=== PATIENT | female | born 1950 | race Caucasian/White ===

== ENCOUNTER 2018-12-11 10:40 | Inpatient (IN) | payer MEDICARE, OTHER ==
[~2018-12-11] VITALS: Ht 160 cm; Wt 59.1 kg
[~2018-12-11 10:40] MED LIST: ADVAIR 250-501 EACH INH; CEFTIN500 MG PO; LISINOPRIL PO; NORCO 7.5-3251 EACH PO; PREDNISONE10 MG PO; SOMA350 MG PO; SPIRIVA18 MCG INH; VENTOLIN HFA18 GM; ZIAC 5-6.25 MG1 EACH PO; ZIAC PO
[2018-12-11] MEDS ORDERED: SODIUM CHLORIDE 0.9% 1000ML 1,000 ML IV STA (10:44)
--- OUTSIDE RECORDS SUMMARY | 2018-12-11 10:45 | XMS REPORT ---
Author [facility] Address Unknown Phone Unavailable Care Team Providers Care [place] Supervisor Name Role Phone Unavailable Unavailable Payers Payer Name Policy Type Policy Number Effective Date Expiration Date Problems This patient has no known problems. Allergies, Adverse Reactions, Alerts Allergy Name Allergy Type Status Severity Reaction(s) Onset Date Inactive Date Treating Clinician Comments guaifenesin DA Active U 2018-11-09 00:00:00 morphine DA Active MO 2018-11-09 00:00:00 meperidine DA Active MO 2018-11-09 00:00:00 moxifloxacin DA Active [place] 2018-11-09 00:00:00 guaifenesin DA Active U 2017-02-12 00:00:00 morphine DA Active MO 2017-02-12 00:00:00 meperidine DA Active MO 2017-02-12 00:00:00 moxifloxacin DA Active [place] 2017-02-12 00:00:00 Medications This patient has no known medications. Results Test Description Test Time Test Comments Text Results Atomic Results Result Comments LORAZEPAM 2018-11-26 10:13:00 LORAZEPAM (test code=MICHA) < 10.0 ng/mL 50.0-240.0 This test was developed and its performance characteristicsdetermined by [employer]. It has not been cleared or approvedby the Food and Drug Administration.Performed At: [facility] [address] [id number] [facility] Ph:[phone] - MRI ABDOMEN W/O [id number] 09:32:00 FAX: Hermann Nieto [phone] [facility]: B St: ADM FAX: Enrique Haddad MD [phone] Name: KATINA CRUZ [facility] : 1950 Age/S: 68/F [address] [facility] Unit #: [id number] Loc: [address] [address] Phys: Hermann Payne MD Acct: [id number] Dis Date: Status: ADM IN PHONE #: [phone] Exam Date: 11/23/2018920 FAX #: [phone] Reason: r/o CBD stone EXAMS: CPT CODE: [id number] MRI ABDOMEN W/O CONT 97988 TECHNIQUE: - MRI ABDOMEN W/O CONT . TAM RISON: CT abdomen and pelvis 02/25/2017 HISTORY: 68 years Fem yovana r/o CBD stone Liver: Fatty brett er. Intrahepatic Biliary Ducts: Intrahepatic bile ducts vi sualized without irregularity, dilatation or other abnormalities. Common Bile Duct (CBD): No dilatation, stenosis, cut off, or filling defects in CBD. No extrinsic compression. Gallbladder: The gallbladder is likely surgically absent. Pancreas and Pancreatic Duct: The pancreas is unremarkable without eviden ce of pancreatic mass or pancreatic edema. Normal in course and caliber wi thout dilatation, irregularity, or filling defects. Other St ructures: Screening images through upper abdomen demonstrate no signific ant abnormalities. Marrow signal is age appropriate. Lumbar spine f usion with artifact. IMPRESSION: Likely cholecys tectomy. The common bile duct is normal. PAGE 1 Signed Report (CONTINUED) FAX: Hermann Mercado [phone] [facility]: B St: ADM FAX: Enrique Haddad MD [phone] Name: KATINA CRUZ [facility] : 1950 Age/S: 68/F [address] [facility] Unit #: [id number] Loc: [facility] [place] [address] Phys: Hermann Payne MD A cct: [id number] Dis Date: Status: ADM IN PHONE #: [phone] Exam Date: 11/23/2018920 FAX #: [phone] Reason: r/o CBD stone EXAMS: CPT CODE: [id number] MRI ABDOMEN W/O CONT 60033 < Continued> at 0932 Reported and signed by: Jay Doshi M.D. CC: Hermann Payne MD; Enrique Hawk Technologist: MICHAEL ANNART - MRI Trnscrd Date/Time/By: 11/23/2018 (0959) : By: Rashi Childs Print D/T: S: 11/23/2018 (0967) PAGE 2 Signed Report HEPATIC FUNCTION [id number] 06:10:00* Test Item Value Reference Range Comments TOTAL PROTEIN (test code=PROT) 6.9 gram/dL 6.4-8.2 ALBUMIN (test code=ALB) 3.1 g/dL 3.4-5.0 GLOBULIN (test code=GLOB) 3.8 gram/dL 2.7-4.2 ALBUMIN/GLOBULIN RATIO (test code=A/G) 0.8 0.75-1.50 BILIRUBIN TOTAL (test code=BILT) 0.50 mg/dL 0.0-1.0 BILIRUBIN DIRECT (test code=BILD) < 0.05 mg/dL 0.0-0.20 SGOT/AST (test code=AST) 20 IUnit/L 15-37 SGPT/ALT (test code=ALT) 19 IUnit/L 12-78 ALKALINE PHOSPHATASE TOTAL (test code=ALKP) 163 IUnit/L 45-117 Note change in reference range due to change in reagent. COMPREHENSIVE METABOLIC [id number] 08:33:00* Test Item Value Reference Range Comments SODIUM (test code=NA) 131 mmol/L 136-145 POTASSIUM (test code=K) 3.6 mmol/L 3.5-5.1 CHLORIDE (test code=CL) 96.0 mmol/L 98-107 CARBON DIOXIDE (test code=CO2) 22.0 mmol/L 21-32 ANION GAP (test code=GAP) 16.6 10-20 GLUCOSE (test code=GLU) 88 mg/dL 74-106 BLOOD UREA NITROGEN (test code=BUN) 6 mg/dL 7-18 GLOMERULAR FILTRATION RATE (test code=GFR) > 60 mL/min >=60 Estimated GFR by using Modified MDRD formula.Chronic kidney disease is defined as either kidney damageor GFR <60 mL/min/1.73 m2 for >3 months. CREATININE (test code=CREAT) 0.40 mg/dL 0.55-1.02 Note change in reference range due to change in reagent. BUN/CREATININE RATIO (test code=BUN/CREA) 15.0 10-20 TOTAL PROTEIN (test code=PROT) 6.8 gram/dL 6.4-8.2 ALBUMIN (test code=ALB) 3.3 g/dL 3.4-5.0 GLOBULIN (test code=GLOB) 3.5 gram/dL 2.7-4.2 ALBUMIN/GLOBULIN RATIO (test code=A/G) 0.9 0.75-1.50 CALCIUM (test code=CA) 9.6 mg/dL 8.5-10.1 BILIRUBIN TOTAL (test code=BILT) 0.50 mg/dL 0.0-1.0 SGOT/AST (test code=AST) 18 IUnit/L 15-37 SGPT/ALT (test code=ALT) 19 IUnit/L 12-78 ALKALINE PHOSPHATASE TOTAL (test code=ALKP) 141 IUnit/L 45-117 Note change in reference range due to change in reagent. CBC W/AUTO [id number] 08:07:00* Test Item Value Reference Range Comments WHITE BLOOD CELL (test code=WBC) 8.6 K/mm3 4.5-12.5 RED BLOOD CELL (test code=RBC) 4.59 mill/mm3 3.7-5.2 HEMOGLOBIN (test code=HGB) 13.7 gram/dL 11.5-15.5 HEMATOCRIT (test code=HCT) 41.2 % 36.0-46.0 MEAN CELL VOLUME (test code=MCV) 89.8 fL 80-98 MEAN CELL HGB (test code=MCH) 29.8 picogram 27.0-33.0 MEAN CELL HGB CONCETRATION (test code=MCHC) 33.3 gram/dL 33.0-36.0 RED CELL DISTRIBUTION WIDTH (test code=RDW) 12.6 % 11.6-16.2 RED CELL DISTRIBUTION WIDTH SD (test code=RDW-SD) 41.4 fL 37.0-51.0 PLATELET COUNT (test code=PLT) 286 K/mm3 150-450 MEAN PLATELET VOLUME (test code=MPV) 9.5 fL 6.7-11.0 NEUTROPHIL % (test code=NT%) 71.3 % 39.0-69.0 IMMATURE GRANULOCYTE % (test code=IG%) 0.9 % 0.0-5.0 LYMPHOCYTE % (test code=LY%) 14.0 % 25.0-55.0 MONOCYTE % (test code=MO%) 11.4 % 0.0-10.0 EOSINOPHIL % (test code=EO%) 1.9 % 0.0-5.0 BASOPHIL % (test code=BA%) 0.5 % 0.0-1.0 NUCLEATED RBC % (test code=NRBC%) 0.0 % 0-0 NEUTROPHIL # (test code=NT#) 6.14 K/mm3 1.8-7.7 IMMATURE GRANULOCYTE # (test code=IG#) 0.08 x10 3/uL 0-0.03 LYMPHOCYTE # (test code=LY#) 1.20 K/mm3 1.0-5.0 MONOCYTE # (test code=MO#) 0.98 K/mm3 0-0.8 EOSINOPHIL # (test code=EO#) 0.16 K/mm3 0.0-0.5 BASOPHIL # (test code=BA#) 0.04 K/mm3 0.0-0.2 NUCLEATED RBC # (test code=NRBC#) 0.00 K/mm3 0.0-0.1 MANUAL DIFF REQUIRED (test code=MDIFF) NO BASIC METABOLIC [id number] 07:21:00* Test Item Value Reference Range Comments SODIUM (test code=NA) 138 mmol/L 136-145 POTASSIUM (test code=K) 3.0 mmol/L 3.5-5.1 CHLORIDE (test code=CL) mmol/L 98-107 CARBON DIOXIDE (test code=CO2) mmol/L 21-32 ANION GAP (test code=GAP) 10-20 GLUCOSE (test code=GLU) mg/dL 74-106 BLOOD UREA NITROGEN (test code=BUN) mg/dL 7-18 GLOMERULAR FILTRATION RATE (test code=GFR) mL/min >=60 CREATININE (test code=CREAT) mg/dL 0.55-1.02 BUN/CREATININE RATIO (test code=BUN/CREA) 10-20 CALCIUM (test code=CA) mg/dL 8.5-10.1 BASIC METABOLIC [id number] 07:21:00* Test Item Value Reference Range Comments SODIUM (test code=NA) 138 mmol/L 136-145 POTASSIUM (test code=K) 3.0 mmol/L 3.5-5.1 CHLORIDE (test code=CL) 96.0 mmol/L 98-107 CARBON DIOXIDE (test code=CO2) 26.0 mmol/L 21-32 ANION GAP (test code=GAP) 19.0 10-20 GLUCOSE (test code=GLU) 91 mg/dL 74-106 BLOOD UREA NITROGEN (test code=BUN) 6 mg/dL 7-18 GLOMERULAR FILTRATION RATE (test code=GFR) > 60 mL/min >=60 Estimated GFR by using Modified MDRD formula.Chronic kidney disease is defined as either kidney damageor GFR <60 mL/min/1.73 m2 for >3 months. CREATININE (test code=CREAT) 0.40 mg/dL 0.55-1.02 Note change in reference range due to change in reagent. BUN/CREATININE RATIO (test code=BUN/CREA) 15.0 10-20 CALCIUM (test code=CA) 9.3 mg/dL 8.5-10.1 CBC W/AUTO [id number] 06:57:00* Test Item Value Reference Range Comments WHITE BLOOD CELL (test code=WBC) 8.4 K/mm3 4.5-12.5 RED BLOOD CELL (test code=RBC) 4.10 mill/mm3 3.7-5.2 HEMOGLOBIN (test code=HGB) 12.4 gram/dL 11.5-15.5 HEMATOCRIT (test code=HCT) 36.2 % 36.0-46.0 MEAN CELL VOLUME (test code=MCV) 88.3 fL 80-98 MEAN CELL HGB (test code=MCH) 30.2 picogram 27.0-33.0 MEAN CELL HGB CONCETRATION (test code=MCHC) 34.3 gram/dL 33.0-36.0 RED CELL DISTRIBUTION WIDTH (test code=RDW) 12.5 % 11.6-16.2 RED CELL DISTRIBUTION WIDTH SD (test code=RDW-SD) 40.3 fL 37.0-51.0 PLATELET COUNT (test code=PLT) 237 K/mm3 150-450 MEAN PLATELET VOLUME (test code=MPV) 9.7 fL 6.7-11.0 NEUTROPHIL % (test code=NT%) 71.4 % 39.0-69.0 IMMATURE GRANULOCYTE % (test code=IG%) 0.7 % 0.0-5.0 LYMPHOCYTE % (test code=LY%) 10.5 % 25.0-55.0 MONOCYTE % (test code=MO%) 14.6 % 0.0-10.0 EOSINOPHIL % (test code=EO%) 2.3 % 0.0-5.0 BASOPHIL % (test code=BA%) 0.5 % 0.0-1.0 NUCLEATED RBC % (test code=NRBC%) 0.0 % 0-0 NEUTROPHIL # (test code=NT#) 6.01 K/mm3 1.8-7.7 IMMATURE GRANULOCYTE # (test code=IG#) 0.06 x10 3/uL 0-0.03 LYMPHOCYTE # (test code=LY#) 0.88 K/mm3 1.0-5.0 MONOCYTE # (test code=MO#) 1.23 K/mm3 0-0.8 EOSINOPHIL # (test code=EO#) 0.19 K/mm3 0.0-0.5 BASOPHIL # (test code=BA#) 0.04 K/mm3 0.0-0.2 NUCLEATED RBC # (test code=NRBC#) 0.00 K/mm3 0.0-0.1 MANUAL DIFF REQUIRED (test code=MDIFF) NO GASTRIC,[id number] 15:37:00 RUN DATE: 11/19/18 [facility] - Lab PAGE 1 RUN TIME: 1537 Specimen Inqui ry RUN USER: INTERFACE PATIENT: KATINA CRUZ ACCT #: [id number] [facility] U #: [id number] AGE/SX: 68/F ROOM: [facility] RE11/10/18OLE DR: Enrique Hawk MD : 48 BED: A DIS: STATUS: ADM IN TLOC: SPEC #: [id number] RECD: 11/17/18 STATUS: SOUT REQ #: [id number] MANPREET: 11/17/[address] [facility] [address]: Enrique Hawk ENTERED: 11/17/18 SP TYPE: GASTRIC BX OTHR DR: Hermann Davison i, MD ORDERED: GROSS COPIES TO: Hermann Payne MD [address], [address] [place] [id number] Enrique Hawk MD [address] [facility] [address] [place] [address] PROCEDURES: GROSS (11/03 12/22-1237) TISSUES: 1. ANTRUM - BX 2. ESOPHAGUS, NOS - BX CLINICAL HISTORY COLLECTION DATE: 11/17/2018 ABDOMINAL PAIN; NAUSEA; VOMITING POST-OP DIAGNOSIS: REFLUX; GASTRITIS; HIATAL HERNIA FINAL DIAGNOSIS Gastric antrum, biopsy: ACUTE GASTRITIS WITH REACTIVE/REGENE RATIVE EPITHELIAL CHANGE NEGATIVE FOR INTESTINAL METAPLASIA NEGAT VIOLETA FOR HELICOBACTER ORGANISMS NEGATIVE FOR MALIGNANCY Esophagus, b iopsy: SQUAMOUS MUCOSA WITH MILD ELONGATION OF SQUAMOUS PAPILLAE, BASAL C ELL HYPERPLASIA AND FEW INTRAEPITHELIAL LYMPHOCYTES NO INCREASED NUMBER OF INTRAEPITHELIAL EOSINOPHILS MINUTE AREA OF GASTRIC-TYPE GLANDU LAR MUCOSA WITH MODERATE CHRONIC INFLAMMATION AND FOCAL ACUTE INFLAMMAT ION NO GOBLET CELL METAPLASIA PRESENT NEGATIVE FOR HIGH GRADE DYSP LASIA AND MALIGNANCY REFLUX ESOPHAGITIS CONTINUED ON NEXT PAGE RUN DATE: 11/19/18 [facility] PAGE 2 RUN TIME: 1537 Specimen Inquiry RUN USER: INTERFACE SPEC #: [id number] PATIENT: CHRISTIANA CRUZH DIXIE #[id number] (Continued)--------- --- FINAL DIAGNOSIS (Continued) GRAHAM/vikas D 2)15226, 41720 MACROSCOPIC The first specimen is received in formal in, labeled with the patient's name, identified as "antrum biopsy", and consis ts of two biopsy fragments measuring 0.2 and 0.3 cm, submitted as (1). An H E and giemsa stain will be prepared. The second specimen is received in for dean, labeled with the patient's name, identified as "esophagus biopsy", and consists of two white biopsy fragments measuring 0.3 cm each, submitted as (2) . GROSS PERFORMED AT [facility] [address] [place] [address] [phone] MICROSCOPIC All of the stains, including any controls performed, stain appropriately. MICROSCOPIC PERFORMED AT [facility] [address] [place] [address] [phone] PERFORMING SITE Diagnosis performed at: [facility], [address] [address] Signed SIGNATURE ON FILE Davis Flaherty MD 11/19/18 1537 END OF REPORT BASIC METABOLIC PANEL 2018-11-18 07:59:00* Test Item Value Reference Range Comments SODIUM (test code=NA) 130 mmol/L 136-145 POTASSIUM (test code=K) 3.4 mmol/L 3.5-5.1 CHLORIDE (test code=CL) 96.0 mmol/L 98-107 CARBON DIOXIDE (test code=CO2) 26.0 mmol/L 21-32 ANION GAP (test code=GAP) 10-20 GLUCOSE (test code=GLU) 93 mg/dL 74-106 BLOOD UREA NITROGEN (test code=BUN) 10 mg/dL 7-18 GLOMERULAR FILTRATION RATE (test code=GFR) > 60 mL/min >=60 Estimated GFR by using Modified MDRD formula.Chronic kidney disease is defined as either kidney damageor GFR <60 mL/min/1.73 m2 for >3 months. CREATININE (test code=CREAT) 0.50 mg/dL 0.55-1.02 Note change in reference range due to change in reagent. BUN/CREATININE RATIO (test code=BUN/CREA) 20.0 10-20 CALCIUM (test code=CA) 9.4 mg/dL 8.5-10.1 BASIC METABOLIC [id number] 07:59:00* Test Item Value Reference Range Comments SODIUM (test code=NA) 130 mmol/L 136-145 POTASSIUM (test code=K) 3.4 mmol/L 3.5-5.1 CHLORIDE (test code=CL) 96.0 mmol/L 98-107 CARBON DIOXIDE (test code=CO2) 26.0 mmol/L 21-32 Previously reported result: 26.0 mmol/LEdited by: [email or web address] on 11/18/18:0759 ANION GAP (test code=GAP) 11.4 10-20 GLUCOSE (test code=GLU) 93 mg/dL 74-106 BLOOD UREA NITROGEN (test code=BUN) 10 mg/dL 7-18 GLOMERULAR FILTRATION RATE (test code=GFR) > 60 mL/min >=60 Estimated GFR by using Modified MDRD formula.Chronic kidney disease is defined as either kidney damageor GFR <60 mL/min/1.73 m2 for >3 months. CREATININE (test code=CREAT) 0.50 mg/dL 0.55-1.02 Note change in reference range due to change in reagent. BUN/CREATININE RATIO (test code=BUN/CREA) 20.0 10-20 CALCIUM (test code=CA) 9.4 mg/dL 8.5-10.1 BASIC METABOLIC [id number] 07:58:00* Test Item Value Reference Range Comments SODIUM (test code=NA) 130 mmol/L 136-145 POTASSIUM (test code=K) 3.4 mmol/L 3.5-5.1 CHLORIDE (test code=CL) 96.0 mmol/L 98-107 CARBON DIOXIDE (test code=CO2) mmol/L 21-32 ANION GAP (test code=GAP) 10-20 GLUCOSE (test code=GLU) mg/dL 74-106 BLOOD UREA NITROGEN (test code=BUN) mg/dL 7-18 GLOMERULAR FILTRATION RATE (test code=GFR) mL/min >=60 CREATININE (test code=CREAT) mg/dL 0.55-1.02 BUN/CREATININE RATIO (test code=BUN/CREA) 10-20 CALCIUM (test code=CA) mg/dL 8.5-10.1 CBC W/AUTO [id number] 07:46:00* Test Item Value Reference Range Comments WHITE BLOOD CELL (test code=WBC) 9.4 K/mm3 4.5-12.5 RED BLOOD CELL (test code=RBC) 3.96 mill/mm3 3.7-5.2 HEMOGLOBIN (test code=HGB) 11.6 gram/dL 11.5-15.5 HEMATOCRIT (test code=HCT) 34.6 % 36.0-46.0 MEAN CELL VOLUME (test code=MCV) 87.4 fL 80-98 MEAN CELL HGB (test code=MCH) 29.3 picogram 27.0-33.0 MEAN CELL HGB CONCETRATION (test code=MCHC) 33.5 gram/dL 33.0-36.0 RED CELL DISTRIBUTION WIDTH (test code=RDW) 12.4 % 11.6-16.2 RED CELL DISTRIBUTION WIDTH SD (test code=RDW-SD) 39.3 fL 37.0-51.0 PLATELET COUNT (test code=PLT) 218 K/mm3 150-450 RESULT VERIFIED BY REPEAT ANALYSIS MEAN PLATELET VOLUME (test code=MPV) 9.3 fL 6.7-11.0 NEUTROPHIL % (test code=NT%) 75.9 % 39.0-69.0 IMMATURE GRANULOCYTE % (test code=IG%) 1.0 % 0.0-5.0 LYMPHOCYTE % (test code=LY%) 11.2 % 25.0-55.0 MONOCYTE % (test code=MO%) 9.6 % 0.0-10.0 EOSINOPHIL % (test code=EO%) 1.8 % 0.0-5.0 BASOPHIL % (test code=BA%) 0.5 % 0.0-1.0 NUCLEATED RBC % (test code=NRBC%) 0.0 % 0-0 NEUTROPHIL # (test code=NT#) 7.11 K/mm3 1.8-7.7 IMMATURE GRANULOCYTE # (test code=IG#) 0.09 x10 3/uL 0-0.03 LYMPHOCYTE # (test code=LY#) 1.05 K/mm3 1.0-5.0 MONOCYTE # (test code=MO#) 0.90 K/mm3 0-0.8 EOSINOPHIL # (test code=EO#) 0.17 K/mm3 0.0-0.5 BASOPHIL # (test code=BA#) 0.05 K/mm3 0.0-0.2 NUCLEATED RBC # (test code=NRBC#) 0.00 K/mm3 0.0-0.1 MANUAL DIFF REQUIRED (test code=MDIFF) NO COMPREHENSIVE METABOLIC [id number] 14:23:00* Test Item Value Reference Range Comments SODIUM (test code=NA) 128 mmol/L 136-145 POTASSIUM (test code=K) 4.0 mmol/L 3.5-5.1 CHLORIDE (test code=CL) 94.0 mmol/L 98-107 CARBON DIOXIDE (test code=CO2) 24.0 mmol/L 21-32 ANION GAP (test code=GAP) 14.0 10-20 GLUCOSE (test code=GLU) 87 mg/dL 74-106 BLOOD UREA NITROGEN (test code=BUN) 15 mg/dL 7-18 GLOMERULAR FILTRATION RATE (test code=GFR) > 60 mL/min >=60 Estimated GFR by using Modified MDRD formula.Chronic kidney disease is defined as either kidney damageor GFR <60 mL/min/1.73 m2 for >3 months. CREATININE (test code=CREAT) 0.60 mg/dL 0.55-1.02 Note change in reference range due to change in reagent. BUN/CREATININE RATIO (test code=BUN/CREA) 25.0 10-20 TOTAL PROTEIN (test code=PROT) 6.5 gram/dL 6.4-8.2 ALBUMIN (test code=ALB) 3.0 g/dL 3.4-5.0 GLOBULIN (test code=GLOB) 3.5 gram/dL 2.7-4.2 ALBUMIN/GLOBULIN RATIO (test code=A/G) 0.9 0.75-1.50 CALCIUM (test code=CA) 9.6 mg/dL 8.5-10.1 BILIRUBIN TOTAL (test code=BILT) 0.50 mg/dL 0.0-1.0 SGOT/AST (test code=AST) 17 IUnit/L 15-37 SGPT/ALT (test code=ALT) 21 IUnit/L 12-78 ALKALINE PHOSPHATASE TOTAL (test code=ALKP) 146 IUnit/L 45-117 Note change in reference range due to change in reagent. COMPREHENSIVE METABOLIC [id number] 14:07:00* Test Item Value Reference Range Comments SODIUM (test code=NA) 128 mmol/L 136-145 POTASSIUM (test code=K) 4.0 mmol/L 3.5-5.1 CHLORIDE (test code=CL) 94.0 mmol/L 98-107 CARBON DIOXIDE (test code=CO2) mmol/L 21-32 ANION GAP (test code=GAP) 10-20 GLUCOSE (test code=GLU) mg/dL 74-106 BLOOD UREA NITROGEN (test code=BUN) mg/dL 7-18 GLOMERULAR FILTRATION RATE (test code=GFR) mL/min >=60 CREATININE (test code=CREAT) mg/dL 0.55-1.02 BUN/CREATININE RATIO (test code=BUN/CREA) 10-20 TOTAL PROTEIN (test code=PROT) gram/dL 6.4-8.2 ALBUMIN (test code=ALB) g/dL 3.4-5.0 GLOBULIN (test code=GLOB) gram/dL 2.7-4.2 ALBUMIN/GLOBULIN RATIO (test code=A/G) 0.75-1.50 CALCIUM (test code=CA) mg/dL 8.5-10.1 BILIRUBIN TOTAL (test code=BILT) mg/dL 0.0-1.0 SGOT/AST (test code=AST) IUnit/L 15-37 SGPT/ALT (test code=ALT) IUnit/L 12-78 ALKALINE PHOSPHATASE TOTAL (test code=ALKP) IUnit/L 45-117 CBC W/O [id number] 13:57:00* Test Item Value Reference Range Comments WHITE BLOOD CELL (test code=WBC) 10.5 K/mm3 4.5-12.5 RED BLOOD CELL (test code=RBC) 4.27 mill/mm3 3.7-5.2 HEMOGLOBIN (test code=HGB) 12.9 gram/dL 11.5-15.5 HEMATOCRIT (test code=HCT) 37.8 % 36.0-46.0 MEAN CELL VOLUME (test code=MCV) 88.5 fL 80-98 MEAN CELL HGB (test code=MCH) 30.2 picogram 27.0-33.0 MEAN CELL HGB CONCETRATION (test code=MCHC) 34.1 gram/dL 33.0-36.0 RED CELL DISTRIBUTION WIDTH (test code=RDW) 12.4 % 11.6-16.2 PLATELET COUNT (test code=PLT) 271 K/mm3 150-450 MEAN PLATELET VOLUME (test code=MPV) 9.4 fL 6.7-11.0 CBC W/O [id number] 13:52:00* Test Item Value Reference Range Comments WHITE BLOOD CELL (test code=WBC) K/mm3 4.5-12.5 RED BLOOD CELL (test code=RBC) mill/mm3 3.7-5.2 HEMOGLOBIN (test code=HGB) 12.9 gram/dL 11.5-15.5 HEMATOCRIT (test code=HCT) 37.8 % 36.0-46.0 MEAN CELL VOLUME (test code=MCV) fL 80-98 MEAN CELL HGB (test code=MCH) picogram 27.0-33.0 MEAN CELL HGB CONCETRATION (test code=MCHC) gram/dL 33.0-36.0 RED CELL DISTRIBUTION WIDTH (test code=RDW) % 11.6-16.2 PLATELET COUNT (test code=PLT) K/mm3 150-450 MEAN PLATELET VOLUME (test code=MPV) fL 6.7-11.0 - CT HEAD/BRAIN W/O [id number] 13:31:00 Name: KATINA CRUZ [facility] : 1950 Age/S: 68 / F Rajesh Banks Unit #: [id number] Loc: [place] [address] Phys: Enrique Hawk MD Acct: [id number] Dis Date: Status: ADM IN PHONE #: [phone] Exam Date: 11/17/2018 1303 FAX #: [phone] Reason: CONFUSION EXAMS: CPT CODE: [id number] CT HEAD/BRAIN W/O CONT 00413 TECHNIQUE: - CT HEAD/BRAIN W/O CONT . This exam was performed using one or more of the following dose reduction techniques: Automated exposure control, adjustment of the mA and/ or kV according to patient size or use of iterative reconstruction technique. COMPARISON: CT brain 11/09/2018 HISTORY: 68 years Female CONFUSION FINDINGS: Supra tentorial compartment and Posterior fossa: No hemorrhage. No intra-axial mass. No midline shift. Volume loss and small vessel white matter ischemic changes. Extra-axial structures: No hematoma, fluid collection, or mass. Ventricles and Basal Cisterns: No hydrocephalus. Basal cisterns are normal. Visualized Orbits: No abnormalities. Visualized Osseous structu res: Within normal limits. Visualized paranasal Sinuses: Within no rmal limits. Other: None. IMPRESSION: N o hemorrhage. Volume loss and small vessel white matter ischemic changes . at 1331 Reported and signed by: Jay Doshi M.D. PAGE 1 Signed Report (CONTINUED) Name: KATINA CRUZ [facility] : 1950 Age/S: 68 / F [address] Unit #: [id number] Loc: [place] [address] Phys: Enrique Hawk MD Acct: [id number] Dis Date: Status: ADM IN PHONE #: [phone] Exam Date: 11/17/2018 1307 FAX #: [phone] Reason: CONFUSION EXAMS: CPT CODE: [id number] CT HEAD/BRAIN W/O CONT 29873 <Continued> CC: Enrique Hawk Technologist:Seth Madison RT(R),(MR),(CT); CTDI: DLP: Trnscb Date/Time: 11/17/2018 (5954) [email or web address] Orig Print D/T: S: 11/17/2018 (4374) PAGE 2 Signed Report BASIC METABOLIC [id number] 07:36:00* Test Item Value Reference Range Comments SODIUM (test code=NA) 129 mmol/L 136-145 POTASSIUM (test code=K) 3.6 mmol/L 3.5-5.1 CHLORIDE (test code=CL) 93.0 mmol/L 98-107 CARBON DIOXIDE (test code=CO2) 26.0 mmol/L 21-32 ANION GAP (test code=GAP) 13.6 10-20 GLUCOSE (test code=GLU) 91 mg/dL 74-106 BLOOD UREA NITROGEN (test code=BUN) 17 mg/dL 7-18 GLOMERULAR FILTRATION RATE (test code=GFR) > 60 mL/min >=60 Estimated GFR by using Modified MDRD formula.Chronic kidney disease is defined as either kidney damageor GFR <60 mL/min/1.73 m2 for >3 months. CREATININE (test code=CREAT) 0.70 mg/dL 0.55-1.02 Note change in reference range due to change in reagent. BUN/CREATININE RATIO (test code=BUN/CREA) 24.3 10-20 CALCIUM (test code=CA) 9.6 mg/dL 8.5-10.1 BASIC METABOLIC [id number] 07:31:00* Test Item Value Reference Range Comments SODIUM (test code=NA) 129 mmol/L 136-145 POTASSIUM (test code=K) 3.6 mmol/L 3.5-5.1 CHLORIDE (test code=CL) 93.0 mmol/L 98-107 CARBON DIOXIDE (test code=CO2) mmol/L 21-32 ANION GAP (test code=GAP) 10-20 GLUCOSE (test code=GLU) mg/dL 74-106 BLOOD UREA NITROGEN (test code=BUN) mg/dL 7-18 GLOMERULAR FILTRATION RATE (test code=GFR) mL/min >=60 CREATININE (test code=CREAT) mg/dL 0.55-1.02 BUN/CREATININE RATIO (test code=BUN/CREA) 10-20 CALCIUM (test code=CA) mg/dL 8.5-10.1 CBC W/AUTO [id number] 07:22:00* Test Item Value Reference Range Comments WHITE BLOOD CELL (test code=WBC) 11.9 K/mm3 4.5-12.5 RED BLOOD CELL (test code=RBC) 4.56 mill/mm3 3.7-5.2 HEMOGLOBIN (test code=HGB) 13.7 gram/dL 11.5-15.5 HEMATOCRIT (test code=HCT) 41.0 % 36.0-46.0 MEAN CELL VOLUME (test code=MCV) 89.9 fL 80-98 MEAN CELL HGB (test code=MCH) 30.0 picogram 27.0-33.0 MEAN CELL HGB CONCETRATION (test code=MCHC) 33.4 gram/dL 33.0-36.0 RED CELL DISTRIBUTION WIDTH (test code=RDW) 12.3 % 11.6-16.2 RED CELL DISTRIBUTION WIDTH SD (test code=RDW-SD) 40.5 fL 37.0-51.0 PLATELET COUNT (test code=PLT) 289 K/mm3 150-450 MEAN PLATELET VOLUME (test code=MPV) 9.6 fL 6.7-11.0 NEUTROPHIL % (test code=NT%) 76.9 % 39.0-69.0 IMMATURE GRANULOCYTE % (test code=IG%) 1.2 % 0.0-5.0 LYMPHOCYTE % (test code=LY%) 10.2 % 25.0-55.0 MONOCYTE % (test code=MO%) 9.6 % 0.0-10.0 EOSINOPHIL % (test code=EO%) 1.6 % 0.0-5.0 BASOPHIL % (test code=BA%) 0.5 % 0.0-1.0 NUCLEATED RBC % (test code=NRBC%) 0.0 % 0-0 NEUTROPHIL # (test code=NT#) 9.17 K/mm3 1.8-7.7 IMMATURE GRANULOCYTE # (test code=IG#) 0.14 x10 3/uL 0-0.03 LYMPHOCYTE # (test code=LY#) 1.21 K/mm3 1.0-5.0 MONOCYTE # (test code=MO#) 1.14 K/mm3 0-0.8 EOSINOPHIL # (test code=EO#) 0.19 K/mm3 0.0-0.5 BASOPHIL # (test code=BA#) 0.06 K/mm3 0.0-0.2 NUCLEATED RBC # (test code=NRBC#) 0.00 K/mm3 0.0-0.1 MANUAL DIFF REQUIRED (test code=MDIFF) NO CBC W/AUTO [id number] 07:11:00* Test Item Value Reference Range Comments WHITE BLOOD CELL (test code=WBC) K/mm3 4.5-12.5 RED BLOOD CELL (test code=RBC) mill/mm3 3.7-5.2 HEMOGLOBIN (test code=HGB) 13.7 gram/dL 11.5-15.5 HEMATOCRIT (test code=HCT) 41.0 % 36.0-46.0 MEAN CELL VOLUME (test code=MCV) fL 80-98 MEAN CELL HGB (test code=MCH) picogram 27.0-33.0 MEAN CELL HGB CONCETRATION (test code=MCHC) gram/dL 33.0-36.0 RED CELL DISTRIBUTION WIDTH (test code=RDW) % 11.6-16.2 RED CELL DISTRIBUTION WIDTH SD (test code=RDW-SD) fL 37.0-51.0 PLATELET COUNT (test code=PLT) K/mm3 150-450 MEAN PLATELET VOLUME (test code=MPV) fL 6.7-11.0 NEUTROPHIL % (test code=NT%) % 39.0-69.0 IMMATURE GRANULOCYTE % (test code=IG%) % 0.0-5.0 LYMPHOCYTE % (test code=LY%) % 25.0-55.0 MONOCYTE % (test code=MO%) % 0.0-10.0 EOSINOPHIL % (test code=EO%) % 0.0-5.0 BASOPHIL % (test code=BA%) % 0.0-1.0 NEUTROPHIL # (test code=NT#) K/mm3 1.8-7.7 LYMPHOCYTE # (test code=LY#) K/mm3 1.0-5.0 MONOCYTE # (test code=MO#) K/mm3 0-0.8 EOSINOPHIL # (test code=EO#) K/mm3 0.0-0.5 BASOPHIL # (test code=BA#) K/mm3 0.0-0.2 BASIC METABOLIC [id number] 05:02:00* Test Item Value Reference Range Comments SODIUM (test code=NA) 129 mmol/L 136-145 POTASSIUM (test code=K) 4.0 mmol/L 3.5-5.1 CHLORIDE (test code=CL) 95.0 mmol/L 98-107 CARBON DIOXIDE (test code=CO2) 24.0 mmol/L 21-32 ANION GAP (test code=GAP) 14.0 10-20 GLUCOSE (test code=GLU) 97 mg/dL 74-106 BLOOD UREA NITROGEN (test code=BUN) 10 mg/dL 7-18 GLOMERULAR FILTRATION RATE (test code=GFR) > 60 mL/min >=60 Estimated GFR by using Modified MDRD formula.Chronic kidney disease is defined as either kidney damageor GFR <60 mL/min/1.73 m2 for >3 months. CREATININE (test code=CREAT) 0.50 mg/dL 0.55-1.02 Note change in reference range due to change in reagent. BUN/CREATININE RATIO (test code=BUN/CREA) 20.0 10-20 CALCIUM (test code=CA) 9.3 mg/dL 8.5-10.1 BASIC METABOLIC [id number] 04:54:00* Test Item Value Reference Range Comments SODIUM (test code=NA) 129 mmol/L 136-145 POTASSIUM (test code=K) 4.0 mmol/L 3.5-5.1 CHLORIDE (test code=CL) 95.0 mmol/L 98-107 CARBON DIOXIDE (test code=CO2) mmol/L 21-32 ANION GAP (test code=GAP) 10-20 GLUCOSE (test code=GLU) mg/dL 74-106 BLOOD UREA NITROGEN (test code=BUN) mg/dL 7-18 GLOMERULAR FILTRATION RATE (test code=GFR) mL/min >=60 CREATININE (test code=CREAT) mg/dL 0.55-1.02 BUN/CREATININE RATIO (test code=BUN/CREA) 10-20 CALCIUM (test code=CA) mg/dL 8.5-10.1 BONE,[id number] 17:06:00 RUN DATE: 11/15/18 [facility] PAGE 1 RUN TIME: 1706 Specimen Inqui ry RUN USER: INTERFACE PATIENT: KATINA CRUZ ACCT #: [id number] LOC: [employer] U #: [id number] AGE/SX: 68/F ROOM: [facility] RE11/10/18REG DR: Enrique Hawk MD : 46 BED: A DIS: STATUS: ADM IN TLOC: SPEC #: [id number] RECD: 11/12/18 STATUS: VALENTÍN HAWKINS #: [id number] MANPREET: 11/12/18- SUBM DR: Kennedy Reina MD ENTERED: 11/12/18 SP TYPE: BX BONE HARMEET DR: ORDERED: GROSS PROCEDURES: GROSS (11/15/18142) TISSUES: THORACIC VERTEBRA, NOS - T8 BX 3 SLIDES CLINICAL HISTORY CO LLECTION DATE: 11/12/18 COMPRESSION FRACTURE FINAL DIAGNOSIS T8 bone biopsy and touch preps: BONE AND BONE MARROW NEGATIVE FOR MAL IGNANCY DMW/vikas D 84296, 74036, 03048 MACROS COPIC The specimen is received in formalin, labeled with the patient's name, and identified as "T8 bx". Three touch prep slides are also received for proce ssing and evaluation. It consists of a small core biopsy of red gritty tissue compatible with bone measuring 0.5 cm in length with diameter of 0.1 cm. T he tissue is submitted for light decalcification and follow up histologic eval uation. GROSS PERFORMED AT [facility] [address] [place] [address] [phone] (U) CONTINUED ON NEXT PAGE ------- -----RUN DATE: 11/15/18 [facility] PAGE 2 RUN TIME: 1706 Specimen Inquiry RUN USER: INTERFACE SPEC #: [id number] PATIENT: KATINA CRUZ #[id number] (Continued) MICROSCOPIC All of the stains, including any controls performed, stain appropriately. [place] CROSCOPIC PERFORMED AT [facility] [address] [place] [address] [phone])[phone] PERFORMING SI TE Diagnosis performed at: [facility] [address] [facility], [place] [address] Signed SIGNATURE ON FILE Emely Estrada MD 11/15/18 1706 END OF REPORT - CT T-SPINE W/O CONTRAST 2018-11-15 16:48:00 Name: KATINA CRUZ [facility] : 1950 Age/S: 68 / F Rajesh De Guzman [facility] Unit #: [id number] Loc: [place] [address] Phys: Kennedy Reina MD Acct: [id number] Dis Date: Status: ADM IN PHONE #: [phone] Exam Date: 11/15/2018 9153 FAX #: [phone] Reason: Back pain; CPFx's T7 and 8; st.p. vertebroplast EXAMS: CPT CODE: [id number] CT T-SPINE W/O CONTRAST 79158 COMPARISON: MRI of thoracic spine 11/10/2018 TECHNIQUE: CT thoracic spine sagittal axial coronal images. This exam was performed using one or more of the following dose reduction techniques: Automated exposure control, adjustment of the mA and/ or kV according to patient size or use of iterative reconstruction technique. FINDINGS: Bones: Marrow signal is age appropriate. Prior kyphoplasty T7/T8. Compression fractures at these levels. These postsurgical changes are new since the previous MRI 11/10/2018. There is no significant change in the degree of compression at these levels since the previous MRI. No significant retropulsion is seen at this level.. No suspicious focal lesion. Alignment: No subluxation. Soft tissues: No significant abnormalities. Perivertebral soft tissues and paraspinous soft tissues are normal. Intervertebral discs: Mild spondylosis multiple levels of the thoracic spine. Other: Emphysema. Apical scarring. IMPRESSION: Mild spondylosis multiple levels. Prior kyphoplasty T7/T8. Compression fractures at these levels. These postsurgical changes are new since the previous MRI 11/10/2018. There is no significant change in the degree of compression at these levels since the previous MRI. No significant retropulsion is seen at this level. at 1874 Reported and signed by: Jay Doshi M.D. PAGE 1 Signed Report (CONTINUED) Name: KATINA CRUZ [facility] : 1950 Age/S: 68 / F [address] [facility] Unit #: [id number] Loc: [place] [address] Phys: Kennedy Reina MD Acct: [id number] Dis Date: Status: ADM IN PHONE #: [phone] Exam Date: 11/15/2018 1508 FAX #: [phone] Reason: Back pain; CPFx's T7 and 8; st.p. vertebroplast EXAMS: CPT CODE: [id number] CT T-SPINE W/O CONTRAST 33856 < Continued> CC: Enrique Hawk Technologist:Philly Kimball RT(R),CT; CTDI: DLP: Trnscb Date/Time: 11/15/2018 (2618) tSHAY Orig Print D/T: S: 11/15/2018 (0113) PAGE 2 Signed Report [id number] 12:30:00* Test Item Value Reference Range Comments GLUBETTY (test code=GLUBED) 98 mg/dL 74-106 Performed by certified gleason operator at [facility] - [place] EA ADD CER/[id number] 08:10:00 Name: KATINA CRUZ [facility] : 1950 Age/S: 68 / F [address] Unit #: [id number] Loc: [place] [address] Phys: Kennedy Reina MD Acct: [id number] Dis Date: Status: ADM IN PHONE #: [phone] Exam Date: 11/12/2018 1443 FAX #: [phone] Reason: EXAMS: CPT CODE: [id number] [place] EA ADD CER/LUMB 41145 Fluoro Time: DAP (Gy m2): Air Kerma (mGy): EXAM: 2 level thoracic vertebroplasty; INFORMATION: Significant thoracic back pain after fall; subacute compression fractures of T7 and T8, demonstrated by MRI; TECHNIQUE AND FINDINGS: Benefits and risks of procedure including risks of hemorrhage, infection and cement leakage with possible nerve injury, were explained to the patient and informed consent was obtained. The patient was placed prone on the procedure table and general anesthesia was initiated. Her thoracic back region was prepped and draped in the usual sterile fashion, applying all elements of maximal sterile barrier technique. Marcaine was administered at the skin and at the posterior aspect pedicles of T7 and 8 followed by insertion of trocar cannulas which were positioned in the midportion of the anterior third of the T7 and T8 vertebral bodies. Coaxial biopsy of T8 was performed Bone cement was then slowly injected and good cement distribution was observed at both levels. Cement leakage occurred into the T7/8 disc. This is of no clinical significance. No evidence of epidural cement leakage. Trocar cannulas were then removed. No apparent complications. IMPRESSION: 1. Technically successful percutaneous vertebroplasty for treatment of symptomatic compression fractures of T7 and T8. 2.. Coaxial biopsy of T8. Fluoroscopy Time: 624 sec CAK : 411.36 mGy DAP : 2901 mGy sq cm at 0810 Reported and signed by: Kennedy Reina M.D. CC: Enrique Hawk Technologist: Abraham Martini Trndeb Date/Time: 11/15/2018 (809) Karlee Orig Print D/T: S: 11/15/2018 (85) PAGE 1 Signed Report - VERTEBRO CERVICO-THORACIC 2018-11-15 08:10:00 Name: KATINA CRUZ [facility] : 1950 Age/S: 68 / F [address] [facility] Unit #: [id number] Loc: [place] [address] Phys: Kennedy Reina MD Acct: [id number] Dis Date: Status: ADM IN PHONE #: [phone] Exam Date: 11/12/2018 1445 FAX #: [phone] Reason: EXAMS: CPT CODE: [id number] [place]O CERVICO-THORACIC 47947 Fluoro Time: 624 DAP (Gy m2): 36444 Air Kerma (mGy): 411.3 EXAM: 2 level thoracic vertebroplasty; INFORMATION: Significant thoracic back pain after fall; subacute compression fractures of T7 and T8, demonstrated by MRI; TECHNIQUE AND FINDINGS: Benefits and risks of procedure including risks of hemorrhage, infection and cement leakage with possible nerve injury, were explained to the patient and informed consent was obtained. The patient was placed prone on the procedure table and general anesthesia was initiated. Her thoracic back region was prepped and draped in the usual sterile fashion, applying all elements of maximal sterile barrier technique. Marcaine was administered at the skin and at the posterior aspect pedicles of T7 and 8 followed by insertion of trocar cannulas which were positioned in the midportion of the anterior third of the T7 and T8 vertebral bodies. Coaxial biopsy of T8 was performed Bone cement was then slowly injected and good cement distribution was observed at both levels. Cement leakage occurred into the T7/8 disc. This is of no clinical significance. No evidence of epidural cement leakage. Trocar cannulas were then removed. No apparent complications. IMPRESSION: 1. Technically successful percutaneous vertebroplasty for treatment of symptomatic compression fractures of T7 and T8. 2.. Coaxial biopsy of T8. Fluoroscopy Time: 624 sec CAK : 411.36 mGy DAP : 2901 mGy sq cm at 0810 Reported and signed by: Kennedy Reina M.D. CC: Enrique Hwak Technologist: Abraham Martini Trnscb Date/Time: 11/15/2018 (809) Haylie.GRW Orig Print D/T: S: 11/15/2018 (1414) PAGE 1 Signed Report BASIC METABOLIC [id number] 06:37:00* Test Item Value Reference Range Comments SODIUM (test code=NA) 131 mmol/L 136-145 POTASSIUM (test code=K) 3.2 mmol/L 3.5-5.1 CHLORIDE (test code=CL) 96.0 mmol/L 98-107 CARBON DIOXIDE (test code=CO2) 25.0 mmol/L 21-32 ANION GAP (test code=GAP) 13.2 10-20 GLUCOSE (test code=GLU) 97 mg/dL 74-106 BLOOD UREA NITROGEN (test code=BUN) 7 mg/dL 7-18 GLOMERULAR FILTRATION RATE (test code=GFR) > 60 mL/min >=60 Estimated GFR by using Modified MDRD formula.Chronic kidney disease is defined as either kidney damageor GFR <60 mL/min/1.73 m2 for >3 months. CREATININE (test code=CREAT) 0.50 mg/dL 0.55-1.02 Note change in reference range due to change in reagent. BUN/CREATININE RATIO (test code=BUN/CREA) 14.0 10-20 CALCIUM (test code=CA) 9.4 mg/dL 8.5-10.1 BASIC METABOLIC [id number] 06:29:00* Test Item Value Reference Range Comments SODIUM (test code=NA) 131 mmol/L 136-145 POTASSIUM (test code=K) 3.2 mmol/L 3.5-5.1 CHLORIDE (test code=CL) 96.0 mmol/L 98-107 CARBON DIOXIDE (test code=CO2) mmol/L 21-32 ANION GAP (test code=GAP) 10-20 GLUCOSE (test code=GLU) mg/dL 74-106 BLOOD UREA NITROGEN (test code=BUN) mg/dL 7-18 GLOMERULAR FILTRATION RATE (test code=GFR) mL/min >=60 CREATININE (test code=CREAT) mg/dL 0.55-1.02 BUN/CREATININE RATIO (test code=BUN/CREA) 10-20 CALCIUM (test code=CA) mg/dL 8.5-10.1 BASIC METABOLIC [id number] 06:19:00* Test Item Value Reference Range Comments SODIUM (test code=NA) 133 mmol/L 136-145 POTASSIUM (test code=K) 2.9 mmol/L 3.5-5.1 Results called to [id number] by DANISH 11/14/18 0619Critical results verified and read back by Nurse? U CHLORIDE (test code=CL) 94.0 mmol/L 98-107 CARBON DIOXIDE (test code=CO2) 29.0 mmol/L 21-32 ANION GAP (test code=GAP) 12.9 10-20 GLUCOSE (test code=GLU) 104 mg/dL 74-106 BLOOD UREA NITROGEN (test code=BUN) 8 mg/dL 7-18 GLOMERULAR FILTRATION RATE (test code=GFR) > 60 mL/min >=60 Estimated GFR by using Modified MDRD formula.Chronic kidney disease is defined as either kidney damageor GFR <60 mL/min/1.73 m2 for >3 months. CREATININE (test code=CREAT) 0.60 mg/dL 0.55-1.02 Note change in reference range due to change in reagent. BUN/CREATININE RATIO (test code=BUN/CREA) 13.3 10-20 CALCIUM (test code=CA) 9.4 mg/dL 8.5-10.1 BASIC METABOLIC [id number] 06:04:00* Test Item Value Reference Range Comments SODIUM (test code=NA) mmol/L 136-145 POTASSIUM (test code=K) mmol/L 3.5-5.1 CHLORIDE (test code=CL) mmol/L 98-107 CARBON DIOXIDE (test code=CO2) 29.0 mmol/L 21-32 ANION GAP (test code=GAP) 10-20 GLUCOSE (test code=GLU) 104 mg/dL 74-106 BLOOD UREA NITROGEN (test code=BUN) 8 mg/dL 7-18 GLOMERULAR FILTRATION RATE (test code=GFR) > 60 mL/min >=60 Estimated GFR by using Modified MDRD formula.Chronic kidney disease is defined as either kidney damageor GFR <60 mL/min/1.73 m2 for >3 months. CREATININE (test code=CREAT) 0.60 mg/dL 0.55-1.02 Note change in reference range due to change in reagent. BUN/CREATININE RATIO (test code=BUN/CREA) 13.3 10-20 CALCIUM (test code=CA) mg/dL 8.5-10.1 BASIC METABOLIC [id number] 05:59:00* Test Item Value Reference Range Comments SODIUM (test code=NA) 133 mmol/L 136-145 POTASSIUM (test code=K) 3.4 mmol/L 3.5-5.1 CHLORIDE (test code=CL) 94.0 mmol/L 98-107 CARBON DIOXIDE (test code=CO2) 28.0 mmol/L 21-32 ANION GAP (test code=GAP) 14.4 10-20 GLUCOSE (test code=GLU) 116 mg/dL 74-106 BLOOD UREA NITROGEN (test code=BUN) 6 mg/dL 7-18 GLOMERULAR FILTRATION RATE (test code=GFR) > 60 mL/min >=60 Estimated GFR by using Modified MDRD formula.Chronic kidney disease is defined as either kidney damageor GFR <60 mL/min/1.73 m2 for >3 months. CREATININE (test code=CREAT) 0.50 mg/dL 0.55-1.02 Note change in reference range due to change in reagent. BUN/CREATININE RATIO (test code=BUN/CREA) 12.0 10-20 CALCIUM (test code=CA) 9.4 mg/dL 8.5-10.1 BASIC METABOLIC [id number] 05:48:00* Test Item Value Reference Range Comments SODIUM (test code=NA) 133 mmol/L 136-145 POTASSIUM (test code=K) 3.4 mmol/L 3.5-5.1 CHLORIDE (test code=CL) 94.0 mmol/L 98-107 CARBON DIOXIDE (test code=CO2) mmol/L 21-32 ANION GAP (test code=GAP) 10-20 GLUCOSE (test code=GLU) mg/dL 74-106 BLOOD UREA NITROGEN (test code=BUN) mg/dL 7-18 GLOMERULAR FILTRATION RATE (test code=GFR) mL/min >=60 CREATININE (test code=CREAT) mg/dL 0.55-1.02 BUN/CREATININE RATIO (test code=BUN/CREA) 10-20 CALCIUM (test code=CA) mg/dL 8.5-10.1 CBC W/AUTO [id number] 05:33:00* Test Item Value Reference Range Comments WHITE BLOOD CELL (test code=WBC) 7.2 K/mm3 4.5-12.5 RED BLOOD CELL (test code=RBC) 4.49 mill/mm3 3.7-5.2 HEMOGLOBIN (test code=HGB) 13.5 gram/dL 11.5-15.5 HEMATOCRIT (test code=HCT) 39.8 % 36.0-46.0 MEAN CELL VOLUME (test code=MCV) 88.6 fL 80-98 MEAN CELL HGB (test code=MCH) 30.1 picogram 27.0-33.0 MEAN CELL HGB CONCETRATION (test code=MCHC) 33.9 gram/dL 33.0-36.0 RED CELL DISTRIBUTION WIDTH (test code=RDW) 12.1 % 11.6-16.2 RED CELL DISTRIBUTION WIDTH SD (test code=RDW-SD) 39.6 fL 37.0-51.0 PLATELET COUNT (test code=PLT) 269 K/mm3 150-450 MEAN PLATELET VOLUME (test code=MPV) 9.2 fL 6.7-11.0 NEUTROPHIL % (test code=NT%) 83.4 % 39.0-69.0 IMMATURE GRANULOCYTE % (test code=IG%) 1.8 % 0.0-5.0 LYMPHOCYTE % (test code=LY%) 9.5 % 25.0-55.0 MONOCYTE % (test code=MO%) 5.2 % 0.0-10.0 EOSINOPHIL % (test code=EO%) 0.0 % 0.0-5.0 BASOPHIL % (test code=BA%) 0.1 % 0.0-1.0 NUCLEATED RBC % (test code=NRBC%) 0.0 % 0-0 NEUTROPHIL # (test code=NT#) 5.97 K/mm3 1.8-7.7 IMMATURE GRANULOCYTE # (test code=IG#) 0.13 x10 3/uL 0-0.03 LYMPHOCYTE # (test code=LY#) 0.68 K/mm3 1.0-5.0 MONOCYTE # (test code=MO#) 0.37 K/mm3 0-0.8 EOSINOPHIL # (test code=EO#) 0.00 K/mm3 0.0-0.5 BASOPHIL # (test code=BA#) 0.01 K/mm3 0.0-0.2 NUCLEATED RBC # (test code=NRBC#) 0.00 K/mm3 0.0-0.1 MANUAL DIFF REQUIRED (test code=MDIFF) NO BASIC METABOLIC [id number] 08:55:00* Test Item Value Reference Range Comments SODIUM (test code=NA) 135 mmol/L 136-145 POTASSIUM (test code=K) 3.3 mmol/L 3.5-5.1 CHLORIDE (test code=CL) 100.0 mmol/L 98-107 CARBON DIOXIDE (test code=CO2) 27.0 mmol/L 21-32 ANION GAP (test code=GAP) 11.3 10-20 GLUCOSE (test code=GLU) 104 mg/dL 74-106 BLOOD UREA NITROGEN (test code=BUN) 7 mg/dL 7-18 GLOMERULAR FILTRATION RATE (test code=GFR) > 60 mL/min >=60 Estimated GFR by using Modified MDRD formula.Chronic kidney disease is defined as either kidney damageor GFR <60 mL/min/1.73 m2 for >3 months. CREATININE (test code=CREAT) 0.40 mg/dL 0.55-1.02 Note change in reference range due to change in reagent. BUN/CREATININE RATIO (test code=BUN/CREA) 17.5 10-20 CALCIUM (test code=CA) 9.2 mg/dL 8.5-10.1 BASIC METABOLIC [id number] 08:51:00* Test Item Value Reference Range Comments SODIUM (test code=NA) 135 mmol/L 136-145 POTASSIUM (test code=K) 3.3 mmol/L 3.5-5.1 CHLORIDE (test code=CL) 100.0 mmol/L 98-107 CARBON DIOXIDE (test code=CO2) mmol/L 21-32 ANION GAP (test code=GAP) 10-20 GLUCOSE (test code=GLU) mg/dL 74-106 BLOOD UREA NITROGEN (test code=BUN) mg/dL 7-18 GLOMERULAR FILTRATION RATE (test code=GFR) mL/min >=60 CREATININE (test code=CREAT) mg/dL 0.55-1.02 BUN/CREATININE RATIO (test code=BUN/CREA) 10-20 CALCIUM (test code=CA) mg/dL 8.5-10.1 [id number] 19:07:00* Test Item Value Reference Range Comments POTASSIUM (test code=K) 2.9 mmol/L 3.5-5.1 Results called to [id number] by V.LAB. 11/11/18 1907Critical results verified and read back by Nurse? Y [id number] 11:46:00* Test Item Value Reference Range Comments POTASSIUM (test code=K) 2.9 mmol/L 3.5-5.1 Specimen 1+ Hemolysed.Some results MAY NOT be accurate due to hemolysis. Results called to [id number] by V.LAB.WJC 11/11/18 1138Critical results verified and read back by Nurse? Y SPECIMEN COMMENTS: REPEAT NEED STAT FOR [id number] 11:41:00* Test Item Value Reference Range Comments POTASSIUM (test code=K) 2.9 mmol/L 3.5-5.1 Specimen 1+ Hemolysed.Some results MAY NOT be accurate due to hemolysis. Results called to [id number] by V.LAB.W 11/11/18 1138Critical results verified and read back by Nurse? SPECIMEN COMMENTS: REPEAT NEED STAT FOR SURGERY- MRI T-SPINE W/O [id number] 09:15:00 FAX: Enrique Haddad MD [phone] [place]: St: [facility] FAX: Kain Padron DO Name: KATINA CRUZ [facility] : 1950 Age/S: 68/F [address] [facility] Unit #: [id number] Loc: [address] [place] [address] Phys: Kain Padron DO Acct: [id number] Dis Date: Status: ADM IN PHONE #: [phone] Exam Date: 11/10/2018 1100 FAX #: [phone] Reason: pain EXAMS: CPT CODE: [id number] MRI T-SPINE W/O CONT 33808 HISTORY: Back pain and hyponatremia. COMPARISON: None available. Note: Severely motion limited study and the axial images are nondiagnostic. Not all sequences available. MRI T-spine without contrast: Acute compression fracture deformities of T7 and T8 vertebral bodies with loss of height of 15-20 % with diffuse edema. Mild retropulsion. No gross cord compression, syrinx or myelomalacia is noted. Rest of the vertebral body heights are maintained. No significant prevertebral or paravertebral lesions visible. IMPRESSION: Extremely limited study due to severe motion and axial images are nondiagnostic. Acute compression fracture deform ities with diffuse edema of T7 and T8 vertebral bodies with loss of heig ht ranging between 15-20%. Mild retropulsion. at 0915 Repor yecenia and signed by: Merrick Gonzales M.D. CC: Enrique Hawk; Deborah Padron DO Technologist: Magen Davison(Andrew)(MR) Trnscrd Date/Time/By: 11/11/2018 (0915) : By: [email or web address] Orig Print D/T: S: 11/11/2018 (5980) PAGE 1 Signed Report BASIC METABOLIC PANEL 2018-11-11 08:37:00* Test Item Value Reference Range Comments SODIUM (test code=NA) 133 mmol/L 136-145 POTASSIUM (test code=K) 3.0 mmol/L 3.5-5.1 CHLORIDE (test code=CL) 97.0 mmol/L 98-107 CARBON DIOXIDE (test code=CO2) 27.0 mmol/L 21-32 ANION GAP (test code=GAP) 12.0 10-20 GLUCOSE (test code=GLU) 100 mg/dL 74-106 BLOOD UREA NITROGEN (test code=BUN) 15 mg/dL 7-18 GLOMERULAR FILTRATION RATE (test code=GFR) > 60 mL/min >=60 Estimated GFR by using Modified MDRD formula.Chronic kidney disease is defined as either kidney damageor GFR <60 mL/min/1.73 m2 for >3 months. CREATININE (test code=CREAT) 0.60 mg/dL 0.55-1.02 Note change in reference range due to change in reagent. BUN/CREATININE RATIO (test code=BUN/CREA) 25.0 10-20 CALCIUM (test code=CA) 9.7 mg/dL 8.5-10.1 PROTHROMBIN [id number] 08:02:00* Test Item Value Reference Range Comments PROTHROMBIN TIME PATIENT (test code=PTP) 12.6 seconds 9.0-14.0 INTERNATIONAL NORMAL RATIO (test code=INR) 1.1 0.8-1.2 The therapeutic range for oral anticoagulant therapy formost indications is an international normalized ratio (INR)of between 2.0 and 3.0. The recommended therapeutic INRrange for various clinical situations is listed below: Clinical Situation INR range Pulmonary e mbolism treatment (2.0-3.0)Venous thrombosis treatmentVenous thrombosis prophylaxis (high risk surgery)Prevention of systemic embolism from: Acute myocardial infarction Valvular heart disease Atrial fibrillation Mechanical prosthetic heart valves (2.5-3.5) IS PATIENT ON ANTICOAGULANTS? NCOMMENTS TO CARTON LINER: NEED FOR SURGERY COMMENTS TO CARTON LINER: NEED FOR SURGERY 11/11/18THROMBOPLASTIN TIME PARTIAL 2018-11-11 08:02:00* Test Item Value Reference Range Comments THROMBOPLASTIN TIME PARTIAL (test code=PTT) 26.6 seconds 25.0-36.5 IS PATIENT ON ANTICOAGULANTS? NCOMMENTS TO CARTON LINER: NEED FOR SURGERY COMMENTS TO CARTON LINER: NEED FOR SURGERY 11/11/18[facility] W/AUTO [id number] 07:48:00* Test Item Value Reference Range Comments WHITE BLOOD CELL (test code=WBC) 12.3 K/mm3 4.5-12.5 RED BLOOD CELL (test code=RBC) 4.18 mill/mm3 3.7-5.2 HEMOGLOBIN (test code=HGB) 12.8 gram/dL 11.5-15.5 RESULT VERIFIED BY REPEAT ANALYSIS HEMATOCRIT (test code=HCT) 37.1 % 36.0-46.0 MEAN CELL VOLUME (test code=MCV) 88.8 fL 80-98 MEAN CELL HGB (test code=MCH) 30.6 picogram 27.0-33.0 MEAN CELL HGB CONCETRATION (test code=MCHC) 34.5 gram/dL 33.0-36.0 RED CELL DISTRIBUTION WIDTH (test code=RDW) 12.6 % 11.6-16.2 RED CELL DISTRIBUTION WIDTH SD (test code=RDW-SD) 41.0 fL 37.0-51.0 PLATELET COUNT (test code=PLT) 225 K/mm3 150-450 MEAN PLATELET VOLUME (test code=MPV) 9.3 fL 6.7-11.0 NEUTROPHIL % (test code=NT%) 81.3 % 39.0-69.0 IMMATURE GRANULOCYTE % (test code=IG%) 1.0 % 0.0-5.0 LYMPHOCYTE % (test code=LY%) 6.0 % 25.0-55.0 MONOCYTE % (test code=MO%) 10.9 % 0.0-10.0 EOSINOPHIL % (test code=EO%) 0.4 % 0.0-5.0 BASOPHIL % (test code=BA%) 0.4 % 0.0-1.0 NUCLEATED RBC % (test code=NRBC%) 0.0 % 0-0 NEUTROPHIL # (test code=NT#) 9.98 K/mm3 1.8-7.7 IMMATURE GRANULOCYTE # (test code=IG#) 0.12 x10 3/uL 0-0.03 LYMPHOCYTE # (test code=LY#) 0.74 K/mm3 1.0-5.0 MONOCYTE # (test code=MO#) 1.34 K/mm3 0-0.8 EOSINOPHIL # (test code=EO#) 0.05 K/mm3 0.0-0.5 BASOPHIL # (test code=BA#) 0.05 K/mm3 0.0-0.2 NUCLEATED RBC # (test code=NRBC#) 0.00 K/mm3 0.0-0.1 MANUAL DIFF REQUIRED (test code=MDIFF) NO - XR CHEST 2 [id number] 05:43:00 FAX: Enrique Haddad MD [phone] [facility]: St: ADM Name: KATINA Kolb AM [facility] : [birth year] Age/S: 68/F [address] [facility] Unit #: [id number] Loc: V.[address] [place] [address] Phys: Enrique Hawk MD Acct: [id number] Dis Date: Status: ADM IN PHONE #: [phone] Exam Date: 11/11/2018 05 FAX #: [phone] Reason: DROOPING OF SATURATION AND BREATHING DIFFICULTY EXAMS: CPT CODE: [id number] XR CHEST 2 V 34610 EXAM: - XR CHEST 2 V HISTORY: Difficulty breathing. Oxygen desaturation. COMPARISON: Single frontal view November 09, 2018. FINDINGS: PA and la teral view of the chest is provided. Heart size and vascularity are within normal limits. Calcific plaques in aorta. The lungs are hyperinfla yecenia. There is no acute pulmonary infiltrate or consolidation. No p leural effusion or pneumothorax. Wedge-shaped deformity of two mid thoraci c vertebral bodies. Limited exam for detailed evaluation. IMPRESSION: Hyperinflated lungs possibly with COPD. No consoli dation or pleural effusion. Wedge-shaped deformity of mid thor acic vertebral bodies. Calcific plaques in aorta. If there is a clinical concern for thoracic aortic pathology or th oracic spine further evaluation is suggested. at 0543 Reported and signed by: Eros Ovalles MD CC: Enrique Hawk Technologist: Jennifer Buckley Trnscrd Date/Time/By: 11/11/2018 (0543) : By: [email or web address] Orig Print D/T: S: 11/11/2018 (0515) PAGE 1 Signed Report BASIC METABOLIC [id number] 16:09:00* Test Item Value Reference Range Comments SODIUM (test code=NA) 126 mmol/L 136-145 POTASSIUM (test code=K) 3.2 mmol/L 3.5-5.1 Results called to by V.LAB.SPR 11/09/18 1606Critical results verified and read back by Nurse? CHLORIDE (test code=CL) 90.0 mmol/L 98-107 CARBON DIOXIDE (test code=CO2) 19.0 mmol/L 21-32 ANION GAP (test code=GAP) 20.2 10-20 GLUCOSE (test code=GLU) 90 mg/dL 74-106 BLOOD UREA NITROGEN (test code=BUN) 16 mg/dL 7-18 GLOMERULAR FILTRATION RATE (test code=GFR) > 60 mL/min >=60 Estimated GFR by using Modified MDRD formula.Chronic kidney disease is defined as either kidney damageor GFR <60 mL/min/1.73 m2 for >3 months. CREATININE (test code=CREAT) 0.70 mg/dL 0.55-1.02 Note change in reference range due to change in reagent. BUN/CREATININE RATIO (test code=BUN/CREA) 22.9 10-20 CALCIUM (test code=CA) 10.1 mg/dL 8.5-10.1 HEPATIC FUNCTION [id number] 16:09:00* Test Item Value Reference Range Comments TOTAL PROTEIN (test code=PROT) 7.4 gram/dL 6.4-8.2 ALBUMIN (test code=ALB) 3.3 g/dL 3.4-5.0 GLOBULIN (test code=GLOB) 4.1 gram/dL 2.7-4.2 ALBUMIN/GLOBULIN RATIO (test code=A/G) 0.8 0.75-1.50 BILIRUBIN TOTAL (test code=BILT) 0.80 mg/dL 0.0-1.0 BILIRUBIN DIRECT (test code=BILD) 0.15 mg/dL 0.0-0.20 SGOT/AST (test code=AST) 23 IUnit/L 15-37 SGPT/ALT (test code=ALT) 24 IUnit/L 12-78 ALKALINE PHOSPHATASE TOTAL (test code=ALKP) 194 IUnit/L 45-117 Note change in reference range due to change in reagent. [id number] 16:09:00* Test Item Value Reference Range Comments TROPONIN-I (test code=TROPI) <0.015 ng/mL 0-0.045 URINALYSIS [id number] 16:05:00* Test Item Value Reference Range Comments UA COLOR (test code=COLU) YELLOW YELLOW UA APPEARANCE (test code=APPU) CLEAR CLEAR UA GLUCOSE DIPSTICK (test code=DGLUU) NEGATIVE mg/dL NEGATIVE UA BILIRUBIN DIPSTICK (test code=BILU) 0.5 (1+) mg/dL NEGATIVE UA KETONE DIPSTICK (test code=KETU) 10 (1+) mg/dL NEGATIVE UA SPECIFIC GRAVITY (test code=SGU) 1.027 1.001-1.035 UA BLOOD DIPSTICK (test code=MARK) Negative mg/dL NEGATIVE UA PH DIPSTICK (test code=JORDI) 6.0 5.0-8.0 UA PROTEIN DIPSTICK (test code=PROU) 50 (1+) mg/dL NEGATIVE UA UROBILINIOGEN DIPSTICK (test code=URO) 3.0 (1+) mg/dL NEGATIVE UA NITRITE DIPSTICK (test code=LLUVIA) NEGATIVE NEGATIVE UA LEUKOCYTE ESTERASE W REFLEX (test code=LEUUR) NEGATIVE Roopa/uL NEGATIVE UA WBC (test code=WBCU) 0-5 per HPF 0-5 UA RBC (test code=RBCU) 0-2 #/HPF 0-5 UA EPITHELIAL CELLS (test code=EPIU) FEW per HPF FEW UA BACTERIA (test code=BACU) MODERATE #/HPF NONE UA HYALINE CAST (test code=HYALU) 3-5 #/LPF 0-5 UA MUCUS (test code=MUCU) MANY #/LPF FEW Urine Source? Clean CatchURINALYSIS [id number] 16:03:00* Test Item Value Reference Range Comments UA COLOR (test code=COLU) YELLOW YELLOW UA APPEARANCE (test code=APPU) CLEAR CLEAR UA GLUCOSE DIPSTICK (test code=DGLUU) NEGATIVE mg/dL NEGATIVE UA BILIRUBIN DIPSTICK (test code=BILU) 0.5 (1+) mg/dL NEGATIVE UA KETONE DIPSTICK (test code=KETU) 10 (1+) mg/dL NEGATIVE UA SPECIFIC GRAVITY (test code=SGU) 1.027 1.001-1.035 UA BLOOD DIPSTICK (test code=MARK) Negative mg/dL NEGATIVE UA PH DIPSTICK (test code=JORDI) 6.0 5.0-8.0 UA PROTEIN DIPSTICK (test code=PROU) 50 (1+) mg/dL NEGATIVE UA UROBILINIOGEN DIPSTICK (test code=URO) 3.0 (1+) mg/dL NEGATIVE UA NITRITE DIPSTICK (test code=LLUVIA) NEGATIVE NEGATIVE UA LEUKOCYTE ESTERASE W REFLEX (test code=LEUUR) NEGATIVE Roopa/uL NEGATIVE UA WBC (test code=WBCU) per HPF 0-5 UA RBC (test code=RBCU) per HPF 0-5 UA EPITHELIAL CELLS (test code=EPIU) per HPF Few UA BACTERIA (test code=BACU) per HPF NONE Urine Source? Clean Catch- XR CHEST 1 [id number] 15:59:00 FAX: Kain Padron DO [place]: B St: REG Name: KATINA Kolb AM [facility] : [birth year] Age/S: 68/F [address] Unit #: [id number] Loc: [place] [address] Phys: Kain Padron DO Acct: [id number] Dis Date: Status: REG ER PHONE #: [phone] Exam Date: 11/09/2018 1552 FAX #: [phone] Reason: Altered Mental Status EXAMS: CPT CODE: [id number] XR CHEST 1 V 37152 REASON FOR EXAM: Altered M ental Status EXAM ORDER DATE: 11/09/2018 3:09 PM Order fanta Shah: Kain Padron DO PROCEDURE: - XR CHEST 1 V COMPARISON: FINDINGS: Portable AP frontal view of the chest ob tained at 3:50 PM shows clear lungs without evidence of consolidation. The re is no evidence of effusion. The heart size is within normal limits. Pulmonary vasculatures are unremarkable. IMPRESSION: Hyperin flated lungs at 1552 Reported and signed by: Wilberto Manrique M.D. CC: Kain Padron DO Technologist: Lauro Vaughn RT(R) Trnscrd Date/Time/By: 11/09/2018 (2607) : By: [email or web address] Orig Print D/T: S: 11/09/2018 (8793) PAGE 1 Signed Report CBC W/AUTO [id number] 15:49:00* Test Item Value Reference Range Comments WHITE BLOOD CELL (test code=WBC) K/mm3 4.5-12.5 RED BLOOD CELL (test code=RBC) mill/mm3 3.7-5.2 HEMOGLOBIN (test code=HGB) 15.0 gram/dL 11.5-15.5 HEMATOCRIT (test code=HCT) 43.0 % 36.0-46.0 MEAN CELL VOLUME (test code=MCV) fL 80-98 MEAN CELL HGB (test code=MCH) picogram 27.0-33.0 MEAN CELL HGB CONCETRATION (test code=MCHC) gram/dL 33.0-36.0 RED CELL DISTRIBUTION WIDTH (test code=RDW) % 11.6-16.2 RED CELL DISTRIBUTION WIDTH SD (test code=RDW-SD) fL 37.0-51.0 PLATELET COUNT (test code=PLT) K/mm3 150-450 MEAN PLATELET VOLUME (test code=MPV) fL 6.7-11.0 NEUTROPHIL % (test code=NT%) % 39.0-69.0 IMMATURE GRANULOCYTE % (test code=IG%) % 0.0-5.0 LYMPHOCYTE % (test code=LY%) % 25.0-55.0 MONOCYTE % (test code=MO%) % 0.0-10.0 EOSINOPHIL % (test code=EO%) % 0.0-5.0 BASOPHIL % (test code=BA%) % 0.0-1.0 NEUTROPHIL # (test code=NT#) K/mm3 1.8-7.7 LYMPHOCYTE # (test code=LY#) K/mm3 1.0-5.0 MONOCYTE # (test code=MO#) K/mm3 0-0.8 EOSINOPHIL # (test code=EO#) K/mm3 0.0-0.5 BASOPHIL # (test code=BA#) K/mm3 0.0-0.2 CBC W/AUTO [id number] 15:49:00* Test Item Value Reference Range Comments WHITE BLOOD CELL (test code=WBC) 14.6 K/mm3 4.5-12.5 RED BLOOD CELL (test code=RBC) 4.89 mill/mm3 3.7-5.2 HEMOGLOBIN (test code=HGB) 15.0 gram/dL 11.5-15.5 HEMATOCRIT (test code=HCT) 43.0 % 36.0-46.0 MEAN CELL VOLUME (test code=MCV) 87.9 fL 80-98 MEAN CELL HGB (test code=MCH) 30.7 picogram 27.0-33.0 MEAN CELL HGB CONCETRATION (test code=MCHC) 34.9 gram/dL 33.0-36.0 RED CELL DISTRIBUTION WIDTH (test code=RDW) 12.5 % 11.6-16.2 RED CELL DISTRIBUTION WIDTH SD (test code=RDW-SD) 39.9 fL 37.0-51.0 PLATELET COUNT (test code=PLT) 212 K/mm3 150-450 MEAN PLATELET VOLUME (test code=MPV) 9.4 fL 6.7-11.0 NEUTROPHIL % (test code=NT%) 86.4 % 39.0-69.0 IMMATURE GRANULOCYTE % (test code=IG%) 1.0 % 0.0-5.0 LYMPHOCYTE % (test code=LY%) 4.6 % 25.0-55.0 MONOCYTE % (test code=MO%) 7.4 % 0.0-10.0 EOSINOPHIL % (test code=EO%) 0.2 % 0.0-5.0 BASOPHIL % (test code=BA%) 0.4 % 0.0-1.0 NUCLEATED RBC % (test code=NRBC%) 0.0 % 0-0 NEUTROPHIL # (test code=NT#) 12.61 K/mm3 1.8-7.7 IMMATURE GRANULOCYTE # (test code=IG#) 0.14 x10 3/uL 0-0.03 LYMPHOCYTE # (test code=LY#) 0.67 K/mm3 1.0-5.0 MONOCYTE # (test code=MO#) 1.08 K/mm3 0-0.8 EOSINOPHIL # (test code=EO#) 0.03 K/mm3 0.0-0.5 BASOPHIL # (test code=BA#) 0.06 K/mm3 0.0-0.2 NUCLEATED RBC # (test code=NRBC#) 0.00 K/mm3 0.0-0.1 MANUAL DIFF REQUIRED (test code=MDIFF) NO - CT HEAD/BRAIN W/O [id number] 15:43:00 Name: KATINA CRUZ [facility] : 1950 Age/S: 68 / F [address] [facility] Unit #: [id number] Loc: [place] [address] Phys: Kain Padron DO Acct: [id number] Dis Date: Status: REG ER PHONE #: [phone] Exam Date: 11/09/2018 1539 FAX #: [phone] Reason: Altered Mental Status EXAMS: CPT CODE: [id number] CT HEAD/BRAIN W/O CONT [id number] REASON FOR EXAM: Altered Mental Status EXAM ORDER DATE: 11/09/2018 3:09 PM Ordering M.DJoseluis: Kain Padron DO PROCEDURE: - CT HEAD/BRAIN W/O CONT COMPARISON: FINDINGS: CT images of the brain were obtained without IV contrast. Dose modulation, iterative reconstruction, and/or weight based adjustment of the MA/KV was utilized to reduce the radiation dose to as low as reasonably achievable. The brain parenchyma is within normal limits. The aguilar-white matter delineation is unremarkable. The ventricles, cisterns, and sulci are unremarkable. There is no evidence of hemorrhage, mass, mass effect. There is no evidence of acute or old infarct. The calvarium is intact. IMPRESSION: Unremarkable brain. at 1543 Reported and signed by: Wilberto Manrique M.D. CC: Kain Padron DO Technologist:Philly Kimball RT(R),CT; CTDI: DLP: Trnscb Date/Time: 11/09/2018 (7147) EstefanyL Orig Print D/T: S: 11/09/2018 (9561) PAGE 1 Signed Report
[2018-12-11] MEDS ORDERED: ONDANSETRON HCL INJ 2MG/ML 2ML 2 MG/ML VIAL IV NR (11:00)
[2018-12-11 11:13] LABS: BASOPHILS # (AUTO) 0.1 (0.0-0.1); BASOPHILS % 0.3 % (0.0-1.0); HEMATOCRIT 43.5 % (34.2-44.1); HEMOGLOBIN 15.9 g/dL (12.0-16.0); LYMPHOCYTES # (AUTO) 0.8 (1.0-3.2); LYMPHOCYTES % 5.2 % (18.0-39.1); MEAN CORPUSCULAR HEMOGLOBIN 30.2 pg (28-32); MEAN CORPUSCULAR HGB CONC 36.6 g/dL (31-35); MEAN CORPUSCULAR VOLUME 82.5 fL (81-99); MONOCYTES % 6.5 % (4.4-11.3); NEUTROPHILS # (AUTO) 13.6 (2.1-6.9); NEUTROPHILS % 87.2 % (38.7-80.0); PLATELET COUNT 338 x10e3/uL (140-360); RED BLOOD COUNT 5.27 x10e6/uL (3.6-5.1); RED CELL DISTRIBUTION WIDTH 12.7 % (11.7-14.4)
--- NOTE | 2018-12-11 11:28 | Diagnostic Imaging Report ---
EXAMINATION: CHEST SINGLE (PORTABLE) INDICATION: ^ERMD ORDER ^[id number] ^1102 ^Y COMPARISON: None FINDINGS: AP view TUBES and LINES: None. LUNGS: Lungs are hyperinflated. Diffuse upper lobes and perihilar interstitial lung markings with emphysematous changes. No lobar consolidations. PLEURA: No pleural effusion or pneumothorax. HEART AND MEDIASTINUM: The cardiac silhouette is within normal limits. The pulmonary arteries appear mildly enlarged. BONES AND SOFT TISSUES: Remote posttraumatic deformity of the left lateral sixth rib. Soft tissues are unremarkable. UPPER ABDOMEN: No free air under the diaphragm. IMPRESSION: Bilateral emphysema with increased upper lobe predominant interstitial lung markings may reflect COPD exacerbation or superimposed atypical infection. Signed by: Dr. Farheen Urbano M.D. on 12/11/2018 11:25 AM
[2018-12-11 11:31] LABS: BILIRUBIN,URINE MODERATE (NEGATIVE); COLOR,URINE YELLOW (YELLOW); KETONES,URINE 1+ (NEGATIVE); LEUKOCYTE ESTERASE ,URINE NEGATIVE (NEGATIVE); NITRITE,URINE NEGATIVE (NEGATIVE); PROTEIN,URINE DIPSTICK 1+ (NEGATIVE); URINE UROBILINOGEN 0.2 mg/dL (0.2 - 1)
[2018-12-11 11:32] LABS: CLARITY,URINE HAZY (CLEAR)
[2018-12-11 11:34] LABS: INR 0.97; PROTHROMBIN TIME 13.4 seconds (11.9-14.5)
[2018-12-11 11:35] LABS: PARTIAL THROMBOPLASTIN TIME 24.9 seconds (23.8-35.5)
[2018-12-11 11:44] LABS: ALANINE AMINOTRANSFERASE 41 IU/L (0-55); ALBUMIN 3.5 g/dL (3.5-5.0); ALKALINE PHOSPHATASE 169 IU/L (40-150); BACTERIA,URINE FEW /HPF; BLOOD UREA NITROGEN 17 mg/dL (7-26); BUN/CREATININE RATIO 20 (6-25); CALCIUM 10.5 mg/dL (8.4-10.2); CARBON DIOXIDE 19 mmol/L (22-29); CHLORIDE 97 mmol/L (98-107); CREATINE KINASE 101 IU/L (29-168); CREATININE, SERUM 0.85 mg/dL (0.57-1.11); EPITHELIAL CELLS,URINE FEW /LPF; EST GLOMERULAR FILTRATION RATE > 60 ML/MIN (60-); GLUCOSE 120 mg/dL (74-118); RBC,URINE 0-5 /HPF (0-5); SODIUM 134 mmol/L (136-145); WBC,URINE (MAN) 0-5 /HPF (0-5)
[2018-12-11] MEDS ORDERED: PROMETHAZINE 12.5MG/ NACL 0.9% 12.5 MG/50 ML BAG IV ONE (11:45)
[2018-12-11] MEDS ORDERED: PROMETHAZINE 25MG/SOD CHL 0.9% 50 ML ONE (11:50)
[2018-12-11] MEDS ORDERED: SODIUM CHLORIDE 0.9% 1000ML 1,000 ML IV SCH (11:51)
[2018-12-11] MEDS ORDERED: ONDANSETRON HCL INJ 2MG/ML 2ML 2 MG/ML VIAL IV PRN (12:00)
--- OUTSIDE RECORDS SUMMARY | 2018-12-11 12:16 | XMS REPORT | Continuity of Care Document ---
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 Active Problem 11/09/2018 Silvestre Zaidi Age-related osteoporosis without current pathological fracture Active Problem 11/09/2018 Silvestre Zaidi Hoarseness Active Problem 11/09/2018 Silvestre Corteser Lumbago Active Problem 11/09/2018 Silvestre Corteser Cervicalgia Active Problem 11/09/2018 Silvestre Corteser Neck pain Active Problem 11/09/2018 Silvestre Corteser Primary osteoarthritis Active Problem 11/09/2018 Silvestre Corteser Vitamin D deficiency Active Problem 11/09/2018 Silvestre Corteser Midline low back pain with sciatica, sciatica laterality unspecified Active Problem 11/09/2018 Silvestre Corteser Fibromyalgia Active Problem 11/09/2018 Silvestre Corteser Drug-induced constipation Active Diagnosis 01/17/2017 Silvestre Corteser 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 05/18/2018 Silvestre Corteser nursing home prescription opiate use Active Diagnosis 10/06/2017 Silvestre Zaidi Rheumatoid arthritis Active Problem 09/08/2015 Silvestre Zaidi Polyarthritis, multiple sites Active Problem 09/08/2015 Silvestre Zaidi Osteoporosis, postmenopausal Active Problem 09/08/2015 Silvestre Corteser Fracture in accidental fall, cause unspecified Active Problem 04/19/2016 Silvestre Corteser Pain, neck Active Problem 09/08/2015 Silvestre Zaidi Cough Active Problem 09/08/2015 Silvestre Zaidi Pain, back Active Problem 09/08/2015 Silvestre Dejuan Pain in joint, lower leg Active Diagnosis 11/11/2014 Silvestre Zaidi Radiculopathy of cervical spine Active Diagnosis 02/19/2016 Silvestre Zaidi Cervical radiculopathy due to degenerative joint disease of spine Active Diagnosis 01/11/2016 Silvestre Zaidi Chronic prescription opiate use Active Diagnosis 07/17/2016 Silvestre Corteser Pain in left hip Active Diagnosis 05/22/2016 Silvestre Zaidi Pain in right hip Active Diagnosis 05/22/2016 Silvestre Zaidi Unspecified inflammatory spondylopathy, cervical region Active Problem 10/31/2016 Silvestre Dejuan Lumbar post-laminectomy syndrome Active Problem 10/31/2016 Silvestre Zaidi Medications Medication Details Route Status Patient Instructions Ordering Provider Order Date Source Carisoprodol 1 tablet as needed Orally Active 350 MG Orally TID [place] 11/08/2018 Silvestre Zaidi Vitamin D (Ergocalciferol) 1 capsule Orally Active 88859 UNIT Orally once a week [place] 09/23/2018 Silvestre Zaidi Hydroxychloroquine Sulfate 1 tablet with food or milk Orally Active 200 MG Orally twice a day [place] 09/23/2018 Silvestre Zaidi Reclast as directed Intravenous Active 5 MG/100ML Intravenous [place] 09/07/2018 Silvestre Zaidi Vitamin D (Ergocalciferol) 1 capsule Orally Active 68664 UNIT Orally once a week Zaidi 07/28/2018 Silvestre Zaidi Carisoprodol 1 tablet as needed Orally Active 350 MG Orally TID Zaidi 07/21/2018 Silvestre Zaidi Carisoprodol 1 tablet as needed Orally Active 350 MG Orally TID Zaidi 06/24/2018 Silvestre Zaidi Carisoprodol 1 tablet as needed Orally Active 350 MG Orally TID Zaidi 05/20/2018 Silvestre Zaidi Carisoprodol 1 tablet as needed Orally Active 350 MG Orally TID [place] 04/19/2018 Silvestre Zaidi Hydrocodone-Acetaminophen 2 tablets Orally Active 7.5-325 MG Orally TID [place] 03/17/2018 Silvestre Zaidi Carisoprodol 1 tablet as needed Orally Active 350 MG Orally TID [place] 03/10/2018 Silvestre Zaidi Simponi Aria 2 mg/kg at 146 lbs (132.4 mg) Intravenous Active 50 MG/4ML Intravenous q 8 weeks [place] 02/19/2018 Silvestre Zaidi Hydrocodone-Acetaminophen 2 tablets Orally Active 7.5-325 MG Orally TID [place] 02/04/2018 Silvestre Zaidi Prolia as directed Subcutaneous Active 60 MG/ML Subcutaneous once every 6 months Zaidi 01/05/2018 Silvestre Zaidi Carisoprodol 1 tablet as needed Orally Active 350 MG Orally Four times a day [place] 11/30/2017 Silvestre Zaidi Hydrocodone-Acetaminophen 2 tablets Orally Active 7.5-325 MG Orally TID Zaidi 10/01/2017 Silvestre Zaidi Hydrocodone-Acetaminophen 2 tablets Orally Active 7.5-325 MG Orally TID [place] 09/30/2017 Silvestreelissa Zaidi Carisoprodol 1 tablet as needed Orally Active 350 MG Orally Four times a day Zaidi 09/07/2017 Silvestre Zaidi Tizanidine HCl 1 tablet as needed Orally Active 4 MG Orally Three times a day Zaidi 09/07/2017 Silvestre Zaidi Imuran 1 tablet Orally Active 50 MG Orally once a day [place] 08/31/2017 Silvestre Zaidi Leflunomide 1 tablet Orally Active 10 MG Orally Once a day [place] 07/29/2017 Silvestre Zaidi Prolia as directed Subcutaneous Active 60 MG/ML Subcutaneous q 6 months [place] 07/01/2017 Silvestre Zaidi Carisoprodol 1 tablet as needed Orally Active 350 MG Orally Four times a day [place] 06/03/2017 Silvestre Zaidi Hydroxychloroquine Sulfate 1 tablet with food or milk Orally Active 200 Orally twice a day [place] 02/27/2017 Silvetsre Zaidi Hydrocodone-Acetaminophen 2 tablets Orally Active 7.5-325 MG Orally TID Zaidi 02/12/2017 Silvestre Zaidi Vitamin D (Ergocalciferol) 1 capsule Orally Active 99734 UNIT Orally once a week Zaidi 01/15/2017 Silvestre Zaidi Movantik 1 tablet in the morning Orally Active 25 MG Orally Once a day Zaidi 01/15/2017 Silvestre Zaidi Rasuvo as directed Subcutaneous Active 10 MG/0.2ML Subcutaneous once a week Zaidi 01/13/2017 Silvestre Zaidi Carisoprodol 1 tablet as needed Orally Active 350 MG Orally Four times a day [place] 11/11/2016 Silvestre Zaidi Hydrocodone-Acetaminophen 2 tablets Orally Active 7.5-325 MG Orally TID [place] 10/10/2016 Silvestre Zaidi Methotrexate 0.4 Subcutaneous Active 25mg/1mL Subcutaneous Once a week Zaidi 10/09/2016 Silvestre Zaidi Hydrocodone-Acetaminophen 2 tablets Orally Active 7.5-325 MG Orally TID [place] 09/12/2016 Silvestre Zaidi Rasuvo as directed Subcutaneous Active 10 MG/0.2ML Subcutaneous once a week [place] 09/10/2016 Silvestre Zaidi Folic Acid 1 tablet Orally Active 1 MG Orally Once a day [place] 09/10/2016 Silvestreelissa Zaidi Leflunomide 1 tablet Orally Active 20 MG Orally Once a day [place] 09/10/2016 Silvestre Zaidi Medrol Dose Esteban as directed Orally Active 4mg Orally once a day [place] 07/01/2016 Silvestre Zaidi Vitamin D (Ergocalciferol) 1 capsule Orally Active 72794 UNIT Orally Once a week Zaidi 05/23/2016 Silvestre Zaidi Hydrocodone-Acetaminophen 1 tablet as needed Orally Active 7.5- 325 MG Orally every 6 hrs [place] 04/17/2016 Silvestre Zaidi Carisoprodol 1 tablet as needed Orally Active 350 MG Orally Four times a day Zaidi 04/07/2016 Silvestre Zaidi Hydroxychloroquine Sulfate 1 tablet with food or milk Orally Active 200 Orally Twice a day Zaidi 03/13/2016 Silvestre Zaidi Carisoprodol 1 tablet as needed Orally Active 350 MG Orally Four times a day Zaidi 03/05/2016 Silvestre Zaidi [place] 1 to 2 tablet as needed Orally Active 10-325 MG Orally TID prn Zaidi 02/07/2016 Silvestre Zaidi Hydrocodone-Acetaminophen 1 tablet as needed Orally Active 10- 325 MG Orally every 6 hrs [facility] 12/14/2015 Silvestreelissa Zaidi Carisoprodol 1 tablet as needed Orally Active 350 MG Orally Four times a day [place] 11/09/2015 Silvestre Zaidi Drisdol 1 capsule Orally Active 47537 UNIT Orally q week Zaidi 11/05/2015 Silvestre Zaidi [place] 1 to 2 tablet as needed Orally Active 10-325 MG Orally TID prn [place] 11/01/2015 Silvestre Zaidi Leflunomide 1 tablet Orally Active 20 MG Orally Once a day [place] 07/04/2015 Silvestre Zaidi Tessalon Perles 1 capsule as needed Orally Active 100 MG Orally Three times a day Zaidi 01/26/2015 Silvestre Zaidi Plaquenil 1 tablet with food or milk Orally Active 200 MG Orally Twice a day [place] 08/22/2014 Silvestre Zaidi Bentyl 1 tablet Orally Active 20 MG Orally Four times a day as needed [place] Silvestre Zaidi Advair HFA 1 puffs Inhalation Active Inhalation Once a day [place] Silvestre Corteser Levothyroxine Sodium 1 tablet on an empty stomach in the morning Orally Active 137 MCG Orally Once a day [place] Silvestre Corteser Zantac 1 tablet Orally Active 150 MG Orally Once a day [place] Silvestre Corteser Prolia as directed Subcutaneous Active 60 MG/ML Subcutaneous once every 6 months [place] [facility] Sulfate TAKE 1 TABLET BY MOUTH TWICE DAILY WITH FOOD OR MILK NA Active 200 [place] Silvestre Zaidi ibuprofen 3 Tablet Oral Active 200 mg Oral As needed [place] Silvestre Zaidi Ziac 1 tablet Orally Active 5-6.25 MG Orally at bedtime [place] [facility] Amlodipine Besy-Benazepril HCl 1 capsule Orally Active Orally Once a day [place] Silvestre Corteser PredniSONE 1 tablet with food or milk Orally Active 5 Orally as needed [place] Silvestre Corteser Folic Acid 1 tablet Orally Active 1 MG Orally Once a day [place] Silvestre Zaidi Albuterol as needed Inhalation Active 90 mcg Inhalation Once a day [facility] Carisoprodol 1 tablet as needed Orally Active 350 MG Orally Four times a day [place] Silvestre Zaidi Vitamin D (Ergocalciferol) 1 capsule Orally Active 50387 UNIT Orally once a week [place] Silvestre Corteser Cymbalta 1 capsule Orally Active 60 MG Orally Once a day [place] Silvestre Zaidi Hydrocodone-Acetaminophen 2 tablets Orally Active 7.5-325 MG Orally TID [place] Silvestre Corteser Movantik 1 tablet in the morning Orally Active 25 MG Orally Once a day [place] Silvestre Zaidi Aspirin 1 tablet Orally Active 81 MG Orally Once a day [facility] Clopidogrel Bisulfate 1 tablet Orally Active 75 [facility] Methotrexate 0.4 Subcutaneous Active 25mg/1mL Subcutaneous Once a week [place] [facility] Carisop[facility]ol 1 tablet as needed Orally Active 350 MG Orally TID [facility] Clopidogrel Bisulfate 1 tablet Orally Active 75 MG [facility] Ziac 1 tablet Orally Active 5-6.25 MG Orally Once a day [place] [facility] Amlodipine Besy-Benazepril HCl as directed Orally Active 2.5- 10 MG Orally [place] [facility] Zantac 1 tablet Orally Active 150 MG Orally Once a day [facility] Hydrocodone-Acetaminophen 2 tablets Orally Active 7.5-325 MG Orally TID [place] Silvestre Zaidi Vitamin D (Ergocalciferol) 1 capsule Orally Active 72496 UNIT Orally once a week [place] Silvestre Zaidi Cymbalta 1 capsule Orally Active 60 MG Orally Once a day [place] Silvestre Zaidi Bentyl 1 tablet Orally Active 20 MG Orally Four times a day as needed [place] Silvestre Zaiid Prolia as directed Subcutaneous Active 60 MG/ML Subcutaneous [place] Silvestre Zaidi Advair HFA 1 puffs Inhalation Active Inhalation Once a day [place] [facility] Bevespi Aerosphere 2 puffs Inhalation Active 9-4.8 MCG/ACT Inhalation Twice a day [place] Silvestre Zaidi Levothyroxine Sodium 1 tablet on an empty stomach in the morning Orally Active 137 MCG Orally Once a day [place] Silvestre Zaidi Aspirin 1 tablet Orally Active 81 MG Orally Once a day [place] Silvestre Zaidi Bevespi Aerosphere 2 puffs Inhalation Active 9-4.8 MCG/ACT Inhalation Twice a day [place] Silvestre Zaidi Paulo-24 as directed Orally Active 200 MG Orally [place] Silvestre Zaidi ibuprofen 3 Tablet Oral Active 200 mg Oral As needed [place] Silvestre Zaidi Lisinopril 1 tablet Orally Active 40 MG Orally Once a day [place] Silvestre Zaidi Albuterol as needed Inhalation Active 90 mcg Inhalation Once a day [place] Silvestre Zaidi Spiriva HandiHaler 1 capsule Inhalation Active Inhalation Once a day [place] Silvestre Zaidi [place] 1 tablet as needed Orally Active 7.5-325 MG Orally every 6 hrs [place] Silvestre Zaidi Ergocalciferol 1 capsule Orally Active 36380 UNIT Orally Once a week [place] Silvestre Zaidi PredniSONE 1 tablet with food or milk Orally Active 5 MG Orally Once a day [place] Silvestre Zaidi Soma 1 tablet as needed Orally Active 350 MG Orally [place] Silvestre Zaidi Hydroxychloroquine Sulfate 2 tablet with food or milk Orally Active 200 MG Orally bid [place] Silvestre Zaidi Leflunomide 1 tablet Orally Active 10 MG Orally Once a day [place] Silvestre Zaidi Leflunomide 1 tablet Orally Active 20 MG Orally Once a day [place] Silvestre Zaidi Hyoscyamine as directed Orally Active 0.15 MG Orally [place] Silvestre Zaidi Hydrocodone-Acetaminophen 1 tablet as needed Orally Active 10- 325 MG Orally every 6 hrs [place] Silvestre Corteser Carisoprodol TAKE 1 TABLET BY MOUTH 4 TIMES A DAY NEEDED NA Active 350 MG [place] Silvestre Zaidi Lexapro 1 tablet Orally Active 5 MG Orally Once a day [place] Silvestre Corteser Ibuprofen 1 tablet with food or milk as needed Orally Active 200 MG Orally Three times a day [place] Silvestre Corteser Aspirin 1 tablet Orally Active 81 MG Orally Once a day [place] Silvestre Corteser Albuterol Sulfate 2 puffs as needed Inhalation Active 108 (90 Base) MCG/ACT Inhalation every 6 hrs [place] Silvestre Corteser Levothyroxine Sodium 1 tablet on an empty stomach in the morning Orally Active 137 MCG Orally Once a day [place] Silvestre Zaidi Cymbalta 1 capsule Orally Active 60 MG Orally Once a day [place] Silvestre Corteser Zantac 1 tablet at bedtime Orally Active 150 MG Orally Once a day [place] Silvestre Corteser Ergocalciferol 1 capsule Orally Active 76234 UNIT Orally Once a week [place] Silvestre Corteser Bentyl 1 tablet Orally Active 20 MG Orally Four times a day [place] Silvestre Corteser Simponi Aria 131.3mg IV Active 2mg/kg IV [place] Silvestre Zaidi Allergies, Adverse Reactions, Alerts Substance Category Reaction Severity Reaction type Status Date Reported Comments Source Morphine Sulfate Adverse Reaction Skin rash Adverse Reaction Active 09/07/2018 Silvestre eDjuan Demerol Adverse Reaction Skin rash and Itching Adverse Reaction Active 09/07/2018 Silvestre Zaidi Avelox Adverse Reaction Elbows- hands and mouth turned red Adverse Reaction Active 09/07/2018 Silvestre Zaidi MTX Adverse Reaction GI upset Adverse Reaction Active 09/07/2018 Silvestre Zaidi Neurontin Adverse Reaction drowsiness Adverse Reaction Active 09/07/2018 Silvestre Zaidi Sulfasalazine Adverse Reaction GI upset, fatigue Adverse Reaction Active 09/07/2018 Silvestre Zaidi Arava Adverse Reaction GI upset Adverse Reaction Active 09/07/2018 Silvestre Zaidi Immunizations Immunization Date Given Site Status Last Updated Comments Source Prolia 08/13/2016 completed Silvestre Zaidi Toradol 01/08/2016 completed Silvestre Zaidi Depomedrol 01/08/2016 completed Silvestre Zaidi Depomedrol 01/26/2015 completed Silvestre Zaidi Toradol 01/26/2015 completed Silvestre Zaidi Results Order Name Results Value Reference Range Date Interpretation Comments Source Vital Signs Vital Sign Value Date Comments Source Weight 140.2 09/07/2018 Silvestre Zaidi Height 62 09/07/2018 Silvestre Zaidi Temperature Oral (F) 97.0 F 09/07/2018 Silvestre Zaidi Heart Rate 74 09/07/2018 Silvestre Zaidi Diastolic (mm Hg) 64 09/07/2018 Silvestre Zaidi Systolic (mm Hg) 138 09/07/2018 Silvestre Zaidi Weight 141.8 08/02/2018 Silvestre Zaidi Height 62 08/02/2018 Silvestre Zaidi Temperature Oral (F) 97.7 F 08/02/2018 Silvestre Zaidi Heart Rate 84 08/02/2018 Silvestre Zaidi Diastolic (mm Hg) 70 08/02/2018 Silvestre Zaidi Systolic (mm Hg) 148 08/02/2018 Silvestre Zaidi Weight 143.7 07/05/2018 Silvestre Zaidi Height 62 07/05/2018 Silvestre Zaidi Temperature Oral (F) 97.0 F 07/05/2018 Silvestre Zaidi Heart Rate 76 07/05/2018 Silvestre Zaidi Diastolic (mm Hg) 62 07/05/2018 Silvestre Zaidi Systolic (mm Hg) 138 07/05/2018 Silvestre Zaidi Weight 146.6 05/17/2018 Silvestre Zaidi Height 62 05/17/2018 Silvestre Zaidi Temperature Oral (F) 97.5 F 05/17/2018 Silvestre Zaidi Heart Rate 54 05/17/2018 Silvestre Zaidi Diastolic (mm Hg) 77 05/17/2018 Silvestre Zaidi Systolic (mm Hg) 140 05/17/2018 Silvestre Zaidi Weight 144.3 04/15/2018 Silvestre Zaidi Height 62 04/15/2018 Silvestre Zaidi Temperature Oral (F) 98.1 F 04/15/2018 Silvestre Zaidi Heart Rate 70 04/15/2018 Silvestre Zaidi Diastolic (mm Hg) 70 04/15/2018 Silvestre Zaidi Systolic (mm Hg) 126 04/15/2018 Silvestre Zaidi Weight 142.8 03/17/2018 Silvestre Zaidi Height 62 03/17/2018 Silvestre Zaidi Temperature Oral (F) 98.3 F 03/17/2018 Silvestre Zaidi Heart Rate 68 03/17/2018 Silvestre Zaidi Diastolic (mm Hg) 66 03/17/2018 Silvestre Zaidi Systolic (mm Hg) 130 03/17/2018 Silvestre Zaidi Weight 146 02/03/2018 Silvestre Zaidi Height 62 02/03/2018 Silvestre Zaidi Temperature Oral (F) 97.3 F 02/03/2018 Silvestre Zaidi Heart Rate 84 02/03/2018 Silvestre Zaidi Diastolic (mm Hg) 68 02/03/2018 Silvestre Zaidi Systolic (mm Hg) 130 02/03/2018 Silvestre Zaidi Weight 146 01/05/2018 Silvestre Zaidi Height 62 01/05/2018 Silvestre Zaidi Temperature Oral (F) 97.0 F 01/05/2018 Silvestre Zaidi Heart Rate 76 01/05/2018 Silvestre Zaidi Diastolic (mm Hg) 68 01/05/2018 Silvestre Zaidi Systolic (mm Hg) 140 01/05/2018 Silvestre Zaidi Weight 144.4 12/03/2017 Silvestre Zaidi Height 63 12/03/2017 Silvestre Zaidi Temperature Oral (F) 97.2 F 12/03/2017 Silvestre Zaidi Heart Rate 76 12/03/2017 Silvestre Zaidi Diastolic (mm Hg) 64 12/03/2017 Silvestre Zaidi Systolic (mm Hg) 118 12/03/2017 Silvestre Zaidi Weight 137.2 10/01/2017 Silvestre Zaidi Height 63 10/01/2017 Silvestre Zaidi Temperature Oral (F) 97.3 F 10/01/2017 Silvestre Zaidi Heart Rate 70 10/01/2017 Silvestre Zaidi Diastolic (mm Hg) 70 10/01/2017 Silvestre Zaidi Systolic (mm Hg) 112 10/01/2017 Silvestre Zaidi Weight 134.3 08/31/2017 Silvestre Zaidi Height 63 08/31/2017 Silvestre Zaidi Temperature Oral (F) 98.6 F 08/31/2017 Silvestre Zaidi Heart Rate 72 08/31/2017 Silvestre Zaidi Diastolic (mm Hg) 64 08/31/2017 Silvestre Zaidi Systolic (mm Hg) 110 08/31/2017 Silvestre Zaidi Weight 138 07/29/2017 Silvestre Zaidi Height 63 07/29/2017 Silvestre Zaidi Temperature Oral (F) 97.4 F 07/29/2017 Silvestre Zaidi Heart Rate 80 07/29/2017 Silvestre Zaidi Diastolic (mm Hg) 78 07/29/2017 Silvestre Zaidi Systolic (mm Hg) 140 07/29/2017 Silvestre Zaidi Weight 139 06/03/2017 Silvestre Zaidi Height 63 06/03/2017 Silvestre Zaidi Temperature Oral (F) 98.0 F 06/03/2017 Silvestre Zaidi Heart Rate 78 06/03/2017 Silvestre Zaidi Diastolic (mm Hg) 66 06/03/2017 Silvestre Zaidi Systolic (mm Hg) 122 06/03/2017 Silvestre Zaidi Weight 137 05/05/2017 Silvestre Zaidi Height 62 05/05/2017 Silvestre Zaidi Temperature Oral (F) 98.5 F 05/05/2017 Silvestre Zaidi Heart Rate 80 05/05/2017 Silvestre Zaidi Diastolic (mm Hg) 60 05/05/2017 Silvestre Zaidi Systolic (mm Hg) 118 05/05/2017 Silvestre Zaidi Weight 139 04/02/2017 Silvestre Zaidi Height 63 04/02/2017 Silvestre Zaidi Temperature Oral (F) 97.7 F 04/02/2017 Silvestre Zaidi Heart Rate 80 04/02/2017 Silvestre Zaidi Diastolic (mm Hg) 70 04/02/2017 Silvestre Zaidi Systolic (mm Hg) 140 04/02/2017 Silvestre Zaidi Weight 134 02/19/2017 Silvestre Zaidi Height 62 02/19/2017 Silvestre Zaidi Temperature Oral (F) 97.2 F 02/19/2017 Silvestre Zaidi Heart Rate 86 02/19/2017 Silvestre Zaidi Diastolic (mm Hg) 76 02/19/2017 Silvestre Zaidi Systolic (mm Hg) 140 02/19/2017 Silvestre Zaidi Weight 140 01/13/2017 Silvestre Zaidi Height 62.2 01/13/2017 Silvestre Zaidi Temperature Oral (F) 98.7 F 01/13/2017 Silvestre Zaidi Heart Rate 80 01/13/2017 Silvestre Zaidi Diastolic (mm Hg) 60 01/13/2017 Silvestre Zaidi Systolic (mm Hg) 128 01/13/2017 Silvestre Zaidi Weight 134 11/24/2016 Silvestre Zaidi Height 63 11/24/2016 Silvestre Zaidi Temperature Oral (F) 98.2 F 11/24/2016 Silvestre Zaidi Heart Rate 76 11/24/2016 Silvestre Zaidi Diastolic (mm Hg) 78 11/24/2016 Silvestre Zaidi Systolic (mm Hg) 140 11/24/2016 Silvestre Zaidi Weight 128 10/09/2016 Silvestre Zaidi Height 63 10/09/2016 Silvestre Zaidi Temperature Oral (F) 98.2 F 10/09/2016 Silvestre Zaidi Heart Rate 76 10/09/2016 Silvestre Zaidi Diastolic (mm Hg) 60 10/09/2016 Silvestre Zaidi Systolic (mm Hg) 118 10/09/2016 Silvestre Zaidi Weight 123 09/10/2016 Silvestre Zaidi Height 63 09/10/2016 Silvestre Zaidi Temperature Oral (F) 97.1 F 09/10/2016 Silvestre Zaidi Heart Rate 70 09/10/2016 Silvestre Zaidi Diastolic (mm Hg) 64 09/10/2016 Silvestre Zaidi Systolic (mm Hg) 120 09/10/2016 Silvestre Zaidi Weight 125 08/13/2016 Silvestre Zaidi Height 62.5 08/13/2016 Silvestre Zaidi Temperature Oral (F) 98.9 F 08/13/2016 Silvestre Zaidi Heart Rate 72 08/13/2016 Silvestre Zaidi Diastolic (mm Hg) 62 08/13/2016 Silvestre Zaidi Systolic (mm Hg) 118 08/13/2016 Silvestre Zaidi Weight 124.2 07/15/2016 Silvestre Zaidi Height 62.5 07/15/2016 Silvestre Zaidi Temperature Oral (F) 97.5 F 07/15/2016 Silvestre Zaidi Heart Rate 72 07/15/2016 Silvestre Zaidi Diastolic (mm Hg) 60 07/15/2016 Silvestre Zaidi Systolic (mm Hg) 122 07/15/2016 Silvestre Zaidi Weight 110 05/07/2016 Silvestre Zaidi Height 63 05/07/2016 Silvestre Zaidi Temperature Oral (F) 97.2 F 05/07/2016 Silvestre Zaidi Heart Rate 78 05/07/2016 Silvestre Zaidi Diastolic (mm Hg) 60 05/07/2016 Silvestre Zaidi Systolic (mm Hg) 122 05/07/2016 Silvestre Zaidi Weight 99.3 03/18/2016 Silvestre Zaidi Height 62 03/18/2016 Silvestre Zaidi Temperature Oral (F) 97.8 F 03/18/2016 Silvestre Zaidi Heart Rate 80 03/18/2016 Silvestre Zaidi Diastolic (mm Hg) 72 03/18/2016 Silvestre Zaidi Systolic (mm Hg) 122 03/18/2016 Silvestre Zaidi Weight 100 02/08/2016 Silvestre Zaidi Height 63 02/08/2016 Silvestre Zaidi Temperature Oral (F) 98.3 F 02/08/2016 Silvestre Zaidi Heart Rate 82 02/08/2016 Silvestre Zaidi Diastolic (mm Hg) 68 02/08/2016 Silvestre Zaidi Systolic (mm Hg) 110 02/08/2016 Silvestre Zaidi Weight 103 01/08/2016 Silvestre Zaidi Height 63 01/08/2016 Silvestre Zaidi Temperature Oral (F) 97.7 F 01/08/2016 Silvestre Zaidi Heart Rate 88 01/08/2016 Silvestre Zaidi Diastolic (mm Hg) 60 01/08/2016 Silvestre Zaidi Systolic (mm Hg) 122 01/08/2016 Silvestre Zaidi Weight 103.4 11/14/2015 Silvestre Zaidi Height 62 11/14/2015 Silvestre Zaidi Temperature Oral (F) 98.7 F 11/14/2015 Silvestre Zaidi Heart Rate 72 11/14/2015 Silvestre Zaidi Diastolic (mm Hg) 60 11/14/2015 Silvestre Zaidi Systolic (mm Hg) 130 11/14/2015 Silvestre Zaidi Weight 106 10/09/2015 Silvestre Zaidi Height 63 10/09/2015 Silvestre Zaidi Temperature Oral (F) 97.2 F 10/09/2015 Silvestre Zaidi Heart Rate 76 10/09/2015 Silvestre Zaidi Diastolic (mm Hg) 70 10/09/2015 Silvestre Zaidi Systolic (mm Hg) 110 10/09/2015 Silvestre Zaidi Weight 112 09/10/2015 Silvestre Zaidi Height 63 09/10/2015 Silvestre Zaidi Temperature Oral (F) 97.0 F 09/10/2015 Silvestre Zaidi Heart Rate 79 09/10/2015 Silvestre Zaidi Diastolic (mm Hg) 70 09/10/2015 Silvestre Zaidi Systolic (mm Hg) 110 09/10/2015 Silvestre Zaidi Weight 117 01/26/2015 Silvestre Zaidi Height 62 01/26/2015 Silvestre Zaidi Temperature Oral (F) 97.9 F 01/26/2015 Silvestre Zaidi Heart Rate 76 01/26/2015 Silvestre Zaidi Diastolic (mm Hg) 70 01/26/2015 Silvestre Zaidi Systolic (mm Hg) 122 01/26/2015 Silvestre Zaidi Weight 120 11/06/2014 Silvestre Zaidi Height 62 11/06/2014 Silvestre Zaidi Temperature Oral (F) 97.5 F 11/06/2014 Silvestre Zaidi Heart Rate 92 11/06/2014 Silvestre Zaidi Diastolic (mm Hg) 62 11/06/2014 Silvestre Zaidi Systolic (mm Hg) 124 11/06/2014 Silvestre Zaidi Encounters Location Location Details Encounter Type Encounter Number Reason For Visit Attending Provider ADM Date DC Date Status Source Collin Zaidi MD 6 wk f/u [id number] 10/03/2014 10/03/2014 Silvestre Zaidi MD 6 wk f/u [id number] 10/03/2014 10/03/2014 Silvestre Zaidi MD 6 wk f/u [id number] 10/03/2014 10/03/2014 Silvestre Zaidi MD 6 wk f/u [id number] 10/03/2014 10/03/2014 Silvestre Zaidi MD 6 wk f/u [id number] 10/03/2014 10/03/2014 Silvestre Zaidi MD 6 wk f/u c078141o-1330-0v56-m921-00m36yr87522 10/03/2014 10/03/2014 Silvestre Zaidi MD 6 wk f/u 71a1u826-rc1o-8301-2046-y3lpsy697g77 10/03/2014 10/03/2014 Silvestre Zaidi MD 6 wk f/u t99ybm43-m9pc-0jv0-7845-yz0396l64707 10/03/2014 10/03/2014 Silvestre Zaidi MD 6 wk f/u 3395o5x4-4z77-73s7-1y69-v8u0a0c18b37 10/03/2014 10/03/2014 Silvestre Zaidi MD 6 wk f/u 0qa7r1ez-3006-28wv-ku4y-2b6321969sx0 10/03/2014 10/03/2014 Silvestre Zaidi MD 6 wk f/u 607934j8-3380-86pm-93bp-8673y52x5t50 10/03/2014 10/03/2014 Silvestre Zaidi MD 6 wk f/u 2p982nx5-5hi5-61n6-g89v-i218d2v663ej 10/03/2014 10/03/2014 Silvestre Zaidi MD 6 wk f/u mm63ehpj-r982-15z4-48v6-i9746a5m8x0d 10/03/2014 10/03/2014 Silvestre Zaidi MD 6 wk f/u 352se0fn-0087-0a74-s65n-68gtxj6z0205 10/03/2014 10/03/2014 Silvestre Zaidi MD 6 wk f/u 834l2t46-4f07-7342-4eor-4kf08kpt28h5 10/03/2014 10/03/2014 Silvestre Zaidi MD 6 wk f/u o49589g6-977d-74il-pntb-bnk22oe7jm2b 10/03/2014 10/03/2014 Silvestre Zaidi MD 6 wk f/u 74cwcw11-5o00-4zju-0527-64bxf9fcc721 10/03/2014 10/03/2014 Silvestre Zaidi MD 6 wk f/u iy3y680w-82o3-08pk-wjq3-4t04499263l4 10/03/2014 10/03/2014 Silvestre Zaidi MD 6 wk f/u 0q775n11-69nd-5b10-0979-4p0a094j74v5 10/03/2014 10/03/2014 Silvestre Zaidi MD 6 wk f/u 65a1oghs-trv7-17sh-m2rh-787876aoz8t4 10/03/2014 10/03/2014 Silvestre Zaidi MD 6 wk f/u 1l6m742k-0y4i-56gs-54sy-12k96s5nbh2j 10/03/2014 10/03/2014 Silvestre Zaidi MD 6 wk f/u pj122999-k814-3717-36h3-9my96s081za0 10/03/2014 10/03/2014 Silvestre Zaidi MD 6 wk f/u zzx0q4h4-07v0-44g6-ndq0-cy98bw720071 10/03/2014 10/03/2014 Silvestre Zaidi MD 6 wk f/u 1l350o56-5k82-2099-nqw6-1n5w8fw97155 10/03/2014 10/03/2014 Silvestre Zaidi MD 6 wk f/u 542gxx0t-f747-3z98-z90o-n97vm56tzdw0 10/03/2014 10/03/2014 Silvestre Zaidi MD 6 wk f/u 4939ykh9-1z3z-5141-t7u0-0eb9rh4555m7 10/03/2014 10/03/2014 Silvestre Zaidi MD 6 wk f/u 6078f534-641z-24td-rv17-ks0ob882j01b 10/03/2014 10/03/2014 Silvestre Zaidi MD 6 wk f/u 86uag8s8-i02d-5e54-g3d0-39uu21653r92 10/03/2014 10/03/2014 Silvestre Zaidi MD 6 wk f/u pvz7s4b7-5007-0f70-7103-aqr0xcgu59v5 10/03/2014 10/03/2014 Silvestre Zaidi MD 6 wk f/u ac87x65c-8tl7-0qfd-5s79-6yhc919x4x0j 10/03/2014 10/03/2014 Silvestre Zaidi MD 6 wk f/u vyv1u32a-l47h-977n-i799-83260au00lve 10/03/2014 10/03/2014 Silvestre Zaidi MD 6 wk f/u 5cn8308p-65o5-2754-2337-5567c0690085 10/03/2014 10/03/2014 Silvestre Zaidi MD 6 wk f/u 9f6nb7ux-7018-512m-8943-m6v723f51dl9 10/03/2014 10/03/2014 Silvestre Zaidi MD 6 wk f/u 0x31gj71-qm33-6h8w-tk1u-kg177od902e1 10/03/2014 10/03/2014 Silvestre Zaidi MD 6 wk f/u 377ywr96-cu4w-5437-w7fw-308673x0192d 10/03/2014 10/03/2014 Silvestre Zaidi MD 6 wk f/u 513kj2ur-i42o-4708-8940-fw7l44zr0d6y 10/03/2014 10/03/2014 Silvestre Zaidi MD MRI xq13a63g-xnj5-7617-t73q-8s5402h76pu7 11/03/2014 11/03/2014 Silvestre Zaidi MD MRI 3a25b398-tfn7-9610-499j-4t062e7lw5im 11/03/2014 11/03/2014 Silvestre Zaidi MD MRI 84vvyld8-077n-59b4-86z9-v9265c27a4pq 11/03/2014 11/03/2014 Silvestre Ziadi MD MRI s4cye22f-a089-3t7q-9a43-047b18f2e6ky 11/03/2014 11/03/2014 Silvestre Zaidi MD MRI j2ko489u-l585-4620-g391-18o771km50bp 11/03/2014 11/03/2014 Silvestre Zaidi MD MRI wiey1h0x-nfv8-6mix-8k32-3ajpr0d181u4 11/03/2014 11/03/2014 Silvestre Zaidi MD MRI w89d450a-75od-9016-p019-q40t54jod9n5 11/03/2014 11/03/2014 Silvsetre Zaidi MD MRI 8jh9z03o-dx1t-197q-nook-w4xq18787534 11/03/2014 11/03/2014 Silvestre Zaidi MD MRI 3i3hwnh1-i495-6p8z-y36l-1n0q0y3abv8q 11/03/2014 11/03/2014 Silvestre Zaidi MD MRI 93ts882l-l042-72o7-8817-59v0e5291488 11/03/2014 11/03/2014 Silvestre Zaidi MD MRI w581z62j-hcs8-1o75-s16z-5794ckz99zi0 11/03/2014 11/03/2014 Silvestre Zaidi MD MRI ot6833qf-t282-3h15-o074-r5484z282kz0 11/03/2014 11/03/2014 Silvestre Zaidi MD MRI 1f1r0745-07j8-4z2j-c338-4155018nz9lu 11/03/2014 11/03/2014 Silvestre Zaidi MD MRI ggg32f83-1pp4-7l8y-tf25-6mq5a47j200v 11/03/2014 11/03/2014 Silvestre Zaidi MD MRI 42i37x77-f60l-5etp-44wm-39r961288394 11/03/2014 11/03/2014 Silvestre Zaidi MD MRI 4102673x-b283-95a3-m61e-20187yj2393n 11/03/2014 11/03/2014 iSlvestre Zaidi MD MRI 9394302w-860z-2100-3gow-le97m6nh86n7 11/03/2014 11/03/2014 Silvestre Zaidi MD MRI 9i3220z3-2r6k-55x6-l4d4-g376ubsb74t5 11/03/2014 11/03/2014 Silvestre Zaidi MD MRI 2t91wr4x-908p-2204-854r-l1v72c105tba 11/03/2014 11/03/2014 Silvestre Zaidi MD MRI 68932g89-v8wc-248q-zwqz-s744j4s84o1x 11/03/2014 11/03/2014 Silvestre Zaidi MD MRI p62457j8-k1m6-3916-t448-7mz15l245916 11/03/2014 11/03/2014 Silvestre Zaidi MD DEXA 45ir5013-337x-1z5n-2250-d39272uz4d04 11/03/2014 11/03/2014 Silvestre Zaidi MD DEXA un9anxk2-78d1-66cc-6a8c-216269p47688 11/03/2014 11/03/2014 Silvestre Zaidi MD DEXA u0d6zb2s-ae09-7251-a235-tnk336e85236 11/03/2014 11/03/2014 Silvestre Zaidi MD DEXA m77ph809-89v5-7449-0787-iu011d4had05 11/03/2014 11/03/2014 Silvestre Zaidi MD DEXA 3k59s40z-3016-7465-d255-5644oi2r8274 11/03/2014 11/03/2014 Silvestre Zaidi MD DEXA qh93eh35-13x8-5yy6-vrix-b9eb9pvm9514 11/03/2014 11/03/2014 Silvestre Zaidi MD DEXA 3p658264-t4fu-7w51-b98v-d40c8xb3l494 11/03/2014 11/03/2014 Silvestre Zaidi MD DEXA 478782a4-k49a-0i52-2h40-0516728z8a11 11/03/2014 11/03/2014 Silvestre Zaidi MD DEXA 92036442-2441-01j8-3939-0u5s448569fo 11/03/2014 11/03/2014 Silvestre Zaidi MD DEXA 3iz2813c-h517-9a97-p02w-021b5v6y4008 11/03/2014 11/03/2014 Silvestre Zaidi MD DEXA z4w01083-c478-42kf-jfl7-0gbdlpg3i08c 11/03/2014 11/03/2014 Silvestre Zaidi MD DEXA o38tbte8-w44d-6757-629c-g776yb691t5j 11/03/2014 11/03/2014 Silvestre Zaidi MD DEXA 67k53kfg-0e40-3293-5h95-3mij3210x698 11/03/2014 11/03/2014 Silvestre Zaidi MD DEXA 8fyeu273-dk16-4287-3p96-33191b9b4uyv 11/03/2014 11/03/2014 Silvestre Zaidi MD DEXA y9ck157v-3s4f-4z6e-x166-603089f33508 11/03/2014 11/03/2014 Silvestre Zaidi MD DEXA pn8u5311-8pi6-0051-7k5s-1r6cp974r5nw 11/03/2014 11/03/2014 Silvestre Zaidi MD DEXA 22r097fe-3vq0-6k6t-0q63-7f1011cb8e17 11/03/2014 11/03/2014 Silvestre Zaidi MD DEXA 59p1y412-63y5-5759-x6t3-71p3707p31ru 11/03/2014 11/03/2014 Silvestre Zaidi MD DEXA 2fqx5q49-k182-0c1z-d5uy-34l51o81u423 11/03/2014 11/03/2014 Silvestre Zaidi MD DEXA 3b24a76w-68d7-80u2-26t3-8784081284e7 11/03/2014 11/03/2014 Silvestre Zaidi MD DEXA 8i736y8j-q8c3-3lfn-06v0-w88eu7l09uk5 11/03/2014 11/03/2014 Silvestre Zaidi MD MRI 6o875f6j-7u63-3li9-3a8u-55558021h8z4 11/03/2014 11/03/2014 Silvestre Zaidi MD MRI y724945p-5179-2784-1bf6-23xf19adj2ch 11/03/2014 11/03/2014 Silvestre Zaidi MD MRI 7366a58j-742i-3981-s040-e3qgg595a00b 11/03/2014 11/03/2014 Silvestre Zaidi MD MRI 56254265-1944-3208-71o6-8byqcez33v80 11/03/2014 11/03/2014 Silvestre Zaidi MD MRI x168g0e2-m736-19fe-h895-8m0ii526tt38 11/03/2014 11/03/2014 Silvestre Zaidi MD [facility] i24f1z70-sj61-6p27-8xqq-h0q8u871i257 11/03/2014 11/03/2014 Silvestre Zaidi MD [facility] o1q6sd0l-7wx9-9561-t800-4cd795d3878d 11/03/2014 11/03/2014 Silvestre Zaidi MD MRI 7y4740mw-ftxy-1l69-3678-93405yvw801t 11/03/2014 11/03/2014 Silvestre Zaidi MD [facility] 7715tdf2-0609-81e1-596y-685w303487q1 11/03/2014 11/03/2014 Silvestre Zaidi MD [facility] yix09y8p-9874-73g2-w089-h38m21h3635u 11/03/2014 11/03/2014 Silvestre Zaidi MD [facility] jqk77wy2-wqh3-534y-b49y-s4704rr089o7 11/03/2014 11/03/2014 Silvestre Zaidi MD [facility] fem74464-a2tp-581y-u4o6-88gbpv0a35s8 11/03/2014 11/03/2014 Silvestre Zaidi MD [facility] z4i77210-6u81-4x84-269d-099g0e9p3x18 11/03/2014 11/03/2014 Silvestre Zaidi MD MRI 9f3r15of-gl34-517h-1k24-kfjw8b07323j 11/03/2014 11/03/2014 Silvestre Zaidi MD MRI t064om79-17ux-4uj9-75n4-195061701256 11/03/2014 11/03/2014 [facility] xy258cnx-y09f-332n-p482-rhl5ke5ry928 11/03/2014 11/03/2014 Silvestre Zaidi MD DEXA n8j49451-i2wx-24x9-31q4-68c615pg1y9z 11/03/2014 11/03/2014 Silvestre Zaidi MD DEXA 4pk337z4-41y3-083e-zym9-0190194y49sf 11/03/2014 11/03/2014 Silvestre Zaidi MD DEXA 982t5i5i-3guk-933w-032m-8fvp91jlck77 11/03/2014 11/03/2014 Silvestre Zaidi MD DEXA -7fe9-5w45-a14c-m71n6756v5mg 11/03/2014 11/03/2014 Silvestre Zaidi MD DEXA 9669la78-1189-5265-46t1-8p1e5jx63p11 11/03/2014 11/03/2014 Silvestre Zaidi MD DEXA 67587684-4745-7030-3t62-y547u9f8f0m1 11/03/2014 11/03/2014 Silvestre Zaidi MD DEXA 34n5iw0b-7t45-9v01-j60h-649995t85412 11/03/2014 11/03/2014 Silvestre Zaidi MD DEXA 2b360774-99xe-8h04-cjoe-0aa04348o5z0 11/03/2014 11/03/2014 Silvestre Zaidi MD DEXA z7x555u8-4g2b-8550-m413-0qff36d2j25g 11/03/2014 11/03/2014 Silvestre Zaidi MD DEXA fi4uqi4r-3h11-16x5-8i54-56t674178f2u 11/03/2014 11/03/2014 Silvestre Zaidi MD DEXA e47681h2-127c-6142-3639-43xrwgkfa34b 11/03/2014 11/03/2014 Silvestre Zaidi MD DEXA 949k9q2j-0o1a-5u5c-g352-3e692g3902hr 11/03/2014 11/03/2014 Silvestre Zaidi MD DEXA 8830a1ov-2x9h-866j-z37g-uwaa1zy4q8a4 11/03/2014 11/03/2014 Silvestre Zaidi MD DEXA 77r8nr35-37rv-8x12-q60z-j43hg0g990q2 11/03/2014 11/03/2014 Silvestre Zaidi MD pain in knee 7172um4d-m8qx-8164-3767-644834k476i4 11/06/2014 11/06/2014 Silvestre Zaidi MD pain in knee a78b983v-z28q-125c-1pi7-520905085j7q 11/06/2014 11/06/2014 Silvestre Zaidi MD pain in knee 74s855go-zin8-9137-e0s0-63625264760f 11/06/2014 11/06/2014 Silvestre Zaidi MD pain in knee 13658v4x-1596-87ln-6x39-7r1m705kg3g2 11/06/2014 11/06/2014 Silvestre Zaidi MD pain in knee y7kyawrl-j1lb-0w17-9kh4-806e9j67z518 11/06/2014 11/06/2014 Silvestre Zaidi MD pain in knee o7x75179-p9s6-6408-3p94-57y59434548q 11/06/2014 11/06/2014 Silvestre Zaidi MD pain in knee p66x6z7d-4k19-972o-viyu-639c0r878r08 11/06/2014 11/06/2014 Silvestre Zaidi MD pain in knee j75k1z84-7odw-4drt-6n30-40lk2850ba5s 11/06/2014 11/06/2014 Silvestre Zaidi MD pain in knee o2j95l4a-p50f-45jv-2016-12cn6vh53a60 11/06/2014 11/06/2014 Silvestre Zaidi MD pain in knee z8011084-2308-0976-006v-50gam957o4u6 11/06/2014 11/06/2014 Silvestre Zaidi MD pain in knee yf0yx230-5v70-2x35-cu2k-8f8765j76173 11/06/2014 11/06/2014 Silvestre Zaidi MD pain in knee 3zn7288p-012k-5085-j4ey-2aj953g0947o 11/06/2014 11/06/2014 Silvestre Zaidi MD pain in knee 7o6b0x80-7ky7-3qiw-d659-f4vx77ez9809 11/06/2014 11/06/2014 Silvestre Zaidi MD pain in knee 19h578am-04v7-4oo9-f669-bk877t491t1a 11/06/2014 11/06/2014 Silvestre Zaidi MD pain in knee j415c6b8-p64i-3pa8-a093-4074658e24e9 11/06/2014 11/06/2014 Silvestre Zaidi MD pain in knee 1321647b-3j17-4n55-n768-01602548i6c9 11/06/2014 11/06/2014 Silvestre Zaidi MD pain in knee ov4qkxg0-5x3y-033j-vd23-j276i57t164h 11/06/2014 11/06/2014 Silvestre Zaidi MD pain in knee fr2323cl-3r15-5pv8-e0m3-704u809442fo 11/06/2014 11/06/2014 Silvestre Zaidi MD pain in knee 7909yo84-8s86-73t9-d770-30j1uys40425 11/06/2014 11/06/2014 Silvestre Zaidi MD pain in knee m40p341s-4x03-2b19-jik5-sb987j605uu1 11/06/2014 11/06/2014 Silvestre Zaidi MD pain in knee 627x0a83-6u9f-5126-251n-01124s0va2s3 11/06/2014 11/06/2014 Silvestre Zaidi MD pain in knee g1dp11al-r3e0-0r21-jw1w-6356sp3rn2fn 11/06/2014 11/06/2014 Silvestre Zaidi MD pain in knee 6069g802-5s40-9504-58k3-66158sg0e710 11/06/2014 11/06/2014 Silvestre Zaidi MD pain in knee 20ga1cra-q98n-554k-8518-n4s7r530f641 11/06/2014 11/06/2014 Silvestre Zaidi MD pain in knee 84f71e9d-7326-58m4-80t4-78p30z0p1915 11/06/2014 11/06/2014 Silvestre Zaidi MD pain in knee p5ilo7q6-30e3-576q-ggs8-kob2pu0tkj7q 11/06/2014 11/06/2014 Silvestre Zaidi MD pain in knee s607180a-w09g-3281-2d5w-2x080645x307 11/06/2014 11/06/2014 Silvestre Zaidi MD pain in knee b07bk9s1-5784-8i77-7463-66gkx308q3o4 11/06/2014 11/06/2014 Silvestre Zaidi MD pain in knee c12z22t7-vk4u-325u-3fjf-2ab0107q69p8 11/06/2014 11/06/2014 Silvestre Zaidi MD pain in knee ayq8r096-8155-6jph-u48x-57wcn3586p81 11/06/2014 11/06/2014 Silvestre Zaidi MD pain in knee 7s38mlnq-4kfj-00n5-o3v0-294g8i37dm69 11/06/2014 11/06/2014 Silvestre Zaidi MD pain in knee 8l123lg1-06e5-87l9-60cm-mcrx3564n52b 11/06/2014 11/06/2014 Silvestre Zaidi MD pain in knee ug4v9wt2-956o-245s-0z0s-041vz812033u 11/06/2014 11/06/2014 Silvestre Zaidi MD pain in knee 4069432f-a88b-09r5-481y-1y07993a282x 11/06/2014 11/06/2014 Silvestre Zaidi MD pain in knee s51p62bk-p41m-4456-n754-6qe83559clmv 11/06/2014 11/06/2014 Silvestre Zaidi MD pain in knee 96x39q83-6531-1d47-5761-r2q3m965276c 11/06/2014 11/06/2014 Silvestre Zaidi MD Appts 76oft2g7-x2d5-1180-27m6-io8b87f7wv76 11/09/2014 11/09/2014 Silvestre Zaidi MD Appts 48wch0kw-787s-7pd2-rl0y-78tgf6ha425m 11/09/2014 11/09/2014 Silvestre Ziadi MD Appts dg2q6cvl-yu92-730w-hrb7-x32k4262x73s 11/09/2014 11/09/2014 Silvestre Zaidi MD Appts z56djy58-b689-03ef-225s-46f6o7o8c662 11/09/2014 11/09/2014 Silvestre Zaidi MD Appts 4akvxwe5-4w06-0x0n-1y7u-94ww6r5e261k 11/09/2014 11/09/2014 Silvestre Zaidi MD Appts 749lioh0-4i71-57at-t645-936j0zfy56g5 11/09/2014 11/09/2014 Silvestre Zaidi MD Appts e2zs30i2-96t2-2219-sq62-4tw2jn02zi3w 11/09/2014 11/09/2014 Silvestre Zaidi MD Appts 576z95q7-7912-912q-4308-51p1147887m0 11/09/2014 11/09/2014 Silvestre Zaidi MD Appts h7t2bb56-x392-37kh-d271-36fq7xi643mg 11/09/2014 11/09/2014 Silvestre Zaidi MD Appts st9ow67p-1agu-62s2-79y1-70x208360488 11/09/2014 11/09/2014 Silvestre Zaidi MD Appts 93704h1k-94q2-5pin-x2b5-17f1275801km 11/09/2014 11/09/2014 Silvestre Zaidi MD Appts 29566715-75o7-1761-33w8-b12i3z18zmn8 11/09/2014 11/09/2014 Silvestre Zaidi MD Appts v5066899-7nbj-7t76-wu51-75bu4o8661rv 11/09/2014 11/09/2014 Silvestre Zaidi MD Appts d653t5m0-c07t-6q49-b91b-dg799260zx99 11/09/2014 11/09/2014 Silvestre Zaidi MD Appts 33831mdm-8b60-3a08-iz48-930u9979o721 11/09/2014 11/09/2014 Silvestre Zaidi MD Appts bd2n2ky7-93wq-9dqi-t430-r892898i4jkc 11/09/2014 11/09/2014 Silvestre Zaidi MD Appts 50w90f49-v0hn-5j5x-9257-5pv9w7345d5w 11/09/2014 11/09/2014 Silvestre Zaidi MD Appts 5654h887-pq5g-80am-dpw3-4832z686a51t 11/09/2014 11/09/2014 Silvestre Zaidi MD Appts h2j7n651-7803-61q1-7463-dn59719894u1 11/09/2014 11/09/2014 Silvestre Zaidi MD Appts 09w404v0-4pan-8956-w4l4-66e4phvliag2 11/09/2014 11/09/2014 Silvestre Zaidi MD Appts p87t3d8f-2049-8e73-a40t-6054k45ixq04 11/09/2014 11/09/2014 Silvestre Zaidi MD Appts 62q10175-272q-376t-675z-v8t63s542yhq 11/09/2014 11/09/2014 Silvestre Zaidi MD Appts 463x2pw9-3076-4436-739f-9d7czyi2n4i3 11/09/2014 11/09/2014 Silvestre Zaidi MD Appts 620nj020-5f91-4hx3-3z7c-3hhhfm32q58c 11/09/2014 11/09/2014 Silvestre Zaidi MD Appts go792381-06l9-8dx3-gl04-462h5f64941a 11/09/2014 11/09/2014 Silvestre Zaidi MD Appts 78bp4953-9844-38oj-h5u3-fb624qr04h18 11/09/2014 11/09/2014 Silvestre Zaidi MD Appts 43804w78-u20m-9i66-ahbk-a8zd1296o3m6 11/09/2014 11/09/2014 iSlvestre Zaidi MD Appts 26a0co24-93y8-4z9k-02f7-9n20xrf36991 11/09/2014 11/09/2014 Silvestre Zaidi MD Appts to4yh9c2-700d-3tb2-931x-040seh4q2mur 11/09/2014 11/09/2014 Silvestre Zaidi MD Appts xtp28e8s-vuq8-3m04-d4o1-2634s6xn6425 11/09/2014 11/09/2014 Silvestre Zaidi MD Appts 41s66441-54g4-12k2-0084-r3x24874u30o 11/09/2014 11/09/2014 Silvestre Zaidi MD Appts 38ce0lq0-e5nt-683g-3j78-ib61gq5u2480 11/09/2014 11/09/2014 Silvestre Zaidi MD Appts e9v591vy-vv34-2413-y678-0v7jmo93yn8b 11/09/2014 11/09/2014 Silvestre Zaidi MD Appts x6n1qmcw-n221-5zh7-cp4t-8l14ku71v577 11/09/2014 11/09/2014 Silvestre Zaidi MD Appts 4g0g3c08-0889-63fv-c942-75xa32a1g386 11/09/2014 11/09/2014 Silvestre Zaidi MD Appts 5j46n659-6u63-42oq-8a6p-shn8996sfrn4 11/09/2014 11/09/2014 Silvestre Zaidi MD Pain/Injection 994s3096-n75s-7476-133b-879v536rc26v 11/30/2014 11/30/2014 Silvestre Zaidi MD Pain/Injection e34q23f7-s6u9-2k4f-vleq-v306c5d05zq9 11/30/2014 11/30/2014 Silvestre Zaidi MD Pain/Injection wiie8n1g-3rv4-9v3m-7y27-dv8899q0w42z 11/30/2014 11/30/2014 Silvestre Zaidi MD Pain/Injection 62kcj8s4-3sa2-3154-k6w2-3z66saq95l57 11/30/2014 11/30/2014 Silvestre Zaidi MD Pain/Injection plyz6t7b-0371-5442-1hn9-152u9f5958qr 11/30/2014 11/30/2014 Silvestre Zaidi MD Pain/Injection 6p851m0w-t3ze-3m17-3098-hx642y56fpbv 11/30/2014 11/30/2014 Silvestre Zaidi MD Pain/Injection 8x34tjr0-rfg8-6l56-j520-88v3l7079ke4 11/30/2014 11/30/2014 Silvestre Zaidi MD Pain/Injection 25c2frl4-98j6-2421-c2c0-9g4z53f3hs7x 11/30/2014 11/30/2014 Silvestre Zaidi MD Pain/Injection n90gpy09-9481-8u45-9lfp-75t1b9uz7989 11/30/2014 11/30/2014 Silvestre Zaidi MD Pain/Injection 79yt4yy7-6657-297q-62l5-14c2567h0234 11/30/2014 11/30/2014 Silvestre Zaidi MD Pain/Injection l51c6176-3601-43as-508q-77524h8c65c6 11/30/2014 11/30/2014 Silvestre Zaidi MD Pain/Injection 432u5t6b-2289-8q9t-5g7e-2647v9z1gw69 11/30/2014 11/30/2014 Silvestre Zaidi MD Pain/Injection 774ryp0q-86d0-8k6u-a121-e0cj32rh5386 11/30/2014 11/30/2014 Silvestre Zaidi MD Pain/Injection 363sy07s-m415-0jf7-753q-ild6w5c455na 11/30/2014 11/30/2014 Silvestre Zaidi MD Pain/Injection nym651l9-8245-41ej-123q-491fl117ko09 11/30/2014 11/30/2014 Silvestre Zaidi MD Pain/Injection gdwg11m1-1c6s-3z42-29k5-6b47m405291q 11/30/2014 11/30/2014 Silvestre Zaidi MD Pain/Injection 24v92y5l-l671-1525-6569-17r59q0ek044 11/30/2014 11/30/2014 Silvestre Zaidi MD Pain/Injection 06069l14-95h5-45n2-188e-370elsdg9he8 11/30/2014 11/30/2014 Silvsetre Zaidi MD Pain/Injection 58z8ax5o-b481-8448-66z4-0784p93tyy6l 11/30/2014 11/30/2014 Silvestre Zaidi MD Pain/Injection q4x4a87z-b163-184m-8172-568850bkmsit 11/30/2014 11/30/2014 Silvestre Zaidi MD Pain/Injection 4oiz1432-aoa3-5696-x999-6y23f46gd78i 11/30/2014 11/30/2014 Silvestre Zaidi MD Pain/Injection 7tsm31sd-l974-5x5t-83n5-47m335y0819k 11/30/2014 11/30/2014 Silvestre Zaidi MD Pain/Injection a4858690-tf29-705k-xm4d-e457s2se1e98 11/30/2014 11/30/2014 Silvestre Zaidi MD Pain/Injection 25f6e777-n168-725t-86o1-b617897jsr48 11/30/2014 11/30/2014 Silvestre Zaidi MD Pain/Injection 3h7tpi48-o560-9qk9-034o-89s364hxpv9l 11/30/2014 11/30/2014 Silvestre Zaidi MD Pain/Injection ke20203x-71i2-0dy7-smc7-x0221288lrq9 11/30/2014 11/30/2014 Silvestre Zaidi MD Pain/Injection a2141lc3-ol04-52k2-l0e9-336lx8edu74t 11/30/2014 11/30/2014 Silvestre Zaidi MD Pain/Injection 2722061b-nl8f-388r-2038-393dsp3s4816 11/30/2014 11/30/2014 Silvestre Zaidi MD Pain/Injection icb30m27-y466-9957-00oh-3nf74f87t5l5 11/30/2014 11/30/2014 Silvestre Zaidi MD Pain/Injection 465u6169-p4m8-245m-mdj1-d03l7l62iil5 11/30/2014 11/30/2014 Silvestre Zaidi MD Pain/Injection o3w98hgk-o556-879a-n395-044291602gw6 11/30/2014 11/30/2014 Silvestre Zaidi MD Pain/Injection vc5xusl1-7815-4051-y931-11vc18do008i 11/30/2014 11/30/2014 Silvestre Zaidi MD Pain/Injection e8w941zh-4yuz-0g7b-tc63-r21m4pl901a1 11/30/2014 11/30/2014 Silvestre Zaidi MD Pain/Injection k1891546-yl5a-50kz-9lb4-z4c5p72eqp8z 11/30/2014 11/30/2014 Silvestre Zaidi MD Torodal Injection 74h72a3u-uj25-77o4-7b5k-8y688l138y9q 12/01/2014 12/01/2014 Silvestre Zaidi MD Torodal Injection e33ch496-7732-9c9n-sh57-1w14d0ii0931 12/01/2014 12/01/2014 Silvestre Zaidi MD Torodal Injection k66w9z2j-0h30-0ec3-2am0-90297nx01f7a 12/01/2014 12/01/2014 Silvestre Zaidi MD Torodal Injection 41y1t4h6-5nc4-0363-5701-z80803850530 12/01/2014 12/01/2014 Silvestre Zaidi MD Torodal Injection 19e6242q-cy41-46u9-2tof-1306px11b746 12/01/2014 12/01/2014 Silvestre Zaidi MD Torodal Injection 960p2t34-v36n-3h84-c3k8-v7235r43p107 12/01/2014 12/01/2014 Silvestre Zaidi MD Torodal Injection 60807u2y-94l2-7own-j6c4-2537t90aw4tp 12/01/2014 12/01/2014 Silvestre Zaidi MD Torodal Injection 025i697z-ubgv-8125-9oiy-62v9609q178h 12/01/2014 12/01/2014 Silvestre Zaidi MD Torodal Injection iu1b5y68-8u97-82hz-7dpw-xh62532w360l 12/01/2014 12/01/2014 Silvestre Zaidi MD Torodal Injection 7oci0ps2-g27e-3176-rxd0-3tw60uvd6475 12/01/2014 12/01/2014 Silvestre Zaidi MD Torodal Injection s6mz00g2-69pa-4rej-813g-6i0y3l6ho7y3 12/01/2014 12/01/2014 Silvestre Zaidi MD Torodal Injection 8ysf9861-508z-3r30-y36h-2206vxy37ffr 12/01/2014 12/01/2014 Silvestre Zaidi MD Torodal Injection 3j16wyg4-011x-9ho8-t4h5-j85ia36875ax 12/01/2014 12/01/2014 Silvestre Zaidi MD Torodal Injection 106821x7-b046-799x-15mq-586i6514np9f 12/01/2014 12/01/2014 Silvestre Zaidi MD Torodal Injection i15715jw-7126-1caq-dq7o-8m4004x88182 12/01/2014 12/01/2014 Silvestre Zaidi MD Torodal Injection ed93hiy4-211x-7awx-0463-6k60e754w1po 12/01/2014 12/01/2014 Silvestre Zaidi MD Torodal Injection 0u82dcj2-5qi3-5y8q-p3u5-n55t9tmnpn72 12/01/2014 12/01/2014 Silvestre Zaidi MD Torodal Injection 47ur78f4-2jx8-5e6d-ts49-e8cmkm12p103 12/01/2014 12/01/2014 Silvestre Zaidi MD Torodal Injection a2770199-249a-107y-cq85-b374v428qs07 12/01/2014 12/01/2014 Silvestre Zaidi MD Torodal Injection 71c76647-4997-5bl4-qxb1-7994x8956412 12/01/2014 12/01/2014 Silvestre Zaidi MD Torodal Injection 694753l8-ik2p-0n05-k969-91yt42dh6943 12/01/2014 12/01/2014 Silvestre Zaidi MD Torodal Injection 22b6vxx2-03t0-8812-1490-7k78y7z7sq9c 12/01/2014 12/01/2014 Silvestre Zaidi MD Torodal Injection g4zoq112-191f-9338-58r8-02p6du448ooq 12/01/2014 12/01/2014 Silvestre Zaidi MD Torodal Injection o6k6d003-6e19-2273-611t-11791dwh6wls 12/01/2014 12/01/2014 Silvestre Zaidi MD Torodal Injection 4e5wew27-e3p6-1lp2-58t8-z161i037rc01 12/01/2014 12/01/2014 Silvestre Zaidi MD Torodal Injection 708ugd31-ietw-5b63-242l-ly0d318k778e 12/01/2014 12/01/2014 Silvestre Zaidi MD Torodal Injection mq79j560-19w2-97vw-n6l6-d011h48v77c4 12/01/2014 12/01/2014 Silvestre Zaidi MD Torodal Injection 16sl70x5-905g-41x6-y86k-9yj546u86373 12/01/2014 12/01/2014 Silvestre Zaidi MD Torodal Injection 204y1j22-616v-68y9-k419-n79b8h8l3um2 12/01/2014 12/01/2014 Silvestre Zaidi MD Torodal Injection f86666c3-r098-82co-8k7e-aeft144xf07a 12/01/2014 12/01/2014 Silvestre Zaidi MD Torodal Injection gsio7506-z657-85h6-q4sv-207i6d1kwyo0 12/01/2014 12/01/2014 Silvestre Zaidi MD Torodal Injection u9k05799-31p2-5179-9l09-46m56yy0lz6v 12/01/2014 12/01/2014 Silvestre Zaidi MD Torodal Injection op64699v-d4k6-91xx-f93g-6p8vnl6u2547 12/01/2014 12/01/2014 Silvestre Zaidi MD Torodal Injection e3a7f76p-svh4-230z-ha82-fj9e7601153z 12/01/2014 12/01/2014 Silvestre Zaidi MD Unknown d2i4j892-r39g-04p7-2zva-f18ti73m835r 12/21/2014 12/21/2014 Silvestre Zaidi MD Unknown 0729jtn0-4v06-4410-476o-p04i279p6r7t 12/21/2014 12/21/2014 Silvestre Zaidi MD Unknown gr102vpc-gc88-6m3v-7w34-7jgy84y9c1g5 12/21/2014 12/21/2014 Silvestre Zaidi MD Unknown 41g125tz-jx8z-14nj-hj71-hmv563550r11 12/21/2014 12/21/2014 Silvestre Zaidi MD Unknown pu30u5dm-fof6-0sno-rm6k-0x33wlo53188 12/21/2014 12/21/2014 Silvestre Zaidi MD Unknown b3b1i6r6-0nk4-454s-5eq8-w23g238k9295 12/21/2014 12/21/2014 Silvestre Zaidi MD Unknown [id number]-114u-0zbx-t77j-1alr96x9192e 12/21/2014 12/21/2014 Silvestre Zaidi MD Unknown 666v5o1y-3376-31e1-j6gl-z33979a2h216 12/21/2014 12/21/2014 Silvestre Zaidi MD Unknown [id number]-e0h2-jws8334094p6 12/21/2014 12/21/2014 Silvestre Zaidi MD Unknown [id number]-32v4-410r-2465-uv4e69813q85 12/21/2014 12/21/2014 Silvestre Zaidi MD Unknown [id number]-b5h2-44td-1z70-e40629t8220a 12/21/2014 12/21/2014 Silvestre Zaidi MD Unknown [id number]-[id number]-wsgp-700q11yr8t25 12/21/2014 12/21/2014 Silvestre Zaidi MD Unknown 74fq26m0-90il-044e-2lru-ap307821c333 12/21/2014 12/21/2014 Silvestre Zaidi MD Unknown [id number]-u98x-4077g11a-9714-a773-04h61arj07n9 12/21/2014 12/21/2014 Silvestre Zaidi MD Unknown [id number]-2327-182i-aca6-6042o5kcu4b3 12/21/2014 12/21/2014 Silvestre Zaidi MD Unknown [id number]-d9ye-12pb-tg8c-f6eq10yzc242 12/21/2014 12/21/2014 Silvestre Zaidi MD Unknown [id number] 12/21/2014 12/21/2014 Silvestre Zaidi MD Unknown [id number]-91pd-6j65-i8j6-02aia185w4c8 12/21/2014 12/21/2014 Silvestre Zaidi MD Unknown [id number]-y6dy8dr10j61 12/21/2014 12/21/2014 Silvestre Zaidi MD Unknown [id number]-x572-79xd-sah8-33625901mn92 12/21/2014 12/21/2014 Silvestre Zaidi MD Unknown [id number] 12/21/2014 12/21/2014 Silvestre Zaidi MD Unknown [id number]-187y-05k0-r793-4b9151082p11 12/21/2014 12/21/2014 Silvestre Zaidi MD Unknown [id number]-o1091c0820v4 12/21/2014 12/21/2014 Silvestre Zaidi MD Unknown [id number]-n8ep-[id number] 12/21/2014 12/21/2014 Silvestre Zaidi MD Unknown [id number]-j45r3815r6tm 12/21/2014 12/21/2014 Silvestre Zaidi MD Unknown [id number]-[id number] 12/21/2014 12/21/2014 Silvestre Zaidi MD Unknown [id number]-[id number] 12/21/2014 12/21/2014 Silvestre Zaidi MD Unknown [id number] 12/21/2014 12/21/2014 Silvestre Zaidi MD Unknown 0727ak83-f3j0-3p39-828d-3a36m951rt5b 12/21/2014 12/21/2014 Silvestre Zaidi MD Unknown q083gn47-t15s-2165-t072-7k79dpjl27gw 12/21/2014 12/21/2014 Silvestre Zaidi MD Unknown [id number]-2k56-228b-82du-328k2523h7ls 12/21/2014 12/21/2014 Silvestre Zaidi MD Unknown [id number]-65b9-7f0i-uyk9-054o8h07n2s2 12/21/2014 12/21/2014 Silvestre Zaidi MD Unknown ie80byhv-9bgc-7k3l-3v4y-3p3f45np21l0 12/21/2014 12/21/2014 Silvestre Zaidi MD Unknown [id number]-0cbg6p7a56q5 12/21/2014 12/21/2014 Silvestre Zaidi MD flare 677128y5-3459-438t-t7f0-p022862ja0q5 12/27/2014 12/27/2014 Silvestre Zaidi MD flare 75g1h5z1-4275-0901-ph94-77i46gm75g56 12/27/2014 12/27/2014 Silvestre Zaidi MD flare b2gqy8m9-106z-09m7-554k-rm201622468x 12/27/2014 12/27/2014 Silvestre Zaidi MD flare q5225b73-pwk7-8e76-0gsl-y2321p2068by 12/27/2014 12/27/2014 Silvestre Zaidi MD flare zc6s061u-778u-2558-e931-4984n025y625 12/27/2014 12/27/2014 Silvestre Zaidi MD flare xi762725-k6s2-1657-g54s-7a9519y99sxv 12/27/2014 12/27/2014 Silvestre Zaidi MD flare 73091k5m-j30t-9754-141o-5k818556cl48 12/27/2014 12/27/2014 Silvestre Zaidi MD flare 0vvt3x31-yio7-7719-82e2-65021fi35u62 12/27/2014 12/27/2014 Silvestre Zaidi MD flare 9lm2b8qz-r2c6-3491-733f-41w8e0al1858 12/27/2014 12/27/2014 Silvestre Zaidi MD flare v3q876s6-js15-11cx-c170-880k0dvem3p0 12/27/2014 12/27/2014 Silvestre Zaidi MD flare 5jo0gq43-2264-98o2-rab4-9129766lb6qt 12/27/2014 12/27/2014 Silvestre Zaidi MD flare p060nl7d-9g66-276f-p585-8g68xt005ao7 12/27/2014 12/27/2014 Silvestre Zaidi MD flare w0wk6572-66ns-9302-4a55-o54900395x7q 12/27/2014 12/27/2014 Silvestre Zaidi MD flare r1dg0519-g804-96bo-591b-47c7jh6517se 12/27/2014 12/27/2014 Silvestre Zaidi MD flare h2r6339b-1986-2zl7-f2a2-p474q8w88ru0 12/27/2014 12/27/2014 Silvestre Zaidi MD flare 29px76c2-7993-408l-64a6-9ol7923jt3se 12/27/2014 12/27/2014 Silvestre Zaidi MD flare 11ew421c-4172-2434-la18-27rb825r0973 12/27/2014 12/27/2014 Silvestre Zaidi MD flare f64a3rhr-94ni-8vx2-7612-8f2va46v260q 12/27/2014 12/27/2014 Silvestre Zaidi MD flare 44q81q4o-3hfn-6m25-k8q1-45r5o82d1lbj 12/27/2014 12/27/2014 Silvestre Zaidi MD flare sg824p68-0zc8-786h-rn90-770t12p62702 12/27/2014 12/27/2014 Silvestre Zaidi MD flare 3094ebce-8543-3537-92ac-4043kr2ibbd4 12/27/2014 12/27/2014 Silvestre Zaidi MD flare 90o4b5g6-90l7-3i3d-ncq9-466692bq2622 12/27/2014 12/27/2014 Silvestre Zaidi MD flare 4lb845oy-554r-999r-m102-753t6z06sgv3 12/27/2014 12/27/2014 Silvestre Zaidi MD flare ssa67b90-7g6j-622i-u78r-7rjr044x8co4 12/27/2014 12/27/2014 Silvestre Zaidi MD flare 785x60vj-r3n7-5821-ver5-i2l4cg70764q 12/27/2014 12/27/2014 Silvestre Zaidi MD flare 5842a896-w411-58tu-h701-9d8j1y9evax1 12/27/2014 12/27/2014 Silvestre Zaidi MD flare a4u7149q-rc4k-7e6q-41un-997sjexgw667 12/27/2014 12/27/2014 Silvestre Zaidi MD flare 01q2w19e-74g3-3uew-n543-ge6l3q2u38k1 12/27/2014 12/27/2014 Silvestre Zaidi MD flare psfoua5x-43d2-1671-vyt7-18w53061y1e3 12/27/2014 12/27/2014 Silvestre Zaidi MD flare 0c6830j6-q207-37v7-3049-oyky2304o0ip 12/27/2014 12/27/2014 Silvestre Zaidi MD flare 0d8s74k1-ke80-14h3-leq2-35n014g732ff 12/27/2014 12/27/2014 Silvestre Zaidi MD flare 8l9l77e9-33n7-979h-x871-s0595d929tx8 12/27/2014 12/27/2014 Silvestre Zaidi MD flare 3zwj36v8-5u10-9248-wj01-5zm411578s53 12/27/2014 12/27/2014 Silvestre Zaidi MD flare pavy1z33-0g5g-6680-9xr9-oby9z89tu756 12/27/2014 12/27/2014 Silvestre Zaidi MD pain in knee 99821819-q88p-9199-p522-ciea6e14b98a 01/09/2015 01/09/2015 Silvestre Zaidi MD pain in knee x874p7t9-k2u8-97e7-i0o6-h453242e9318 01/09/2015 01/09/2015 Silvestre Zaidi MD pain in knee 6563h4le-1s42-1837-b8z3-l1ybb8117m4c 01/09/2015 01/09/2015 Silvestre Zaidi MD pain in knee 1u586f47-w43u-0c23-b10y-001i98js01zz 01/09/2015 01/09/2015 Silvestre Zaidi MD pain in knee 18l9q740-m48y-97u3-880j-nu711059080d 01/09/2015 01/09/2015 Silvestre Zaidi MD pain in knee o99398j5-k7mr-0909-g199-flwcf20213m7 01/09/2015 01/09/2015 Silvestre Zaidi MD pain in knee xe595sr6-a7v3-08q9-1762-9325288w3c16 01/09/2015 01/09/2015 Silvestre Zaidi MD pain in knee j6a726r4-7hm0-1750-p5nf-746h09gr5q7u 01/09/2015 01/09/2015 Silvestre Zaidi MD pain in knee 228f4wr1-405b-42kt-2k04-37yo829k53a3 01/09/2015 01/09/2015 Silvestre Zaidi MD pain in knee k23fruhu-4509-92k9-8t49-ib797h9f9219 01/09/2015 01/09/2015 Silvestre Zaidi MD pain in knee 88awc932-7p8l-4s95-0v5o-d218v9i6k40u 01/09/2015 01/09/2015 Silvestre Zaidi MD pain in knee 9u0azac8-7443-8079-pjop-o0kh85897a45 01/09/2015 01/09/2015 Silvestre Zaidi MD pain in knee 6k689474-2m57-7o62-6sn9-20ip21d13v2c 01/09/2015 01/09/2015 Silvestre Zaidi MD pain in knee g5891w8e-qd89-39c7-u402-9vy815up7vd4 01/09/2015 01/09/2015 Silvestre Zaidi MD pain in knee m072w18p-qk9s-9b1t-rh39-o810v637v849 01/09/2015 01/09/2015 Silvestre Zaidi MD pain in knee regfh584-3904-4c80-ux16-48g7853e172w 01/09/2015 01/09/2015 Silvestre Zaidi MD pain in knee 95gn9f46-28ru-84jv-m87r-01s70t8hg949 01/09/2015 01/09/2015 Silvestre Zaidi MD pain in knee 26191c54-m6xu-470f-d49k-r5z70757or04 01/09/2015 01/09/2015 Silvestre Zaidi MD pain in knee 38ta03k1-39eq-3d06-ut8o-84c4083v0381 01/09/2015 01/09/2015 Silvestre Zaidi MD pain in knee 511nf03p-j30b-4z09-25x2-3500352420i5 01/09/2015 01/09/2015 Silvestre Zaidi MD pain in knee 227g5048-695m-21dg-k812-uor6195p3572 01/09/2015 01/09/2015 Silvestre Zaidi MD pain in knee 88731r0a-s02k-0205-6279-98040jyw9f72 01/09/2015 01/09/2015 Silvestre Zaidi MD pain in knee 9853p121-6742-94b3-u385-i1shfb33i7lj 01/09/2015 01/09/2015 Silvestre Zaidi MD pain in knee 4hse4834-78rs-86e5-fj7u-n1jm518721y4 01/09/2015 01/09/2015 Silvestre Zaidi MD pain in knee 39n568ez-8685-1s32-d62t-1g4978h9013b 01/09/2015 01/09/2015 Silvestre Zaidi MD pain in knee 5439rhl7-zv29-4d63-61ar-570929r8q354 01/09/2015 01/09/2015 Silvestre Zaidi MD pain in knee 372f879q-z0o9-76xk-4ofh-6902ct1vt245 01/09/2015 01/09/2015 Silvestre Zaidi MD pain in knee f9374x83-fxl6-7yp6-q7y1-8w0nj76l2754 01/09/2015 01/09/2015 Silvestre Zaidi MD pain in knee 09y99q00-u21s-21md-pk7g-omhozx62c242 01/09/2015 01/09/2015 Silvestre Zaidi MD pain in knee 8816ou82-c348-3p53-85lz-20228195wx43 01/09/2015 01/09/2015 Silvestre Zaidi MD pain in knee 49533423-35xx-392k-90aw-444k38151201 01/09/2015 01/09/2015 Silvestre Zaidi MD pain in knee 63jf9747-35q4-4a92-4168-3786y27kzb1f 01/09/2015 01/09/2015 Silvestre Zaidi MD pain in knee 72468126-9cz5-851c-z58c-240t0vvm28k0 01/09/2015 01/09/2015 Silvestre Zaidi MD Unknown kyf828nq-8e1e-77u9-x04x-k79sqd25sm80 01/26/2015 01/26/2015 Silvestre Zaidi MD Unknown 88g4t128-h7f2-46t9-ogz0-11s30g3g0s55 01/26/2015 01/26/2015 Silvestre Zaidi MD Unknown 053tha24-3ya0-8qlk-qd94-oos8ru64r4s6 01/26/2015 01/26/2015 Silvestre Zaidi MD Unknown m5hkjr8y-3084-9837-q81k-0v70re58r93y 01/26/2015 01/26/2015 Silvestre Zaidi MD Unknown 3dt0663n-6b65-83zn-ko46-2e308aq91r51 01/26/2015 01/26/2015 Silvestre Zaidi MD Unknown n551o485-389h-71qy-6w6i-i7m80dm905xt 01/26/2015 01/26/2015 Silvestre Zaidi MD Unknown [id number]-88fo-88m5-204k-qs59698z6g75 01/26/2015 01/26/2015 Silvestre Zaidi MD Unknown [id number]-97dtc1y9t5v2 01/26/2015 01/26/2015 Silvestre Zaidi MD Unknown r3p26y1l-9ep1-229c-8d33-2q7c97d6i1c6 01/26/2015 01/26/2015 Silvestre Zaidi MD Unknown [id number]-o888-3may-m00o-703177t60tz3 01/26/2015 01/26/2015 Silvestre Zaidi MD Unknown [id number]-d740-8x416895t8p4 01/26/2015 01/26/2015 Silvestre Zaidi MD Unknown [id number] 01/26/2015 01/26/2015 Silvestre Zaidi MD Unknown ab3uxr87-59e5-79ao-p160-2694227x5g3m 01/26/2015 01/26/2015 Silvestre Zaidi MD Unknown [id number]-k38d-0775a60m-0936-162m-i89m751smv0z 01/26/2015 01/26/2015 Silvestre Zaidi MD Unknown 2d5111h4-7n53-8421-279j-109h5d0m42t1 01/26/2015 01/26/2015 Silvestre Zaidi MD Unknown [id number]-[id number]-h4e6-1322231u906x 01/26/2015 01/26/2015 Silvestre Zaidi MD Unknown [id number]-0115-7q5c-dn5e-02j4l1no72ws 01/26/2015 01/26/2015 Silvestre Zaidi MD Unknown [id number]-2001-83hg-v76l4g80542w 01/26/2015 01/26/2015 Silvestre Zaidi MD Unknown [id number]-025u-6gc9-i265b4j248m5 01/26/2015 01/26/2015 Silvestre Zaidi MD Unknown vn2419q5-n3e9-2616-821d-n08m683r103u 01/26/2015 01/26/2015 Silvestre Zaidi MD Unknown ks50dss0-9syv-290f-ji0m-s89035n07c1c 01/26/2015 01/26/2015 Silvestre Zaidi MD Unknown a03w5zl6-x3n7-660v-femv-1049o2592ex3 01/26/2015 01/26/2015 Silvestre Zaidi MD Unknown [id number]-f957-8614-7m0i-5605h03e0rb4 01/26/2015 01/26/2015 Silvestre Zaidi MD Unknown 991wjmi5-07uz-3841-oh16-156d04067j0n 01/26/2015 01/26/2015 Silvestre Zaidi MD Unknown o4cu2747-u580-3zr9-0l8b-h35s05q11g52 01/26/2015 01/26/2015 Silvestre Zaidi MD Unknown 5l5nc774-9my7-41n0-6640-729429t16q62 01/26/2015 01/26/2015 Silvestre Zaidi MD Unknown [id number]-mie0-215r-g9k6-97677588n180 01/26/2015 01/26/2015 Silvestre Zaidi MD Unknown [id number]-[id number] 01/26/2015 01/26/2015 Silvestre Zaidi MD Unknown [id number]-ea76-3u8o5046044r 01/26/2015 01/26/2015 Silvestre Zaidi MD Unknown [id number]-9l4h-1s98-3k851bu8955r 01/26/2015 01/26/2015 Silvestre Zaidi MD Unknown [id number]-g126-7m50-0h63-63sx11i4082f 01/26/2015 01/26/2015 Silvestre Zaidi MD Unknown [id number]-k736-52cx-7oo2-44n4v9ea8360 01/26/2015 01/26/2015 Silvestre Zaidi MD Unknown [id number]-r7f6-0s29-t223-o31qqn3waa86 01/26/2015 01/26/2015 Silvestre Zaidi MD Unknown 76k77i4r-3774-7eq0-l5c8-8pc83ac95gt8 01/26/2015 01/26/2015 Silvestre Zaidi MD DEXA 399w86i3-021x-860t-k5h0-jmfa07f852p2 02/06/2015 02/06/2015 Silvestre Zaidi MD DEXA 7289txz3-9o36-934m-8xr3-67u2tegr24b4 02/06/2015 02/06/2015 Silvestre Zaidi MD DEXA f73283z7-8699-3840-621s-79orkyr8oxnj 02/06/2015 02/06/2015 Silvestre Zaidi MD DEXA 47u42o83-58a0-5807-vg4z-4vy08zg24la7 02/06/2015 02/06/2015 Silvestre Zaidi MD DEXA 3948t230-s12v-492e-5599-sr6878l92584 02/06/2015 02/06/2015 Silvestre Zaidi MD DEXA 52592p85-c257-7954-lb4n-7927e8f5xpg4 02/06/2015 02/06/2015 Silvestre Zaidi MD DEXA 5306dt71-46hj-5w8k-97s7-53m9584u989g 02/06/2015 02/06/2015 Silvestre Zaidi MD DEXA 1sov883k-55sd-6555-281q-80w2l69o617a 02/06/2015 02/06/2015 Silvestre Zaidi MD DEXA y50hwlo1-9nhc-176g-u249-e5t4898vih41 02/06/2015 02/06/2015 Silvestre Zaidi MD DEXA c165111d-4b1x-2y70-n4d2-1067i3q92462 02/06/2015 02/06/2015 Silvestre Zaidi MD DEXA 11t5k37z-x304-1ib2-8z80-12049393645n 02/06/2015 02/06/2015 Silvestre Zaidi MD DEXA 3s67j8t4-7441-11x6-k0sd-1xt2h93eg529 02/06/2015 02/06/2015 Silvestre Zaidi MD DEXA gk478u52-0428-1bqp-nb9e-d17bx68bk49c 02/06/2015 02/06/2015 Silvestre Zaidi MD DEXA y8000oks-84j5-075f-f54e-k0s555l9cpgp 02/06/2015 02/06/2015 Silvestre Zaidi MD DEXA k5p2nyz1-46fa-15h2-n050-b81q5a9to4v7 02/06/2015 02/06/2015 Silvestre Zaidi MD DEXA iekq6571-z68w-1418-zf06-4k99ti205012 02/06/2015 02/06/2015 Silvestre Zaidi MD DEXA 53zl7h6r-8pi3-70ux-0162-72170f826744 02/06/2015 02/06/2015 Silvestre Zaidi MD DEXA n0d50r87-11a7-24s4-lw63-1f76bj65852e 02/06/2015 02/06/2015 Silvestre Zaidi MD DEXA d7o4986x-1614-3n37-2686-551f4497meat 02/06/2015 02/06/2015 Silvestre Zaidi MD DEXA cothq198-1645-29e2-b40z-spg1n803q07e 02/06/2015 02/06/2015 Silvestre Zaidi MD DEXA l2ko6l8u-4to8-8638-v5r4-1737c8h13tyl 02/06/2015 02/06/2015 Silvestre Zaidi MD DEXA 33509540-b1mu-7207-ey84-6336347j4kp5 02/06/2015 02/06/2015 Silvestre Zaidi MD DEXA 3n3755v7-3301-4371-h04v-92yj7t4m0152 02/06/2015 02/06/2015 Silvestre Zaidi MD DEXA 28to5434-5849-791x-x349-wchr7sfslvt2 02/06/2015 02/06/2015 Silvestre Zaidi MD DEXA d632s64l-w4l2-6307-m6do-6j8626749e67 02/06/2015 02/06/2015 Silvestre Zaidi MD DEXA n5r44pt0-0107-9393-0d5d-b2g6rs06vl39 02/06/2015 02/06/2015 Silvestre Zaidi MD DEXA 404773p1-690t-888o-3789-50pk37293ggg 02/06/2015 02/06/2015 Silvestre Zaidi MD DEXA 007x5358-6a63-3991-16l4-a01dtd8q7ue9 02/06/2015 02/06/2015 Silvestre Zaidi MD DEXA g2oz83vx-y5k6-1x32-98c2-152wsk069052 02/06/2015 02/06/2015 Silvestre Zaidi MD DEXA z42e20tl-1697-2w12-n71c-93j022h10856 02/06/2015 02/06/2015 Silvestre Zaidi MD DEXA 850714d2-0f7e-33i0-8ez5-5e07k3ba6629 02/06/2015 02/06/2015 Silvestre Zaidi MD DEXA f1102y48-558n-152n-gb0j-9900b77a7756 02/06/2015 02/06/2015 Silvestre Zaidi MD DEXA o4p7qc1v-08o8-0vmz-in30-z5f3uds4726z 02/06/2015 02/06/2015 Silvestre Zaidi MD DEXA s575nu7v-2mn8-1b3m-v059-0tkb7e90c5a1 02/06/2015 02/06/2015 Silvestre Zaidi MD Pain 3g0cryqg-2bku-9w27-tgke-5383arm701s5 02/06/2015 02/06/2015 Silvestre Zaidi MD [facility] 664is939-1579-515c-95d0-419517qs2o95 02/06/2015 02/06/2015 Silvestre Zaidi MD Pain 6pe3u37j-12pz-4832-724f-a4u820e08k97 02/06/2015 02/06/2015 Silvestre Zaidi MD Pain 71ka408k-7x78-2sf1-2888-fc3z9v33j628 02/06/2015 02/06/2015 Silvestre Zaidi MD Pain 108k27r1-32x3-73oy-s6rr-7wc9za340988 02/06/2015 02/06/2015 Silvestre Zaidi MD Pain dq9v884d-4nai-2724-pd32-7615bacl5h9i 02/06/2015 02/06/2015 Silvestre Zaidi MD Pain a99ih51w-a01d-1p32-z7m2-5m69gq106f48 02/06/2015 02/06/2015 Silvestre Zaidi MD Pain 1201291w-100z-22ia-1798-82u1i9n97a71 02/06/2015 02/06/2015 Silvestre Zaidi MD Pain a2x7z2n7-qq1l-47c4-gj82-67d276wd821y 02/06/2015 02/06/2015 Silvestre Zaidi MD Pain a1b73r74-oi58-7n39-5r1k-7e9ha2x271gb 02/06/2015 02/06/2015 Silvestre Zaidi MD Pain 2b753kfq-76o4-69z5-s632-68o1l470668z 02/06/2015 02/06/2015 Silvestre Zaidi MD Pain 82755o51-au67-1fey-51z3-8724or218140 02/06/2015 02/06/2015 Silvestre Zaidi MD Pain 61dli1zn-824k-21ud-2bgm-8yc06239n58z 02/06/2015 02/06/2015 Silvestre Zaidi MD Pain 4j300b07-9v55-1ze5-b34g-4c63zl4495dn 02/06/2015 02/06/2015 Silvestre Zaidi MD Pain 4l0q45n6-9411-7819-vcxd-9yz1no5w0887 02/06/2015 02/06/2015 Silvestre Zaidi MD Pain uga327ga-4im2-8572-n543-3xf62o068kbf 02/06/2015 02/06/2015 Silvestre Zaidi MD Pain vn8g9912-11d6-9y1z-n68r-41l6c6fv6v6d 02/06/2015 02/06/2015 Silvestre Zaidi MD Pain l590y658-3k6q-62q3-58im-i0y9855586i0 02/06/2015 02/06/2015 Silvestre Zaidi MD Pain 7n976v05-4677-9915-1w2u-u81gy20u8223 02/06/2015 02/06/2015 Silvestre Zaidi MD Pain m976ow4j-0u28-08s5-jrw3-s188k2780901 02/06/2015 02/06/2015 Silvestre Zaidi MD Pain 854c8892-890d-09m6-ynzi-632y73559q26 02/06/2015 02/06/2015 Silvestre Zaidi MD Pain 34b0g16a-5583-53e1-z62h-5c0z92w9478d 02/06/2015 02/06/2015 Silvestre Zaidi MD Pain 815970kp-a0in-347r-x8os-53075398163j 02/06/2015 02/06/2015 Silvestre Zaidi MD Pain 605i0677-9c72-0x9j-no02-95it256ku03q 02/06/2015 02/06/2015 Silvestre Zaidi MD Pain 05824u40-97o4-53m2-3598-009i5rrw1125 02/06/2015 02/06/2015 Silvestre Zaidi MD Pain 099f9yv0-z07p-6z5u-ay5q-fbu9qe0gs83j 02/06/2015 02/06/2015 Silvestre Zaidi MD Pain y357dl46-vq65-6ur5-h997-0w3z4u1vu68y 02/06/2015 02/06/2015 Silvestre Zaidi MD Pain 252681r2-29l3-32u1-787x-7oe6766l797s 02/06/2015 02/06/2015 Silvestre Zaidi MD Pain tw8ic50r-01i5-1768-1l1s-p09cb9i8145e 02/06/2015 02/06/2015 Silvestre Zaidi MD Pain 3771tgq9-520q-2j7h-69lq-3s8248c555ys 02/06/2015 02/06/2015 Silvestre Zaidi MD Pain bz6w0i58-8eec-879r-78id-103y1yltlw76 02/06/2015 02/06/2015 Silvestre Zaidi MD Pain 7510573j-tt2k-2t5y-653o-ek811080w09t 02/06/2015 02/06/2015 Silvestre Zaidi MD Pain 8vdu4319-q0v9-2s6v-fege-xf5562m2w58z 02/06/2015 02/06/2015 Silvestre Zaidi MD Pain t99x01f6-x56r-3514-b509-frs8242y4423 02/06/2015 02/06/2015 Silvestre Zaidi MD RX e6h18769-3993-6677-47t8-86y86q1b97b9 02/27/2015 02/27/2015 Silvestre Zaidi MD RX 9v07bx71-1ml4-1x8z-5151-387e048cm27t 02/27/2015 02/27/2015 Silvestre Zaidi MD RX 3426677r-2r96-1dd0-y7do-00z4ap4434l3 02/27/2015 02/27/2015 Silvestre Zaidi MD RX q6gi8u81-7871-9965-1q34-899bb88xy30m 02/27/2015 02/27/2015 Silvestre Zaidi MD RX 71f1n555-52kt-91mg-40e5-54458557p81u 02/27/2015 02/27/2015 Silvestre Zaidi MD RX c2286ie8-9708-9v20-j3s0-0w0x4q5sw838 02/27/2015 02/27/2015 Silvestre Zaidi MD RX c7v8s40s-06o9-8qqm-4900-84005g8z444h 02/27/2015 02/27/2015 Silvestre Zaidi MD RX 406qzb47-6276-6st2-r9eg-1772e61239b3 02/27/2015 02/27/2015 Silvestre Zaidi MD RX i5p798q4-c34l-2m17-v456-34klcg753js9 02/27/2015 02/27/2015 Silvestre Zaidi MD RX s3t3y6z2-60bg-154g-08e0-3i6hy1dy97t8 02/27/2015 02/27/2015 Silvestre Zaidi MD RX amfz5306-21t2-75oc-7372-k31ble8cam3e 02/27/2015 02/27/2015 Silvestre Zaidi MD RX 9833uy70-y171-6f14-009s-63wb8774ag0j 02/27/2015 02/27/2015 Silvestre Zaidi MD RX 68bv0m0e-251x-8h30-n4i7-q076puu48529 02/27/2015 02/27/2015 Silvestre Zaidi MD RX 4qf9j634-0310-4242-14dh-7031adn32eeh 02/27/2015 02/27/2015 Silvestre Zaidi MD RX y0q52186-b361-889e-310x-3em18c586596 02/27/2015 02/27/2015 Silvestre Zaidi MD RX [id number]-633d-07fs-y6j1vd687d58 02/27/2015 02/27/2015 Silvestre Zaidi MD RX [id number] 02/27/2015 02/27/2015 Silvestre Zaidi MD RX [id number]-[id number] 02/27/2015 02/27/2015 Silvestre Zaidi MD RX [id number]-31iojzb096c3 02/27/2015 02/27/2015 Silvestre Zaidi MD RX [id number]-vc02-mly95zli497m 02/27/2015 02/27/2015 Silvestre Zaidi MD RX [id number]-kz96-4ll77u1vj731 02/27/2015 02/27/2015 Silvestre Zaidi MD RX [id number] 02/27/2015 02/27/2015 Silvestre Zaidi MD RX [id number] 02/27/2015 02/27/2015 Silvestre Zaidi MD RX [id number]-g7o4lj9o0054 02/27/2015 02/27/2015 Silvestre Zaidi MD RX [id number]-[id number] 02/27/2015 02/27/2015 Silvestre Zaidi MD RX [id number] 02/27/2015 02/27/2015 Silvestre Zaidi MD RX [id number]-[id number] 02/27/2015 02/27/2015 Silvestre Zaidi MD RX [id number]-5o844s8in448 02/27/2015 02/27/2015 Silvestre Zaidi MD RX [id number]-rc081530hz0z 02/27/2015 02/27/2015 Silvestre Zaidi MD RX [id number] 02/27/2015 02/27/2015 Silvestre Zaidi MD RX 71rj92kt-9fv2-753z-j15c-n56878v449ts 02/27/2015 02/27/2015 Silvestre Zaidi MD RX [id number]-o882-3t830716d2n6 02/27/2015 02/27/2015 Silvestre Zaidi MD RX [id number]-77n74126nf7x 02/27/2015 02/27/2015 Silvestre Zaidi MD 6-8 WK F/U oreq1p32-400g-78l2-v3p3-84y62wg2ab77 03/23/2015 03/23/2015 Silvestre Zaidi MD 6-8 WK F/U [id number]-2502-[id number] 03/23/2015 03/23/2015 Silvestre Zaidi MD 6-8 WK F/U 00006076-4ih2-9n2t-4777-662x7vz3181p 03/23/2015 03/23/2015 Silvestre Zaidi MD 6-8 WK F/U 555b1275-2941-15fr-ch4k-826895r680vc 03/23/2015 03/23/2015 Silvestre Zaidi MD 6-8 WK F/U 6v995361-o202-4wz8-1353-15w49500329g 03/23/2015 03/23/2015 Silvestre Zaidi MD 6-8 WK F/U g02i5qex-rqhk-4v33-3211-c556977rd886 03/23/2015 03/23/2015 Silvestre Zaidi MD 6-8 WK F/U 87nx9q8l-1754-1556-n270-234210kz9k61 03/23/2015 03/23/2015 Silvestre Zaidi MD 6-8 WK F/U f298g0lx-5f1a-5763-g2t0-5995zo92yml2 03/23/2015 03/23/2015 Silvestre Zaidi MD 6-8 WK F/U 514753t4-454q-3dc2-o2z9-ve61kyy96a33 03/23/2015 03/23/2015 Silvestre Zaidi MD 6-8 WK F/U y4pxn273-y298-6cor-61ue-59w71172346d 03/23/2015 03/23/2015 Silvestre Zaidi MD 6-8 WK F/U 18cq54b6-5eo3-4990-14h9-ko6cukwdq6i7 03/23/2015 03/23/2015 Silvestre Zaidi MD 6-8 WK F/U rba9sveq-p072-027m-ux5u-42ynw858k6u0 03/23/2015 03/23/2015 Silvestre Zaidi MD 6-8 WK F/U 2y60v14a-2j77-988k-aphg-5ow73f011aqm 03/23/2015 03/23/2015 Silvestre Zaidi MD 6-8 WK F/U tj7ok6c0-8060-53j0-ey80-4s081c71725a 03/23/2015 03/23/2015 Silvestre Zaidi MD 6-8 WK F/U 460cfqf7-f05o-0939-246l-hk4k9la14w64 03/23/2015 03/23/2015 Silvestre Zaidi MD 6-8 WK F/U 04sehqz3-ulp9-4y5n-7i1o-953r2b6zvw10 03/23/2015 03/23/2015 Silvestre Zaidi MD 6-8 WK F/U 7a283l65-cryu-8372-6942-56du060in4m4 03/23/2015 03/23/2015 Silvestre Zaidi MD 6-8 WK F/U u9o7q25s-1889-1e3a-3t67-u450827617yl 03/23/2015 03/23/2015 Silvestre Zaidi MD 6-8 WK F/U 327167zv-04uv-009t-cwp9-5vej6fg91w69 03/23/2015 03/23/2015 Silvesrte Zaidi MD 6-8 WK F/U 2w27k498-cia3-38g8-b153-46y210l35617 03/23/2015 03/23/2015 Silvestre Zaidi MD 6-8 WK F/U c24nr481-4469-859d-7o65-l1j4s06e9z63 03/23/2015 03/23/2015 Silvestre Zaidi MD 6-8 WK F/U 69ys308e-1d3l-1fhf-42s1-8755713ey54t 03/23/2015 03/23/2015 Silvestre Zaidi MD 6-8 WK F/U y0a07368-gk5z-277a-o21u-04d4q383r175 03/23/2015 03/23/2015 Silvestre Zaidi MD 6-8 WK F/U 45y062hb-3136-678i-6952-39231029n481 03/23/2015 03/23/2015 Silvestre Zaidi MD 6-8 WK F/U 610w3i78-e04b-7081-7237-4bn8359y8c94 03/23/2015 03/23/2015 Silvestre Zaidi MD 6-8 WK F/U w8d6bk7v-0994-3566-lws1-4057kv903c0s 03/23/2015 03/23/2015 Silvestre Zaidi MD 6-8 WK F/U e72vkw76-d0t0-0423-742s-ejt4o19713c2 03/23/2015 03/23/2015 Silvestre Zaidi MD 6-8 WK F/U 7z32653k-k0ns-9i82-vkij-9453t019033f 03/23/2015 03/23/2015 Silvestre Zaidi MD 6-8 WK F/U 1t5d65y3-07t5-94k1-5343-44g29i088761 03/23/2015 03/23/2015 Silvestre Zaidi MD 6-8 WK F/U rpp7y1g2-1q12-14l5-k016-738191712821 03/23/2015 03/23/2015 Silvestre Zaidi MD 6-8 WK F/U 87n65870-mgs2-2z51-8ir2-4n2m82awo91w 03/23/2015 03/23/2015 Silvestre Zaidi MD 6-8 WK F/U t57n52b2-1s93-2073-fm0b-04qh76y01935 03/23/2015 03/23/2015 Silvestre Zaidi MD 6-8 WK F/U 21h185i3-slh5-58n6-74dx-9k08758p02wp 03/23/2015 03/23/2015 Silvestre Zaidi MD refill 17a2jgc4-07vm-70iu-n6f8-d30v89tf576q 04/19/2015 04/19/2015 Silvestre Zaidi MD refill 492wz35u-0l8a-3zlu-4og2-98a04w300r22 04/19/2015 04/19/2015 Silvestre Zaidi MD refill [id number]-7803-89il-mw5q1y4c8wk1 04/19/2015 04/19/2015 Silvestre Zaidi MD refill 65x5jf56-l529-5889-e09d-619yhq2v5430 04/19/2015 04/19/2015 Silvestre Zaidi MD refill [id number]-ou0b-04f1-34d4-684c0cq2m1zq 04/19/2015 04/19/2015 Silvestre Zaidi MD refill 0654esr9-5v80-9510-cjim-7u73ki263jyx 04/19/2015 04/19/2015 Silvestre Zaidi MD refill b06p543h-8h6q-01ot-v240-jm6jrz1n0957 04/19/2015 04/19/2015 Silvestre Zaidi MD refill c9229cx1-yq8r-5i25-p2ey-209f41gzi395 04/19/2015 04/19/2015 Silvestre Zaidi MD refill [id number]-74df-16oc-yq4k-347wrn4qvx92 04/19/2015 04/19/2015 Silvestre Zaidi MD refill [id number]-311n88e55u8k 04/19/2015 04/19/2015 Silvestre Zaidi MD refill f0382mjv-z9z2-6405-au1m-1nk0722g501k 04/19/2015 04/19/2015 Silvestre Zaidi MD refill 09cpj7e7-nss2-0y1d-w0w2-71m59wc2116h 04/19/2015 04/19/2015 Silvestre Zaidi MD refill 03d2r704-29nh-3537-2165-266304t7632d 04/19/2015 04/19/2015 Silvestre Zaidi MD refill 4gz09965-r101-229p-sx2v-2g2v17401865 04/19/2015 04/19/2015 Silvestre Zaidi MD refill gkk515eh-8753-9730-0b04-37fls80cb5bl 04/19/2015 04/19/2015 Silvestre Zaidi MD refill 7up75rt5-4809-7c74-346g-nb174u505d8c 04/19/2015 04/19/2015 Silvestre Zaidi MD refill o89342cq-l2an-8710-tv09-3x5w8u576mn8 04/19/2015 04/19/2015 Silvestre Zaidi MD refill [id number]-9585-67hw-40j3-df25dq9vn7h5 04/19/2015 04/19/2015 Silvestre Zaidi MD refill [id number]-1305-826h-db7v898l7495 04/19/2015 04/19/2015 Silvestre Zaidi MD refill [id number]-f30j-45857b3db313 04/19/2015 04/19/2015 Silvestre Zaidi MD refill [id number]-2172-ec1d-68r63r92m31h 04/19/2015 04/19/2015 Silvestre Zaidi MD refill [id number]-f508zo0a01t4 04/19/2015 04/19/2015 Silvestre Zaidi MD refill 33x8h67p-d46f-992i-1864-6v63sj3924hg 04/19/2015 04/19/2015 Silvestre Zaidi MD refill 9262po1l-yx7g-6122-p555-f26p05157bp5 04/19/2015 04/19/2015 Silvestre Zaidi MD refill lhk5wb1a-575s-4m3c-mp20-bc97025w8982 04/19/2015 04/19/2015 Silvestre Zaidi MD refill [id number]-92h7-l6t2-43o7s94lm426 04/19/2015 04/19/2015 Silvestre Zaidi MD refill 327m2j17-cz68-15j9-0042-i967834537m6 04/19/2015 04/19/2015 Silvestre Zaidi MD refill 0jj3p91m-0e05-7mwj-b3dc-93v6xb0a4007 04/19/2015 04/19/2015 Silvestre Zaidi MD refill 7631s3l5-5g86-86q1-iy21-ni0b4qu7d175 04/19/2015 04/19/2015 Silvestre Zaidi MD refill [id number]-6x6v841l4l17 04/19/2015 04/19/2015 Silvestre Zaidi MD refill a7bv470f-2xm0-6q8h-c7j3-u9xtug0zx1s6 04/19/2015 04/19/2015 Silvestre Zaidi MD refill [id number]-2982-63hdi4tjk74b 04/19/2015 04/19/2015 Silvestre Zaidi MD refill 15k81sbh-9l92-2q0b-4g25-9i2093f0863z 04/19/2015 04/19/2015 MD skip Greersalcarlie 297tcgt9-wg54-6b22-4q6k-nh36i0376wv9 04/26/2015 04/26/2015 MD anna marie Greer 15l44932-wg79-1bp3-6667-147qke696856 04/26/2015 04/26/2015 MD anna marie Greer 7863069a-wl65-5p45-v77j-766xq0b4sk92 04/26/2015 04/26/2015 MD anna marie Greer 663yt3p3-z033-7107-f33n-l00x83t9213f 04/26/2015 04/26/2015 MD skip Greersalcarlie 1ayc1tio-x780-20m1-0609-u9644h9x6p16 04/26/2015 04/26/2015 MD anna marie Greer [id number]-uny5-0x7d1z63a8e2 04/26/2015 04/26/2015 MD anna marie Greer 777393j9-e119-7p5e-w754-v3598x28u69d 04/26/2015 04/26/2015 MD anna marie Greer 7fghob21-6z2n-6ctx-u242-998564w5l855 04/26/2015 04/26/2015 MD anna marie Greer ms86dmcp-43hg-4603-d627-48099fh84nxq 04/26/2015 04/26/2015 MD anna marie Greer 195ri2z4-42y3-6123-sv9l-2ydl46695h17 04/26/2015 04/26/2015 MD anna marie Greer z35k0899-vzu7-5gqx-whg2-w69zq7284ok5 04/26/2015 04/26/2015 MD anna marie Greer 22eef8h3-ba25-7v81-ff67-v524cf316k3h 04/26/2015 04/26/2015 MD anna marie Greer 9w829k87-5g51-140g-f373-59rv7o671g32 04/26/2015 04/26/2015 MD anna marie Greer 06463z70-e526-9829-7633-cqpnpf8eszqh 04/26/2015 04/26/2015 MD anna marie Greer 67772325-6l93-7n49-z12l-499192785ag7 04/26/2015 04/26/2015 MD anna marie Greer a259hk00-e0r9-81m7-f822-381t6bo63thi 04/26/2015 04/26/2015 MD anna marie Greer 8joz98t0-46v8-1htw-5974-x0llcl0r068w 04/26/2015 04/26/2015 MD anna marie Greer 6979p3d5-3t80-553d-2656-2g3e22k76zwl 04/26/2015 04/26/2015 MD anna marie Greer 4f592806-2j1t-32t1-8b6x-56g592oqd847 04/26/2015 04/26/2015 MD anna marie Greer 93j0qd10-0w99-66my-1ohn-7372000v09fy 04/26/2015 04/26/2015 MD anna marie Greer 8u382304-3c86-6dk4-735p-d16u2723i952 04/26/2015 04/26/2015 MD anna marie Greer 0mz251z7-k12o-3tsn-xle4-dg11w007q94n 04/26/2015 04/26/2015 MD anna mraie Greer 6p871k89-6063-1866-c6x8-6g1n22rq9j1x 04/26/2015 04/26/2015 MD anna marie Greer m6bm1565-b69v-909x-v33s-l806il11a5g8 04/26/2015 04/26/2015 MD anna marie Greer 79iqs7k6-601w-6230-qni9-4xp2b4147108 04/26/2015 04/26/2015 MD anna marie Greer w345831g-0z9q-9eyq-c57j-6j554kk8p6b8 04/26/2015 04/26/2015 MD anna marie Greer 02t89eo4-9863-1kxm-e70j-nz7dmvo58en4 04/26/2015 04/26/2015 MD anna marie Greer 585a8474-20fl-7q82-l260-1663e65h594a 04/26/2015 04/26/2015 MD anna marie Greer 71get2m6-7v35-265b-b11z-m23r9y3v88jh 04/26/2015 04/26/2015 MD anna marie Greer n134q0u2-4ls3-15od-89n2-5a42b057jdh0 04/26/2015 04/26/2015 MD anna marie Greer 6vd38t8y-7p7i-47ti-92i7-79fgmie9buxx 04/26/2015 04/26/2015 MD anna marie Greer 340684p0-6k95-490f-m1h9-0ol234474syo 04/26/2015 04/26/2015 MD anna marie Greer 23877l56-44j8-5qm1-78o2-4e4928447rc3 04/26/2015 04/26/2015 Silvestre Zaidi MD Hydrocodone refill z62601gt-z959-073b-w0l8-s55n6i254975 05/14/2015 05/14/2015 Silvestre Zaidi MD Hydrocodone refill [id number]-rq8d-264c741e47av 05/14/2015 05/14/2015 Silvestre Zaidi MD Hydrocodone refill 4i3240i5-1029-5d50-3966-75f5m1v7e65j 05/14/2015 05/14/2015 Silvestre Zaidi MD Hydrocodone refill 9351k33n-80sy-48s4-98ow-23w493543fss 05/14/2015 05/14/2015 Silvestre Zaidi MD Hydrocodone refill i244as19-386d-0191-8r0o-5d04906x9953 05/14/2015 05/14/2015 Silvestre Zaidi MD Hydrocodone refill 805g8707-pr14-30bi-1t10-0elb77h69t7h 05/14/2015 05/14/2015 Silvestre Zaidi MD Hydrocodone refill 588u1m7v-owbl-825r-j61c-f5345tvm6f49 05/14/2015 05/14/2015 Silvestre Zaidi MD Hydrocodone refill [id number]-w2p2-2150wd017sj4 05/14/2015 05/14/2015 Silvestre Zaidi MD Hydrocodone refill 5gp68627-l6l5-79t2-fy60-e356xr82633q 05/14/2015 05/14/2015 Silvestre Zaidi MD Hydrocodone refill ui5o248s-387l-8a62-dc39-j6573nq83290 05/14/2015 05/14/2015 Silvestre Zaidi MD Hydrocodone refill rp3ns065-tpu8-8772-9y8z-9p63nc6118q1 05/14/2015 05/14/2015 Silvestre Zaidi MD Hydrocodone refill a256b30m-3811-60fs-56c5-zd3556b560h5 05/14/2015 05/14/2015 Silvestre Zaidi MD Hydrocodone refill 11fc854o-q612-5618-x2f0-105b4vh33j47 05/14/2015 05/14/2015 Silvestre Zaidi MD Hydrocodone refill [id number]-0l7v-2tn3pfu59qxl 05/14/2015 05/14/2015 Silvestre Zaidi MD Hydrocodone refill 0j30b84x-8zru-67ks-8534-6h7i92259417 05/14/2015 05/14/2015 Silvestre Zaidi MD Hydrocodone refill v5x95usx-49d7-17b4-09f7-0542t4j268t3 05/14/2015 05/14/2015 Silvestre Zaidi MD Hydrocodone refill 8gu901t2-7971-3699-355r-po5yq2j1665g 05/14/2015 05/14/2015 Silvestre Zaidi MD Hydrocodone refill x508i4u0-c1cp-6224-5674-610017s885k9 05/14/2015 05/14/2015 Silvestre Zaidi MD Hydrocodone refill 9q5030pv-o3h7-651b-sauq-nnv0107x4ao6 05/14/2015 05/14/2015 Silvestre Zaidi MD Hydrocodone refill 3o5hrx42-je03-03ez-3ins-77lr8n9s3v76 05/14/2015 05/14/2015 Silvestre Zaidi MD Hydrocodone refill 4j894xt5-nw16-124y-ue0t-2158101tzbn1 05/14/2015 05/14/2015 Silvestre Zaidi MD Hydrocodone refill 890b43a0-1n54-6804-di8j-02d92458y5x0 05/14/2015 05/14/2015 Silvestre Zaidi MD Hydrocodone refill [id number]-3430-b89u-35v42888x5xu 05/14/2015 05/14/2015 Silvestre Zaidi MD Hydrocodone refill bu09v1i9-x781-9163-g4k9-220w3l1tjt12 05/14/2015 05/14/2015 Silvestre Zaidi MD Hydrocodone refill 77f163u5-6n5n-7wmg-7lid-286hio9912k6 05/14/2015 05/14/2015 Silvestre Zaidi MD Hydrocodone refill 9585gya4-01m7-991w-pj13-96nl4h07yt71 05/14/2015 05/14/2015 Silvestre Zaidi MD Hydrocodone refill 9q9g2b30-hxry-385n-8v8x-14b0n23195xm 05/14/2015 05/14/2015 Silvestre Zaidi MD Hydrocodone refill [id number]-x1a4-09yt-7651-013xpgvr948q 05/14/2015 05/14/2015 Silvestre Zaidi MD Hydrocodone refill 19bq801q-ovs6-3678-f889-781n757453dd 05/14/2015 05/14/2015 Silvestre Zaidi MD Hydrocodone refill [id number]-4358-0569-135y86fho1lw 05/14/2015 05/14/2015 Silvestre Zaidi MD Hydrocodone refill 2704qys1-7413-1w0k-aw05-5v5931d1k4aa 05/14/2015 05/14/2015 Silvestre Zaidi MD Hydrocodone refill 6w09x75g-cix9-7833-j3a2-k16304283a84 05/14/2015 05/14/2015 Silvestre Zaidi MD Hydrocodone refill c4149xwq-u62y-6e99-2u8a-64243c67223i 05/14/2015 05/14/2015 Silvestre Zaidi MD Pain 4q2p709t-d67v-56s7-m40t-9klp7y8cq513 05/21/2015 05/21/2015 Silvestre Zaidi MD Pain v27098ku-zf5v-5814-v4n6-s7kth689u16l 05/21/2015 05/21/2015 Silvestre Zaidi MD Pain 0lfu566e-q4y7-8e89-22j4-x0s01tcd563q 05/21/2015 05/21/2015 Silvestre Zaidi MD Pain 8435z944-59u6-4220-rkr5-0z6z252rnq7d 05/21/2015 05/21/2015 Silvestre Zaidi MD Pain 96x1r667-72n9-339x-b394-f2f62o266l81 05/21/2015 05/21/2015 Silvestre Zaidi MD Pain 0f8bnx1z-wq47-7f14-a42f-7kg0362g714s 05/21/2015 05/21/2015 Silvestre Zaidi MD Pain 0009e912-t04i-1p85-aj5d-1d1j8w89mfk3 05/21/2015 05/21/2015 Silvestre Zaidi MD Pain 8056468p-z078-70n1-67b4-d4j6189xos7j 05/21/2015 05/21/2015 Silvestre Zaidi MD Pain 1y01f606-utv8-2127-g6ct-24r248o18187 05/21/2015 05/21/2015 Silvestre Zaidi MD Pain vm569sr5-981h-99fg-klov-1n7g2c2fcwx8 05/21/2015 05/21/2015 Silvestre Zaidi MD Pain 1fl542r3-q703-0979-g7p4-6cq62naf953w 05/21/2015 05/21/2015 Silvestre Zaidi MD Pain 09732u40-w153-4d08-3r26-15w4lc185458 05/21/2015 05/21/2015 Silvestre Zaidi MD Pain s20j38m2-2mw4-933u-3slt-0909da8760k3 05/21/2015 05/21/2015 Silvestre Zaidi MD Pain j478ye1u-9qk3-7c1d-o384-au0816r22528 05/21/2015 05/21/2015 Silvestre Zaidi MD Pain m6224ub5-a28y-04k2-079g-214i81z5x8se 05/21/2015 05/21/2015 Silvestre Zaidi MD Pain g4qofz34-os3a-8kr5-p510-8ewf9u5871g7 05/21/2015 05/21/2015 Silvestre Zaidi MD Pain 017om12q-3ha5-3zb7-90p5-5t58565xd565 05/21/2015 05/21/2015 Silvestre Zaidi MD Pain 01q4wb3c-909p-18xp-7419-2pphg0s53b40 05/21/2015 05/21/2015 Silvestre Zaidi MD Pain 1j8m440y-xl38-0axf-8x62-918rbs9z74uu 05/21/2015 05/21/2015 Silvestre Zaidi MD Pain 398v355d-754w-88n0-1506-217128b4s4m7 05/21/2015 05/21/2015 Silvestre Zaidi MD Pain 9n6b3224-8776-3j7q-hygo-5c8515hq82hn 05/21/2015 05/21/2015 Silvestre Zaidi MD Pain 3340g8mk-5837-8355-730f-d582jcjl71cs 05/21/2015 05/21/2015 Silvestre Zaidi MD Pain f01s22ek-g516-1pe9-t2ur-jn481862x3k3 05/21/2015 05/21/2015 Silvestre Zaidi MD Pain hx4r5koh-w851-4p84-m3m1-72786jvigx0j 05/21/2015 05/21/2015 Silvestre Zaidi MD Pain y49014gu-4562-8a7g-z9e5-8hhn72q1s56s 05/21/2015 05/21/2015 Silvestre Zaidi MD Pain 797q5607-d123-4076-266v-1221uc6h1u35 05/21/2015 05/21/2015 Silvestre Zaidi MD Pain tgm3748a-03vn-1827-p9p9-u43ju28790w1 05/21/2015 05/21/2015 Silvestre Zaidi MD Pain e9lmhck2-z1r5-7x4o-k412-s409384u0asc 05/21/2015 05/21/2015 Silvestre Zaidi MD Pain k2669c8f-6923-41fb-r0s0-ika5xwsi34k9 05/21/2015 05/21/2015 Silvestre Zaidi MD Pain 6s6696qa-3m10-0263-up3z-sghxf236w9fn 05/21/2015 05/21/2015 Silvestre Zaidi MD Pain i8vfw3u0-2400-66l5-2xb8-723g7y243z9u 05/21/2015 05/21/2015 Silvestre Zaidi MD Pain 70tx6764-83iz-2056-a17y-653tk1z6qv8g 05/21/2015 05/21/2015 Silvestre Zaidi MD Cough gcrq0za9-8x0f-28xp-x266-1109ln62ucka 06/22/2015 06/22/2015 Silvestre Zaidi MD Cough 25375ik4-j7i0-9jj9-a7w5-5r0n13102392 06/22/2015 06/22/2015 Silvestre Zaidi MD Cough 88005uqi-1127-1182-ds07-17934677990q 06/22/2015 06/22/2015 Silvestre Zaidi MD Cough 0q03jy8n-h0p1-8571-7x74-72182o22j9f6 06/22/2015 06/22/2015 Silvestre Zaidi MD Cough yko2r33r-e978-7pb0-14kh-7hu53l1z5tz4 06/22/2015 06/22/2015 Silvestre Zaidi MD Cough 48pru5l5-bt88-16y6-cq03-h046kz973w57 06/22/2015 06/22/2015 Silvestre Zaidi MD Cough b490i3y9-44d5-1f80-6517-107kak6ntq88 06/22/2015 06/22/2015 Silvestre Zaidi MD Cough k40x14q7-f80h-587l-6800-8602zl5494ip 06/22/2015 06/22/2015 Silvestre Zaidi MD Cough j5o8v47q-3xn9-8619-m36u-9ju469446t66 06/22/2015 06/22/2015 Silvestre Zaidi MD Cough 72hnd307-17lo-82n0-gez9-676uro60m976 06/22/2015 06/22/2015 Silvestre Zaidi MD Cough 03852n79-57i8-30su-oj24-985199cn65ix 06/22/2015 06/22/2015 Silvestre Zaidi MD Cough 3pssy31u-e85q-2cxr-b7m2-9i0i7v176539 06/22/2015 06/22/2015 Silvestre Zaidi MD Cough 145c73yo-20j8-9244-6g63-9lv6r22rn4ee 06/22/2015 06/22/2015 Silvestre Zaidi MD Cough 7w0839ff-i9f5-1td7-957o-5041616ix658 06/22/2015 06/22/2015 Silvestre Zaidi MD Cough 992ee2vf-1ok4-86xz-xml2-kyj536snv3k9 06/22/2015 06/22/2015 Silvestre Zaidi MD Cough uiu6f477-90id-557h-to46-s2i1mrug8zep 06/22/2015 06/22/2015 Silvestre Zaidi MD Cough n1iz2j90-bx09-3485-h664-9y55bcc34z6j 06/22/2015 06/22/2015 Silvestre Zaidi MD Cough 3x7zbp21-85f7-26ip-vmoe-69770w1j4t12 06/22/2015 06/22/2015 Silvestre Zaidi MD Cough 1r2c45i9-d527-0482-286s-r02u56e1hk61 06/22/2015 06/22/2015 Silvestre Zaidi MD Cough 73w952r9-8h8q-4rdp-78vr-380923286h1l 06/22/2015 06/22/2015 Silvestre Zaidi MD Cough wwf4y41u-trib-7234-n67h-8415y67v5721 06/22/2015 06/22/2015 Silvestre Zaidi MD Cough 25jwea41-8c4d-6q36-0159-6821h3w67326 06/22/2015 06/22/2015 Silvestre Zaidi MD Cough 0jek1325-56c5-4vpl-504e-434h9644mag1 06/22/2015 06/22/2015 Silvestre Zaidi MD Cough 31a4t3m8-bb5f-5696-dr48-r6p2o5epj3el 06/22/2015 06/22/2015 Silvestre Zaidi MD Cough 619w18l7-vdtp-259i-9931-341r41sz42n3 06/22/2015 06/22/2015 Silvestre Zaidi MD Cough w44gv3ip-8u18-5z5i-65r9-0m98541e738i 06/22/2015 06/22/2015 Silvestre Zaidi MD Cough j94nerkj-w0b9-52lg-3176-506sxfrao416 06/22/2015 06/22/2015 Silvestre Zaidi MD Cough fy86ta5p-02eh-4k13-cbkg-x54cw262cd35 06/22/2015 06/22/2015 Silvestre Zaidi MD Cough 5s3t4p7j-d0y3-30s2-b0cm-ed5cx6715v34 06/22/2015 06/22/2015 Silvestre Zaidi MD Cough 7lm689ix-4898-3146-94vh-8u7w99l642xd 06/22/2015 06/22/2015 Silvestre Zaidi MD Cough 735l043u-9b48-36o7-o873-62m972t3qh62 06/22/2015 06/22/2015 Silvestre Zaidi MD hair loss 51zy9865-i373-4581-q6jl-7p8u9oxc6y0h 07/04/2015 07/04/2015 Silvestre Zaidi MD hair loss mb2bt9l8-tg09-4a6g-0yl0-x2c32y0dms1m 07/04/2015 07/04/2015 Silvestre Zaidi MD hair loss 03177483-356j-04j9-v9c3-38u80038xu89 07/04/2015 07/04/2015 Silvestre Zaidi MD hair loss 85d508oi-7c78-080v-m633-dk79ozzxd175 07/04/2015 07/04/2015 Silvestre Zaidi MD hair loss 0202183x-g5sa-8d7m-3829-9696449kmp04 07/04/2015 07/04/2015 Silvestre Zaidi MD hair loss qa0ozdq8-205k-905y-77qe-3jiiv6rp5g2j 07/04/2015 07/04/2015 Silvestre Zaidi MD hair loss 02cx5het-oeup-9912-xk0a-6qok941420e1 07/04/2015 07/04/2015 Silvestre Zaidi MD hair loss 877w018c-1928-2vkq-x4t1-v0956x215u29 07/04/2015 07/04/2015 Silvestre Zaidi MD hair loss 78023n87-7oy7-3q3n-asr3-h0oh40j4370f 07/04/2015 07/04/2015 Silvestre Zaidi MD hair loss 3051379l-47e1-9ya7-oobj-68rf1p83z8r0 07/04/2015 07/04/2015 Silvestre Zaidi MD hair loss 3j96yq2g-x6u5-16mi-1b67-364666788k06 07/04/2015 07/04/2015 Silvestre Zaidi MD hair loss f4323687-0kd2-4490-p181-oir0j4u5319k 07/04/2015 07/04/2015 Silvestre Zaidi MD hair loss 408uhg8f-ux83-9938-aubv-w4sj8tlnxpv7 07/04/2015 07/04/2015 Silvestre Zaidi MD hair loss 16ej3908-5r95-3jyf-i1tq-8k76lkw9f7y8 07/04/2015 07/04/2015 Silvestre Zaidi MD hair loss dp7d0389-8007-027u-w332-22yq3019wbql 07/04/2015 07/04/2015 Silvestre Zaidi MD hair loss 9453zz1n-4t2g-00ib-15n1-0nxevu4fd23f 07/04/2015 07/04/2015 Silvestre Zaidi MD hair loss p39j4895-k17z-09ld-36l6-h585fad9n5yy 07/04/2015 07/04/2015 Silvestre Zaidi MD hair loss 139g0182-9052-867n-p5aq-90r867n9v685 07/04/2015 07/04/2015 Silvestre Zaidi MD hair loss v4028367-g5e1-9775-45q7-dc3452c1gk2r 07/04/2015 07/04/2015 Silvestre Zaidi MD hair loss 471z3h1n-2qb1-84r5-m970-0gvl84m33062 07/04/2015 07/04/2015 Silvestre Zaidi MD hair loss 48271v21-t1bt-3qc1-86wj-111085148959 07/04/2015 07/04/2015 Silvestre Zaidi MD hair loss 33i71170-9036-18op-z9z3-8415o2t02t9g 07/04/2015 07/04/2015 Silvestre Zaidi MD hair loss xfr26373-431d-6083-n072-t96w3f59z139 07/04/2015 07/04/2015 Silvestre Zaidi MD hair loss 9790680x-b5rk-6m96-365d-92yl7b817738 07/04/2015 07/04/2015 Silvestre Zaidi MD hair loss 73kyq550-750z-36p6-w5lr-g715gt78cvgf 07/04/2015 07/04/2015 Silvestre Zaidi MD hair loss 476embx8-9h12-12fb-2y08-39lm3g6w968n 07/04/2015 07/04/2015 Silvestre Zaidi MD hair loss 41q14x7b-2849-918g-w827-68nysxux7l72 07/04/2015 07/04/2015 Silvestre Zaidi MD hair loss w04zz8fb-e21y-95o7-l2bk-7x03m7wm88bn 07/04/2015 07/04/2015 Silvestre Zaidi MD hair loss 0809w031-15xg-102a-2180-45950a5ej5cp 07/04/2015 07/04/2015 Silvestre Zaidi MD hair loss 5w6n9671-82m0-0iz0-l1j9-579yb7609oe6 07/04/2015 07/04/2015 Silvestre Zaidi MD Unknown 11vk33f3-7071-2t2c-n60m-u44gbb5x5tq7 07/25/2015 07/25/2015 Silvestre Zaidi MD Unknown 5rk3j2vn-8hfa-06o5-15r9-81roelc7lo47 07/25/2015 07/25/2015 Silvestre Zaidi MD Unknown 2h6ekhq6-8675-940b-lmyd-00s6qee87y72 07/25/2015 07/25/2015 Silvestre Zaidi MD Unknown [id number] 07/25/2015 07/25/2015 Silvestre Zaidi MD Unknown [id number]-[id number] 07/25/2015 07/25/2015 Silvestre Zaidi MD Unknown [id number]-s89r-d94fa8dc15c8 07/25/2015 07/25/2015 Silvestre Zaidi MD Unknown 5n0m67u2-52vb-8433-611d-0l8415764o30 07/25/2015 07/25/2015 Silvestre Zaidi MD Unknown [id number]-yp5j-69y2-m2p5-4cb4471l8491 07/25/2015 07/25/2015 Silvestre Zaidi MD Unknown [id number]-va72-82g07x461695 07/25/2015 07/25/2015 Silvestre Zaidi MD Unknown [id number]-[id number]-[id number] 07/25/2015 07/25/2015 Silvestre Zaidi MD Unknown [id number] 07/25/2015 07/25/2015 Silvestre Zaidi MD Unknown [id number]-iu2w-44pf-[id number] 07/25/2015 07/25/2015 Silvestre Zaidi MD Unknown [id number] 07/25/2015 07/25/2015 Silvestre Zaidi MD Unknown [id number]-i2hz-3d79-fm89-x28xdkb4j474 07/25/2015 07/25/2015 Silvestre Zaidi MD Unknown [id number]-[id number]-o1135u56097k 07/25/2015 07/25/2015 Silvestre Zaidi MD Unknown [id number] 07/25/2015 07/25/2015 Silvestre Zaidi MD Unknown [id number]-ur83-c9773hm0xk2z 07/25/2015 07/25/2015 Silvestre Zaidi MD Unknown [id number]-3z5b-5zob-182n3355n78g 07/25/2015 07/25/2015 Silvestre Zaidi MD Unknown [id number]-u242y321sv82 07/25/2015 07/25/2015 Silvestre Zaidi MD Unknown [id number]-x7kq-14r5-p54k-zq0372f2eo9t 07/25/2015 07/25/2015 Silvestre Zaidi MD Unknown [id number]-2h1b-1bm9-2uhq-n89uv316i3t0 07/25/2015 07/25/2015 Silvestre Zaidi MD Unknown [id number] 07/25/2015 07/25/2015 Silvestre Zaidi MD Unknown [id number] 07/25/2015 07/25/2015 Silvestre Zaidi MD Unknown [id number]-o2wx-9d3w-m17p-v7802dzlap55 07/25/2015 07/25/2015 Silvestre Zaidi MD Unknown [id number]-7s5j-2p2848g66b6k 07/25/2015 07/25/2015 Silvestre Zaidi MD Unknown [id number] 07/25/2015 07/25/2015 Silvestre Zaidi MD Unknown [id number]-b5ok-fa67t26l389o 07/25/2015 07/25/2015 Silvestre Zaidi MD Unknown [id number] 07/25/2015 07/25/2015 Silvestre Zaidi MD Unknown [id number] 07/25/2015 07/25/2015 Silvestre Zaidi MD Message [id number] 07/30/2015 07/30/2015 Silvestre Zaidi MD Message [id number] 07/30/2015 07/30/2015 Silvestre Zaidi MD Message [id number] 07/30/2015 07/30/2015 Silvestre Zaidi MD Message [id number]-h3ld-7kl02rcbkc1f 07/30/2015 07/30/2015 Silvestre Zaidi MD Message [id number] 07/30/2015 07/30/2015 Silvestre Zaidi MD Message [id number] 07/30/2015 07/30/2015 Silvestre Zaidi MD Message [id number] 07/30/2015 07/30/2015 Silvestre Zaidi MD Message [id number] 07/30/2015 07/30/2015 Silvestre Zaidi MD Message [id number] 07/30/2015 07/30/2015 Silvestre Zaidi MD Message [id number] 07/30/2015 07/30/2015 Silvestre Zaidi MD Message [id number] 07/30/2015 07/30/2015 Silvestre Zaidi MD Message [id number] 07/30/2015 07/30/2015 Silvestre Zaidi MD Message [id number] 07/30/2015 07/30/2015 Silvestre Zaidi MD Message [id number] 07/30/2015 07/30/2015 Silvestre Zaidi MD Message [id number] 07/30/2015 07/30/2015 Silvestre Zaidi MD Message [id number] 07/30/2015 07/30/2015 Silvestre Zaidi MD Message [id number] 07/30/2015 07/30/2015 Silvestre Zaidi MD Message [id number] 07/30/2015 07/30/2015 Silvestre Zaidi MD Message [id number] 07/30/2015 07/30/2015 Silvestre Zaidi MD Message [id number] 07/30/2015 07/30/2015 Silvestre Zaidi MD Message [id number] 07/30/2015 07/30/2015 Silvestre Zaidi MD Message [id number] 07/30/2015 07/30/2015 Silvestre Zaidi MD Message [id number] 07/30/2015 07/30/2015 Silvestre Zaidi MD Message [id number] 07/30/2015 07/30/2015 Silvestre Zaidi MD Message [id number] 07/30/2015 07/30/2015 Silvestre Zaidi MD Message [id number] 07/30/2015 07/30/2015 Silvestre Zaidi MD Message [id number] 07/30/2015 07/30/2015 Silvestre Zaidi MD Message [id number] 07/30/2015 07/30/2015 Silvestre Zaidi MD Message [id number] 07/30/2015 07/30/2015 Silvestre Zaidi MD refill [id number]-0vsq-0m13-0w95-i196xvr3c5w0 09/07/2015 09/07/2015 Silvestre Zaidi MD refill [id number]-c491-9689g16bpe2x 09/07/2015 09/07/2015 Silvestre Zaidi MD refill [id number]-pz1v-wl6z8gu61209 09/07/2015 09/07/2015 Silvestre Zaidi MD refill [id number]-fm27-5pus-a45k-16qb6b1ow7b4 09/07/2015 09/07/2015 Silvestre Zaidi MD refill [id number]-gf2t53x90v42 09/07/2015 09/07/2015 Silvestre Zaidi MD refill [id number]-4999-69h2-1db84677pcds 09/07/2015 09/07/2015 Silvestre Zaidi MD refill n15tcq7h-1834-227d-3kd3-13i809yp031i 09/07/2015 09/07/2015 Silvestre Zaidi MD refill [id number]-ze1c-9620-61u6-3755582y382f 09/07/2015 09/07/2015 Silvestre Zaidi MD refill [id number]-s5c6-75me-w2tk-d0u35vi0vx21 09/07/2015 09/07/2015 Silvestre Zaidi MD refill 8mlhu628-8a6c-8jx5-ia38-xcolxnd6m79n 09/07/2015 09/07/2015 Silvestre Zaidi MD refill 246m2tl2-xu8g-73n1-31zb-4en0x03c32x2 09/07/2015 09/07/2015 Silvestre Zaidi MD refill [id number]-760y-9016-0814hh4v50ej 09/07/2015 09/07/2015 Silvestre Zaidi MD refill [id number]-c2et-[id number] 09/07/2015 09/07/2015 Silvestre Zaidi MD refill [id number]-w410-27r52os9ei45 09/07/2015 09/07/2015 Silvestre Zaidi MD refill [id number] 09/07/2015 09/07/2015 Silvestre Zaidi MD refill af74mk06-1629-76r6-g5z3-4162q8d1n700 09/07/2015 09/07/2015 Silvestre Zaidi MD refill 9x3n35l0-8q32-7pk0-76f4-x072tn575h41 09/07/2015 09/07/2015 Silvestre Zaidi MD refill 61x6w1a1-19g5-6zqe-64g7-336n45r7auc1 09/07/2015 09/07/2015 Silvestre Zaidi MD refill 04q948b7-8c24-6mr2-o968-492l696tc1jt 09/07/2015 09/07/2015 Silvestre Zaidi MD refill [id number]-3563-7228-k5mo-v58kah982o30 09/07/2015 09/07/2015 Silvestre Zaidi MD refill [id number]-827n-mg5q-362657d7m377 09/07/2015 09/07/2015 Silvestre Zaidi MD refill vrl0hma8-9z9z-2002-070q-lge5ucbg2o1o 09/07/2015 09/07/2015 Silvestre Zaidi MD refill 5ag44b49-5e3z-4bl8-w4c7-8g2130wg70iv 09/07/2015 09/07/2015 Silvestre Zaidi MD refill [id number]-m1l9-7257-q99j-jxj8v0w87nm5 09/07/2015 09/07/2015 Silvestre Zaidi MD refill [id number]-vz84-5984-f548-882034r80r39 09/07/2015 09/07/2015 Silvestre Zaidi MD refill [id number]-l743-h94ppw0zc1i6 09/07/2015 09/07/2015 Silvestre Zaidi MD refill 2r7s4t04-4s1q-8sk5-07a6-g43t016j992w 09/07/2015 09/07/2015 Silvestre Zaidi MD Refills 4e822dtk-26lu-9248-m8os-930sv16i7t9i 09/10/2015 09/10/2015 Silvestre Zaidi MD Refills 2sv8x1b6-dke0-154p-4356-061g8c155202 09/10/2015 09/10/2015 Silvestre Zaidi MD Refills 8zh31n17-t567-0bo8-7tzp-16a9s0n754o0 09/10/2015 09/10/2015 Silvestre Zaidi MD Refills ujrr4dfp-19r3-86w6-y7mm-o0l3o25t0603 09/10/2015 09/10/2015 Silvestre Zaidi MD Refills t128v6c2-j006-7tqo-5830-32tcvw60t036 09/10/2015 09/10/2015 Silvestre Zaidi MD Refills 11t0621c-h319-31y0-af95-g9v9792097rr 09/10/2015 09/10/2015 Silvestre Zaidi MD Refills e7ft980t-9862-2096-sud8-y2sd190qz082 09/10/2015 09/10/2015 Silvestre Zaidi MD Refills 69l0zx89-1h74-6195-13pf-2rio0g4685g0 09/10/2015 09/10/2015 Silvestre Zaidi MD Refills g3882h4h-x8nk-7qw7-xxn1-xe9o1806uss8 09/10/2015 09/10/2015 Silvestre Zaidi MD Refills 4daap77q-s9la-2iy2-75a1-8j58t6407880 09/10/2015 09/10/2015 Silvestre Zaidi MD Refills t1qtka4m-55v1-213q-f5qd-nl2di3166m07 09/10/2015 09/10/2015 Silvestre Zaidi MD Refills udng59dr-t136-6yi4-0iy8-14n7g5w1601n 09/10/2015 09/10/2015 Silvestre Zaidi MD Refills 99k73e53-6b98-9250-4q90-0702h8m97ze1 09/10/2015 09/10/2015 Silvestre Zaidi MD Refills ybc8d17r-l6e2-8rwm-32g7-f71107812u4y 09/10/2015 09/10/2015 Silvestre Zaidi MD Refills u76yrvf3-699p-1m2x-0z2h-581691v0lfu7 09/10/2015 09/10/2015 Silvestre Zaidi MD Refills 6qjpxn6x-6nt8-53us-e4a0-90553316qeie 09/10/2015 09/10/2015 Silvestre Zaidi MD Refills 992m815d-5a56-234j-1x62-v0if17r87088 09/10/2015 09/10/2015 Silvestre Zaidi MD Refills 3946h291-j2mn-957i-wump-i9980j8z3e55 09/10/2015 09/10/2015 Silvestre Zaidi MD Refills 3uht14o6-021k-6v47-6jz7-893z530zoawg 09/10/2015 09/10/2015 Silvestre Zaidi MD Refills 20r95p7x-75g8-7cn1-k3t7-89y0109i0woe 09/10/2015 09/10/2015 Silvestre Zaidi MD Refills 6d2026q1-154y-08l8-l423-c54gs324a0wa 09/10/2015 09/10/2015 Silvestre Zaidi MD Refills [id number]-0551-i13060hr4947 09/10/2015 09/10/2015 Silvestre Zaidi MD Refills 4y3q2125-y3h5-1b7j-o24e-4s8sd999y002 09/10/2015 09/10/2015 Silvestre Zaidi MD Refills [id number]-r83m-2e3f-68y0-82j67k80c86p 09/10/2015 09/10/2015 Silvestre Zaidi MD Follow up n2vf8wq0-t009-34rx-v3a2-1miv9389uq47 10/09/2015 10/09/2015 Silvestre Zaidi MD Follow up 25hh151j-75wj-4e22-z650-86cf393s912h 10/09/2015 10/09/2015 Silvestre Zaidi MD Follow up [id number]-60c9-803l-3ef1857kfh42 10/09/2015 10/09/2015 Silvestre Zaidi MD Follow up h86vs7x8-9380-7256-k133-md2s5lg3g6s9 10/09/2015 10/09/2015 Silvestre Zaidi MD Follow up 8747gw3k-992k-6fzv-ha3d-3s7y4g0i2u2m 10/09/2015 10/09/2015 Silvestre Zaidi MD Follow up sadks865-13y3-632y-d1st-3tq808r2617u 10/09/2015 10/09/2015 Silvestre Zaidi MD Follow up [id number]-[id number]-qwjocq1avz16 10/09/2015 10/09/2015 Silvestre Zaidi MD Follow up [id number]-8rtq-e160-7stv342i995n 10/09/2015 10/09/2015 Silvestre Zaidi MD Follow up 5s1005i0-2622-5106-i3u4-dgwf2277n6f0 10/09/2015 10/09/2015 Silvestre Zaidi MD Follow up [id number]-[id number] 10/09/2015 10/09/2015 Silvestre Zaidi MD Follow up [id number]-r8f62b5z227l 10/09/2015 10/09/2015 Silvestre Zaidi MD Follow up [id number]-08z62v17f837 10/09/2015 10/09/2015 Silvestre Zaidi MD Follow up [id number]-[id number] 10/09/2015 10/09/2015 Silvestre Zaidi MD Follow up [id number]-[id number]-w485-uz4m48qw8j09 10/09/2015 10/09/2015 Silvestre Zaidi MD Follow up [id number]-[id number] 10/09/2015 10/09/2015 Silvestre Zaidi MD Follow up k8efvy3p-[id number]-[id number] 10/09/2015 10/09/2015 Silvestre Zaidi MD Follow up 5wnzb85h-2t28-92w5-j33w-a2k71517493y 10/09/2015 10/09/2015 Silvestre Zaidi MD Follow up [id number]-1c26-d0725nb2m98k 10/09/2015 10/09/2015 Silvestre Zaidi MD Follow up [id number]-i4sr-525k-9ty7-w387r83a6hz9 10/09/2015 10/09/2015 Silvestre Zaidi MD Follow up [id number]-1yv6-2ro8-6796-j9w20x4p8xe6 10/09/2015 10/09/2015 Silvestre Zaidi MD Follow up [id number]-tfj1wuz20887 10/09/2015 10/09/2015 Silvestre Zaidi MD Follow up [id number] 10/09/2015 10/09/2015 Silvestre Zaidi MD Follow up g9t60s43-4k79-384k-ipyt-8kfo18pa8m23 10/09/2015 10/09/2015 Silvestre Zaidi MD Follow up 90y6fj8e-n29t-13u3-0kn3-fi1306956tko 10/09/2015 10/09/2015 Silvestre Zaidi MD Follow up [id number] 10/09/2015 10/09/2015 Silvestre Zaidi MD Records [id number]-y6s8-d756n84879g0 10/09/2015 10/09/2015 Silvestre Zaidi MD Records [id number]-80p9-d5ia-t49hyh0419d8 10/09/2015 10/09/2015 Silvestre Zaidi MD Records [id number] 10/09/2015 10/09/2015 Silvestre Zaidi MD Records [id number]-dc62-zlk0wi17105n 10/09/2015 10/09/2015 Silvestre Zaidi MD Records [id number]-11r3-0c87-b8i5xs161w3b 10/09/2015 10/09/2015 Silvestre Zaidi MD Records [id number]-[id number] 10/09/2015 10/09/2015 Silvestre Zaidi MD Records [id number]-u5gh-38112l6pt09b 10/09/2015 10/09/2015 Silvestre Zaidi MD Records [id number]-[id number] 10/09/2015 10/09/2015 Silvestre Zaidi MD Records [id number]-5gr39l955n2w 10/09/2015 10/09/2015 Silvestre Zaidi MD Records awvp1964-343u-34d2-l35b-rr249o0x4w1b 10/09/2015 10/09/2015 Silvestre Zaidi MD Records [id number] 10/09/2015 10/09/2015 Silvestre Zaidi MD Records [id number]-xc9e-9377de3zi6i9 10/09/2015 10/09/2015 Silvestre Zaidi MD Records [id number]-gv8f495u65v0 10/09/2015 10/09/2015 Silvestre Zaidi MD Records [id number]-024h-nk90-020pe182me0t 10/09/2015 10/09/2015 Silvestre Zaidi MD Records [id number]-14s9-4037-f741gc07a68n 10/09/2015 10/09/2015 Silvestre Zaidi MD Records [id number] 10/09/2015 10/09/2015 Silvestre Zaidi MD Records qdqmv4ww-7omu-9fc9-2xzl-8o56gvn6g614 10/09/2015 10/09/2015 Silvestre Zaidi MD Records [id number] 10/09/2015 10/09/2015 Silvestre Zaidi MD Records [id number]-5g0b-ix9ja42h1790 10/09/2015 10/09/2015 Silvestre Zaidi MD Records [id number]-[id number] 10/09/2015 10/09/2015 Silvestre Zaidi MD Records [id number]-mk17-l3l3bj4od8n5 10/09/2015 10/09/2015 Silvestre Zaidi MD Records it9t1jd6-cs84-1sa4-6r8n-soz3ph97c56g 10/09/2015 10/09/2015 Silvestre Zaidi MD Records [id number]-[id number]-u003-08hw867xax68 10/09/2015 10/09/2015 Silvestre Zaidi MD Records [id number] 10/09/2015 10/09/2015 Silvestre Zaidi MD Records [id number] 10/09/2015 10/09/2015 Silvestre Zaidi MD Records zvjctodt-2y8g-02741p2j-2186-xs37-11y7tt0w1x72 10/09/2015 10/09/2015 Silvestre Zaidi MD Vit d order [id number]-bgc1uj9o5n86 11/02/2015 11/02/2015 Silvestre Zaidi MD Vit d order [id number]-9xq6-829j-[id number] 11/02/2015 11/02/2015 Silvestre Zaidi MD Vit d order 400f9q1m-3773-884a-239l-9f8e962870e5 11/02/2015 11/02/2015 Silvestre Zaidi MD Vit d order 84t0171s-nm89-944o-7725-0fw7r91lb40a 11/02/2015 11/02/2015 Silvestre Zaidi MD Vit d order tiswp159-eqp4-7l40-6z14-34w970265qqu 11/02/2015 11/02/2015 Silvestre Zaidi MD Vit d order 896620y7-f396-1b80-18e5-759q1886jxuq 11/02/2015 11/02/2015 Silvestre Zaidi MD Vit d order 9c5u5g52-xr28-1265-wap6-9y40l1mvt5d8 11/02/2015 11/02/2015 Silvestre Zaidi MD Vit d order 96q2ap21-5y2r-3856-1db8-o8p1d6912d13 11/02/2015 11/02/2015 Silvestre Zaidi MD Vit d order 54l5836c-6ef4-4250-896c-240c0o9b5ezv 11/02/2015 11/02/2015 Silvestre Zaidi MD Vit d order [id number]-21f2-735l-278ikw6074o4 11/02/2015 11/02/2015 Silvestre Zaidi MD Vit d order qnjg1c0d-0813-5460-4b4t-303877k2380a 11/02/2015 11/02/2015 Silvestre Zaidi MD Vit d order m717f2t6-82bn-7w61-v6f0-jwsaml319481 11/02/2015 11/02/2015 Silvestre Zaidi MD Vit d order rkd032h6-8e3h-9b4t-7j5t-c19e958gg38q 11/02/2015 11/02/2015 Silvestre Zaidi MD Vit d order 63fb8526-iq3c-84q7-20d5-968trh43f5ba 11/02/2015 11/02/2015 Silvestre Zaidi MD Vit d order m8w559f8-53at-5b6v-9mkt-emt564mt14rd 11/02/2015 11/02/2015 Silvestre Zaidi MD Vit d order e26qp73s-j081-3ph1-4xj8-0p0k62q9v71c 11/02/2015 11/02/2015 Silvestre Zaidi MD Vit d order e5y9n951-w505-76u9-yjdx-kq97v1a15z85 11/02/2015 11/02/2015 Silvestre Zaidi MD Vit d order 32a2g455-18en-74tn-b119-994at8i9t1tz 11/02/2015 11/02/2015 Silvestre Zaidi MD Vit d order 84eiuh6i-4719-7724-vl6c-8i5f31n3r4a5 11/02/2015 11/02/2015 Silvestre Zaidi MD Vit d order avr84dd9-8z70-749x-rd71-hl514d51h2b5 11/02/2015 11/02/2015 Silvestre Zaidi MD Vit d order r471z5x5-9wsm-4z8l-s7a9-[id number] 11/02/2015 11/02/2015 Silvestre Zaidi MD Vit d order 8378wi63-0a53-8v7y-3we2-4l928a15nehy 11/02/2015 11/02/2015 Silvestre Zaidi MD Vit d order 296qaq72-5292-812t-76a3-04p252a9026n 11/02/2015 11/02/2015 Silvestre Zaidi MD Vitamin d refill 2k998r7u-558s-0d49-0y58-797y717z797d 11/05/2015 11/05/2015 Silvestre Zaidi MD Vitamin d refill e11b9t01-sr0w-644x-kdmd-5m20835fiu91 11/05/2015 11/05/2015 Silvestre Zaidi MD Vitamin d refill 89jp6aj6-xn98-91g5-5vr8-19o7c17l6568 11/05/2015 11/05/2015 Silvestre Zaidi MD Vitamin d refill 630sgd4q-d966-2l7w-5ny3-070o1hh95u33 11/05/2015 11/05/2015 Silvestre Zaidi MD Vitamin d refill 369255sa-5v42-67tv-pcnd-0e721fy14z99 11/05/2015 11/05/2015 Silvestre Zaidi MD Vitamin d refill plpi3232-567s-0p0u-5x45-fld318767492 11/05/2015 11/05/2015 Silvestre Zaidi MD Vitamin d refill d6s90mpy-97h6-8r6a-r233-lq9t06f7al24 11/05/2015 11/05/2015 Silvestre Zaidi MD Vitamin d refill 1400357p-mro7-54y6-y839-jzr2638nwqua 11/05/2015 11/05/2015 Silvestre Zaidi MD Vitamin d refill y7120y92-2z31-440z-73r6-1h2ojd7he33y 11/05/2015 11/05/2015 Silvestre Zaidi MD Vitamin d refill 369720u1-272p-13w0-i5y6-z2u66673u01t 11/05/2015 11/05/2015 Silvestre Zaidi MD Vitamin d refill 293873p2-a615-314c-3m04-1b1jp77g4200 11/05/2015 11/05/2015 Silvestre Zaidi MD Vitamin d refill dt40qv64-7072-22ma-is9r-e906vwajy7v2 11/05/2015 11/05/2015 Silvestre Zaidi MD Vitamin d refill 7a6885n1-jy7x-2ypm-9067-81i69yw59757 11/05/2015 11/05/2015 Silvestre Zaidi MD Vitamin d refill jywr16n8-2969-57f0-6guh-1isyyi2x7204 11/05/2015 11/05/2015 Silvestre Zaidi MD Vitamin d refill 0404au72-73w3-550d-9z38-85p7j8820v87 11/05/2015 11/05/2015 Silvestre Zaidi MD Vitamin d refill 56303g75-101c-232l-lbb4-8lck9mv5n5a3 11/05/2015 11/05/2015 Silvestre Zaidi MD Vitamin d refill 12354999-13bx-1y1m-j19w-98aph04040k4 11/05/2015 11/05/2015 Silvestre Zaidi MD Vitamin d refill 7j9ew653-3qg3-8z89-f19m-16973o219tn0 11/05/2015 11/05/2015 Silvestre Zaidi MD Vitamin d refill 040089c5-0995-6cv4-s341-84wd003gm893 11/05/2015 11/05/2015 Silvestre Zaidi MD Vitamin d refill cua12g41-zl61-8207-q5m3-jk560801139h 11/05/2015 11/05/2015 Silvestre Zaidi MD Vitamin d refill 7t799ym6-7695-183w-01h4-h0c0gpec120g 11/05/2015 11/05/2015 Silvestre Zaidi MD Vitamin d refill g403e487-p71z-87d0-t882-2ywm146etl83 11/05/2015 11/05/2015 Silvestre Zaidi MD refill req Carisoprodol n98vc55h-4p78-5tv6-ie09-8j5y17l7224q 11/06/2015 11/06/2015 Silvestre Zaidi MD refill req Carisoprodol uu2wa479-6305-1xbs-6314-gar76r931616 11/06/2015 11/06/2015 Silvestre Zaidi MD refill req Carisoprodol v520081s-702l-607x-93w9-6330p1a059ed 11/06/2015 11/06/2015 Silvestre Zaidi MD refill req Carisoprodol 8l4v8m23-w6rg-3rly-3db0-n42937z6j384 11/06/2015 11/06/2015 Silvestre Zaidi MD refill req Carisoprodol 6k5dfr55-wo62-7q95-pyug-jt5u0t19qbe6 11/06/2015 11/06/2015 Silvestre Zaidi MD refill req Carisoprodol q71utg80-9c46-30l8-k83y-8602q7qoo53v 11/06/2015 11/06/2015 Silvestre Zaidi MD refill req Carisoprodol d4ogb61g-4v08-0p80-kh45-144b1330324m 11/06/2015 11/06/2015 Silvestre Zaidi MD refill req Carisoprodol ks480m63-5554-26pn-kjb6-1z999664qu5t 11/06/2015 11/06/2015 Silvestre Zaidi MD refill req Carisoprodol 66417a1k-32h6-8mna-51ok-5x6444xe085p 11/06/2015 11/06/2015 Silvestre Zaidi MD refill req Carisoprodol 3648b2lk-424r-0m6n-3rr1-89228z5686q2 11/06/2015 11/06/2015 Silvestre Zaidi MD refill req Carisoprodol 93jh6q45-k515-983t-z26z-40v29311gdp1 11/06/2015 11/06/2015 Silvestre Zaidi MD refill req Carisoprodol 26df64uo-41u1-2m48-6k74-365078y6184u 11/06/2015 11/06/2015 Silvestre Zaidi MD refill req Carisoprodol 1625188k-ha8w-4cm4-9849-0t118k538054 11/06/2015 11/06/2015 Silvestre Zaidi MD refill req Carisoprodol 22b10r6b-24m3-74l8-99v7-031036376n98 11/06/2015 11/06/2015 Silvestre Zaidi MD refill req Carisoprodol 3325i5d7-2t79-4r90-24y7-n59o2p1ip5o5 11/06/2015 11/06/2015 Silvestre Zaidi MD refill req Carisoprodol [id number]-0v7n-0iw5-387s-gdp8h933d0d0 11/06/2015 11/06/2015 Silvestre Zaidi MD refill req Carisoprodol wly5g928-6m28-263p-owxy-2pk2emh11223 11/06/2015 11/06/2015 Silvestre Zaidi MD refill req Carisoprodol t06xkxx9-t6l7-7d69-21u0-d392k5a13366 11/06/2015 11/06/2015 Silvestre Zaidi MD refill req Carisoprodol sx75x81q-2121-6313-q69v-474oxl1f80j2 11/06/2015 11/06/2015 Silvestre Zaidi MD refill req Carisoprodol 70c14453-b022-7746-3686-76pitvo81y85 11/06/2015 11/06/2015 Silvestre Zaidi MD refill req Carisoprodol yt1o0a1q-v59m-3800-6vux-413n7z03m74w 11/06/2015 11/06/2015 Silvestre Zaidi MD Unknown 62c4c3el-i463-0q57-6t4v-15g9w6et0y95 11/09/2015 11/09/2015 Silvestre Zaidi MD Unknown [id number]396496 11/09/2015 11/09/2015 Silvestre Zaidi MD Unknown fyj0o4fq-f4w1-3081-e459-598zug289z90 11/09/2015 11/09/2015 Silvestre Zaidi MD Unknown pp5ko7s6-64r6-73rd-85gw-2q07kt880n06 11/09/2015 11/09/2015 Silvestre Zaidi MD Unknown bz8y6788-q83e-12m9-12s9-4uz4200b1ibg 11/09/2015 11/09/2015 Silvestre Zaidi MD Unknown [id number]-0c2i-3509-20zi-1883y3n00r47 11/09/2015 11/09/2015 Silvestre Zaidi MD Unknown b247u965-v72g-22z2-k40a-y907v1l1a902 11/09/2015 11/09/2015 Silvestre Zaidi MD Unknown fw3qw3uq-ci82-9c90-4969-93m7774561ue 11/09/2015 11/09/2015 Silvestre Zaidi MD Unknown [id number]-by51-5032-5r2v-42ilu248bqcd 11/09/2015 11/09/2015 Silvestre Zaidi MD Unknown [id number]-jm4a-0i51-ulg2-q3773v8bp9gt 11/09/2015 11/09/2015 Silvestre Zaidi MD Unknown 61f8p7i5-04a3-3k77-7pk9-ncwz6z44o69w 11/09/2015 11/09/2015 Silvestre Zaidi MD Unknown 7y7el251-3f7v-8795-f3t6-71fm7pij4rkg 11/09/2015 11/09/2015 Silvestre Zaidi MD Unknown 8ye94tfy-162i-36g5-of39-xi9q05a49w2n 11/09/2015 11/09/2015 Silvestre Zaidi MD Unknown nt083y04-2j2p-1l5p-4r1l-mok8277t8d67 11/09/2015 11/09/2015 Silvestre Zaidi MD Unknown 205h7u83-q5le-1yk8-022q-8ajz8030k871 11/09/2015 11/09/2015 Silvestre Zaidi MD Unknown k0vn72tm-2i9p-0k42-78r9-v4t7o913tt60 11/09/2015 11/09/2015 Silvestre Zaidi MD Unknown d59pok23-6omt-3m97-4697-j8267u3yhq3w 11/09/2015 11/09/2015 Silvestre Zaidi MD Unknown oqn78171-z04s-2699-6309-x744qns9gk56 11/09/2015 11/09/2015 Silvestre Zaidi MD Unknown 5cyj68af-6121-2pm1-5958-6694jl5o1785 11/09/2015 11/09/2015 Silvestre Zaidi MD Unknown 0w3c9a33-fc52-5aty-l341-ks2r655r0j70 11/09/2015 11/09/2015 Silvestre Zaidi MD [facility] [id number] 11/14/2015 11/14/2015 Silvestre Zaidi MD [facility] [id number]-29y5-hx6ld173xp9t 11/14/2015 11/14/2015 Silvestre Zaidi MD [facility] p4k795vw-l81u-86g5-7c7v-1584vj96527t 11/14/2015 11/14/2015 Silvestre Zaidi MD [facility] ygs456p6-3077-60e3-23j7-05cs19336pp9 11/14/2015 11/14/2015 Silvestre Zaidi MD [facility] 3ldq2188-4x6u-447x-88om-vt93k681glvz 11/14/2015 11/14/2015 Silvestre Zaidi MD [facility] 414n68i0-6086-9f20-4l00-gwl0hi5saf95 11/14/2015 11/14/2015 Silvestre Zaidi MD [facility] 997l4405-2010-631s-6640-13j2a5i43j47 11/14/2015 11/14/2015 Silvestre Zaidi MD [facility] 0i722g28-7103-2vlp-6k7u-8j0h1o0ciyl4 11/14/2015 11/14/2015 Silvestre Zaidi MD [facility] 9od02817-q798-75s6-1v6h-tfw7r750k89n 11/14/2015 11/14/2015 Silvestre Zaidi MD [facility] REILL [id number]-[id number]-ob36-i79fy56i36n1 11/14/2015 11/14/2015 Silvestre Zaidi MD [facility] 6o1h80n5-b1c4-3206-8039-2t1060hg297a 11/14/2015 11/14/2015 Silvestre Zaidi MD [facility] 2a504m33-w525-4660-k0k0-1952s3uk8b52 11/14/2015 11/14/2015 Silvestre Zaidi MD MED REILL [id number]-zy27-[id number] 11/14/2015 11/14/2015 Silvestre Zaidi MD MED REILL [id number] 11/14/2015 11/14/2015 Silvestre Zaidi MD MED REILL [id number] 11/14/2015 11/14/2015 Silvestre Zaidi MD MED REILL [id number] 11/14/2015 11/14/2015 Silvestre Zaidi MD MED REILL [id number] 11/14/2015 11/14/2015 Silvestre Zaidi MD MED REILL [id number] 11/14/2015 11/14/2015 Silvestre Zaidi MD MED REILL [id number] 11/14/2015 11/14/2015 Silvestre Zaidi MD Pain 904me4e6-1k4x-5c8w-2a93-0p42m4qeofk5 11/26/2015 11/26/2015 Silvestre Zaidi MD Pain 6u5b78r0-987p-1wa5-2l70-55320h4j927y 11/26/2015 11/26/2015 Silvestre Zaidi MD Pain dr3z6o6d-z5b6-496m-65au-668f7v00h0x9 11/26/2015 11/26/2015 Silvestre Zaidi MD Pain 92194jzg-z661-1t4a-rjn7-65551pj93c47 11/26/2015 11/26/2015 Silvestre Zaidi MD Pain g91z3v13-rc76-2519-5z3r-afvq3fv01727 11/26/2015 11/26/2015 Silvestre Zaidi MD Pain n2145309-0fw2-1va7-7997-8kw658mb87cp 11/26/2015 11/26/2015 Silvestre Zaidi MD Pain te0fp5a7-6gl7-473w-z4ii-08qv913r616t 11/26/2015 11/26/2015 Silvestre Zaidi MD Pain 65dz6l9o-36ci-5676-6683-8elee487o018 11/26/2015 11/26/2015 Silvestre Zaidi MD Pain 0t1l42nz-5r89-2a40-w34o-t1u5q540r775 11/26/2015 11/26/2015 Silvestre Zaidi MD Pain 2iw5b1k9-baix-5q0v-q156-73rtw721317a 11/26/2015 11/26/2015 Silvestre Zaidi MD Pain 24367255-621h-548m-83np-a55h3162vaot 11/26/2015 11/26/2015 Silvestre Zaidi MD Pain 91r7zd5p-12mf-01a7-l1fk-2ya93u5r7m63 11/26/2015 11/26/2015 Silvestre Zaidi MD Pain j982x49t-kl74-8691-u61h-4o6rrfu0s0t1 11/26/2015 11/26/2015 Silvestre Zaidi MD Pain el4n5a28-579w-23ut-ibo3-4l41qm26m355 11/26/2015 11/26/2015 Silvestre Zaidi MD Pain 0tlb316o-079p-5165-sv86-vy5sfs66v882 11/26/2015 11/26/2015 Silvestre Zaidi MD Pain a8497g5p-1gi9-4v6i-m120-5012l6h77ea1 11/26/2015 11/26/2015 Silvestre Zaidi MD Pain dfg0t136-h63o-16i0-0e0h-bjl9y083832p 11/26/2015 11/26/2015 Silvestre Zaidi MD Pain c0n67s5h-g16u-1s19-pz4u-3b39e48f9zry 11/26/2015 11/26/2015 Silvestre Zaidi MD Follow up 2v80q28c-t1sr-7094-w2cg-677p3t337m19 01/08/2016 01/08/2016 Silvestre Zaidi MD Follow up c6z18c71-u0zf-7s0t-06g6-fqc310k9kwl7 01/08/2016 01/08/2016 Silvestre Zaidi MD Follow up [id number]-thoo-10uy-d963-qu7250f7563a 01/08/2016 01/08/2016 Silvestre Zaidi MD Follow up [id number]-5bn0-q525-d68q5d4ty422 01/08/2016 01/08/2016 Silvestre Zaidi MD Follow up [id number]-g896-0i22wb2s7f18 01/08/2016 01/08/2016 Silvestre Zaidi MD Follow up [id number]-4218-91opa97f58ug 01/08/2016 01/08/2016 Silvestre Zaidi MD Follow up [id number]-4k95-ez9o3k923432 01/08/2016 01/08/2016 Silvestre Zaidi MD Follow up 23la3hib-t5hh-4si3-bqr7-0n50y58oj537 01/08/2016 01/08/2016 Silvestre Zaidi MD Follow up 55d60w9m-1v4o-076d-00eo-6ql585crrndz 01/08/2016 01/08/[address] [facility] c9h1sk67-1ygo-13hn-5231-y5lq31j81a81 01/08/2016 01/08/[address] [facility] 97w76100-q18e-46gg-97t4-550vlk90u2g2 01/08/2016 01/08/[address] [facility] 345x9844-5816-808m-4a39-4s80zz3d435h 01/08/2016 01/08/[address] [facility] 9qg4i029-qg21-5c2k-c2ak-650wa88v4844 01/08/2016 01/08/[address] [facility] 12289269-svd3-5ul2-7521-6a74zd08uk05 01/08/2016 01/08/[address] [facility] t7w3cg60-81zd-3r08-9617-h854m7q6uix0 01/08/2016 01/08/[address] [facility] 3i6z75w8-44mz-83o2-3bd9-reej035uqa78 01/08/2016 01/08/[address] [facility] 2169vo33-9sb1-9650-1709-b9896713z6v1 01/08/2016 01/08/2016 Silvestre Zaidi MD Follow up 287g0203-741p-2984-2w39-87c0813d06eg 01/08/2016 01/08/2016 Silvestre Zaidi MD Follow up g5b3673u-7u1n-9h27-0p41-09341j240hk9 01/08/2016 01/08/2016 Silvestre Zaidi MD Follow up [id number]645 01/08/2016 01/08/2016 Silvestre Zaidi MD Follow up [id number]-v54i-v0y6g4q4go41 01/08/2016 01/08/2016 Silvestre Zaidi MD Follow up [id number]-[id number] 01/08/2016 01/08/2016 Silvestre Zaidi MD Follow up 4u32mwsn-ome5-2wk3-0v29-71rwy7jjh53h 01/08/2016 01/08/2016 Silvestre Zaidi MD Follow up [id number] 01/08/2016 01/08/2016 Silvestre Zaidi MD Follow up [id number] 01/08/2016 01/08/[address] [facility] [id number] 01/08/2016 01/08/[address] of [facility] [id number] 01/08/2016 01/08/[address] of lungs [id number] 01/08/2016 01/08/[address] of lungs [id number] 01/08/2016 01/08/[address] of [facility] [id number] 01/08/2016 01/08/[address] of lungs [id number] 01/08/2016 01/08/[address] of lungs [id number] 01/08/2016 01/08/[address] of lungs [id number] 01/08/2016 01/08/2016 Silvestre Zaidi MD 1 mth follow up [id number] 02/08/2016 02/08/2016 Silvestre Zaidi MD 1 mth follow up [id number] 02/08/2016 02/08/2016 Silvestre Zaidi MD 1 mth follow up [id number] 02/08/2016 02/08/2016 Silvestre Zaidi MD 1 mth follow up [id number] 02/08/2016 02/08/2016 Silvestre Zaidi MD 1 mth follow up [id number] 02/08/2016 02/08/2016 Silvestre Zaidi MD Medical records [id number] 02/08/2016 02/08/2016 Silvestre Zaidi MD Medical records [id number] 02/08/2016 02/08/2016 Silvestre Zaidi MD Medical records [id number] 02/08/2016 02/08/2016 Silvestre Zaidi MD Medical records [id number] 02/08/2016 02/08/2016 Silvestre Zaidi MD Medical records [id number] 02/08/2016 02/08/2016 Silvestre Zaidi MD Medical records [id number] 02/08/2016 02/08/2016 Silvestre Zaidi MD Medical records [id number] 02/08/2016 02/08/2016 Silvestre Zaidi MD 1 mth follow up [id number] 02/08/2016 02/08/2016 Silvestre Zaidi MD 1 mth follow up [id number] 02/08/2016 02/08/2016 Silvestre Zaidi MD 1 mth follow up [id number] 02/08/2016 02/08/2016 Silvestre Zaidi MD 1 mth follow up [id number] 02/08/2016 02/08/2016 Silvestre Zaidi MD 1 mth follow up [id number] 02/08/2016 02/08/2016 Silvestre Zaidi MD 1 mth follow up [id number] 02/08/2016 02/08/2016 Silvestre Zaidi MD 1 mth follow up [id number] 02/08/2016 02/08/2016 Silvestre Zaidi MD 1 mth follow up [id number] 02/08/2016 02/08/2016 Silvestre Zaidi MD Medical records [id number] 02/08/2016 02/08/2016 Silvestre Zaidi MD Medical records [id number] 02/08/2016 02/08/2016 Silvestre Zaidi MD Medical records [id number] 02/08/2016 02/08/2016 Silvestre Zaidi MD Medical records [id number] 02/08/2016 02/08/2016 Silvestre Zaidi MD Medical records [id number] 02/08/2016 02/08/2016 Silvestre Zaidi MD Medical records [id number] 02/08/2016 02/08/2016 Silvestre Zaidi MD Medical records [id number] 02/08/2016 02/08/2016 Silvestre Zaidi MD Medical records [id number] 02/08/2016 02/08/2016 Silvestre Zaidi MD [facility] [id number] 02/17/2016 02/17/2016 Silvestre Zaidi MD MRI [id number] 02/17/2016 02/17/2016 Silvestre Zaidi MD MRI [id number] 02/17/2016 02/17/2016 Silvestre Zaidi MD MRI [id number] 02/17/2016 02/17/2016 Silvestre Zaidi MD MRI [id number] 02/17/2016 02/17/2016 Silvestre Zaidi MD MRI [id number] 02/17/2016 02/17/2016 Silvestre Zaidi MD MRI [id number] 02/17/2016 02/17/2016 Silvestre Zaidi MD MRI [id number] 02/17/2016 02/17/2016 Silvestre Zaidi MD MRI [id number] 02/17/2016 02/17/2016 Silvestre Zaidi MD MRI [id number] 02/17/2016 02/17/2016 Silvestre Zaidi MD MRI [id number] 02/17/2016 02/17/2016 Silvestre Zaidi MD MRI [id number] 02/17/2016 02/17/2016 Silvestre Zaidi MD [facility] [id number] 02/17/2016 02/17/2016 Silvestre Zaidi MD [facility] [id number] 02/17/2016 02/17/2016 Silvestre Zaidi MD ADDED TO SCHEDULE 03/18 [id number] 03/14/2016 03/14/2016 Silvestre Zaidi MD ADDED TO SCHEDULE 03/18 [id number] 03/14/2016 03/14/2016 Silvestre Zaidi MD ADDED TO SCHEDULE 03/18 [id number] 03/14/2016 03/14/2016 Silvestre Zaidi MD ADDED TO SCHEDULE 03/18 [id number] 03/14/2016 03/14/2016 Silvestre Zaidi MD ADDED TO SCHEDULE 03/18 [id number] 03/14/2016 03/14/2016 Silvestre Zaidi MD ADDED TO SCHEDULE 03/18 [id number] 03/14/2016 03/14/2016 Sivlestre Zaidi MD ADDED TO SCHEDULE 03/18 [id number] 03/14/2016 03/14/2016 Silvestre Zaidi MD ADDED TO SCHEDULE 03/18 [id number] 03/14/2016 03/14/2016 Silvestre Zaidi MD ADDED TO SCHEDULE 03/18 [id number] 03/14/2016 03/14/2016 Silvestre Zaidi MD ADDED TO SCHEDULE 03/18 [id number] 03/14/2016 03/14/2016 Silvestre Zaidi MD ADDED TO SCHEDULE 03/18 [id number] 03/14/2016 03/14/2016 Silvestre Zaidi MD ADDED TO SCHEDULE 03/18 [id number] 03/14/2016 03/14/2016 Silvestre Zaidi MD [facility] [id number] 03/18/2016 03/18/2016 Silvestre Zaidi MD [employer] [employer] [id number] 03/18/2016 03/18/2016 Silvestre Zaidi MD [employer] [facility] [id number] 03/18/2016 03/18/2016 Silvestre Zaidi MD [employer] [facility] [id number] 03/18/2016 03/18/2016 Silvestre Zaidi MD [employer] [facility] [id number] 03/18/2016 03/18/2016 Silvestre Zaidi MD [employer] [id number] 03/18/2016 03/18/2016 Silvestre Zaidi MD [facility] [id number] 03/18/2016 03/18/2016 Silvestre Zaidi MD [facility] [id number] 03/18/2016 03/18/2016 Silvestre Zaidi MD [facility] [employer] [id number] 03/18/2016 03/18/2016 Silvestre Zaidi MD [facility] [employer] [id number] 03/18/2016 03/18/2016 Silvestre Zaidi MD [facility] [employer] [id number] 03/18/2016 03/18/2016 Silvestre Zaidi MD Injection [id number] 04/17/2016 04/17/2016 Silvestre Zaidi MD Injection [id number] 04/17/2016 04/17/2016 Silvestre Zaidi MD Injection [id number] 04/17/2016 04/17/2016 Silvestre Zaidi MD Injection [id number] 04/17/2016 04/17/2016 Silvestre Zaidi MD Injection [id number] 04/17/2016 04/17/2016 Silvestre Zaidi MD Injection [id number] 04/17/2016 04/17/2016 Silvestre Zaidi MD Injection [id number] 04/17/2016 04/17/2016 Silvestre Zaidi MD Injection [id number] 04/17/2016 04/17/2016 Silvestre Zaidi MD Injection [id number] 04/17/2016 04/17/2016 Silvestre Zaidi MD Injection [id number] 04/17/2016 04/17/2016 Silvestre Zadii MD 4 w f/u [id number] 05/07/2016 05/07/2016 Silvestre Zaidi MD 4 w f/u [id number] 05/07/2016 05/07/2016 Silvestre Zaidi MD 4 w f/u [id number] 05/07/2016 05/07/2016 Silvestre Zaidi MD 4 w f/u [id number] 05/07/2016 05/07/2016 Silvestre Zaidi MD 4 w f/u [id number] 05/07/2016 05/07/2016 Silvestre Zaidi MD 4 w f/u [id number] 05/07/2016 05/07/2016 Silvestre Zaidi MD 4 w f/u [id number] 05/07/2016 05/07/2016 Silvestre Zaidi MD 4 w f/u [id number] 05/07/2016 05/07/2016 MD Lana Greer [id number] 05/07/2016 05/07/2016 MD Lana Greer [id number] 05/07/2016 05/07/2016 MD Lana Greer [id number] 05/07/2016 05/07/2016 MD Lana Greer [id number] 05/07/2016 05/07/2016 MD Lana Greer [id number] 05/07/2016 05/07/2016 MD Lana Greer [id number] 05/07/2016 05/07/2016 MD Lana Greer [id number] 05/07/2016 05/07/2016 MD Lana Greer [id number] 05/07/2016 05/07/2016 MD Lana Greer [id number] 05/07/2016 05/07/2016 Silvestre Zaidi MD Unknown [id number] 05/21/2016 05/21/2016 Silvestre Zaidi MD Unknown [id number] 05/21/2016 05/21/2016 Silvestre Zaidi MD Unknown [id number] 05/21/2016 05/21/2016 Silvestre Zaidi MD Unknown [id number] 05/21/2016 05/21/2016 Silvestre Zaidi MD Unknown [id number] 05/21/2016 05/21/2016 Silvestre Zaidi MD Unknown [id number] 05/21/2016 05/21/2016 Silvestre Zaidi MD Vitamin D [id number] 05/23/2016 05/23/2016 Silvestre Zaidi MD Vitamin D [id number] 05/23/2016 05/23/2016 Silvestre Zaidi MD Vitamin D [id number] 05/23/2016 05/23/2016 Silvestre Zaidi MD Vitamin D [id number] 05/23/2016 05/23/2016 Silvestre Zaidi MD Vitamin D [id number] 05/23/2016 05/23/2016 Silvestre Zaidi MD Vitamin D [id number] 05/23/2016 05/23/2016 Silvestre Zaidi MD Vitamin D [id number] 05/23/2016 05/23/2016 Silvestre Zaidi MD Prolia [id number] 06/09/2016 06/09/2016 Silvestre Zaidi MD Prolia [id number] 06/09/2016 06/09/2016 Silvestre Zaidi MD Prolia [id number] 06/09/2016 06/09/2016 Silvestre Zaidi MD Prolia [id number] 06/09/2016 06/09/2016 Silvestre Zaidi MD Prolia [id number] 06/09/2016 06/09/2016 Silvestre Zaidi MD Prolia [id number] 06/09/2016 06/09/2016 Silvestre Zaidi MD PT HAVING FLARE [id number] 07/01/2016 07/01/2016 Silvestre Zaidi MD PT HAVING FLARE [id number] 07/01/2016 07/01/2016 Silvestre Zaidi MD PT HAVING FLARE [id number] 07/01/2016 07/01/2016 Silvestre Zaidi MD PT HAVING FLARE [id number] 07/01/2016 07/01/2016 Silvestre Zaidi MD 4 w f/u [id number] 07/15/2016 07/15/2016 Silvestre Zaidi MD 4 w f/u [id number] 07/15/2016 07/15/2016 Silvestre Zaidi MD 4 w f/u [id number] 07/15/2016 07/15/2016 Silvestre Zaidi MD PROLIA [id number] 07/15/2016 07/15/2016 Silvestre Zaidi MD PROLIA [id number] 07/15/2016 07/15/2016 Silvestre Zaidi MD PROLIA [id number] 07/15/2016 07/15/2016 Silvestre Zaidi MD 4 w f/u [id number] 08/13/2016 08/13/2016 Silvestre Zaidi Procedures Procedure Code Date Perfomer Comments Source
--- OUTSIDE RECORDS SUMMARY | 2018-12-11 12:17 | XMS REPORT ---
Author Author Shanel Salgado [facility] eClinicalWorks Address Unknown Phone Unavailable Care Team Providers Care Head Packager Name Role Phone Shanel Salgado Unavailable Allergies, Adverse Reactions, Alerts Substance Reaction Event Type Morphine Sulfate Skin rash Drug Allergy Demerol Skin rash and Itching Drug Allergy Avelox Elbows- hands and mouth turned red Drug Allergy MTX GI upset Non Drug Allergy Neurontin drowsiness Non Drug Allergy Sulfasalazine GI upset, fatigue Non Drug Allergy Problems Problem Type Condition Code Onset Dates Condition Status Problem Low back pain M54.5 Active Problem 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 Active Problem Other custodial (current) drug therapy Z79.899 Active Problem Hoarseness R49.0 Active Problem Lumbago M54.5 Active Problem Cervicalgia M54.2 Active Problem Neck pain M54.2 Active Problem Primary osteoarthritis M19.91 Active Problem Vitamin D deficiency E55.9 Active Problem Midline low back pain with sciatica, sciatica laterality unspecified M54.40 Active Assessment Age-related osteoporosis without current pathological fracture M81.0 Active Assessment Primary osteoarthritis M19.91 Active Assessment Other custodial (current) drug therapy Z79.899 Active Assessment 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 Active Assessment Lumbago M54.5 Active Problem Age-related osteoporosis without current pathological fracture M81.0 Active Medications Medication Code System Code Instructions Start Date End Date Status Dosage PredniSONE [facility] 04104715631 5 Orally as needed Active 1 tablet with food or milk Prolia [facility] [address]-04 60 MG/ML Subcutaneous once every 6 months Active as directed Ziac [facility] [address]-82 5-6.25 MG Orally Once a day Active 1 tablet Rasuvo [facility] [address]-86 10 MG/0.2ML Subcutaneous once a week September 10, 2016 Active as directed Methotrexate ND 0 25mg/1mL Subcutaneous Once a week Active 0.4 Levothyroxine Sodium [facility] [address]-02 137 MCG Orally Once a day Active 1 tablet on an empty stomach in the morning Bentyl [facility] [address]-34 20 MG Orally Four times a day as needed Active 1 tablet Folic Acid [facility] [address]-46 1 MG Orally Once a day September 10, 2016 Active 1 tablet Cymbalta [facility] [address]-05 60 MG Orally Once a day Active 1 capsule Hydrocodone-Acetaminophen [facility] [address]-25 7.5-325 MG Orally TID Active 2 tablets Albuterol NDC 0 90 mcg Inhalation Once a day Active as needed Carisoprodol [facility] [address]-56 350 MG Orally Four times a day Active 1 tablet as needed Hydroxychloroquine Sulfate [facility] 67012703752 200 Active TAKE ONE TABLET BY MOUTH TWICE A DAY WITH FOOD OR MILK Zantac [facility] [address]-14 150 MG Orally Twice a day Active 1 tablet Advair HFA [facility] [address]-51 Inhalation Once a day Active 1 puffs Amlodipine Besy-Benazepril HCl [facility] [address]-29 Orally Once a day Active 1 capsule Vitamin D (Ergocalciferol) [facility] [address]-94 28212 UNIT Orally once a week Active 1 capsule ibuprofen NDC 0 200 mg Oral As needed Active 3 Tablet Vital Signs Date/Time: November 24, 2016 BMI 23.73 Index Weight 134 lbs Height 63 in Temperature 98.2 F Cardiac Monitoring Heart Rate 76 /min Blood Pressure Diastolic 78 mm Hg Blood Pressure Systolic 140 mm Hg Results No Known Results Summary Purpose eClinicalWorks Submission
--- OUTSIDE RECORDS SUMMARY | 2018-12-11 12:17 | XMS REPORT ---
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 Active Problem Primary osteoarthritis M19.91 Active Problem Low back pain M54.5 Active Problem Cervicalgia M54.2 Active Problem Hoarseness R49.0 Active Problem Fibromyalgia M79.7 Active Problem Vitamin D deficiency E55.9 Active Problem Midline low back pain with sciatica, sciatica laterality unspecified M54.40 Active Problem Lumbago M54.5 Active Problem Neck pain M54.2 Active Assessment 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 terminal block 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 Z79.899 Active Assessment 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 Active Assessment Fibromyalgia M79.7 Active Problem Age-related osteoporosis without current pathological fracture M81.0 Active Assessment Primary osteoarthritis M19.91 Active Problem Other alf (current) drug therapy Z79.899 Active Medications Medication Code System Code Instructions Start Date End Date Status Dosage Clopidogrel Bisulfate ND 87055703128 75 MG Orally Once a day Active 1 tablet Ziac ND 14067696203 5-6.25 MG Orally at bedtime Active 1 tablet Amlodipine Besy-Benazepril HCl ND 27010958916 Orally Once a day Active 1 capsule Zantac ND 08624086340 150 MG Orally Once a day Active 1 tablet Hydrocodone-Acetaminophen ND 02485288901 7.5-325 MG Orally TID Active 2 tablets Vitamin D (Ergocalciferol) ND 56354164192 89956 UNIT Orally once a week Active 1 capsule Cymbalta [facility] 16888688031 60 MG Orally Once a day Active 1 capsule Bentyl ND 12469551141 20 MG Orally Four times a day as needed Active 1 tablet Prolia [facility] 38944880128 60 MG/ML Subcutaneous once every 6 months Active as directed ibuprofen NDC 0 200 mg Oral As needed Active 3 Tablet Advair HFA ND 61328481483 Inhalation Once a day Active 1 puffs Hydroxychloroquine Sulfate [facility] 48561424787 200 BID Active 1 tablet Bevespi Aerosphere [facility] 46006678239 9-4.8 MCG/ACT Inhalation Twice a day Active 2 puffs PredniSONE ND 31660103639 5 Orally as needed Active 1 tablet with food or milk Carisoprodol [facility] 76436360141 350 MG Orally Four times a day Active 1 tablet as needed Levothyroxine Sodium ND 74337895287 137 MCG Orally Once a day Active 1 tablet on an empty stomach in the morning Aspirin [facility] 62584757540 81 MG Orally Once a day Active 1 tablet Albuterol NDC 0 90 mcg Inhalation Once a day Active as needed Vital Signs Date/Time: May 05, 2017 BMI 25.05 Index Weight 137 lbs Height 62 in Temperature 98.5 F Cardiac Monitoring Heart Rate 80 /min Blood Pressure Diastolic 60 mm Hg Blood Pressure Systolic 118 mm Hg Results No Known Results Summary Purpose eClinicalWorks Submission
--- OUTSIDE RECORDS SUMMARY | 2018-12-11 12:17 | XMS REPORT ---
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 Active Problem Age-related osteoporosis without current pathological fracture M81.0 Active Problem Low back pain M54.5 Active Problem Cervicalgia M54.2 Active Problem Hoarseness R49.0 Active Problem Fibromyalgia M79.7 Active Problem Midline low back pain with sciatica, sciatica laterality unspecified M54.40 Active Problem Neck pain M54.2 Active Problem Lumbago M54.5 Active Problem Vitamin D deficiency E55.9 Active Medications Medication Code System Code Instructions Start Date End Date Status Dosage Hydroxychloroquine Sulfate [facility] 11165507900 200 Orally twice a day Feb 27, 2017 Active 1 tablet with food or milk Results No Known Results Summary Purpose eClinicalWorks Submission
--- OUTSIDE RECORDS SUMMARY | 2018-12-11 12:17 | XMS REPORT ---
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
--- OUTSIDE RECORDS SUMMARY | 2018-12-11 12:17 | XMS REPORT ---
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.899 Active Assessment Drug-induced constipation K59.09 Active Problem Age-related osteoporosis without current pathological fracture M81.0 Active Problem Hoarseness R49.0 Active Problem Lumbago M54.5 Active Problem Cervicalgia M54.2 Active Problem Neck pain M54.2 Active Problem Primary osteoarthritis M19.91 Active Problem Vitamin D deficiency E55.9 Active Problem Midline low back pain with sciatica, sciatica laterality unspecified M54.40 Active Medications Medication Code System Code Instructions Start Date End Date Status Dosage Hydrocodone-Acetaminophen [facility] [address]-11 7.5-325 MG Orally TID Feb 12, 2017 Active 2 tablets Movantik [facility] [address]-30 25 MG Orally Once a day January 15, 2017 Active 1 tablet in the morning Zantac [facility] [address]-65 150 MG Orally Twice a day Active 1 tablet Cymbalta [facility] [address]-88 60 MG Orally Once a day Active 1 capsule Amlodipine Besy-Benazepril HCl [facility] [address]-17 Orally Once a day Active 1 capsule Hydroxychloroquine Sulfate [facility] 90968565818 200 Active TAKE ONE TABLET BY MOUTH TWICE A DAY WITH FOOD OR MILK Vitamin D (Ergocalciferol) [facility] [address]-80 07287 UNIT Orally once a week January 15, 2017 Jun 14, 2017 Active 1 capsule ibuprofen NDC 0 200 mg Oral As needed Active 3 Tablet Albuterol NDC 0 90 mcg Inhalation Once a day Active as needed Folic Acid [facility] [address]-74 1 MG Orally Once a day Active 1 tablet Advair HFA [facility] [address]-83 Inhalation Once a day Active 1 puffs Bentyl [facility] [address]-03 20 MG Orally Four times a day as needed Active 1 tablet Prolia [facility] [address]-13 60 MG/ML Subcutaneous once every 6 months Active as directed Ziac [facility] [address]-29 5-6.25 MG Orally Once a day Active 1 tablet PredniSONE [facility] 20938634583 5 Orally as needed Active 1 tablet with food or milk Carisoprodol [facility] [address]-72 350 MG Orally Four times a day Active 1 tablet as needed Vitamin D (Ergocalciferol) [facility] [address]-70 05128 UNIT Orally once a week Active 1 capsule Levothyroxine Sodium [facility] [address]-50 137 MCG Orally Once a day Active 1 tablet on an empty stomach in the morning Results No Known Results Summary Purpose eClinicalWorks Submission
--- OUTSIDE RECORDS SUMMARY | 2018-12-11 12:17 | XMS REPORT ---
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 Active Problem Primary osteoarthritis M19.91 Active Problem Low back pain M54.5 Active Problem Age-related osteoporosis without current pathological fracture M81.0 Active Problem Other intermediate school teacher (current) drug therapy Z79.899 Active Problem Cervicalgia M54.2 Active Problem Hoarseness R49.0 Active Problem Fibromyalgia M79.7 Active Problem Vitamin D deficiency E55.9 Active Problem Midline low back pain with sciatica, sciatica laterality unspecified M54.40 Active Problem Lumbago M54.5 Active Problem Neck pain M54.2 Active Medications No Known Medications Results No Known Results Summary Purpose eClinicalWorks Submission
--- OUTSIDE RECORDS SUMMARY | 2018-12-11 12:17 | XMS REPORT ---
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 Active Problem Cervicalgia M54.2 Active Problem Hoarseness R49.0 Active Problem Fibromyalgia M79.7 Active Problem Midline low back pain with sciatica, sciatica laterality unspecified M54.40 Active Problem Neck pain M54.2 Active Problem Lumbago M54.5 Active Problem Vitamin D deficiency E55.9 Active Assessment 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 [address]-04 33168 UNIT Orally once a week Active 1 capsule [address]antac [facility] [address]-72 150 MG Orally Once a day Active 1 tablet [address]niSONE [facility] 01405584620 5 Orally as needed Active 1 tablet with food or milk Aspirin [facility] [address]-95 81 MG Orally Once a day Active 1 tablet Cymbalta [facility] [address]-09 60 MG Orally Once a day Active 1 capsule Bentyl [facility] [address]-84 20 MG Orally Four times a day as needed Active 1 tablet Bevespi Aerosphere [facility] [address]-73 9-4.8 MCG/ACT Inhalation Twice a day Active 2 puffs Amlodipine Besy-Benazepril HCl [facility] [address]-31 Orally Once a day Active 1 capsule Hydrocodone-Acetaminophen [facility] [address]-70 7.5-325 MG Orally TID Active 2 tablets Clopidogrel Bisulfate [facility] [address]-17 75 MG Orally Once a day Active 1 tablet Movantik [facility] [address]-11 25 MG Orally Once a day Active 1 tablet in the morning Levothyroxine Sodium [facility] [address]-35 137 MCG Orally Once a day Active 1 tablet on an empty stomach in the morning Carisoprodol [facility] [address]-49 350 MG Orally Four times a day Active 1 tablet as needed Prolia [facility] [address]-09 60 MG/ML Subcutaneous once every 6 months Active as directed Ziac [facility] [address]-62 5-6.25 MG Orally at bedtime Active 1 tablet Hydroxychloroquine Sulfate [facility] 64959142893 200 Active TAKE ONE TABLET BY MOUTH TWICE A DAY WITH FOOD OR MILK ibuprofen NDC 0 200 mg Oral As needed Active 3 Tablet Albuterol NDC 0 90 mcg Inhalation Once a day Active as needed Advair HFA [facility] [address]-35 Inhalation Once a day Active 1 puffs Vital Signs Date/Time: Apr 02, 2017 BMI 24.62 Index Weight 139 lbs Height 63 in Temperature 97.7 F Cardiac Monitoring Heart Rate 80 /min Blood Pressure Diastolic 70 mm Hg Blood Pressure Systolic 140 mm Hg Results No Known Results Summary Purpose eClinicalWorks Submission
--- OUTSIDE RECORDS SUMMARY | 2018-12-11 12:17 | XMS REPORT ---
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
--- OUTSIDE RECORDS SUMMARY | 2018-12-11 12:17 | XMS REPORT ---
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
--- OUTSIDE RECORDS SUMMARY | 2018-12-11 12:17 | XMS REPORT ---
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 Z79.899 Active Problem Hoarseness R49.0 Active Assessment Lumbago M54.5 Active Problem Lumbago M54.5 Active Assessment Cervicalgia M54.2 Active Problem Cervicalgia M54.2 Active Problem Neck pain M54.2 Active Problem Primary osteoarthritis M19.91 Active Problem Vitamin D deficiency E55.9 Active Problem Midline low back pain with sciatica, sciatica laterality unspecified M54.40 Active Assessment Vitamin D deficiency E55.9 Active Assessment 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 treater helper (current) drug therapy Z79.899 Active Assessment Primary osteoarthritis M19.91 Active Assessment Midline low back pain with sciatica, sciatica laterality unspecified M54.40 Active Assessment Neck pain M54.2 Active Assessment 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 Active Assessment Hoarseness R49.0 Active Assessment Age-related osteoporosis without current pathological fracture M81.0 Active Assessment Low back pain M54.5 Active Problem Age-related osteoporosis without current pathological fracture M81.0 Active Medications Medication Code System Code Instructions Start Date End Date Status Dosage Hydrocodone-Acetaminophen [facility] [address]-93 7.5-325 MG Orally TID Feb 12, 2017 Active 2 tablets Advair HFA [facility] [address]-89 Inhalation Once a day Active 1 puffs Vitamin D (Ergocalciferol) [facility] [address]-53 87245 UNIT Orally once a week Active 1 capsule Zantac [facility] [address]-81 150 MG Orally Twice a day Active 1 tablet Carisoprodol [facility] [address]-96 350 MG Orally Four times a day Active 1 tablet as needed Folic Acid [facility] [address]-41 1 MG Orally Once a day Active 1 tablet Bentyl [facility] [address]-99 20 MG Orally Four times a day as needed Active 1 tablet Amlodipine Besy-Benazepril HCl [facility] [address]-65 Orally Once a day Active 1 capsule Albuterol ND 0 90 mcg Inhalation Once a day Active as needed ibuprofen NDC 0 200 mg Oral As needed Active 3 Tablet Levothyroxine Sodium [facility] [address]-46 137 MCG Orally Once a day Active 1 tablet on an empty stomach in the morning Ziac [facility] [address]-45 5-6.25 MG Orally Once a day Active 1 tablet Hydroxychloroquine Sulfate [facility] 72277577830 200 Active TAKE ONE TABLET BY MOUTH TWICE A DAY WITH FOOD OR MILK Prolia [facility] [address]-17 60 MG/ML Subcutaneous once every 6 months Active as directed Rasuvo [facility] [address]-34 10 MG/0.2ML Subcutaneous once a week January 13, 2017 Inactive as directed Cymbalta [facility] [address]-15 60 MG Orally Once a day Active 1 capsule PredniSONE [facility] 89618736733 5 Orally as needed Active 1 tablet with food or milk Vital Signs Date/Time: January 13, 2017 BMI 25.44 Index Weight 140 lbs Height 62.2 in Temperature 98.7 F Cardiac Monitoring Heart Rate 80 /min Blood Pressure Diastolic 60 mm Hg Blood Pressure Systolic 128 mm Hg Results No Known Results Summary Purpose eClinicalWorks Submission
--- OUTSIDE RECORDS SUMMARY | 2018-12-11 12:17 | XMS REPORT ---
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 Active Problem Primary osteoarthritis M19.91 Active Problem Low back pain M54.5 Active Problem Age-related osteoporosis without current pathological fracture M81.0 Active Problem Other buttermaker continuous churn (current) drug therapy Z79.899 Active Problem Cervicalgia M54.2 Active Problem Hoarseness R49.0 Active Problem Fibromyalgia M79.7 Active Problem Vitamin D deficiency E55.9 Active Problem Midline low back pain with sciatica, sciatica laterality unspecified M54.40 Active Problem Lumbago M54.5 Active Problem Neck pain M54.2 Active Medications No Known Medications Results No Known Results Summary Purpose eClinicalWorks Submission
--- OUTSIDE RECORDS SUMMARY | 2018-12-11 12:17 | XMS REPORT ---
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
--- OUTSIDE RECORDS SUMMARY | 2018-12-11 12:17 | XMS REPORT ---
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 Active Assessment Age-related osteoporosis without current pathological fracture M81.0 Active Problem Age-related osteoporosis without current pathological fracture M81.0 Active Assessment Fibromyalgia M79.7 Active Problem Low back pain M54.5 Active Medications Medication Code System Code Instructions Start Date End Date Status Dosage Albuterol NDC 0 90 mcg Inhalation Once a day Active as needed Prolia [facility] [address]-47 60 MG/ML Subcutaneous once every 6 months Active as directed Levothyroxine Sodium [facility] [address]-16 137 MCG Orally Once a day Active 1 tablet on an empty [place] [address]-36 Inhalation Once a day Active 1 puffs Bentyl [facility] [address]-28 20 MG Orally Four times a day as needed Active 1 tablet Hydrocodone-Acetaminophen [facility] [address]-55 7.5-325 MG Orally TID Active 2 tablets ibuprofen ND 0 200 mg Oral As needed Active 3 Tablet Movantik [facility] [address]-26 25 MG Orally Once a day Active 1 tablet in the morning Aspirin [facility] [address]-40 81 MG Orally Once a day Active 1 tablet Cymbalta [facility] [address]-30 60 MG Orally Once a day Active 1 capsule Ziac [facility] [address]-48 5-6.25 MG Orally at bedtime Active 1 tablet Carisoprodol [facility] [address]-44 350 MG Orally Four times a day Active 1 tablet as needed Vitamin D (Ergocalciferol) [facility] [address]-17 72799 UNIT Orally once a week Active 1 capsule Zantac [facility] [address]-52 150 MG Orally Once a day Active 1 tablet Clopidogrel Bisulfate [facility] [address]-27 75 MG Orally Once a day Active 1 tablet PredniSONE [facility] 33184937383 5 Orally as needed Active 1 tablet with food or milk Amlodipine Besy-Benazepril HCl [facility] [address]-41 Orally Once a day Active 1 capsule Hydroxychloroquine Sulfate [facility] 72049285805 200 Once a day Active 2 tablets Vital Signs Date/Time: Feb 19, 2017 BMI 24.51 Index Weight 134 lbs Height 62 in Temperature 97.2 F Cardiac Monitoring Heart Rate 86 /min Blood Pressure Diastolic 76 mm Hg Blood Pressure Systolic 140 mm Hg Results No Known Results Summary Purpose eClinicalWorks Submission
--- OUTSIDE RECORDS SUMMARY | 2018-12-11 12:17 | XMS REPORT ---
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 Active Problem Primary osteoarthritis M19.91 Active Problem Low back pain M54.5 Active Problem Age-related osteoporosis without current pathological fracture M81.0 Active Problem Other general operations manager (current) drug therapy Z79.899 Active Problem Cervicalgia M54.2 Active Problem Hoarseness R49.0 Active Problem Fibromyalgia M79.7 Active Problem Vitamin D deficiency E55.9 Active Problem Midline low back pain with sciatica, sciatica laterality unspecified M54.40 Active Problem Lumbago M54.5 Active Problem Neck pain M54.2 Active Medications No Known Medications Results No Known Results Summary Purpose eClinicalWorks Submission
--- OUTSIDE RECORDS SUMMARY | 2018-12-11 12:17 | XMS REPORT ---
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
--- OUTSIDE RECORDS SUMMARY | 2018-12-11 12:17 | XMS REPORT ---
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 Active Problem Other keno terminal operator (current) drug therapy Z79.899 Active Problem Age-related [...] Start Date End Date Status Dosage Hydrocodone-Acetaminophen [facility] [address]-44 7.5-325 MG Orally TID Feb 12, 2017 Active 2 tablets Bentyl [facility] [address]-34 20 MG Orally Four times a day as needed Active 1 tablet Advair HFA [facility] [address]-26 Inhalation Once a day Active 1 puffs Levothyroxine Sodium [facility] [address]-56 137 MCG Orally Once a day Active 1 tablet on an empty stomach in the morning Zantac [facility] [address]-70 150 MG Orally Twice a day Active 1 tablet Prolia [facility] [address]-96 60 MG/ML Subcutaneous once every 6 months Active as directed Hydroxychloroquine Sulfate [facility] 11187946197 200 Active TAKE ONE TABLET BY MOUTH TWICE A DAY WITH FOOD OR MILK ibuprofen NDC 0 200 mg Oral As needed Active 3 Tablet Ziac [facility] [address]-24 5-6.25 MG Orally Once a day Active 1 tablet Vitamin D (Ergocalciferol) [facility] [address]-56 12887 UNIT Orally once a week January 15, 2017 Jun 14, 2017 Active 1 capsule Amlodipine Besy-Benazepril HCl [facility] [address]-38 Orally Once a day Active 1 capsule PredniSONE [facility] 34782140724 5 Orally as needed Active 1 tablet with food or milk Folic Acid [facility] [address]-15 1 MG Orally Once a day Active 1 tablet Albuterol [facility] 0 90 mcg Inhalation Once a day Active as needed Carisoprodol [facility] [address]-00 350 MG Orally Four times a day Active 1 tablet as needed Vitamin D (Ergocalciferol) [facility] [address]-48 37426 UNIT Orally once a week Active 1 capsule Cymbalta [facility] [address]-46 60 MG Orally Once a day Active 1 capsule Results No Known Results Summary Purpose eClinicalWorks Submission
--- OUTSIDE RECORDS SUMMARY | 2018-12-11 12:18 | XMS REPORT ---
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 Active Assessment Primary osteoarthritis M19.91 Active Problem Age-related osteoporosis without current pathological fracture M81.0 Active Assessment custodial prescription opiate use Z79.891 Active Problem Other penitentiary (current) drug therapy Z79.899 Active Medications Medication Code System Code Instructions Start Date End Date Status Dosage Amlodipine Besy-Benazepril HCl ND 01120531556 Orally Once a day Active 1 capsule PredniSONE ND 52740805208 5 Orally as needed Active 1 tablet with food or milk Clopidogrel Bisulfate ND 01154199742 75 MG Orally Once a day Active 1 tablet Bevespi [employer] ND 07199790725 9-4.8 MCG/ACT Inhalation Twice a day Active 2 puffs Hydroxychloroquine Sulfate [facility] 52808899521 200 Active TAKE 1 TABLET BY MOUTH TWICE DAILY WITH FOOD OR MILK Aspirin [facility] 63713579788 81 MG Orally Once a day Active 1 tablet Albuterol NDC 0 90 mcg Inhalation Once a day Active as needed Levothyroxine Sodium ND 20710872500 137 MCG Orally Once a day Active 1 tablet on an empty stomach in the morning Cymbalta [facility] 98595205783 60 MG Orally Once a day Active 1 capsule Advair HFA ND 39345999394 Inhalation Once a day Active 1 puffs Vitamin D (Ergocalciferol) [facility] 11827154467 64879 UNIT Orally once a week Active 1 capsule Carisoprodol [facility] 61330669442 350 MG Orally Four times a day November 30, 2017 Active 1 tablet as needed Hydrocodone-Acetaminophen [facility] 80129205668 7.5-325 MG Orally TID October 01, 2017 Active 2 tablets Zantac [facility] 27543179713 150 MG Orally Once a day Active 1 tablet Ziac [facility] 88778235876 5-6.25 MG Orally at bedtime Active 1 tablet Bentyl [facility] 52940627880 20 MG Orally Four times a day as needed Active 1 tablet ibuprofen NDC 0 200 mg Oral As needed Active 3 Tablet Prolia [facility] 55028020877 60 MG/ML Subcutaneous q 6 months Jul 01, 2017 Active as directed Vital Signs Date/Time: October 01, 2017 BMI 24.30 Index Weight 137.2 lbs Height 63 in Temperature 97.3 F Cardiac Monitoring Heart Rate 70 /min Blood Pressure Diastolic 70 mm Hg Blood Pressure Systolic 112 mm Hg Results No Known Results Summary Purpose eClinicalWorks Submission
--- OUTSIDE RECORDS SUMMARY | 2018-12-11 12:18 | XMS REPORT ---
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 Active Problem Primary osteoarthritis M19.91 Active Problem Low back pain M54.5 Active Problem Age-related osteoporosis without current pathological fracture M81.0 Active Problem Other intermediate card tender (current) drug therapy Z79.899 Active Problem Cervicalgia M54.2 Active Problem Hoarseness R49.0 Active Problem Fibromyalgia M79.7 Active Problem Vitamin D deficiency E55.9 Active Problem Midline low back pain with sciatica, sciatica laterality unspecified M54.40 Active Problem Lumbago M54.5 Active Problem Neck pain M54.2 Active Medications No Known Medications Results No Known Results Summary Purpose eClinicalWorks Submission
--- OUTSIDE RECORDS SUMMARY | 2018-12-11 12:18 | XMS REPORT ---
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 Active Problem Primary osteoarthritis M19.91 Active Problem Low back pain M54.5 Active Problem Age-related osteoporosis without current pathological fracture M81.0 Active Problem 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 Z79.899 Active Problem Cervicalgia M54.2 Active Problem Hoarseness R49.0 Active Problem Fibromyalgia M79.7 Active Problem Vitamin D deficiency E55.9 Active Problem Midline low back pain with sciatica, sciatica laterality unspecified M54.40 Active Problem Lumbago M54.5 Active Problem Neck pain M54.2 Active Medications No Known Medications Results No Known Results Summary Purpose eClinicalWorks Submission
--- OUTSIDE RECORDS SUMMARY | 2018-12-11 12:18 | XMS REPORT ---
Author Author Collin Zaidi Organization eClinicalWorks Address Unknown Phone Unavailable Care Team Providers Care Surgical Coordinator Name Role Phone Collin Zaidi CP Unavailable [...] Active Problem Neck pain M54.2 Active Assessment [facility] (current) use of opiate analgesic Z79.891 Active Problem Age-related osteoporosis without current pathological fracture M81.0 Active Problem Other [facility] (current) drug therapy Z79.899 Active Medications Medication Code System Code Instructions Start Date End Date Status Dosage Carisoprodol [facility] 03132522619 350 MG Orally Four times a day Active 1 tablet as needed Results No Known Results Summary Purpose eClinicalWorks Submission
--- OUTSIDE RECORDS SUMMARY | 2018-12-11 12:18 | XMS REPORT ---
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 Active Problem Primary osteoarthritis M19.91 Active Problem Low back pain M54.5 Active Problem Age-related osteoporosis without current pathological fracture M81.0 Active Problem Other terminal carman (current) drug therapy Z79.899 Active Problem Cervicalgia M54.2 Active Problem Hoarseness R49.0 Active Problem Fibromyalgia M79.7 Active Problem Vitamin D deficiency E55.9 Active Problem Midline low back pain with sciatica, sciatica laterality unspecified M54.40 Active Problem Lumbago M54.5 Active Problem Neck pain M54.2 Active Medications No Known Medications Results No Known Results Summary Purpose eClinicalWorks Submission
--- OUTSIDE RECORDS SUMMARY | 2018-12-11 12:18 | XMS REPORT ---
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 Active Problem Primary osteoarthritis M19.91 Active Problem Low back pain M54.5 Active Problem Age-related osteoporosis without current pathological fracture M81.0 Active Problem Other email marketing intern (current) drug therapy Z79.899 Active Problem Cervicalgia M54.2 Active Problem Hoarseness R49.0 Active Problem Fibromyalgia M79.7 Active Problem Vitamin D deficiency E55.9 Active Problem Midline low back pain with sciatica, sciatica laterality unspecified M54.40 Active Problem Lumbago M54.5 Active Problem Neck pain M54.2 Active Medications No Known Medications Results No Known Results Summary Purpose eClinicalWorks Submission
--- OUTSIDE RECORDS SUMMARY | 2018-12-11 12:18 | XMS REPORT ---
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 Active Assessment Age-related osteoporosis without current pathological fracture M81.0 Active Problem Age-related osteoporosis without current pathological fracture M81.0 Active Assessment Other exterminator (current) drug therapy Z79.899 Active Problem Other custodial (current) drug therapy Z79.899 Active Medications Medication Code System Code Instructions Start Date End Date Status Dosage Prolia ND 89066748195 60 MG/ML Subcutaneous once every 6 months Active as directed ibuprofen NDC 0 200 mg Oral As needed Active 3 Tablet PredniSONE NDC 00083988843 5 Orally as needed Active 1 tablet with food or milk Zantac ND 37357914811 150 MG Orally Once a day Active 1 tablet Hydrocodone-Acetaminophen NDC 08286384637 7.5-325 MG Orally TID Active 2 tablets Vitamin D (Ergocalciferol) ND 84052589848 73739 UNIT Orally once a week Active 1 capsule Levothyroxine Sodium [facility] 54854479844 137 MCG Orally Once a day Active 1 tablet on an empty stomach in the morning Amlodipine Besy-Benazepril HCl [facility] 55047749354 Orally Once a day Active 1 capsule Advair HFA [facility] 55446103578 Inhalation Once a day Active 1 puffs Ziac [facility] 91732161476 5-6.25 MG Orally at bedtime Active 1 tablet Aspirin [facility] 87186543564 81 MG Orally Once a day Active 1 tablet Clopidogrel Bisulfate [facility] 77159659041 75 MG Orally Once a day Active 1 tablet Leflunomide [facility] 64087805393 10 MG Orally Once a day Jul 29, 2017 Active 1 tablet Paulo-24 [facility] 64449507494 200 MG Orally Active as directed Carisoprodol [facility] 75450473577 350 MG Orally Four times a day Active 1 tablet as needed Cymbalta [facility] 15427837221 60 MG Orally Once a day Active 1 capsule Hydroxychloroquine Sulfate [facility] 32821429144 200 BID Active 1 tablet Albuterol [facility] 0 90 mcg Inhalation Once a day Active as needed Bentyl [facility] 10814089715 20 MG Orally Four times a day as needed Active 1 tablet Vital Signs Date/Time: Jul 29, 2017 BMI 24.44 Index Weight 138 lbs Height 63 in Temperature 97.4 F Cardiac Monitoring Heart Rate 80 /min Blood Pressure Diastolic 78 mm Hg Blood Pressure Systolic 140 mm Hg Results No Known Results Summary Purpose eClinicalWorks Submission
--- OUTSIDE RECORDS SUMMARY | 2018-12-11 12:18 | XMS REPORT ---
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 Active Problem Primary osteoarthritis M19.91 Active Problem Low back pain M54.5 Active Problem Age-related osteoporosis without current pathological fracture M81.0 Active Problem Other terminal computer operator (current) drug therapy Z79.899 Active Problem Cervicalgia M54.2 Active Problem Hoarseness R49.0 Active Problem Fibromyalgia M79.7 Active Problem Vitamin D deficiency E55.9 Active Problem Midline low back pain with sciatica, sciatica laterality unspecified M54.40 Active Problem Lumbago M54.5 Active Problem Neck pain M54.2 Active Medications Medication Code System Code Instructions Start Date End Date Status Dosage Carisoprodol [facility] 67831707088 350 MG Orally TID November 08, 2018 Active 1 tablet as needed Results No Known Results Summary Purpose eClinicalWorks Submission
--- OUTSIDE RECORDS SUMMARY | 2018-12-11 12:18 | XMS REPORT ---
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 Active Problem Primary osteoarthritis M19.91 Active Problem Low back pain M54.5 Active Problem Age-related osteoporosis without current pathological fracture M81.0 Active Problem Other salvage determiner (current) drug therapy Z79.899 Active Problem Cervicalgia M54.2 Active Problem Hoarseness R49.0 Active Problem Fibromyalgia M79.7 Active Problem Vitamin D deficiency E55.9 Active Problem Midline low back pain with sciatica, sciatica laterality unspecified M54.40 Active Problem Lumbago M54.5 Active Problem Neck pain M54.2 Active Medications Medication Code System Code Instructions Start Date End Date Status Dosage Carisoprodol [facility] 41457045823 350 MG Orally Four times a day Jun 03, 2017 Active 1 tablet as needed Results No Known Results Summary Purpose eClinicalWorks Submission
--- OUTSIDE RECORDS SUMMARY | 2018-12-11 12:18 | XMS REPORT ---
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 Active Problem Primary osteoarthritis M19.91 Active Problem Low back pain M54.5 Active Problem Age-related osteoporosis without current pathological fracture M81.0 Active Problem Other environmental services supervisor (current) drug therapy Z79.899 Active Problem Cervicalgia M54.2 Active Problem Hoarseness R49.0 Active Problem Fibromyalgia M79.7 Active Problem Vitamin D deficiency E55.9 Active Problem Midline low back pain with sciatica, sciatica laterality unspecified M54.40 Active Problem Lumbago M54.5 Active Problem Neck pain M54.2 Active Medications No Known Medications Results No Known Results Summary Purpose eClinicalWorks Submission
--- OUTSIDE RECORDS SUMMARY | 2018-12-11 12:18 | XMS REPORT ---
Author Author Shanel Salgado [facility] eClinicalWorks Address Unknown Phone Unavailable Care Team Providers Care Leveling Machine Operator Name Role Phone Shanel Salgado Unavailable Allergies, Adverse Reactions, Alerts Substance Reaction Event Type Morphine Sulfate Skin rash Drug Allergy Demerol Skin rash and Itching Drug Allergy Avelox Elbows- hands and mouth turned red Drug Allergy MTX GI upset Non Drug Allergy Neurontin drowsiness Non Drug Allergy Sulfasalazine GI upset, fatigue Non Drug Allergy Arava GI upset Non Drug Allergy Problems Problem Type Condition [...] Active Problem Neck pain M54.2 Active Assessment Age-related osteoporosis without current pathological fracture M81.0 Active Assessment 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 Active Assessment Primary osteoarthritis M19.91 Active Problem Age-related osteoporosis without current pathological fracture M81.0 Active Assessment Other loan associate (current) drug therapy Z79.899 Active Problem Other loan associate (current) drug therapy Z79.899 Active Medications Medication Code System Code Instructions Start Date End Date Status Dosage Lexapro ND 01862943829 5 MG Orally Once a day Active 1 tablet Ibuprofen ND 78963594772 200 MG Orally Three times a day Active 1 tablet with food or milk as needed Amlodipine Besy-Benazepril HCl ND 53011825945 2.5-10 MG Orally Active as directed Simponi Aria ND 39939478254 50 MG/4ML Intravenous q 8 weeks Feb 19, 2018 Active 2 mg/kg at 146 lbs (132.4 mg) Aspirin [facility] 54079669776 81 MG Orally Once a day Active 1 tablet Carisoprodol [facility] 48129594429 350 MG Orally TID Apr 19, 2018 Active 1 tablet as needed Ziac [facility] 49425998419 5-6.25 MG Orally Once a day Active 1 tablet Albuterol Sulfate [facility] [address]-81 108 (90 Base) MCG/ACT Inhalation every 6 hrs Active 2 puffs as needed Hydrocodone-Acetaminophen [facility] 74523808178 7.5-325 MG Orally TID Active 2 tablets Carisoprodol [facility] 71977311199 350 MG Orally TID Active 1 tablet as needed Clopidogrel Bisulfate [facility] 13889858969 75 MG Orally Once a day Active 1 tablet Levothyroxine Sodium [facility] 66326761046 137 MCG Orally Once a day Active 1 tablet on an empty stomach in the morning Cymbalta [facility] 68466995984 60 MG Orally Once a day Active 1 capsule Hydroxychloroquine Sulfate [facility] 72955913367 200 Active TAKE 1 TABLET BY MOUTH TWICE DAILY WITH FOOD OR MILK Reclast [facility] 95298696606 5 MG/100ML Intravenous September 07, 2018 Active as directed Zantac [facility] 37153076288 150 MG Orally Once a day Active 1 tablet at bedtime Ergocalciferol [facility] 20592265548 99130 UNIT Orally Once a week Active 1 capsule Bentyl [facility] [address]-11 20 MG Orally Four times a day Active 1 tablet Prolia [facility] 32852122791 60 MG/ML Subcutaneous Inactive as directed Vital Signs Date/Time: September 07, 2018 BMI 25.64 Index Weight 140.2 lbs Height 62 in Temperature 97.0 F Cardiac Monitoring Heart Rate 74 /min Blood Pressure Diastolic 64 mm Hg Blood Pressure Systolic 138 mm Hg Results Name Result Date Reference Range Unit Abnormality Flag PROVIDED MEDICATIONS ----PROVIDED MEDICATIONS N/A 20180907 Amphetamines ANTIDEPRESSANTS 1099 SPECIMEN VALIDITY TESTING Barbiturates C-REACTIVE PROTEIN ----C-REACTIVE PROTEIN 1.3 20180907 <0.5 MG/DL H Illicits COMPREHENSIVE METABOLIC PANEL ----CALC A/G RATIO 1.7 20180907 1.0-2.6 RATIO ----CALC GLOBULIN 2.5 20180907 1.9-3.7 G/DL ----ALKALINE PHOSPHATASE 85 20180907 40-142 U/L ----BILIRUBIN, TOTAL 0.2 13420107 <=1.2 MG/DL ----CHLORIDE 90 20180907 95-107 MEQ/L L ----ALT 14 20180907 5-40 U/L ----POTASSIUM 3.5 20180907 3.5-5.4 MEQ/L ----AST 15 20180907 9-40 U/L ----SODIUM 131 84831291 133-146 MEQ/L L ----CALC BUN/CREAT 16 20180907 6-28 RATIO ---- eGFR NON- AMER. 91 05336664 >60 ML/MIN/1.73 ----CALCIUM 10.3 01770959 8.5-10.5 MG/DL ----CARBON DIOXIDE 27 20180907 19-31 MEQ/L ----ALBUMIN 4.3 12436777 3.5-5.2 G/DL ----PROTEIN, TOTAL 6.8 40435353 6.1-8.3 G/DL ----GLUCOSE 77 93380355 70-99 MG/DL ----BUN 10 83620642 8-23 MG/DL ----CREATININE 0.62 29499684 0.60-1.30 MG/DL ---- eGFR AMER. 106 93766707 >60 ML/MIN/1.73 Opiates/Opioids Benzodiazepines Skeletal Muscle Relaxants Sedatives CBC W/AUTO DIFF ----RDW 12.0 81744808 11.0-15.0 % ----MCHC 35.3 07769985 32.0-35.5 G/DL ----MCH 30.1 08236932 27.0-34.0 PG ----MCV 85.4 09564539 80.0-100.0 fL ----HEMATOCRIT 41.4 19261440 34.0-45.0 % ----HEMOGLOBIN 14.6 74623554 11.5-15.5 G/DL ----RBC 4.85 95819895 3.80-5.10 M/UL ----WBC 8.1 52826769 4.0-11.0 K/UL ----PLATELET COUNT 208 13535518 130-400 K/UL ----LYMPHOCYTES 17.8 20180907 19.0-48.0 % L ----MONOCYTES 12.3 20180907 4.0-13.0 % ----EOSINOPHILS 0.0 14607597 0.0-7.0 % ----BASOPHILS 0.4 20180907 0.0-2.0 % ----NEUTROPHILS 69.5 20180907 40.0-74.0 % SEDIMENTATION RATE ----SEDIMENTATION RATE 7 20180907 0-20 MM/HOUR Summary Purpose eClinicalWorks Submission
--- OUTSIDE RECORDS SUMMARY | 2018-12-11 12:18 | XMS REPORT ---
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 Active Problem Primary osteoarthritis M19.91 Active Problem Low back pain M54.5 Active Problem Age-related osteoporosis without current pathological fracture M81.0 Active Problem 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 renewal inspector (current) drug therapy Z79.899 Active Problem Cervicalgia M54.2 Active Problem Hoarseness R49.0 Active Problem Fibromyalgia M79.7 Active Problem Vitamin D deficiency E55.9 Active Problem Midline low back pain with sciatica, sciatica laterality unspecified M54.40 Active Problem Lumbago M54.5 Active Problem Neck pain M54.2 Active Medications No Known Medications Results No Known Results Summary Purpose eClinicalWorks Submission
--- OUTSIDE RECORDS SUMMARY | 2018-12-11 12:18 | XMS REPORT ---
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 Active Assessment Fibromyalgia M79.7 Active Problem Age-related osteoporosis without current pathological fracture M81.0 Active Assessment Primary osteoarthritis M19.91 Active Problem Other m[facility]p (current) drug therapy Z79.899 Active Medications Medication Code System Code Instructions Start Date End Date Status Dosage Amlodipine Besy-Benazepril HCl ND 64723994667 Orally Once a day Active 1 capsule PredniSONE ND 13132091778 5 Orally as needed Active 1 tablet with food or milk Bevespi Aerosphere ND 98826697661 9-4.8 MCG/ACT Inhalation Twice a day Active 2 puffs Zantac ND 78093071827 150 MG Orally Once a day Active 1 tablet Bentyl ND 10552721560 20 MG Orally Four times a day as needed Active 1 tablet Clopidogrel Bisulfate ND 88084902798 75 MG Orally Once a day Active 1 tablet ibuprofen NDC 0 200 mg Oral As needed Active 3 Tablet Aspirin ND 72072460099 81 MG Orally Once a day Active 1 tablet Hydroxychloroquine Sulfate [facility] 10471772238 200 BID Active 1 tablet Levothyroxine Sodium ND 89241457411 137 MCG Orally Once a day Active 1 tablet on an empty stomach in the morning Ziac [facility] 79948654013 5-6.25 MG Orally at bedtime Active 1 tablet Carisoprodol [facility] 26794166731 350 MG Orally Four times a day Active 1 tablet as needed Vitamin D (Ergocalciferol) [facility] 71651749315 18365 UNIT Orally once a week Active 1 capsule Cymbalta [facility] 52891312037 60 MG Orally Once a day Active 1 capsule Hydrocodone-Acetaminophen [facility] 42950257820 7.5-325 MG Orally TID Active 2 tablets Prolia [facility] 55317898943 60 MG/ML Subcutaneous once every 6 months Active as directed Albuterol NDC 0 90 mcg Inhalation Once a day Active as needed Advair HFA [facility] 06465766388 Inhalation Once a day Active 1 puffs Vital Signs Date/Time: Jun 03, 2017 BMI 24.62 Index Weight 139 lbs Height 63 in Temperature 98.0 F Cardiac Monitoring Heart Rate 78 /min Blood Pressure Diastolic 66 mm Hg Blood Pressure Systolic 122 mm Hg Results No Known Results Summary Purpose eClinicalWorks Submission
--- OUTSIDE RECORDS SUMMARY | 2018-12-11 12:18 | XMS REPORT ---
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 Active Problem Age-related osteoporosis without current pathological fracture M81.0 Active Problem Other prison (current) drug therapy Z79.899 Active Medications Medication Code System Code Instructions Start Date End Date Status Dosage Advair HFA ND 00947236777 Inhalation Once a day Active 1 puffs Zantac ND 34173365439 150 MG Orally Once a day Active 1 tablet Hydrocodone-Acetaminophen ND 09197041632 7.5-325 MG Orally TID September 30, 2017 Active 2 tablets Levothyroxine Sodium ND 81696207952 137 MCG Orally Once a day Active 1 tablet on an empty stomach in the morning Paulo-24 ND 02954861183 200 MG Orally Active as directed Albuterol NDC 0 90 mcg Inhalation Once a day Active as needed Hydroxychloroquine Sulfate NDC 52994338781 200 Active TAKE 1 TABLET BY MOUTH TWICE DAILY WITH FOOD OR MILK Carisoprodol [facility] 44818856262 350 MG Orally Four times a day Active 1 tablet as needed Ziac [facility] 20127089210 5-6.25 MG Orally at bedtime Active 1 tablet Vitamin D (Ergocalciferol) [facility] 38333294937 79449 UNIT Orally once a week Active 1 capsule PredniSONE [facility] 30861878640 5 Orally as needed Active 1 tablet with food or milk Imuran [facility] 16145221566 50 MG Orally once a day Aug 31, 2017 November 29, 2017 Active 1 tablet Aspirin [facility] 83644097167 81 MG Orally Once a day Active 1 tablet Prolia [facility] 01272340267 60 MG/ML Subcutaneous q 6 months Jul 01, 2017 Active as directed Bevespi Aerosphere [facility] 73585453535 9-4.8 MCG/ACT Inhalation Twice a day Active 2 puffs Amlodipine Besy-Benazepril HCl [facility] 37310724308 Orally Once a day Active 1 capsule ibuprofen NDC 0 200 mg Oral As needed Active 3 Tablet Cymbalta [facility] 25512804585 60 MG Orally Once a day Active 1 capsule Clopidogrel Bisulfate [facility] 68401758004 75 MG Orally Once a day Active 1 tablet Bentyl [facility] 96716964239 20 MG Orally Four times a day as needed Active 1 tablet Vital Signs Date/Time: Aug 31, 2017 BMI 23.79 Index Weight 134.3 lbs Height 63 in Temperature 98.6 F Cardiac Monitoring Heart Rate 72 /min Blood Pressure Diastolic 64 mm Hg Blood Pressure Systolic 110 mm Hg Results No Known Results Summary Purpose eClinicalWorks Submission
--- OUTSIDE RECORDS SUMMARY | 2018-12-11 12:18 | XMS REPORT ---
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
--- OUTSIDE RECORDS SUMMARY | 2018-12-11 12:18 | XMS REPORT ---
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
--- OUTSIDE RECORDS SUMMARY | 2018-12-11 12:18 | XMS REPORT ---
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 Active Problem Primary osteoarthritis M19.91 Active Problem Low back pain M54.5 Active Problem Age-related osteoporosis without current pathological fracture M81.0 Active Problem Other oysterman (current) drug therapy Z79.899 Active Problem Cervicalgia M54.2 Active Problem Hoarseness R49.0 Active Problem Fibromyalgia M79.7 Active Problem Vitamin D deficiency E55.9 Active Problem Midline low back pain with sciatica, sciatica laterality unspecified M54.40 Active Problem Lumbago M54.5 Active Problem Neck pain M54.2 Active Medications No Known Medications Results No Known Results Summary Purpose eClinicalWorks Submission
--- OUTSIDE RECORDS SUMMARY | 2018-12-11 12:18 | XMS REPORT ---
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 Active Problem Primary osteoarthritis M19.91 Active Problem Low back pain M54.5 Active Problem Age-related osteoporosis without current pathological fracture M81.0 Active Problem Other meterman (current) drug therapy Z79.899 Active Problem Cervicalgia M54.2 Active Problem Hoarseness R49.0 Active Problem Fibromyalgia M79.7 Active Problem Vitamin D deficiency E55.9 Active Problem Midline low back pain with sciatica, sciatica laterality unspecified M54.40 Active Problem Lumbago M54.5 Active Problem Neck pain M54.2 Active Medications Medication Code System Code Instructions Start Date End Date Status Dosage Carisoprodol [facility] 30928012657 350 MG Orally TID May 20, 2018 Active 1 tablet as needed Results No Known Results Summary Purpose eClinicalWorks Submission
--- OUTSIDE RECORDS SUMMARY | 2018-12-11 12:18 | XMS REPORT ---
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 Active Problem Primary osteoarthritis M19.91 Active Problem Low back pain M54.5 Active Problem Age-related osteoporosis without current pathological fracture M81.0 Active Problem Other buttermaker helper (current) drug therapy Z79.899 Active Problem Cervicalgia M54.2 Active Problem Hoarseness R49.0 Active Problem Fibromyalgia M79.7 Active Problem Vitamin D deficiency E55.9 Active Problem Midline low back pain with sciatica, sciatica laterality unspecified M54.40 Active Problem Lumbago M54.5 Active Problem Neck pain M54.2 Active Medications Medication Code System Code Instructions Start Date End Date Status Dosage Carisoprodol [facility] 93367016435 350 MG Orally Four times a day September 07, 2017 Inactive 1 tablet as needed Tizanidine HCl [facility] 14200438386 4 MG Orally Three times a day September 07, 2017 October 07, 2017 Active 1 tablet as needed Results No Known Results Summary Purpose eClinicalWorks Submission
--- OUTSIDE RECORDS SUMMARY | 2018-12-11 12:18 | XMS REPORT ---
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 Active Problem Primary osteoarthritis M19.91 Active Problem Low back pain M54.5 Active Problem Age-related osteoporosis without current pathological fracture M81.0 Active Problem Other publication specialist (current) drug therapy Z79.899 Active Problem Cervicalgia M54.2 Active Problem Hoarseness R49.0 Active Problem Fibromyalgia M79.7 Active Problem Vitamin D deficiency E55.9 Active Problem Midline low back pain with sciatica, sciatica laterality unspecified M54.40 Active Problem Lumbago M54.5 Active Problem Neck pain M54.2 Active Medications Medication Code System Code Instructions Start Date End Date Status Dosage Carisoprodol [facility] 85701218909 350 MG Orally TID Active 1 tablet as needed Results No Known Results Summary Purpose eClinicalWorks Submission
--- OUTSIDE RECORDS SUMMARY | 2018-12-11 12:18 | XMS REPORT ---
Author Author Collin Zaidi Organization eClinicalWorks Address Unknown Phone Unavailable Care Team Providers Care Gun Numberer Name Role Phone Collin Zaidi CP Unavailable [...] Start Date End Date Status Dosage Prolia [facility] 76262943031 60 MG/ML Subcutaneous q 6 months Jul 01, 2017 Active as directed Results No Known Results Summary Purpose eClinicalWorks Submission
--- OUTSIDE RECORDS SUMMARY | 2018-12-11 12:19 | XMS REPORT ---
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 Active Problem Primary osteoarthritis M19.91 Active Problem Low back pain M54.5 Active Problem Age-related osteoporosis without current pathological fracture M81.0 Active Problem Other dedicated intermodal truck driver (current) drug therapy Z79.899 Active Problem Cervicalgia M54.2 Active Problem Hoarseness R49.0 Active Problem Fibromyalgia M79.7 Active Problem Vitamin D deficiency E55.9 Active Problem Midline low back pain with sciatica, sciatica laterality unspecified M54.40 Active Problem Lumbago M54.5 Active Problem Neck pain M54.2 Active Medications No Known Medications Results No Known Results Summary Purpose eClinicalWorks Submission
--- OUTSIDE RECORDS SUMMARY | 2018-12-11 12:19 | XMS REPORT ---
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
--- OUTSIDE RECORDS SUMMARY | 2018-12-11 12:19 | XMS REPORT ---
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 Active Problem Primary osteoarthritis M19.91 Active Problem Low back pain M54.5 Active Problem Age-related osteoporosis without current pathological fracture M81.0 Active Problem 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 control service representative (current) drug therapy Z79.899 Active Problem Cervicalgia M54.2 Active Problem Hoarseness R49.0 Active Problem Fibromyalgia M79.7 Active Problem Vitamin D deficiency E55.9 Active Problem Midline low back pain with sciatica, sciatica laterality unspecified M54.40 Active Problem Lumbago M54.5 Active Problem Neck pain M54.2 Active Medications No Known Medications Results No Known Results Summary Purpose eClinicalWorks Submission
--- OUTSIDE RECORDS SUMMARY | 2018-12-11 12:19 | XMS REPORT ---
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 Active Problem Primary osteoarthritis M19.91 Active Problem Low back pain M54.5 Active Problem Age-related osteoporosis without current pathological fracture M81.0 Active Problem Other animal park code enforcement officer (current) drug therapy Z79.899 Active Problem Cervicalgia M54.2 Active Problem Hoarseness R49.0 Active Problem Fibromyalgia M79.7 Active Problem Vitamin D deficiency E55.9 Active Problem Midline low back pain with sciatica, sciatica laterality unspecified M54.40 Active Problem Lumbago M54.5 Active Problem Neck pain M54.2 Active Medications Medication Code System Code Instructions Start Date End Date Status Dosage Carisoprodol [facility] 74474083395 350 MG Orally Four times a day Mar 10, 2018 Active 1 tablet as needed Results No Known Results Summary Purpose eClinicalWorks Submission
--- OUTSIDE RECORDS SUMMARY | 2018-12-11 12:19 | XMS REPORT ---
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 Active Problem Primary osteoarthritis M19.91 Active Problem Low back pain M54.5 Active Problem Age-related osteoporosis without current pathological fracture M81.0 Active Problem Other gas dispatcher (current) drug therapy Z79.899 Active Problem Cervicalgia M54.2 Active Problem Hoarseness R49.0 Active Problem Fibromyalgia M79.7 Active Problem Vitamin D deficiency E55.9 Active Problem Midline low back pain with sciatica, sciatica laterality unspecified M54.40 Active Problem Lumbago M54.5 Active Problem Neck pain M54.2 Active Medications Medication Code System Code Instructions Start Date End Date Status Dosage Prolia [facility] 67503598546 60 MG/ML Subcutaneous once every 6 months January 05, 2018 Active as directed Results No Known Results Summary Purpose eClinicalWorks Submission
--- OUTSIDE RECORDS SUMMARY | 2018-12-11 12:19 | XMS REPORT ---
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
--- OUTSIDE RECORDS SUMMARY | 2018-12-11 12:19 | XMS REPORT ---
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
--- OUTSIDE RECORDS SUMMARY | 2018-12-11 12:19 | XMS REPORT ---
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
--- OUTSIDE RECORDS SUMMARY | 2018-12-11 12:19 | XMS REPORT ---
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 Active Assessment Other jail (current) drug therapy Z79.899 Active Problem Age-related osteoporosis without current pathological fracture M81.0 Active Assessment Primary osteoarthritis M19.91 Active Problem Other intermediate frame tender (current) drug therapy Z79.899 Active Medications Medication Code System Code Instructions Start Date End Date Status Dosage Advair HFA ND 61823770373 Inhalation Once a day Active 1 puffs Zantac ND 09483509771 150 MG Orally Once a day Active 1 tablet Albuterol ND 0 90 mcg Inhalation Once a day Active as needed Clopidogrel Bisulfate ND 05076001232 75 MG Orally Once a day Active 1 tablet Lexapro ND 69082179065 5 MG Orally Once a day Active 1 tablets Vitamin D (Ergocalciferol) NDC 19527945212 44004 UNIT Orally once a week Active 1 capsule Bentyl [facility] 04122048108 20 MG Orally Four times a day as needed Active 1 tablet ibuprofen NDC 0 200 mg Oral As needed Active 3 Tablet Levothyroxine Sodium ND 66439398262 137 MCG Orally Once a day Active 1 tablet on an empty stomach in the morning Aspirin ND 53806821777 81 MG Orally Once a day Active 1 tablet Hydrocodone-Acetaminophen [facility] 26169928454 7.5-325 MG Orally TID Feb 04, 2018 Active 2 tablets Carisoprodol [facility] 47463786411 350 MG Orally Four times a day Active 1 tablet as needed Hydroxychloroquine Sulfate [facility] 85573555978 200 MG Twice a day Active 1 Tablet Amlodipine Besy-Benazepril HCl ND 42197838070 Orally Once a day Active 1 capsule Ziac [facility] 80570949928 5-6.25 MG Orally at bedtime Active 1 tablet Prolia [facility] 02714768538 60 MG/ML Subcutaneous q 6 months Active as directed Simponi Aria NDC 0 2mg/kg IV Active 131.3mg Vital Signs Date/Time: January 05, 2018 BMI 26.70 Index Weight 146 lbs Height 62 in Temperature 97.0 F Cardiac Monitoring Heart Rate 76 /min Blood Pressure Diastolic 68 mm Hg Blood Pressure Systolic 140 mm Hg Results Name Result Date Reference Range Unit Abnormality Flag PAIN MGMT,TRICYCLIC ANTI DEPRESS,QN,W/medMATCH,U ----Amitriptyline NEGATIVE 19014646 <100 ng/mL ----medMATCH Amitriptyline CONSISTENT 20180105 ----Nortriptyline NEGATIVE 89049596 <100 ng/mL ----medMATCH Nortriptyline CONSISTENT 20180105 ----Prescribed Drug 1 [facility](TM) 20180105 ----Prescribed Drug 2 [place](TM) 20180105 PAIN MGMT, GABAPENTIN, QN,W/medMATCH,U ----medMATCH Gabapentin CONSISTENT 20180105 ----Prescribed Drug 1 [facility](TM) 20180105 ----Gabapentin NEGATIVE 58755585 <1000 ng/mL ----Prescribed Drug 2 [place](TM) 20180105 PAIN MGMT, FENTANYL, QN,W/medMATCH,U ----medMATCH Norfentanyl CONSISTENT 20180105 N ----Norfentanyl NEGATIVE 20224577 <0.5 ng/mL N ----Prescribed Drug 1 [facility](TM) 20180105 ----Prescribed Drug 2 [place](TM) 20180105 ----Fentanyl NEGATIVE 76242516 <0.5 ng/mL N ----medMATCH Fentanyl CONSISTENT 20180105 N PAIN MGMT, CARISOPRODOL METAB,QN,W/medMATCH,U ----medMATCH Meprobamate CONSISTENT 20180105 N ----Prescribed Drug 2 [place](TM) 20180105 ----Meprobamate >00136 36681309 <1000 ng/mL H ----Prescribed Drug 1 [facility](TM) 20180105 ZOLPIDEM, QUANTITATIVE, URINE ----ZOLPIDEM METABOLITE NEGATIVE 02333196 <5 ng/mL ----ZOLPIDEM NEGATIVE 76625672 <5 ng/mL PAIN MANAGEMENT PROFILE 1 W/CONF, W/DL, URINE ---- Norhydrocodone 6335 41736800 <50 ng/mL H ----medMATCH Morphine CONSISTENT 20180105 ----Oxycodone NEGATIVE 28903207 <100 ng/mL ----medMATCH Norhydrocodone CONSISTENT 20180105 ----Benzodiazepines NEGATIVE 85194638 <100 ng/mL ----medMATCH Benzodiazepines CONSISTENT 20180105 ----medMATCH Oxycodone CONSISTENT 20180105 ----Marijuana Metabolite NEGATIVE 30611252 <20 ng/mL ----Phencyclidine NEGATIVE 96183583 <25 ng/mL ----medMATCH Marijuana Metab CONSISTENT 20180105 ----medMATCH Phencyclidine CONSISTENT 20180105 ----Cocaine Metabolite NEGATIVE 58872493 <150 ng/mL ----Prescribed Drug 1 [facility](TM) 20180105 ----Prescribed Drug 2 [place](TM) 20180105 ----Creatinine 86.2 77405241 > or=20.0 mg/dL ----Barbiturates NEGATIVE 04480602 <300 ng/mL ----medMATCH Barbiturates CONSISTENT 20180105 ---- Codeine NEGATIVE 71485981 <50 ng/mL ----pH 6.94 93033660 4.5 - 9.0 ----Opiates POSITIVE 14828619 <100 ng/mL A ----Oxidant NEGATIVE 56241507 <200 mcg/mL ----medMATCH Methadone Metab CONSISTENT 20180105 ----Amphetamines NEGATIVE 19293181 <500 ng/mL ----Methadone Metabolite NEGATIVE 02117676 <100 ng/mL ----medMATCH Amphetamines CONSISTENT 20180105 ----medMATCH Cocaine Metab CONSISTENT 20180105 ----medMATCH Hydromorphone CONSISTENT 20180105 ---- Morphine NEGATIVE 67133868 <50 ng/mL ----medMATCH Hydrocodone CONSISTENT 20180105 ---- Hydromorphone 222 48129201 <50 ng/mL H ----medMATCH Codeine CONSISTENT 20180105 ---- Hydrocodone 3161 05987850 <50 ng/mL H PAIN MGMT, TRAMADOL, QN,W/medMATCH,U ----medMATCH Tramadol CONSISTENT 20180105 ----Tramadol NEGATIVE 47042577 <100 ng/mL ----medMATCH Desmethyltram CONSISTENT 20180105 ----Desmethyltramadol NEGATIVE 44279243 <100 ng/mL ----Prescribed Drug 2 [place](TM) 20180105 ----Prescribed Drug 1 [facility]() 20180105 PAIN MGMT, PREGABALIN, QN,W/medMATCH,U ----Pregabalin NEGATIVE 94107526 <1000 ng/mL ----Prescribed Drug 2 [place](TM) 20180105 ----medMATCH Pregabalin CONSISTENT 20180105 ----Prescribed Drug 1 [facility](TM) 20180105 Summary Purpose eClinicalWorks Submission
--- OUTSIDE RECORDS SUMMARY | 2018-12-11 12:19 | XMS REPORT ---
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
--- OUTSIDE RECORDS SUMMARY | 2018-12-11 12:19 | XMS REPORT ---
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 Active Assessment Primary osteoarthritis M19.91 Active Problem Age-related osteoporosis without current pathological fracture M81.0 Active Assessment pen[facility]entiary (current) use of opiate analgesic Z79.891 Active Problem Other nursing home (current) drug therapy Z79.899 Active Medications Medication Code System Code Instructions Start Date End Date Status Dosage Vitamin D (Ergocalciferol) [facility] 27051312874 01746 UNIT Orally once a week Active 1 capsule Advair HFA ND 30057566976 Inhalation Once a day Active 1 puffs Simponi Aria NDC 0 2mg/kg IV Active 131.3mg Hydrocodone-Acetaminophen ND 72578174073 7.5-325 MG Orally TID Active 2 tablets Bentyl [facility] 13167090311 20 MG Orally Four times a day as needed Active 1 tablet Zantac [facility] 13718300164 150 MG Orally Once a day Active 1 tablet Clopidogrel Bisulfate [facility] 28065917216 75 MG Orally Once a day Active 1 tablet Aspirin [facility] 95288280752 81 MG Orally Once a day Active 1 tablet ibuprofen NDC 0 200 mg Oral As needed Active 3 Tablet Albuterol ND 0 90 mcg Inhalation Once a day Active as needed Levothyroxine Sodium [facility] 54702966625 137 MCG Orally Once a day Active 1 tablet on an empty stomach in the morning Ziac [facility] 17566489232 5-6.25 MG Orally at bedtime Active 1 tablet Hydroxychloroquine Sulfate [facility] 02646426527 200 MG Twice a day Active 1 Tablet Amlodipine Besy-Benazepril HCl [facility] 52015816929 Orally Once a day Active 1 capsule Prolia [facility] 33128525259 60 MG/ML Subcutaneous q 6 months Active as directed Carisoprodol [facility] 94519474903 350 MG Orally Four times a day Active 1 tablet as needed Lexapro [facility] 80627979995 5 MG Orally Once a day Active 1 tablets Vital Signs Date/Time: Feb 03, 2018 BMI 26.70 Index Weight 146 lbs Height 62 in Temperature 97.3 F Cardiac Monitoring Heart Rate 84 /min Blood Pressure Diastolic 68 mm Hg Blood Pressure Systolic 130 mm Hg Results No Known Results Summary Purpose eClinicalWorks Submission
--- OUTSIDE RECORDS SUMMARY | 2018-12-11 12:19 | XMS REPORT ---
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 Active Problem Primary osteoarthritis M19.91 Active Problem Low back pain M54.5 Active Problem Age-related osteoporosis without current pathological fracture M81.0 Active Problem Other long line teamster (current) drug therapy Z79.899 Active Problem Cervicalgia M54.2 Active Problem Hoarseness R49.0 Active Problem Fibromyalgia M79.7 Active Problem Vitamin D deficiency E55.9 Active Problem Midline low back pain with sciatica, sciatica laterality unspecified M54.40 Active Problem Lumbago M54.5 Active Problem Neck pain M54.2 Active Medications Medication Code System Code Instructions Start Date End Date Status Dosage Simponi Aria NDC 0 2mg/kg IV Inactive 131.3mg Simponi Aria NDC 76830002225 50 MG/4ML Intravenous q 8 weeks Feb 19, 2018 Active 2 mg/kg at 146 lbs (132.4 mg) Results No Known Results Summary Purpose eClinicalWorks Submission
--- OUTSIDE RECORDS SUMMARY | 2018-12-11 12:19 | XMS REPORT ---
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 Active Problem Primary osteoarthritis M19.91 Active Problem Low back pain M54.5 Active Problem Age-related osteoporosis without current pathological fracture M81.0 Active Problem Other senior quality technician (current) drug therapy Z79.899 Active Problem Cervicalgia M54.2 Active Problem Hoarseness R49.0 Active Problem Fibromyalgia M79.7 Active Problem Vitamin D deficiency E55.9 Active Problem Midline low back pain with sciatica, sciatica laterality unspecified M54.40 Active Problem Lumbago M54.5 Active Problem Neck pain M54.2 Active Medications Medication Code System Code Instructions Start Date End Date Status Dosage Carisoprodol [facility] 75098441453 350 MG Orally TID Jul 21, 2018 Active 1 tablet as needed Results No Known Results Summary Purpose eClinicalWorks Submission
--- OUTSIDE RECORDS SUMMARY | 2018-12-11 12:19 | XMS REPORT ---
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 Active Problem Primary osteoarthritis M19.91 Active Problem Low back pain M54.5 Active Problem Age-related osteoporosis without current pathological fracture M81.0 Active Problem Other manager long term care (current) drug therapy Z79.899 Active Problem Cervicalgia M54.2 Active Problem Hoarseness R49.0 Active Problem Fibromyalgia M79.7 Active Problem Vitamin D deficiency E55.9 Active Problem Midline low back pain with sciatica, sciatica laterality unspecified M54.40 Active Problem Lumbago M54.5 Active Problem Neck pain M54.2 Active Medications No Known Medications Results No Known Results Summary Purpose eClinicalWorks Submission
--- OUTSIDE RECORDS SUMMARY | 2018-12-11 12:19 | XMS REPORT ---
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 Active Problem Primary osteoarthritis M19.91 Active Problem Low back pain M54.5 Active Problem Age-related osteoporosis without current pathological fracture M81.0 Active Problem Other chemical dependency nurse (current) drug therapy Z79.899 Active Problem Cervicalgia M54.2 Active Problem Hoarseness R49.0 Active Problem Fibromyalgia M79.7 Active Problem Vitamin D deficiency E55.9 Active Problem Midline low back pain with sciatica, sciatica laterality unspecified M54.40 Active Problem Lumbago M54.5 Active Problem Neck pain M54.2 Active Medications No Known Medications Results No Known Results Summary Purpose eClinicalWorks Submission
--- OUTSIDE RECORDS SUMMARY | 2018-12-11 12:19 | XMS REPORT ---
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
--- OUTSIDE RECORDS SUMMARY | 2018-12-11 12:19 | XMS REPORT ---
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 Active Assessment field marketing representative (current) use of opiate analgesic Z79.891 Active Problem Age-related osteoporosis without current pathological fracture M81.0 Active Assessment Primary osteoarthritis M19.91 Active Problem Other [facility] (current) drug therapy Z79.899 Active Medications Medication Code System Code Instructions Start Date End Date Status Dosage Hydrocodone-Acetaminophen [facility] 85185905970 7.5-325 MG Orally TID Mar 17, 2018 Active 2 tablets Vital Signs Date/Time: Mar 17, 2018 BMI 26.12 Index Weight 142.8 lbs Height 62 in Temperature 98.3 F Cardiac Monitoring Heart Rate 68 /min Blood Pressure Diastolic 66 mm Hg Blood Pressure Systolic 130 mm Hg Results No Known Results Summary Purpose eClinicalWorks Submission
--- OUTSIDE RECORDS SUMMARY | 2018-12-11 12:19 | XMS REPORT ---
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 Active Problem Primary osteoarthritis M19.91 Active Problem Low back pain M54.5 Active Problem Age-related osteoporosis without current pathological fracture M81.0 Active Problem Other adjunct faculty for medical terminology (current) drug therapy Z79.899 Active Problem Cervicalgia M54.2 Active Problem Hoarseness R49.0 Active Problem Fibromyalgia M79.7 Active Problem Vitamin D deficiency E55.9 Active Problem Midline low back pain with sciatica, sciatica laterality unspecified M54.40 Active Problem Lumbago M54.5 Active Problem Neck pain M54.2 Active Medications No Known Medications Results No Known Results Summary Purpose eClinicalWorks Submission
--- OUTSIDE RECORDS SUMMARY | 2018-12-11 12:19 | XMS REPORT ---
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 Active Problem Primary osteoarthritis M19.91 Active Problem Low back pain M54.5 Active Problem Age-related osteoporosis without current pathological fracture M81.0 Active Problem Other terminal make up operator (current) drug therapy Z79.899 Active Problem Cervicalgia M54.2 Active Problem Hoarseness R49.0 Active Problem Fibromyalgia M79.7 Active Problem Vitamin D deficiency E55.9 Active Problem Midline low back pain with sciatica, sciatica laterality unspecified M54.40 Active Problem Lumbago M54.5 Active Problem Neck pain M54.2 Active Medications Medication Code System Code Instructions Start Date End Date Status Dosage Carisoprodol [facility] 48561038795 350 MG Orally TID Jun 24, 2018 Active 1 tablet as needed Results No Known Results Summary Purpose eClinicalWorks Submission
--- OUTSIDE RECORDS SUMMARY | 2018-12-11 12:19 | XMS REPORT ---
Author Author Collin Zaidi Organization [employer] Address Unknown Phone Unavailable Care Team Providers Care Technical Sales Manager Name Role Phone Collin Zaidi CP [...]
--- OUTSIDE RECORDS SUMMARY | 2018-12-11 12:19 | XMS REPORT ---
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
--- OUTSIDE RECORDS SUMMARY | 2018-12-11 12:19 | XMS REPORT ---
Author Author Collin Zaidi Organization eClinicalWorks Address Unknown Phone Unavailable Care Team Providers Care Electrician Journeyman Wireman Name Role Phone Collin Zaidi CP Unavailable Allergies No Known Allergies Problems Problem Type Condition Code Onset Dates Condition Status Problem 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 Active Problem Primary osteoarthritis M19.91 Active Problem Low back pain M54.5 Active Problem Age-related osteoporosis without current pathological fracture M81.0 Active Problem Other equipment hire manager (current) drug therapy Z79.899 Active Problem Cervicalgia M54.2 Active Problem Hoarseness R49.0 Active Problem Fibromyalgia M79.7 Active Problem Vitamin D deficiency E55.9 Active Problem Midline low back pain with sciatica, sciatica laterality unspecified M54.40 Active Problem Lumbago M54.5 Active Problem Neck pain M54.2 Active Medications Medication Code System Code Instructions Start Date End Date Status Dosage Prolia [facility] 34627524152 60 MG/ML Subcutaneous q 6 months Active as directed Results No Known Results Summary Purpose eClinicalWorks Submission
--- OUTSIDE RECORDS SUMMARY | 2018-12-11 12:19 | XMS REPORT ---
Author Author Collin Zaidi Organization eClinicalWorks Address Unknown Phone Unavailable Care Team Providers Care Locksmith Helper Name Role Phone Collin Zaidi CP [...] End Date Status Dosage Vitamin D (Ergocalciferol) [facility] 82993623745 41561 UNIT Orally once a week Jul 28, 2018 Active 1 capsule Results No Known Results Summary Purpose eClinicalWorks Submission
--- OUTSIDE RECORDS SUMMARY | 2018-12-11 12:19 | XMS REPORT ---
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 Active Medications Medication Code System Code Instructions Start Date End Date Status Dosage Hydroxychloroquine Sulfate ND 60799708347 200 Active TAKE 1 TABLET BY MOUTH TWICE DAILY WITH FOOD OR MILK Amlodipine Besy-Benazepril HCl NDC 80636724247 Orally Once a day Active 1 capsule Vitamin D (Ergocalciferol) ND 78381115395 26720 UNIT Orally once a week Active 1 capsule Simponi Aria NDC 0 2mg/kg IV Active 131.3mg Prolia NDC 72516040803 60 MG/ML Subcutaneous q 6 months Jul 01, 2017 Active as directed Bentyl [facility] 64720984366 20 MG Orally Four times a day as needed Active 1 tablet Ziac [facility] 85710652537 5-6.25 MG Orally at bedtime Active 1 tablet Zantac ND 20887515591 150 MG Orally Once a day Active 1 tablet Levothyroxine Sodium [facility] 66665238743 137 MCG Orally Once a day Active 1 tablet on an empty stomach in the morning Clopidogrel Bisulfate [facility] 83325207864 75 MG Orally Once a day Active 1 tablet ibuprofen NDC 0 200 mg Oral As needed Active 3 Tablet Hydrocodone-Acetaminophen [facility] 19397070521 7.5-325 MG Orally TID October 01, 2017 Active 2 tablets Advair HFA [facility] 19691352420 Inhalation Once a day Active 1 puffs Carisoprodol [facility] 94745291458 350 MG Orally Four times a day Active 1 tablet as needed Albuterol ND 0 90 mcg Inhalation Once a day Active as needed Aspirin [facility] 45550655432 81 MG Orally Once a day Active 1 tablet Vital Signs Date/Time: December 03, 2017 BMI 25.58 Index Weight 144.4 lbs Height 63 in Temperature 97.2 F Cardiac Monitoring Heart Rate 76 /min Blood Pressure Diastolic 64 mm Hg Blood Pressure Systolic 118 mm Hg Results No Known Results Summary Purpose eClinicalWorks Submission
--- OUTSIDE RECORDS SUMMARY | 2018-12-11 12:20 | XMS REPORT ---
Author Author Collin Zaidi [employer] Address Unknown Phone Unavailable Care Team Providers Care Inspector Final Assembly Conveyor Line Name Role Phone Collin Zaidi CP Unavailable Encounters Encounter Location Date Appts Collin Zaidi MD November 09, 2014 pain in knee Collin Zaidi MD November 06, 2014 Torodal Injection Collin Zaidi MD December 01, 2014 Pain/Injection Collin Zaidi MD November 30, 2014 6 wk f/u Collin Zaidi MD October 03, 2014 MRI Collin Zaidi MD November 03, 2014 DEXA Collin Zaidi MD November 03, 2014 Unknown Collin Zaidi MD January 26, 2015 Unknown Collin Zaidi MD December 21, 2014 flare Collin Zaidi MD December 27, 2014 tessalon Collin Zaidi MD Apr 26, 2015 Hydrocodone refill Collin Zaidi MD May 14, 2015 6-8 WK F/U Collin Zaidi MD Mar 23, 2015 refill Collin Zaidi MD Apr 19, 2015 pain in knee Collin Zaidi MD January 09, 2015 RX Collin Zaidi MD Feb 27, 2015 DEXA Collin Zaidi MD Feb 06, 2015 Pain Collin Zaidi MD Feb 06, 2015 Pain Collin Zaidi MD May 21, 2015 Problems Problem Type Condition ICD-9 Code Onset Dates Condition Status Problem Fracture in accidental fall, cause unspecified E887 Active Problem Rheumatoid arthritis 714.0 Active Problem Polyarthritis, multiple sites 716.59 Active Problem 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 May 16, 2015 Tobacco Use: . Are you a:: current smoker , How often do you smoke cigarettes?: every day, How many cigarettes a day do you smoke?: 6-10 May 16, 2015 Marital Status: . May 16, 2015 Caffeine: yes. 1-5, cups/day May 16, 2015 Exercise: no. May 16, 2015 Alcohol: no. May 16, 2015 Occupation: . retired May 16, 2015 Summary Purpose eClinicalWorks Submission
--- OUTSIDE RECORDS SUMMARY | 2018-12-11 12:20 | XMS REPORT ---
Author Author Shanel Salgado [facility] eClinicalWorks Address Unknown Phone Unavailable Care Team Providers Care Radiator Mechanic Name Role Phone Shanel Salgado Unavailable Allergies, Adverse Reactions, Alerts Substance Reaction Event Type Morphine Sulfate Skin rash Drug Allergy Demerol Skin rash and Itching Drug Allergy Avelox Elbows- hands and mouth turned red Drug Allergy Sulfasalazine GI upset, fatigue Non Drug Allergy Arava headache, neck pain Non Drug Allergy Encounters Encounter Location Date Appts Collin Zaidi MD November 09, 2014 pain in knee Collin Zaidi MD November 06, 2014 6 wk f/u Collin Zaidi MD October 03, 2014 MRI Collin Zaidi MD November 03, 2014 DEXA Collin Zaidi MD November 03, 2014 Problems Problem Type Condition ICD-9 Code Onset Dates Condition Status Problem Rheumatoid arthritis 714.0 Active Problem Polyarthritis, multiple sites 716.59 Active Problem Osteoporosis, 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 Active Assessment Pain in joint, lower leg 719.46 Active Problem Fracture in accidental fall, cause unspecified E887 Active Assessment Rheumatoid arthritis 714.0 Active Medications Medication Code System Code Instructions Start Date End Date Status Dosage Advair [facility] [address]-43 Inhalation Once a day Active 2 puffs ibuprofen Unknown 0 200 mg Oral As needed Active 1 Tablet Ziac [facility] [address]-66 5-6.25 MG Orally Once a day Active 1 tablet Levothyroxine Sodium [facility] [address]-89 137 MCG Orally Once a day Active 1 tablet on an empty stomach in the morning Plaquenil [facility] [address]-22 200 MG Orally Twice a day Aug 22, 2014 November 20, 2014 Active 1 tablet with food or milk Zantac [facility] [address]-70 150 MG Orally Twice a day Active 1 tablet Prolia [facility] [address]-32 60 MG/ML Subcutaneous Q6 MONTHS Active Unknown Lisinopril [facility] [address]-57 40 MG Orally Once a day Active 1 tablet Albuterol Unknown 0 90 mcg Inhalation Once a day Active as needed Spiriva HandiHaler [facility] [address]-13 Inhalation Once a day Active 1 capsule [place] [facility] [address]-66 7.5-325 MG Orally every 6 hrs Active 1 tablet as needed Cymbalta [facility] [address]-16 30 MG Orally Once a day Active 1 capsule Ergocalciferol [facility] [address]-09 73071 UNIT Orally Once a week Active 1 capsule PredniSONE [facility] [address]-17 5 MG Orally Once a day Active 1 tablet with food or milk Soma [facility] [address]-43 350 MG Orally Active 1 tablet as needed Social History Social History Element Qualifiers Date Reported Diet: no. November 13, 2014 Tobacco Use: . Are you a:: current smoker , How often do you smoke cigarettes?: every day, How many cigarettes a day do you smoke?: 6-10 November 13, 2014 Marital Status: . November 13, 2014 Caffeine: yes. 1-5, cups/day November 13, 2014 Exercise: no. November 13, 2014 Alcohol: no. November 13, 2014 Occupation: . retired November 13, 2014 Vital Signs Date/Time: November 06, 2014 Weight 120 lbs Height 62 in Temperature 97.5 F Cardiac Monitoring Heart Rate 92 /min Blood Pressure Diastolic 62 mm Hg Blood Pressure Systolic 124 mm Hg Summary Purpose eClinicalWorks Submission
--- OUTSIDE RECORDS SUMMARY | 2018-12-11 12:20 | XMS REPORT ---
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
--- OUTSIDE RECORDS SUMMARY | 2018-12-11 12:20 | XMS REPORT ---
Author Author Collin Zaidi eClinicalWorks Address Unknown Phone Unavailable Care Team Providers Care Lamp Stack Developer Name Role Phone Collin Zaidi CP Unavailable [...] Unknown Collin Zaidi MD January 26, 2015 hair loss Collin Zaidi MD Jul 04, 2015 Cough Collin Zaidi MD Jun 22, 2015 Unknown Collin Zaidi MD December 21, 2014 flare Collin Zaidi MD December 27, 2014 tessalon Collin Zaidi MD Apr 26, 2015 Hydrocodone refill Collin Zaidi MD May 14, 2015 6-8 WK F/U Collin Zaidi MD Mar 23, 2015 refill Collin Zaidi MD Apr 19, 2015 Unknown Collin Zaidi MD Jul 25, 2015 pain in knee Collin Zaidi MD January 09, 2015 Message Collin Zaidi MD Jul 30, 2015 RX Collin Zaidi MD Feb 27, 2015 DEXA Collin Zaidi MD Feb 06, 2015 Pain Collin Zaidi MD Feb 06, 2015 Pain Collin Zaidi MD May 21, 2015 Problems Problem Type Condition ICD-9 Code Onset Dates Condition Status Problem Pain, neck 723.1 Active Problem Low back pain M54.5 Active Problem Pain, back 724.5 Active Problem Midline low back pain with sciatica, sciatica laterality unspecified M54.40 Active Problem Neck pain M54.2 Active Problem Vitamin D deficiency E55.9 Active Problem 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 Active Problem 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 Z79.899 Active Problem Primary osteoarthritis M19.91 Active Problem Lumbago M54.5 Active Problem Rheumatoid arthritis 714.0 Active Problem Osteoporosis, 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 Jul 17, 2015 Tobacco Use: . Are you a:: current smoker , How often do you smoke cigarettes?: every day, How many cigarettes a day do you smoke?: 6-10 Jul 17, 2015 Marital Status: . Jul 17, 2015 Caffeine: yes. 1-5, cups/day Jul 17, 2015 Exercise: no. Jul 17, 2015 Alcohol: no. Jul 17, 2015 Occupation: . retired Jul 17, 2015 Summary Purpose eClinicalWorks Submission
--- OUTSIDE RECORDS SUMMARY | 2018-12-11 12:20 | XMS REPORT ---
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 Jul 04, 2015 Tobacco Use: . Are you a:: current smoker , How often do you smoke cigarettes?: every day, How many cigarettes a day do you smoke?: 6-10 Jul 04, 2015 Marital Status: . Jul 04, 2015 Caffeine: yes. 1-5, cups/day Jul 04, 2015 Exercise: no. Jul 04, 2015 Alcohol: no. Jul 04, 2015 Occupation: . retired Jul 04, 2015 Summary Purpose eClinicalWorks Submission
--- OUTSIDE RECORDS SUMMARY | 2018-12-11 12:20 | XMS REPORT ---
Author Collin Garcia [facility] eClinicalWorks Address Unknown Phone Unavailable Care Team Providers Care Chronic Care Nurse Name Role Phone Collin Zaidi CP Unavailable Allergies, Adverse Reactions, Alerts Substance Reaction Event Type Morphine Sulfate Skin rash Drug Allergy Demerol Skin rash and Itching Drug Allergy Avelox Elbows- hands and mouth turned red Drug Allergy Arava GI upset Non Drug Allergy MTX GI upset Non Drug Allergy Sulfasalazine GI upset, fatigue Non Drug Allergy Neurontin drowsiness Non Drug Allergy Problems Problem Type Condition [...] Problem Neck pain M54.2 Active Assessment Other jail (current) drug therapy Z79.899 Active Assessment Low back pain M54.5 Active Assessment 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 Active Assessment Primary osteoarthritis M19.91 Active Problem Age-related osteoporosis without current pathological fracture M81.0 Active Assessment Age-related osteoporosis without current pathological fracture M81.0 Active Problem Other jail (current) drug therapy Z79.899 Active Medications Medication Code System Code Instructions Start Date End Date Status Dosage Carisoprodol ND 07580022653 350 MG Orally TID Apr 19, 2018 Active 1 tablet as needed Lexapro ND 90168186139 5 MG Orally Once a day Active 1 tablet Bentyl [facility] [address]-55 20 MG Orally Four times a day Active 1 tablet Prolia ND 33257875141 60 MG/ML Subcutaneous Active as directed Albuterol Sulfate [facility] [address]-00 108 (90 Base) MCG/ACT Inhalation every 6 hrs Active 2 puffs as needed Zantac [facility] 22859278591 150 MG Orally Once a day Active 1 tablet at bedtime Aspirin ND 16585372249 81 MG Orally Once a day Active 1 tablet Amlodipine Besy-Benazepril HCl [facility] 16780896987 2.5-10 MG Orally Active as directed Hydroxychloroquine Sulfate [facility] 41519932762 200 Active TAKE 1 TABLET BY MOUTH TWICE DAILY WITH FOOD OR MILK Hydrocodone-Acetaminophen [facility] 17429784444 7.5-325 MG Orally TID Active 2 tablets Clopidogrel Bisulfate [facility] 94680148057 75 MG Orally Once a day Active 1 tablet Simponi Aria [facility] 83743400056 50 MG/4ML Intravenous q 8 weeks Feb 19, 2018 Active 2 mg/kg at 146 lbs (132.4 mg) Ibuprofen ND 69264908068 200 MG Orally Three times a day Active 1 tablet with food or milk as needed Ziac [facility] 62355374534 5-6.25 MG Orally Once a day Active 1 tablet Levothyroxine Sodium [facility] 77631187860 137 MCG Orally Once a day Active 1 tablet on an empty stomach in the morning Ergocalciferol [facility] 00114369078 37019 UNIT Orally Once a week Active 1 capsule Vital Signs Date/Time: Jul 05, 2018 BMI 26.28 Index Weight 143.7 lbs Height 62 in Temperature 97.0 F Cardiac Monitoring Heart Rate 76 /min Blood Pressure Diastolic 62 mm Hg Blood Pressure Systolic 138 mm Hg Results No Known Results Summary Purpose eClinicalWorks Submission
--- OUTSIDE RECORDS SUMMARY | 2018-12-11 12:20 | XMS REPORT ---
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
--- OUTSIDE RECORDS SUMMARY | 2018-12-11 12:20 | XMS REPORT ---
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
--- OUTSIDE RECORDS SUMMARY | 2018-12-11 12:20 | XMS REPORT ---
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 Mar 23, 2015 Tobacco Use: . Are you a:: current smoker , How often do you smoke cigarettes?: every day, How many cigarettes a day do you smoke?: 6-10 Mar 23, 2015 Marital Status: . Mar 23, 2015 Caffeine: yes. 1-5, cups/day Mar 23, 2015 Exercise: no. Mar 23, 2015 Alcohol: no. Mar 23, 2015 Occupation: . retired Mar 23, 2015 Summary Purpose eClinicalWorks Submission
--- OUTSIDE RECORDS SUMMARY | 2018-12-11 12:20 | XMS REPORT ---
Author Author Collin Zaidi eClinicalWorks Address Unknown Phone Unavailable Care Team Providers Care Strainer Mill Operator Name Role Phone Collin Zaidi CP Unavailable Allergies, Adverse Reactions, Alerts Substance Reaction Event Type Morphine Sulfate Skin rash Drug Allergy Demerol Skin rash and Itching Drug Allergy Avelox Elbows- hands and mouth turned red Drug Allergy Neurontin drowsiness Non Drug Allergy [...] f/u Collin Zaidi MD October 03, 2014 DEXA Collin Zaidi MD Feb 06, 2015 MRI Collin Zaidi MD November 03, 2014 Pain Collin Zaidi MD Feb 06, 2015 DEXA Collin Zaidi MD November 03, 2014 Unknown Collin Zaidi MD January 26, 2015 Unknown Collin Zaidi MD December 21, 2014 flare Collin Zaidi MD December 27, 2014 Problems Problem Type Condition ICD-9 Code Onset Dates Condition Status Assessment Rheumatoid arthritis 714.0 Active Assessment Cough 786.2 Active Problem Osteoporosis, 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 Active Problem Rheumatoid arthritis 714.0 Active Problem Cough 786.2 Active Assessment Polyarthritis, multiple sites 716.59 Active Assessment Osteoporosis, 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 Active Problem Polyarthritis, multiple sites 716.59 Active Problem Fracture in accidental fall, cause unspecified E887 Active Medications Medication Code System Code Instructions Start Date End Date Status Dosage Tessalon Perles [facility] [address]-44 100 MG Orally Three times a day January 26, 2015 Mar 27, 2015 Active 1 capsule as needed Ergocalciferol [facility] [address]-64 44719 UNIT Orally Once a week Active 1 capsule Levothyroxine Sodium [facility] [address]-50 137 MCG Orally Once a day Active 1 tablet on an empty stomach in the morning ibuprofen Unknown 0 200 mg Oral As needed Active 3 Tablet Lisinopril [facility] [address]-57 40 MG Orally Once a day Active 1 tablet Albuterol Unknown 0 90 mcg Inhalation Once a day Active as needed [place] [facility] [address]-55 7.5-325 MG Orally every 6 hrs Active 1 tablet as needed Soma [facility] [address]-40 350 MG Orally Active 1 tablet as needed Zantac [facility] [address]-48 150 MG Orally Twice a day Active 1 tablet Ziac [facility] [address]-38 5-6.25 MG Orally Once a day Active 1 tablet Spiriva HandiHaler [facility] [address]-16 Inhalation Once a day Active 1 capsule Cymbalta [facility] [address]-66 30 MG Orally Once a day Active 1 capsule Prolia [facility] [address]-87 60 MG/ML Subcutaneous Q6 MONTHS Active Unknown Hydroxychloroquine Sulfate [facility] [address]-78 200 MG Orally bid Active 2 tablet with food or milk Leflunomide [facility] [address]-21 10 MG Orally Once a day Active 1 tablet Advair HFA [facility] [address]-54 Inhalation Once a day Active 1 puffs Social History Social History Element Qualifiers Date Reported Diet: no. January 26, 2015 Tobacco Use: . Are you a:: current smoker , How often do you smoke cigarettes?: every day, How many cigarettes a day do you smoke?: 6-10 January 26, 2015 Marital Status: . January 26, 2015 Caffeine: yes. 1-5, cups/day January 26, 2015 Exercise: no. January 26, 2015 Alcohol: no. January 26, 2015 Occupation: . retired January 26, 2015 Vital Signs Date/Time: January 26, 2015 Weight 117 lbs Height 62 in Temperature 97.9 F Cardiac Monitoring Heart Rate 76 /min Blood Pressure Diastolic 70 mm Hg Blood Pressure Systolic 122 mm Hg Immunizations Vaccine Administration Date Depomedrol January 26, 2015 Toradol January 26, 2015 Summary Purpose eClinicalWorks Submission
--- OUTSIDE RECORDS SUMMARY | 2018-12-11 12:20 | XMS REPORT ---
Author Author Shanel Salgado [facility] eClinicalWorks Address Unknown Phone Unavailable Care Team Providers Care Design Engineer Marine Equipment Name Role Phone Shanel Salgado Unavailable Allergies, [...] M54.2 Active Assessment Lumbago M54.5 Active Assessment solution manager (current) use of opiate analgesic Z79.891 Active Assessment 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 Active Assessment Primary osteoarthritis M19.91 Active Problem Age-related osteoporosis without current pathological fracture M81.0 Active Assessment Other fpc (current) drug therapy Z79.899 Active Problem 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.899 Active Medications Medication Code System Code Instructions Start Date End Date Status Dosage Simponi Aria [facility] 19731292572 50 MG/4ML Intravenous q 8 weeks Feb 19, 2018 Active 2 mg/kg at 146 lbs (132.4 mg) Lexapro ND 42255964872 5 MG Orally Once a day Active 1 tablet Zantac [facility] 29863641347 150 MG Orally Once a day Active 1 tablet at bedtime Amlodipine Besy-Benazepril HCl ND 93761645800 2.5-10 MG Orally Active as directed Ziac [facility] 70682008214 5-6.25 MG Orally Once a day Active 1 tablet Carisoprodol [facility] 63173624208 350 MG Orally TID Apr 19, 2018 Active 1 tablet as needed Levothyroxine Sodium [facility] 75746039070 137 MCG Orally Once a day Active 1 tablet on an empty stomach in the morning Aspirin [facility] 56852705178 81 MG Orally Once a day Active 1 tablet Ergocalciferol [facility] 35143474364 91223 UNIT Orally Once a week Active 1 capsule Ibuprofen [facility] 31222637502 200 MG Orally Three times a day Active 1 tablet with food or milk as needed Hydrocodone-Acetaminophen [facility] 80269229546 7.5-325 MG Orally TID Active 2 tablets Albuterol Sulfate [facility] [address]-24 108 (90 Base) MCG/ACT Inhalation every 6 hrs Active 2 puffs as needed Clopidogrel Bisulfate [facility] 80013385403 75 MG Orally Once a day Active 1 tablet Hydroxychloroquine Sulfate [facility] 93878565322 200 Active TAKE 1 TABLET BY MOUTH TWICE DAILY WITH FOOD OR MILK Prolia [facility] 26359396093 60 MG/ML Subcutaneous Active as directed Bentyl [facility] [address]-60 20 MG Orally Four times a day Active 1 tablet Vital Signs Date/Time: May 17, 2018 BMI 26.81 Index Weight 146.6 lbs Height 62 in Temperature 97.5 F Cardiac Monitoring Heart Rate 54 /min Blood Pressure Diastolic 77 mm Hg Blood Pressure Systolic 140 mm Hg Results No Known Results Summary Purpose eClinicalWorks Submission
--- OUTSIDE RECORDS SUMMARY | 2018-12-11 12:20 | XMS REPORT ---
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 Active Assessment Primary osteoarthritis M19.91 Active Problem Age-related osteoporosis without current pathological fracture M81.0 Active Assessment Other correction (current) drug therapy Z79.899 Active Problem Other terminal superintendent (current) drug therapy Z79.899 Active Medications Medication Code System Code Instructions Start Date End Date Status Dosage Amlodipine Besy-Benazepril HCl [facility] 14873082265 2.5-10 MG Orally Active as directed Ergocalciferol [facility] 82802206868 63837 UNIT Orally Once a week Active 1 capsule Simponi Aria [facility] 13928746926 50 MG/4ML Intravenous q 8 weeks Feb 19, 2018 Active 2 mg/kg at 146 lbs (132.4 mg) Levothyroxine Sodium ND 76582936795 137 MCG Orally Once a day Active 1 tablet on an empty stomach in the morning Carisoprodol [facility] 72013251658 350 MG Orally TID Mar 10, 2018 May 15, 2018 Active 1 tablet as needed Bentyl [facility] [address]-01 20 MG Orally Four times a day Active 1 tablet Lexapro [facility] 11159372306 5 MG Orally Once a day Active 1 tablet Hydroxychloroquine Sulfate [facility] 59559350601 200 Active TAKE 1 TABLET BY MOUTH TWICE DAILY WITH FOOD OR MILK Ziac [facility] 10998018462 5-6.25 MG Orally Once a day Active 1 tablet Zantac [facility] 92576045519 150 MG Orally Once a day Active 1 tablet at bedtime Prolia [facility] 83628471545 60 MG/ML Subcutaneous Active as directed Clopidogrel Bisulfate [facility] 95382768218 75 MG Orally Once a day Active 1 tablet Hydrocodone-Acetaminophen [facility] 07711774901 7.5-325 MG Orally TID Mar 17, 2018 May 15, 2018 Active 2 tablets Albuterol Sulfate [facility] [address]-89 108 (90 Base) MCG/ACT Inhalation every 6 hrs Active 2 puffs as needed Ibuprofen [facility] 55201218409 200 MG Orally Three times a day Active 1 tablet with food or milk as needed Aspirin [facility] 45765822539 81 MG Orally Once a day Active 1 tablet Vital Signs Date/Time: Apr 15, 2018 BMI 26.39 Index Weight 144.3 lbs Height 62 in Temperature 98.1 F Cardiac Monitoring Heart Rate 70 /min Blood Pressure Diastolic 70 mm Hg Blood Pressure Systolic 126 mm Hg Results Name Result Date Reference Range Unit Abnormality Flag 1099 SPECIMEN VALIDITY TESTING PROVIDED MEDICATIONS ----PROVIDED MEDICATIONS N/A [id number] ANTIDEPRESSANTS Amphetamines Barbiturates Illicits CBC W/AUTO DIFF ----PLATELET COUNT 168 [id number] 130-400 K/UL ----MCV 85.6 94972184 80.0-100.0 fL ----HEMATOCRIT 45.0 [id number] 34.0-45.0 % ----BASOPHILS 0.3 93380452 0.0-2.0 % ----MCHC 34.7 34752521 32.0-35.5 G/DL ----EOSINOPHILS 0.2 36470403 0.0-7.0 % ----MCH 29.7 [id number] 27.0-34.0 PG ----MONOCYTES 11.1 80222366 4.0-13.0 % ----WBC 10.4 76550643 4.0-11.0 K/UL ----HEMOGLOBIN 15.6 05945474 11.5-15.5 G/DL H ----RBC 5.26 27169080 3.80-5.10 M/UL H ----LYMPHOCYTES 13.7 [id number] 19.0-48.0 % L ----RDW 13.3 87513571 11.0-15.0 % ----NEUTROPHILS 74.7 13249345 40.0-74.0 % H COMPREHENSIVE METABOLIC PANEL ----CALC A/G RATIO 1.9 [id number] 1.0-2.6 RATIO ----CALC GLOBULIN 2.4 87794266 1.9-3.7 G/DL ----ALKALINE PHOSPHATASE 69 44262128 40-142 U/L ----BILIRUBIN, TOTAL 0.4 52711501 <=1.2 MG/DL ----CHLORIDE 87 62883197 95-107 MEQ/L L ----ALT 19 33196763 5-40 U/L ----POTASSIUM 3.9 46397475 3.5-5.4 MEQ/L ----AST 21 76818576 9-40 U/L ----SODIUM 128 18219918 133-146 MEQ/L L ----CALC BUN/CREAT 10 24102608 6-28 RATIO ---- eGFR NON- AMER. 89 [id number] >60 ML/MIN/1.73 ----CALCIUM 9.4 77223339 8.5-10.5 MG/DL ----CARBON DIOXIDE 26 39296025 19-31 MEQ/L ----ALBUMIN 4.5 [id number] 3.5-5.2 G/DL ----PROTEIN, TOTAL 6.9 86292613 6.1-8.3 G/DL ----GLUCOSE 91 89201067 70-99 MG/DL ----BUN 7 09423153 8-23 MG/DL L ----CREATININE 0.69 43506710 0.60-1.30 MG/DL ---- eGFR AMER. 103 [id number] >60 ML/MIN/1.73 Opiates/Opioids Benzodiazepines Skeletal Muscle Relaxants Sedatives HIGH SENSITIVITY CRP ----HIGH SENSITIVITY CRP 10.1 [id number] SEE BELOW MG/L H SEDIMENTATION RATE ----SEDIMENTATION RATE 2 [id number] 0-20 MM/HOUR Summary Purpose eClinicalWorks Submission
--- OUTSIDE RECORDS SUMMARY | 2018-12-11 12:20 | XMS REPORT ---
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 Active Problem Primary osteoarthritis M19.91 Active Problem Low back pain M54.5 Active Problem Age-related osteoporosis without current pathological fracture M81.0 Active Problem Other remote computer terminal operator (current) drug therapy Z79.899 Active Problem Cervicalgia M54.2 Active Problem Hoarseness R49.0 Active Problem Fibromyalgia M79.7 Active Problem Vitamin D deficiency E55.9 Active Problem Midline low back pain with sciatica, sciatica laterality unspecified M54.40 Active Problem Lumbago M54.5 Active Problem Neck pain M54.2 Active Medications Medication Code System Code Instructions Start Date End Date Status Dosage Carisoprodol [facility] 41559293177 350 MG Orally TID Apr 19, 2018 Active 1 tablet as needed Results No Known Results Summary Purpose eClinicalWorks Submission
--- OUTSIDE RECORDS SUMMARY | 2018-12-11 12:20 | XMS REPORT ---
Author Author Collin Zaidi eClinicalWorks Address Unknown Phone Unavailable Care Team Providers Care Block Setter Gypsum Name Role Phone Collin Zaidi CP Unavailable Encounters Encounter Location Date Appts Collin Zaidi MD November 09, 2014 pain in knee Collin Zaidi MD November 06, 2014 Torodal Injection Collin Zaidi MD December 01, 2014 Pain/Injection Collin Zaidi MD November 30, 2014 6 wk f/u Collin Zaidi MD October 03, 2014 MRI oCllin Zaidi MD November 03, 2014 DEXA Collin [...] RX Collin Zaidi MD Feb 27, 2015 refill Collin Zaidi MD September 07, 2015 DEXA Collin Zaidi MD Feb 06, [...] positive rheumatoid factor M05.79 Active Problem Other nursing home (current) drug therapy Z79.899 Active Problem [...] Instructions Start Date End Date Status Dosage [place] [address]-04 10-325 MG Orally TID prn November 01, 2015 Active 1 to 2 tablet as needed Social History Social History [...]
--- OUTSIDE RECORDS SUMMARY | 2018-12-11 12:20 | XMS REPORT ---
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 retired November 13, 2014 Summary Purpose eClinicalWorks Submission
--- OUTSIDE RECORDS SUMMARY | 2018-12-11 12:20 | XMS REPORT ---
Author Author Collin Zaidi eClinicalWorks Address Unknown Phone Unavailable Care Team Providers Care Crime Specialist Name Role Phone Collin Zaidi CP Unavailable Encounters Encounter Location Date Unknown Collin Zaidi MD January 26, 2015 tessalon Collin Zaidi MD Apr 26, 2015 [...] Pain Collin Zaidi MD May 21, 2015 Appts Collin Zaidi MD November 09, 2014 pain in knee Collin Zaidi MD November 06, 2014 Torodal Injection Collin Zaidi MD December 01, 2014 Pain/Injection Collin Zaidi MD November 30, 2014 6 wk f/u Collin Zaidi MD October 03, 2014 MRI Collin Zaidi MD November 03, 2014 DEXA Collin Zaidi MD November 03, 2014 hair loss Collin Zaidi MD Jul 04, 2015 Cough Collin Zaidi MD Jun 22, 2015 Unknown Collin Zaidi MD December 21, 2014 flare Collin Zaidi MD December 27, 2014 Unknown Collin Zaidi MD Jul 25, 2015 Message Collin Zaidi MD Jul 30, 2015 refill Collin Zaidi MD September 07, 2015 Records Collin Zaidi MD October 09, 2015 Problems Problem Type Condition ICD-9 Code Onset Dates Condition Status Problem Fracture in accidental fall, cause unspecified E887 Active Problem Low back pain M54.5 Active Problem Age-related osteoporosis without current pathological fracture M81.0 Active Problem Midline low back pain with sciatica, sciatica laterality unspecified M54.40 Active Problem Neck pain M54.2 Active Problem Vitamin D deficiency E55.9 Active Problem 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 October 09, 2015 Tobacco Use: . Are you a:: current smoker , How often do you smoke cigarettes?: every day, How many cigarettes a day do you smoke?: 6-10 October 09, 2015 Marital Status: . October 09, 2015 Caffeine: yes. 1-5, cups/day October 09, 2015 Exercise: no. October 09, 2015 Alcohol: no. October 09, 2015 Occupation: . retired October 09, 2015 Summary Purpose eClinicalWorks Submission
--- OUTSIDE RECORDS SUMMARY | 2018-12-11 12:20 | XMS REPORT ---
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 Active Assessment Age-related osteoporosis without current pathological fracture M81.0 Active Problem Age-related osteoporosis without current pathological fracture M81.0 Active Assessment Other prison (current) drug therapy Z79.899 Active Problem Other prison (current) drug therapy Z79.899 Active Medications Medication Code System Code Instructions Start Date End Date Status Dosage Hydroxychloroquine Sulfate [facility] 71470076936 200 Active TAKE 1 TABLET BY MOUTH TWICE DAILY WITH FOOD OR MILK Amlodipine Besy-Benazepril HCl ND 18256228446 2.5-10 MG Orally Active as directed Zantac [facility] 11573706305 150 MG Orally Once a day Active 1 tablet at bedtime Hydrocodone-Acetaminophen [facility] 39627275307 7.5-325 MG Orally TID Active 2 tablets Ziac NDC 98303701857 5-6.25 MG Orally Once a day Active 1 tablet Albuterol Sulfate [facility] [address]-39 108 (90 Base) MCG/ACT Inhalation every 6 hrs Active 2 puffs as needed Simponi Aria [facility] 47528109413 50 MG/4ML Intravenous q 8 weeks Feb 19, 2018 Active 2 mg/kg at 146 lbs (132.4 mg) Prolia [facility] 34591792698 60 MG/ML Subcutaneous Active as directed Clopidogrel Bisulfate [facility] 73173968400 75 MG Orally Once a day Active 1 tablet Bentyl [facility] [address]-90 20 MG Orally Four times a day Active 1 tablet Carisoprodol [facility] 48945079289 350 MG Orally TID Apr 19, 2018 Active 1 tablet as needed Lexapro [facility] 02284617806 5 MG Orally Once a day Active 1 tablet Aspirin [facility] 79537771843 81 MG Orally Once a day Active 1 tablet Carisoprodol [facility] 26123356425 350 MG Orally TID Active 1 tablet as needed Ibuprofen [facility] 31805908837 200 MG Orally Three times a day Active 1 tablet with food or milk as needed Ergocalciferol [facility] 97080068991 66623 UNIT Orally Once a week Active 1 capsule Levothyroxine Sodium [facility] 37521943439 137 MCG Orally Once a day Active 1 tablet on an empty stomach in the morning Vital Signs Date/Time: Aug 02, 2018 BMI 25.93 Index Weight 141.8 lbs Height 62 in Temperature 97.7 F Cardiac Monitoring Heart Rate 84 /min Blood Pressure Diastolic 70 mm Hg Blood Pressure Systolic 148 mm Hg Results No Known Results Summary Purpose eClinicalWorks Submission
--- OUTSIDE RECORDS SUMMARY | 2018-12-11 12:21 | XMS REPORT ---
Author Author Collin Zaidi eClinicalWorks Address Unknown Phone Unavailable Care Team Providers Care Claims Attorney Name Role Phone Collin Zaidi CP Unavailable Encounters Encounter Location Date Unknown Collin Zaidi MD January 26, 2015 MED REILL Collin Zaidi MD November 14, 2015 Unknown Collin Zaidi MD November 09, 2015 refill req Carisoprodol Collin Zaidi MD November 06, 2015 tessalon Collin Zaidi MD Apr 26, 2015 Hydrocodone refill Collin Zaidi MD May 14, 2015 Pain Collin Zaidi MD November 26, 2015 6-8 WK F/U Collin Zaidi MD [...] flare Collin Zaidi MD December 27, 2014 Follow up Collin Zaidi MD October 09, 2015 Refills Collin Zaidi MD September 10, 2015 Vit d order Collin Zaidi MD November 02, 2015 Vitamin d refill Collin Zaidi MD November 05, 2015 Unknown Collin Zaidi MD Jul 25, 2015 Message Collin Zaidi MD Jul 30, 2015 refill Collin Zaidi MD September 07, 2015 Records Collin Zaidi MD October 09, 2015 Problems Problem Type Condition ICD-9 Code Onset Dates Condition Status Problem Age-related osteoporosis without current pathological fracture M81.0 Active Problem 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 Z79.899 Active Problem Low back pain M54.5 Active Assessment Neck pain M54.2 Active Problem Fracture in accidental fall, cause unspecified E887 Active Problem Vitamin D deficiency E55.9 Active Problem Midline low back pain with sciatica, sciatica laterality unspecified M54.40 Active Problem Hoarseness R49.0 Active Problem Lumbago M54.5 Active Problem 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 November 14, 2015 Tobacco Use: . Are you a:: current smoker , How often do you smoke cigarettes?: every day, How many cigarettes a day do you smoke?: 6-10 November 14, 2015 Marital Status: . November 14, 2015 Caffeine: yes. 1-5, cups/day November 14, 2015 Exercise: no. November 14, 2015 Alcohol: no. November 14, 2015 Occupation: . retired November 14, 2015 Summary Purpose eClinicalWorks Submission
--- OUTSIDE RECORDS SUMMARY | 2018-12-11 12:21 | XMS REPORT ---
Author Author Shanel Salgado [facility] eClinicalWorks Address Unknown Phone Unavailable Care Team Providers Care Grinder Operator External Tool Name Role Phone Shanel Salgado Unavailable Allergies, Adverse Reactions, Alerts Substance Reaction Event Type Morphine Sulfate Skin rash Drug Allergy Demerol Skin rash and Itching Drug Allergy Avelox Elbows- hands and mouth turned red Drug Allergy MTX GI upset Non Drug Allergy Neurontin drowsiness Non Drug Allergy Sulfasalazine GI upset, fatigue Non Drug Allergy Encounters Encounter Location Date Unknown Collin Zaidi MD January 26, 2015 tessalon Collin Zaiid MD Apr 26, 2015 Hydrocodone refill Collin [...] Refills Collin Zaidi MD September 10, 2015 Unknown Collin Zaidi MD Jul 25, [...] positive rheumatoid factor M05.79 Active Problem Other program manager slp (current) drug therapy Z79.899 Active Problem Primary osteoarthritis M19.91 Active Problem Lumbago M54.5 Active Assessment Other group home (current) drug therapy Z79.899 Active Assessment Age-related osteoporosis without current pathological fracture M81.0 Active Assessment Lumbago M54.5 Active Assessment 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 Active Medications Medication Code System Code Instructions Start Date End Date Status Dosage Prolia [facility] [address]-05 60 MG/ML Subcutaneous Q6 MONTHS Active Unknown [facility] [address]-64 10-325 MG Orally TID prn November 01, 2015 Active 1 to 2 tablet as needed Leflunomide [facility] [address]-19 20 MG Orally Once a day Jul 04, 2015 October 02, 2015 Active 1 tablet Cymbalta [facility] [address]-21 30 MG Orally Once a day Active 1 capsule ibuprofen Unknown 0 200 mg Oral As needed Active 3 Tablet Levothyroxine Sodium [facility] [address]-92 137 MCG Orally Once a day Active 1 tablet on an empty stomach in the morning PredniSONE [facility] 84043360549 5 Orally Once a day Active 1 tablet with food or milk Albuterol Unknown 0 90 mcg Inhalation Once a day Active as needed Advair HFA [facility] [address]-12 Inhalation Once a day Active 1 puffs Zantac [facility] [address]-87 150 MG Orally Twice a day Active 1 tablet Carisoprodol [facility] [address]-64 350 MG Orally Four times a day November 09, 2015 Active 1 tablet as needed Ziac [facility] [address]-77 5-6.25 MG Orally Once a day Active 1 tablet Hydroxychloroquine Sulfate [facility] 56174813418 200 Active TAKE ONE TABLET BY MOUTH TWICE A DAY WITH FOOD OR MILK Spiriva HandiHaler [facility] [address]-88 Inhalation Once a day Active 1 capsule Ergocalciferol [facility] [address]-18 31755 UNIT Orally Once a week Active 1 capsule Lisinopril [facility] [address]-95 40 MG Orally Once a day Active 1 tablet Social History Social History Element Qualifiers Date [...] 2015 Occupation: . retired October 09, 2015 Vital Signs Date/Time: September 10, 2015 Weight 112 lbs Height 63 in Temperature 97.0 F Cardiac Monitoring Heart Rate 79 /min Blood Pressure Diastolic 70 mm Hg Blood Pressure Systolic 110 mm Hg Results COMPREHENSIVE METABOLIC PANEL W/EGFR CALCIUM(-8.6-10.4 mg/dL) 9.5 CARBON DIOXIDE(-19-30 mmol/L) 27 ALT(-6-29 U/L) 14 CREATININE(-0.50-0.99 mg/dL) 0.56 AST(-10-35 U/L) 14 eGFR NON-AFR. HAITIAN(-> OR=60 mL/min/1.73m2) 96 ALKALINE PHOSPHATASE(-33-130 U/L) 100 eGFR (-> OR=60 mL/min/1.73m2) 112 BILIRUBIN, TOTAL(-0.2-1.2 mg/dL) 0.3 BUN/CREATININE RATIO(-6-22 (calc)) NOT APPLICABLE ALBUMIN/GLOBULIN RATIO(-1.0-2.5 (calc)) 1.1 SODIUM(-135-146 mmol/L) 133 GLOBULIN(-1.9-3.7 g/dL (calc)) 2.9 POTASSIUM(-3.5-5.3 mmol/L) 4.0 GLUCOSE(-65-99 mg/dL) 88 CHLORIDE(-98-110 mmol/L) 97 ALBUMIN(-3.6-5.1 g/dL) 3.3 UREA NITROGEN (BUN)(-7-25 mg/dL) 8 PROTEIN, TOTAL(-6.1-8.1 g/dL) 6.2 SED RATE BY MODIFIED WESTERGREN SED RATE BY MODIFIED WESTERGREN(-< OR=30 mm/h) 12 C-REACTIVE PROTEIN C-REACTIVE PROTEIN(-<0.80 mg/dL) 0.58 CBC (INCLUDES DIFF/PLT) MCHC(-32.0-36.0 g/dL) 33.0 MCH(-27.0-33.0 pg) 29.4 PLATELET COUNT(-140-400 Thousand/uL) 183 RDW(-11.0-15.0 %) 13.1 BASOPHILS(- %) 0.2 ABSOLUTE NEUTROPHILS(-1490-4544 cells/uL) 4944 ABSOLUTE LYMPHOCYTES(-850-3900 cells/uL) 959 MPV(-7.5-11.5 fL) 7.8 ABSOLUTE BASOPHILS(-0-200 cells/uL) 14 HEMATOCRIT(-35.0-45.0 %) 40.2 NEUTROPHILS(- %) 72.7 MCV(-80.0-100.0 fL) 89.0 RED BLOOD CELL COUNT(-3.80-5.10 Million/uL) 4.51 ABSOLUTE MONOCYTES(-200-950 cells/uL) 850 ABSOLUTE EOSINOPHILS(-15-500 cells/uL) 34 HEMOGLOBIN(-11.7-15.5 g/dL) 13.3 EOSINOPHILS(- %) 0.5 WHITE BLOOD CELL COUNT(-3.8-10.8 Thousand/uL) 6.8 LYMPHOCYTES(- %) 14.1 MONOCYTES(- %) 12.5 Summary Purpose eClinicalWorks Submission
--- OUTSIDE RECORDS SUMMARY | 2018-12-11 12:21 | XMS REPORT ---
Author Author Collin Zaidi eClinicalWorks Address Unknown Phone Unavailable Care Team Providers Care Injection Wax Molder Name Role Phone Collin Zaidi CP Unavailable [...] up Collin Zaidi MD October 09, 2015 Unknown Collin Zaidi MD Jul 25, 2015 Message Collin Zaidi MD Jul 30, 2015 refill Collin Zaidi MD September 07, 2015 Records Collin Zaidi MD October 09, 2015 Problems Problem Type Condition ICD-9 Code Onset Dates Condition Status Problem Age-related osteoporosis without current pathological fracture M81.0 Active Problem Other meterman (current) drug therapy Z79.899 Active Problem Low back pain M54.5 Active Problem Vitamin D deficiency E55.9 Active Problem Midline low back pain with sciatica, sciatica laterality unspecified M54.40 Active Problem Hoarseness R49.0 Active Problem Lumbago M54.5 Active Problem 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 Active Problem Neck pain M54.2 Active Problem Primary osteoarthritis M19.91 Active Assessment Neck pain M54.2 Active Assessment Other meterman (current) drug therapy Z79.899 Active Assessment Hoarseness R49.0 Active Assessment 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 Active Assessment Lumbago M54.5 Active Problem Fracture in accidental fall, cause unspecified E887 Active Medications Medication Code System Code Instructions Start Date End Date Status Dosage Carisoprodol [facility] [address]-38 350 MG Orally Four times a day November 09, 2015 Active 1 tablet as needed Ergocalciferol [facility] [address]-29 22770 UNIT Orally Once a week Active 1 capsule Advair HFA [facility] [address]-16 Inhalation Once a day Active 1 puffs [place] [facility] [address]-68 10-325 MG Orally TID prn November 01, 2015 Active 1 to 2 tablet as needed Zantac [facility] [address]-78 150 MG Orally Twice a day Active 1 tablet Spiriva HandiHaler [facility] [address]-45 Inhalation Once a day Active 1 capsule ibuprofen Unknown 0 200 mg Oral As needed Active 3 Tablet Hydroxychloroquine Sulfate [facility] 02406637491 200 Active TAKE ONE TABLET BY MOUTH TWICE A DAY WITH FOOD OR MILK Levothyroxine Sodium [facility] [address]-25 137 MCG Orally Once a day Active 1 tablet on an empty stomach in the morning Lisinopril [facility] [address]-31 40 MG Orally Once a day Active 1 tablet PredniSONE [facility] 24391068414 5 Orally Once a day Active 1 tablet with food or milk Cymbalta [facility] [address]-47 30 MG Orally Once a day Active 1 capsule Albuterol Unknown 0 90 mcg Inhalation Once a day Active as needed Prolia [facility] [address]-39 60 MG/ML Subcutaneous Q6 MONTHS Active Unknown Leflunomide [facility] [address]-35 20 MG Orally Once a day Active 1 tablet Ziac [facility] [address]-38 5-6.25 MG Orally Once a day Active [...] retired October 09, 2015 Vital Signs Date/Time: October 09, 2015 Weight 106 lbs Height 63 in Temperature 97.2 F Cardiac Monitoring Heart Rate 76 /min Blood Pressure Diastolic 70 mm Hg Blood Pressure Systolic 110 mm Hg Summary Purpose eClinicalWorks Submission
--- OUTSIDE RECORDS SUMMARY | 2018-12-11 12:21 | XMS REPORT ---
Author Author Collin Zaidi eClinicalWorks Address Unknown Phone Unavailable Care Team Providers Care Bias Machine Operator Helper Name Role Phone Collin Zaidi CP Unavailable Encounters Encounter Location Date Unknown Collin Zaidi MD January 26, 2015 tessalon Collin Zaidi MD Apr 26, 2015 Hydrocodone refill Collin Zaidi MD May 14, 2015 6-8 WK F/U Collin Zaidi MD Mar 23, 2015 refill Clolin Zaidi MD Apr 19, 2015 pain in [...] order Collin Zaidi MD November 02, 2015 Unknown Collin Zaidi MD Jul 25, 2015 Message Collin Zaidi MD Jul 30, 2015 refill Collin Zaidi MD September 07, 2015 Records Collin Zaidi MD October 09, 2015 Problems Problem Type Condition ICD-9 Code Onset Dates Condition Status Problem Age-related osteoporosis without current pathological fracture M81.0 Active Problem 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
--- OUTSIDE RECORDS SUMMARY | 2018-12-11 12:21 | XMS REPORT ---
Author Author Collin Zaidi [facility] eClinicalWorks Address Unknown Phone Unavailable Care Team Providers Care Wafer Substrate Tester Name Role Phone Collin Zaidi CP [...] F/U Collin Zaidi MD Mar 23, 2015 Follow up Collin Zaidi MD January 08, 2016 refill Collin Zaidi MD Apr 19, 2015 [...] representative (current) drug therapy Z79.899 Active Problem Low [...] Active Problem Primary osteoarthritis M19.91 Active Assessment Primary osteoarthritis M19.91 Active Assessment Lumbago M54.5 Active Assessment Cervical radiculopathy due to degenerative joint disease of spine M47.22 Active Assessment 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 Active Assessment 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 service representative (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) drug therapy Z79.899 Active Problem Fracture in accidental fall, cause unspecified E887 Active Medications Medication Code System Code Instructions Start Date End Date Status Dosage [facility] [address]-33 Inhalation Once a day Active 1 puffs Ziac [facility] [address]-52 5-6.25 MG Orally Once a day Active 1 tablet Leflunomide [facility] [address]-49 20 MG Orally Once a day Active 1 tablet PredniSONE [facility] 47047115699 5 Orally as needed Active 1 tablet with food or milk Ergocalciferol [facility] [address]-92 64313 UNIT Orally Once a week Active 1 capsule Bentyl [facility] [address]-74 20 MG Orally Four times a day Active 1 tablet Cymbalta [facility] [address]-88 30 MG Orally Once a day Active 1 capsule Carisoprodol [facility] [address]-28 350 MG Orally Four times a day Apr 07, 2016 Active 1 tablet as needed Hyoscyamine Unknown 0 0.15 MG Orally Active as directed Albuterol Unknown 0 90 mcg Inhalation Once a day Active as needed Hydroxychloroquine Sulfate [facility] 73626692515 200 Orally Twice a day Mar 13, 2016 Active 1 tablet with food or milk Spiriva HandiHaler [facility] [address]-36 Inhalation Once a day Active 1 capsule Prolia [facility] [address]-11 60 MG/ML Subcutaneous Q6 MONTHS Active Unknown Zantac [facility] [address]-68 150 MG Orally Twice a day Active 1 tablet [place] [facility] [address]-83 10-325 MG Orally TID prn Feb 07, 2016 Active 1 to 2 tablet as needed Levothyroxine Sodium [facility] [address]-05 137 MCG Orally Once a day Active 1 tablet on an empty stomach in the morning Lisinopril [facility] [address]-11 40 MG Orally Once a day Active 1 tablet ibuprofen Unknown 0 200 mg Oral As needed Active 3 Tablet Social History Social History Element Qualifiers Date Reported Diet: no. January 08, 2016 Tobacco Use: . Are you a:: current smoker , How often do you smoke cigarettes?: every day, How many cigarettes a day do you smoke?: 6-January 08, 2016 Marital Status: . January 08, 2016 Caffeine: yes. 1-5, cups/day January 08, 2016 Exercise: no. January 08, 2016 Alcohol: no. January 08, 2016 Occupation: . retired January 08, 2016 Vital Signs Date/Time: January 08, 2016 Weight 103 lbs Height 63 in Temperature 97.7 F Cardiac Monitoring Heart Rate 88 /min Blood Pressure Diastolic 60 mm Hg Blood Pressure Systolic 122 mm Hg Immunizations Vaccine Administration Date Toradol January 08, 2016 Depomedrol January 08, 2016 Summary Purpose eClinicalWorks Submission
--- OUTSIDE RECORDS SUMMARY | 2018-12-11 12:21 | XMS REPORT ---
Author Author Collin Zaidi eClinicalWorks Address Unknown Phone Unavailable Care Team Providers Care Watch Band Assembler Name Role Phone Collin Zaidi CP Unavailable Encounters Encounter Location Date Unknown Collin Zaidi MD January 26, 2015 MED REILL Collin Zaidi MD November 14, 2015 Unknown Collin Zaidi MD November 09, 2015 refill req Carisoprodol Collin Zaidi MD November 06, 2015 CT of lungs Collin Zaidi MD January 08, 2016 tessalon Coliln Zaidi MD Apr 26, 2015 Medical records Collin Zaidi MD Feb 08, 2016 Hydrocodone refill Collin Zaidi MD May 14, 2015 Pain Collin Zaidi MD November 26, 2015 6-8 WK F/U Collin Zaidi MD Mar 23, 2015 Follow up Collin Zaidi MD January 08, 2016 refill Collin Zaidi MD Apr 19, 2015 pain in knee Collin Zaidi MD January 09, 2015 RX Collin Zaidi MD Feb 27, 2015 MRI Collin Zaidi MD Feb 17, 2016 DEXA Collin Zaidi MD Feb 06, 2015 [...] ICD-9 Code Onset Dates Condition Status Problem Low back pain M54.5 Active Problem 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 Active Problem Other correction (current) drug therapy Z79.899 Active Problem Hoarseness R49.0 Active Problem Vitamin D deficiency E55.9 Active Problem Cervicalgia M54.2 Active Problem Primary osteoarthritis M19.91 Active Problem Lumbago M54.5 Active Problem Midline low back pain with sciatica, sciatica laterality unspecified M54.40 Active Problem Neck pain M54.2 Active Assessment 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 Feb 08, 2016 Tobacco Use: . Are you a:: current smoker , How often do you smoke cigarettes?: every day, How many cigarettes a day do you smoke?: 6-10 Feb 08, 2016 Marital Status: . Feb 08, 2016 Caffeine: yes. 1-5, cups/day Feb 08, 2016 Exercise: no. Feb 08, 2016 Alcohol: no. Feb 08, 2016 Occupation: . retired Feb 08, 2016 Summary Purpose eClinicalWorks Submission
--- OUTSIDE RECORDS SUMMARY | 2018-12-11 12:21 | XMS REPORT ---
Author Author Collin Zaidi eClinicalWorks Address Unknown Phone Unavailable Care Team Providers Care Lacrosse Player Name Role Phone Collin Zaidi CP Unavailable Encounters Encounter Location Date Unknown Collin Zaidi MD January 26, 2015 MED REILL Collin Zaidi MD November 14, 2015 Unknown Collin Zaidi MD November 09, 2015 refill req Carisoprodol Collin Zaidi MD November 06, 2015 CT of lungs Collin Zaidi MD January 08, 2016 tessalon Collin Zaidi MD Apr 26, 2015 Medical records Collin Zaidi MD Feb 08, 2016 Hydrocodone refill Collin Zaidi MD May 14, 2015 Pain Collin Zaiid MD November 26, 2015 6-8 WK F/U [...] positive rheumatoid factor M05.79 Active Problem Other intermediate accountant (current) drug therapy Z79.899 Active Problem Fracture in accidental fall, cause unspecified E887 Active Problem Age-related osteoporosis without current pathological fracture M81.0 Active Problem Hoarseness R49.0 Active Problem Vitamin D deficiency E55.9 Active Problem Cervicalgia M54.2 Active Problem Primary osteoarthritis M19.91 Active Problem Lumbago M54.5 Active Problem Midline low back pain with sciatica, sciatica laterality unspecified M54.40 Active Problem Neck pain M54.2 Active Social History Social History Element Qualifiers [...]
--- OUTSIDE RECORDS SUMMARY | 2018-12-11 12:21 | XMS REPORT ---
Author Author Collin Zaidi eClinicalWorks Address Unknown Phone Unavailable Care Team Providers Care Finance Director Name Role Phone Collin Zaidi CP Unavailable [...] current pathological fracture M81.0 Active Problem Other [facility] (current) drug therapy Z79.899 Active Problem Low back pain M54.5 Active Problem Fracture in accidental fall, [...] M54.2 Active Problem Primary osteoarthritis M19.91 Active Medications Medication Code System Code Instructions Start Date End Date Status Dosage Drvivianaol [facility] [address]-39 19500 UNIT Orally q week November 05, 2015 Mar 04, 2016 Active 1 capsule Social History Social History Element Qualifiers Date [...]
--- OUTSIDE RECORDS SUMMARY | 2018-12-11 12:21 | XMS REPORT ---
Author Author Collin Zaidi eClinicalWorks Address Unknown Phone Unavailable Care Team Providers Care Radiology Practitioner Assistant Name Role Phone Collin Zaidi CP Unavailable Encounters Encounter Location Date Unknown Collin Zaidi MD January 26, 2015 Unknown Collin Zaidi MD November 09, [...] current pathological fracture M81.0 Active Problem Other [facility] (current) drug therapy Z79.899 Active Problem Low [...]
--- OUTSIDE RECORDS SUMMARY | 2018-12-11 12:21 | XMS REPORT ---
Author Author Cameron Lora [facility] eClinicalWorks Address Unknown Phone Unavailable Care Team Providers Care Medical Review Specialist Name Role Phone GenoCameron Unavailable Allergies, Adverse Reactions, Alerts Substance Reaction [...] current pathological fracture M81.0 Active Problem Other fdc (current) drug therapy Z79.899 Active Problem Low [...] Active Problem Primary osteoarthritis M19.91 Active Assessment Age-related osteoporosis without current pathological fracture M81.0 Active Assessment Midline low back pain with sciatica, sciatica laterality unspecified M54.40 Active Assessment Neck pain M54.2 Active Assessment 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 Active Assessment Other [facility]dc (current) drug therapy Z79.899 Active Problem Fracture in accidental fall, cause unspecified E887 Active Medications Medication Code System Code Instructions Start Date End Date Status Dosage Ergocalciferol [facility] [address]-50 90660 UNIT Orally Once a week Active 1 capsule Hydroxychloroquine Sulfate [facility] 50854314335 200 Orally Twice a day Mar 13, 2016 Active 1 tablet with food or milk Albuterol Unknown 0 90 mcg Inhalation Once a day Active as needed Ziac [facility] [address]-44 5-6.25 MG Orally Once a day Active 1 tablet PredniSONE [facility] 83356714049 5 Orally as needed Active 1 tablet with food or milk Leflunomide [facility] [address]-63 20 MG Orally Once a day Active 1 tablet Zantac [facility] [address]-99 150 MG Orally Twice a day Active 1 tablet ibuprofen Unknown 0 200 mg Oral As needed Active 3 Tablet Levothyroxine Sodium [facility] [address]-61 137 MCG Orally Once a day Active 1 tablet on an empty stomach in the morning Lisinopril [facility] [address]-91 40 MG Orally Once a day Active 1 tablet Hydrocodone-Acetaminophen [facility] [address]-11 10-325 MG Orally every 6 hrs December 14, 2015 Active 1 tablet as needed Cymbalta [facility] [address]-41 30 MG Orally Once a day Active 1 capsule Carisoprodol [facility] 87548813714 350 MG Active TAKE 1 TABLET BY MOUTH 4 TIMES A DAY NEEDED Prolia [facility] [address]-45 60 MG/ML Subcutaneous Q6 MONTHS Active Unknown Spiriva HandiHaler [facility] [address]-61 Inhalation Once a day Active 1 capsule Advair HFA [facility] [address]-05 Inhalation Once a day Active 1 puffs Social History Social History Element Qualifiers Date Reported Diet: no. November 14, 2015 Tobacco Use: . Are you a:: current smoker , How often do you smoke cigarettes?: every day, How many cigarettes a day do you smoke?: 6-November 14, 2015 Marital Status: . November 14, 2015 Caffeine: yes. 1-5, cups/day November 14, 2015 Exercise: no. November 14, 2015 Alcohol: no. November 14, 2015 Occupation: . retired November 14, 2015 Vital Signs Date/Time: November 14, 2015 Weight 103.4 lbs Height 62 in Temperature 98.7 F Cardiac Monitoring Heart Rate 72 /min Blood Pressure Diastolic 60 mm Hg Blood Pressure Systolic 130 mm Hg Summary Purpose eClinicalWorks Submission
--- OUTSIDE RECORDS SUMMARY | 2018-12-11 12:21 | XMS REPORT ---
Author Author Collin Zaidi eClinicalWorks Address Unknown Phone Unavailable Care Team Providers Care Copper Tapper Name Role Phone Collin Zaidi CP Unavailable [...] refill Collin Zaidi MD Apr 19, 2015 ADDED TO SCHEDULE 03/18 Collin Zaidi MD Mar 14, 2016 pain in knee Collin Zaidi MD January 09, 2015 RX Collin Zaidi MD Feb 27, 2015 MRI Collin Zaidi MD Feb 17, 2016 DEXA Collin Zaidi MD Feb 06, 2015 1 mth follow up Collin Zaidi MD Feb 08, 2016 Pain Collin Zaidi MD Feb 06, 2015 [...] positive rheumatoid factor M05.79 Active Problem Other care home (current) drug therapy Z79.899 Active Problem Fracture [...]
--- OUTSIDE RECORDS SUMMARY | 2018-12-11 12:21 | XMS REPORT ---
Author Author Collin Zaidi eClinicalWorks Address Unknown Phone Unavailable Care Team Providers Care Skin Care Technician Name Role Phone Collin Zaidi CP Unavailable Encounters Encounter Location Date Unknown Collin Zaidi MD January 26, 2015 refill req Carisoprodol Collin Zaidi MD November 06, 2015 tessalon Collin Zaidi MD Apr 26, 2015 Hydrocodone refill Collin Zaidi MD May 14, 2015 6-8 WK F/U Coliln Zaidi MD Mar 23, 2015 refill Collin [...] current pathological fracture M81.0 Active Problem Other retirement (current) drug therapy Z79.899 Active Problem Low [...] Start Date End Date Status D[facility] [address]-74 350 MG Orally Four times a day Mar 05, 2016 Active 1 tablet as needed Social History [...]
--- OUTSIDE RECORDS SUMMARY | 2018-12-11 12:21 | XMS REPORT ---
Author Author Collin Zaidi eClinicalWorks Address Unknown Phone Unavailable Care Team Providers Care Motion Picture Camera Lens Technician Name Role Phone Collin Zaidi CP [...] inspector (current) drug therapy Z79.899 Active Problem Low [...] a day do you smoke?: 6-10 January 08, 2016 Marital Status: . January 08, 2016 Caffeine: yes. 1-5, cups/day January 08, 2016 Exercise: no. January 08, 2016 Alcohol: no. January 08, 2016 Occupation: . retired January 08, 2016 Summary Purpose eClinicalWorks Submission
--- OUTSIDE RECORDS SUMMARY | 2018-12-11 12:21 | XMS REPORT ---
Author Author Collin Zaidi [facility] eClinicalWorks Address Unknown Phone Unavailable Care Team Providers Care Morning Nanny Name Role Phone Collin Zaidi CP Unavailable [...] positive rheumatoid factor M05.79 Active Problem Other senior care (current) drug therapy Z79.899 Active Problem Hoarseness R49.0 Active Problem Vitamin D deficiency E55.9 Active Problem Cervicalgia M54.2 Active Problem Primary osteoarthritis M19.91 Active Problem Lumbago M54.5 Active Problem Midline low back pain with sciatica, sciatica laterality unspecified M54.40 Active Problem Neck pain M54.2 Active Assessment Lumbago M54.5 Active Assessment Cervicalgia M54.2 Active Assessment 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 Active Assessment Other senior care (current) drug therapy Z79.899 Active Problem Fracture in accidental fall, cause unspecified E887 Active Assessment Age-related osteoporosis without current pathological fracture M81.0 Active Problem Age-related osteoporosis without current pathological fracture M81.0 Active Medications Medication Code System Code Instructions Start Date End Date Status Dosage Leflunomide [facility] [address]-77 20 MG Orally Once a day Active 1 tablet PredniSONE [facility] 06350423795 5 Orally as needed Active 1 tablet with food or milk Cymbalta [facility] [address]-60 30 MG Orally Once a day Active 1 capsule Carisoprodol [facility] [address]-94 350 MG Orally Four times a day Active 1 tablet as needed ibuprofen Unknown 0 200 mg Oral As needed Active 3 Tablet Ziac [facility] [address]-02 5-6.25 MG Orally Once a day Active 1 tablet Hyoscyamine Unknown 0 0.15 MG Orally Active as directed Lisinopril [facility] [address]-25 40 MG Orally Once a day Active 1 tablet Levothyroxine Sodium [facility] [address]-87 137 MCG Orally Once a day Active 1 tablet on an empty stomach in the morning Ergocalciferol [facility] [address]-09 75089 UNIT Orally Once a week Active 1 capsule Spiriva HandiHaler [facility] [address]-49 Inhalation Once a day Active 1 capsule Advair HFA [facility] [address]-46 Inhalation Once a day Active 1 puffs Zantac [facility] [address]-47 150 MG Orally Twice a day Active 1 tablet Bentyl [facility] [address]-74 20 MG Orally Four times a day Active 1 tablet Prolia [facility] [address]-53 60 MG/ML Subcutaneous Q6 MONTHS Active Unknown Albuterol Unknown 0 90 mcg Inhalation Once a day Active as needed Hydroxychloroquine Sulfate [facility] 25174532201 200 Orally Twice a day Active 1 tablet with food or milk Hydrocodone-Acetaminophen [facility] [address]-55 10-325 MG Orally every 6 hrs Active 1 tablet as needed Social History [...] 2016 Occupation: . retired Feb 08, 2016 Vital Signs Date/Time: Feb 08, 2016 Weight 100 lbs Height 63 in Temperature 98.3 F Cardiac Monitoring Heart Rate 82 /min Blood Pressure Diastolic 68 mm Hg Blood Pressure Systolic 110 mm Hg Summary Purpose eClinicalWorks Submission
--- OUTSIDE RECORDS SUMMARY | 2018-12-11 12:22 | XMS REPORT ---
Author Author Collin Zaidi eClinicalWorks Address Unknown Phone Unavailable Care Team Providers Care Yarn Mercerizer Operator Name Role Phone Collin Zaidi CP [...] Collin Zaidi MD Feb 08, 2016 Pain Clolin Zaidi MD Feb 06, 2015 Pain Collin [...] Cough Collin Zaidi MD Jun 22, 2015 Injection Collin Zaidi MD Apr 17, 2016 Unknown Collin Zaidi MD December 21, 2014 NORCO REFILL Collin Zaidi MD Mar 18, 2016 flare Collin Zaidi MD December 27, 2014 4 w f/u Collin Zaidi MD May 07, 2016 Prolia Collin Zaidi MD May 07, 2016 Vitamin D Collin Zaidi MD May 23, 2016 Follow up Collin Zaidi MD October 09, 2015 Unknown Collin Zaidi MD May 21, 2016 Refills Collin Zaidi MD September 10, 2015 Lana Zaidi MD Jun 09, 2016 Vit d order Collin Zaidi MD November [...] positive rheumatoid factor M05.79 Active Problem Other snf (current) drug therapy Z79.899 Active Problem Hoarseness R49.0 Active Problem Lumbago M54.5 Active Problem Cervicalgia M54.2 Active Problem Neck pain M54.2 Active Problem Primary osteoarthritis M19.91 Active Problem Vitamin D deficiency E55.9 Active Problem Midline low back pain with sciatica, sciatica laterality unspecified M54.40 Active Assessment Vitamin D deficiency E55.9 Active Assessment Age-related osteoporosis without current pathological fracture M81.0 Active Problem Age-related osteoporosis without current pathological fracture M81.0 Active Medications Medication Code System Code Instructions Start Date End Date Status Dosage Ergocalciferol [facility] [address]-52 21765 UNIT Orally Once a week Active 1 capsule Carisoprodol [facility] [address]-46 350 MG Orally Four times a day Active 1 tablet as needed PredniSONE [facility] 56602711718 5 Orally as needed Active 1 tablet with food or milk Lisinopril [facility] [address]-17 40 MG Orally Once a day Active 1 tablet Albuterol Unknown 0 90 mcg Inhalation Once a day Active as needed Hydroxychloroquine Sulfate [facility] 26648466679 200 Orally Once a day Active 1 tablet with food or milk ibuprofen Unknown 0 200 mg Oral As needed Active 3 Tablet Zantac [facility] [address]-27 150 MG Orally Twice a day Active 1 tablet Levothyroxine Sodium [facility] [address]-57 137 MCG Orally Once a day Active 1 tablet on an empty stomach in the morning Prolia [facility] [address]-02 60 MG/ML Subcutaneous Q6 MONTHS Active Unknown Bentyl [facility] [address]-51 20 MG Orally Four times a day Active 1 tablet Leflunomide [facility] [address]-40 20 MG Orally Once a day Active 1 tablet Ziac [facility] [address]-99 5-6.25 MG Orally Once a day Active 1 tablet Advair HFA [facility] [address]-07 Inhalation Once a day Active 1 puffs Spiriva HandiHaler [facility] [address]-28 Inhalation Once a day Active 1 capsule Hydrocodone-Acetaminophen [facility] [address]-77 7.5-325 MG Orally every 6 hrs Active 1 tablet as needed Cymbalta [facility] [address]-74 30 MG Orally Once a day Active 1 capsule Social History Social History Element Qualifiers Date Reported Diet: no. May 07, 2016 Tobacco Use: . Are you a:: former smoker , How long has it been since you last smoked?: 1-3 months May 07, 2016 Marital Status: . May 07, 2016 Caffeine: yes. 1-5, cups/day May 07, 2016 Exercise: no. May 07, 2016 Alcohol: no. May 07, 2016 Occupation: . retired May 07, 2016 Results COMPREHENSIVE METABOLIC PANEL W/EGFR CALCIUM(-8.6-10.4 mg/dL) 9.7 CARBON DIOXIDE(-20-31 mmol/L) 24 ALT(-6-29 U/L) 19 CREATININE(-0.50-0.99 mg/dL) 0.60 AST(-10-35 U/L) 20 eGFR NON-AFR. MALTESE(-> OR=60 mL/min/1.73m2) 94 ALKALINE PHOSPHATASE(-33-130 U/L) 116 eGFR (-> OR=60 mL/min/1.73m2) 109 BILIRUBIN, TOTAL(-0.2-1.2 mg/dL) 0.4 BUN/CREATININE RATIO(-6-22 (calc)) NOT APPLICABLE ALBUMIN/GLOBULIN RATIO(-1.0-2.5 (calc)) 1.3 SODIUM(-135-146 mmol/L) 131 GLOBULIN(-1.9-3.7 g/dL (calc)) 3.0 POTASSIUM(-3.5-5.3 mmol/L) 4.3 GLUCOSE(-65-99 mg/dL) 94 CHLORIDE(-98-110 mmol/L) 95 ALBUMIN(-3.6-5.1 g/dL) 4.0 UREA NITROGEN (BUN)(-7-25 mg/dL) 17 PROTEIN, TOTAL(-6.1-8.1 g/dL) 7.0 SED RATE BY MODIFIED WESTERGREN SED RATE BY MODIFIED WESTERGREN(-< OR=30 mm/h) 11 C-REACTIVE PROTEIN C-REACTIVE PROTEIN(-<0.80 mg/dL) 1.15 CBC (INCLUDES DIFF/PLT) MCHC(-32.0-36.0 g/dL) 33.7 MCH(-27.0-33.0 pg) 29.7 PLATELET COUNT(-140-400 Thousand/uL) 140 RDW(-11.0-15.0 %) 12.9 BASOPHILS(- %) 0.7 ABSOLUTE NEUTROPHILS(-7397-7290 cells/uL) 3275 ABSOLUTE LYMPHOCYTES(-850-3900 cells/uL) 1105 MPV(-7.5-11.5 fL) 7.4 ABSOLUTE BASOPHILS(-0-200 cells/uL) 35 HEMATOCRIT(-35.0-45.0 %) 38.3 NEUTROPHILS(- %) 65.5 MCV(-80.0-100.0 fL) 88.1 RED BLOOD CELL COUNT(-3.80-5.10 Million/uL) 4.34 ABSOLUTE MONOCYTES(-200-950 cells/uL) 530 ABSOLUTE EOSINOPHILS(-15-500 cells/uL) 55 HEMOGLOBIN(-11.7-15.5 g/dL) 12.9 EOSINOPHILS(- %) 1.1 WHITE BLOOD CELL COUNT(-3.8-10.8 Thousand/uL) 5.0 LYMPHOCYTES(- %) 22.1 MONOCYTES(- %) 10.6 VITAMIN D, 25-HYDROXY, LC/MS/MS VITAMIN D, 25-OH, TOTAL(-30-100 ng/mL) 18 Summary Purpose eClinicalWorks Submission
--- OUTSIDE RECORDS SUMMARY | 2018-12-11 12:22 | XMS REPORT ---
Author Author Collin Zaidi eClinicalWorks Address Unknown Phone Unavailable Care Team Providers Care Wrapper Layer Name Role Phone Collin Zaidi CP Unavailable [...] Records Collin Zaidi MD October 09, 2015 MED REILL Collin Zaidi MD November 14, 2015 Unknown Collin Zaidi MD November 09, 2015 refill req Carisoprodol Collin Zaidi MD November 06, 2015 CT of lungs Collin Zaidi MD January 08, 2016 Medical records Collin Zaidi MD Feb 08, 2016 Pain Collin Zaidi MD November 26, 2015 Follow up Collin Zaidi MD January 08, 2016 ADDED TO SCHEDULE 03/18 Collin Zaidi MD Mar 14, 2016 MRI Collin Zaidi MD Feb 17, 2016 1 mth follow up Collin Zaidi MD Feb 08, 2016 Injection Collin Zaidi MD Apr 17, 2016 NORCO REFGA Zaidi MD Mar 18, 2016 4 w f/u Collin Zaidi MD May 07, 2016 Lana Zaidi MD May 07, 2016 Vitamin D Collin Zaidi MD May 23, 2016 Unknown Collin Zaidi MD May 21, 2016 Lana Zaidi MD Jun 09, 2016 PT HAVING FLARE Collin Zaidi MD Jul 01, 2016 4 w f/u Collin Zaidi MD Jul 15, 2016 LANA Zaidi MD Jul 15, 2016 Problems Problem Type Condition ICD-9 Code Onset Dates Condition Status Problem Low back pain M54.5 Active Problem 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 Active Problem Other terminal makeup operator (current) drug therapy Z79.899 Active Problem Hoarseness R49.0 Active Problem Lumbago M54.5 Active Problem Cervicalgia M54.2 Active Problem Neck pain M54.2 Active Problem Primary osteoarthritis M19.91 Active Problem Vitamin D deficiency E55.9 Active Problem Midline low back pain with sciatica, sciatica laterality unspecified M54.40 Active Assessment Chronic prescription opiate use Z79.891 Active Assessment Age-related osteoporosis without current pathological fracture M81.0 Active Assessment Primary osteoarthritis M19.91 Active Assessment Cervicalgia M54.2 Active Assessment 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 Active Assessment Low back pain M54.5 Active Problem Age-related osteoporosis without current pathological fracture M81.0 Active Medications Medication Code System Code Instructions Start Date End Date Status Dosage PredniSONE [facility] 23443679776 5 Orally as needed Active 1 tablet with food or milk Zantac [facility] [address]-46 150 MG Orally Twice a day Active 1 tablet Hydroxychloroquine Sulfate [facility] 96275857832 200 BID Active 1 tablet Advair HFA [facility] [address]-70 Inhalation Once a day Active 1 puffs Carisoprodol [facility] [address]-18 350 MG Orally Four times a day Active 1 tablet as needed ibuprofen Unknown 0 200 mg Oral As needed Active 3 Tablet Bentyl [facility] [address]-64 20 MG Orally Four times a day Active 1 tablet Vitamin D (Ergocalciferol) [facility] [address]-23 69891 UNIT Orally Once a day Active 1 capsule Cymbalta [facility] [address]-87 60 MG Orally Once a day Active 1 capsule Hydrocodone-Acetaminophen [facility] [address]-46 7.5-325 MG Orally TID Active 2 tablets Lisinopril [facility] [address]-58 40 MG Orally Once a day Active 1 tablet Levothyroxine Sodium [facility] [address]-04 137 MCG Orally Once a day Active 1 tablet on an empty stomach in the morning Albuterol Unknown 0 90 mcg Inhalation Once a day Active as needed Leflunomide [facility] [address]-91 20 MG Orally Once a day Active 1 tablet Ziac [facility] [address]-08 5-6.25 MG Orally Once a day Active 1 tablet Social History Social History Element Qualifiers Date Reported Diet: no. Jul 15, 2016 Tobacco Use: . Are you a:: former smoker , How long has it been since you last smoked?: 6-12 months Jul 15, 2016 Marital Status: . Jul 15, 2016 Caffeine: yes. 1-5, cups/day Jul 15, 2016 Exercise: no. Jul 15, 2016 Alcohol: no. Jul 15, 2016 Occupation: . retired Jul 15, 2016 Vital Signs Date/Time: Jul 15, 2016 Weight 124.2 lbs Height 62.5 in Temperature 97.5 F Cardiac Monitoring Heart Rate 72 /min Blood Pressure Diastolic 60 mm Hg Blood Pressure Systolic 122 mm Hg Summary Purpose eClinicalWorks Submission
--- OUTSIDE RECORDS SUMMARY | 2018-12-11 12:22 | XMS REPORT ---
Author Author Collin Zaidi eClinicalWorks Address Unknown Phone Unavailable Care Team Providers Care Stummel Selector Name Role Phone Collin Zaidi CP Unavailable [...] Collin Zaidi MD Apr 17, 2016 NORCO CHRISTIAN Zaidi MD Mar 18, 2016 4 w [...] positive rheumatoid factor M05.79 Active Problem Other [facility] (current) drug therapy Z79.899 Active Problem Age-related osteoporosis without current pathological fracture M81.0 Active Problem Hoarseness R49.0 Active Problem Lumbago M54.5 Active Problem Cervicalgia M54.2 Active Problem Neck pain M54.2 Active Problem Primary osteoarthritis M19.91 Active Problem Vitamin D deficiency E55.9 Active Problem Midline low back pain with sciatica, sciatica laterality unspecified M54.40 Active Social History Social History Element Qualifiers [...] 2016 Occupation: . retired Jul 15, 2016 Summary Purpose eClinicalWorks Submission
--- OUTSIDE RECORDS SUMMARY | 2018-12-11 12:22 | XMS REPORT ---
Author Author Shanel Salgado [facility] eClinicalWorks Address Unknown Phone Unavailable Care Team Providers Care Embossing Machine Operator Helper Name Role Phone Shanel Salgado Unavailable [...] DEXA Collin Zaidi MD Feb 06, 2015 4 w f/u Collin Zaidi MD Aug 13, 2016 Pain Collin Zaidi MD Feb 06, 2015 Pain Collin Zaidi MD May 21, 2015 Appts Collin Zaidi MD November 09, 2014 pain in knee Collin Zaidi MD November 06, 2014 Torodal Injection Collin Zaidi MD December 01, 2014 Pain/Injection Collin Zaidi MD November 30, 2014 6 wk f/u Collin Zaidi MD October 03, 2014 MRI Collin Zaiid MD November 03, 2014 DEXA Collin Zaidi [...] Collin Zaidi MD Apr 17, 2016 NORCO REFILL Collin Zaidi MD Mar 18, 2016 4 w f/u Collin Zaidi MD May 07, 2016 Lana Zaidi MD May 07, 2016 Vitamin D Collin Zaidi MD May 23, 2016 Unknown Collin Zadii MD May 21, 2016 Lana Zaidi MD [...] rheumatoid factor M05.79 Active Problem 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 Z79.899 Active Problem Hoarseness R49.0 Active Problem Lumbago M54.5 Active Problem Cervicalgia M54.2 Active Problem Neck pain M54.2 Active Problem Primary osteoarthritis M19.91 Active Problem Vitamin D deficiency E55.9 Active Problem Midline low back pain with sciatica, sciatica laterality unspecified M54.40 Active Assessment Cervicalgia M54.2 Active Assessment 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 Z79.899 Active Assessment Low back pain M54.5 Active Assessment Vitamin D deficiency E55.9 Active Assessment 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 Active Assessment Age-related osteoporosis without current pathological fracture M81.0 Active Problem Age-related osteoporosis without current pathological fracture M81.0 Active Medications Medication Code System Code Instructions Start Date End Date Status Dosage Advair HFA [facility] [address]-23 Inhalation Once a day Active 1 puffs Albuterol Unknown 0 90 mcg Inhalation Once a day Active as needed Levothyroxine Sodium [facility] [address]-59 137 MCG Orally Once a day Active 1 tablet on an empty stomach in the morning Bentyl [facility] [address]-77 20 MG Orally Four times a day as needed Active 1 tablet Ziac [facility] [address]-99 5-6.25 MG Orally Once a day Active 1 tablet PredniSONE [facility] 70482421405 5 Orally as needed Active 1 tablet with food or milk Hydroxychloroquine Sulfate [facility] 92519128962 200 mg twice a day Active 1 tablet Hydrocodone-Acetaminophen [facility] [address]-54 7.5-325 MG Orally TID September 12, 2016 Active 2 tablets Carisoprodol [facility] [address]-19 350 MG Orally Four times a day November 11, 2016 Active 1 tablet as needed Prolia [facility] [address]-69 60 MG/ML Subcutaneous once every 6 months Active as directed Cymbalta [facility] [address]-83 60 MG Orally Once a day Active 1 capsule Leflunomide [facility] [address]-11 20 MG Orally Once a day Active 1 tablet Vitamin D (Ergocalciferol) [facility] [address]-53 81684 UNIT Orally once a week Active 1 capsule Zantac [facility] [address]-42 150 MG Orally Twice a day Active 1 tablet ibuprofen Unknown 0 200 mg Oral As needed Active 3 Tablet Amlodipine Besy-Benazepril HCl [facility] [address]-27 Orally Once a day Active 1 capsule Social History Social History Element Qualifiers Date Reported Diet: no. Aug 13, 2016 Tobacco Use: . Are you a:: former smoker , How long has it been since you last smoked?: 6-12 months Aug 13, 2016 Marital Status: . Aug 13, 2016 Caffeine: yes. 1-5, cups/day Aug 13, 2016 Exercise: no. Aug 13, 2016 Alcohol: no. Aug 13, 2016 Occupation: . retired Aug 13, 2016 Vital Signs Date/Time: Aug 13, 2016 Weight 125 lbs Height 62.5 in Temperature 98.9 F Cardiac Monitoring Heart Rate 72 /min Blood Pressure Diastolic 62 mm Hg Blood Pressure Systolic 118 mm Hg Immunizations Vaccine Administration Date Prolia Aug 13, 2016 Summary Purpose eClinicalWorks Submission
--- OUTSIDE RECORDS SUMMARY | 2018-12-11 12:22 | XMS REPORT ---
Author Author Collin Zaidi eClinicalWorks Address Unknown Phone Unavailable Care Team Providers Care Funeral Home Location Manager Name Role Phone Collin Zaidi CP [...] order Collin Zaidi MD November 02, 2015 PT HAVING FLARE Collin Zaidi MD Jul 01, 2016 Vitamin d refill Collin Zaidi MD November [...] Instructions Start Date End Date Status Dosage Medrol Dose Esteban MEDISPAN 03405613302 4mg Orally once a day Jul 01, 2016 Jul 07, 2016 Active as directed Social History Social History Element Qualifiers Date [...] 2016 Occupation: . retired May 07, 2016 Summary Purpose eClinicalWorks Submission
--- OUTSIDE RECORDS SUMMARY | 2018-12-11 12:22 | XMS REPORT ---
Author Author Collin Zaidi eClinicalWorks Address Unknown Phone Unavailable Care Team Providers Care Photographer Apprentice Name Role Phone Collin Zaidi CP Unavailable [...] operator (current) drug therapy Z79.899 Active Problem Fracture [...] Element Qualifiers Date Reported Diet: no. Mar 18, 2016 Tobacco Use: . Are you a:: current smoker , How often do you smoke cigarettes?: every day, How many cigarettes a day do you smoke?: 6-10 Mar 18, 2016 Marital Status: . Mar 18, 2016 Caffeine: yes. 1-5, cups/day Mar 18, 2016 Exercise: no. Mar 18, 2016 Alcohol: no. Mar 18, 2016 Occupation: . retired Mar 18, 2016 Summary Purpose eClinicalWorks Submission
--- OUTSIDE RECORDS SUMMARY | 2018-12-11 12:22 | XMS REPORT ---
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 Z79.899 Active Problem Hoarseness R49.0 Active Problem Vitamin D deficiency E55.9 Active Problem Cervicalgia M54.2 Active Problem Primary osteoarthritis M19.91 Active Problem Lumbago M54.5 Active Problem Midline low back pain with sciatica, sciatica laterality unspecified M54.40 Active Problem Neck pain M54.2 Active Assessment Other shelter (current) drug therapy Z79.899 Active Assessment 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 Active Assessment Lumbago M54.5 Active Problem Fracture in accidental fall, cause unspecified E887 Active Assessment Neck pain M54.2 Active Problem Age-related osteoporosis without current pathological fracture M81.0 Active Medications Medication Code System Code Instructions Start Date End Date Status Dosage Lisinopril [facility] [address]-55 40 MG Orally Once a day Active 1 tablet Ziac [facility] [address]-15 5-6.25 MG Orally Once a day Active 1 tablet Leflunomide [facility] [address]-19 20 MG Orally Once a day Active 1 tablet Zantac [facility] [address]-67 150 MG Orally Twice a day Active 1 tablet Spiriva HandiHaler [facility] [address]-13 Inhalation Once a day Active 1 capsule Hyoscyamine Unknown 0 0.15 MG Orally Active as directed Hydrocodone-Acetaminophen [facility] [address]-51 7.5-325 MG Orally every 6 hrs Apr 17, 2016 Active 1 tablet as needed Albuterol Unknown 0 90 mcg Inhalation Once a day Active as needed Bentyl [facility] [address]-53 20 MG Orally Four times a day Active 1 tablet Cymbalta [facility] [address]-60 30 MG Orally Once a day Active 1 capsule Hydroxychloroquine Sulfate [facility] 80150569847 200 Orally Once a day Active 1 tablet with food or milk Ergocalciferol [facility] [address]-60 22441 UNIT Orally Once a week Active 1 capsule Carisoprodol [facility] [address]-76 350 MG Orally Four times a day Active 1 tablet as needed Advair HFA [facility] [address]-36 Inhalation Once a day Active 1 puffs PredniSONE [facility] 22008716078 5 Orally as needed Active 1 tablet with food or milk Levothyroxine Sodium [facility] [address]-46 137 MCG Orally Once a day Active 1 tablet on an empty stomach in the morning Prolia [facility] [address]-75 60 MG/ML Subcutaneous Q6 MONTHS Active Unknown ibuprofen Unknown 0 200 mg Oral As [...] 2016 Occupation: . retired Mar 18, 2016 Vital Signs Date/Time: Mar 18, 2016 Weight 99.3 lbs Height 62 in Temperature 97.8 F Cardiac Monitoring Heart Rate 80 /min Blood Pressure Diastolic 72 mm Hg Blood Pressure Systolic 122 mm Hg Summary Purpose eClinicalWorks Submission
--- OUTSIDE RECORDS SUMMARY | 2018-12-11 12:22 | XMS REPORT ---
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
--- OUTSIDE RECORDS SUMMARY | 2018-12-11 12:22 | XMS REPORT ---
Author Author Shanel Salgado [facility] eClinicalWorks Address Unknown Phone Unavailable Care Team Providers Care National Sales Manager Name Role Phone Shanel Salgado Unavailable Allergies, [...] positive rheumatoid factor M05.79 Active Problem Other prison (current) drug therapy Z79.899 Active Problem Hoarseness R49.0 Active Problem Lumbago M54.5 Active Problem Cervicalgia M54.2 Active Problem Neck pain M54.2 Active Problem Primary osteoarthritis M19.91 Active Problem Vitamin D deficiency E55.9 Active Problem Midline low back pain with sciatica, sciatica laterality unspecified M54.40 Active Assessment Other exterminator helper termite (current) drug therapy Z79.899 Active Assessment 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 Active Problem Age-related osteoporosis without current pathological fracture M81.0 Active Medications Medication Code System Code Instructions Start Date End Date Status Dosage Bentyl [facility] [address]-51 20 MG Orally Four times a day as needed Active 1 tablet PredniSONE [facility] 99383358101 5 Orally as needed Active 1 tablet with food or milk Ziac [facility] [address]-71 5-6.25 MG Orally Once a day Active 1 tablet Advair HFA [facility] [address]-23 Inhalation Once a day Active 1 puffs Vitamin D (Ergocalciferol) [facility] [address]-16 48339 UNIT Orally once a week Active 1 capsule Folic Acid [facility] [address]-97 1 MG Orally Once a day September 10, 2016 December 09, 2016 Active 1 tablet Albuterol NDC 0 90 mcg Inhalation Once a day Active as needed Rasuvo [facility] [address]-09 10 MG/0.2ML Subcutaneous once a week September 10, 2016 December 09, 2016 Active as directed Levothyroxine Sodium [facility] [address]-09 137 MCG Orally Once a day Active 1 tablet on an empty stomach in the morning Hydrocodone-Acetaminophen [facility] [address]-75 7.5-325 MG Orally TID October 10, 2016 Active 2 tablets ibuprofen NDC 0 200 mg Oral As needed Active 3 Tablet Carisoprodol [facility] [address]-26 350 MG Orally Four times a day Active 1 tablet as needed Hydroxychloroquine Sulfate [facility] 22250639935 200 mg twice a day Active 1 tablet Zantac [facility] [address]-71 150 MG Orally Twice a day Active 1 tablet Leflunomide [facility] [address]-69 20 MG Orally Once a day September 10, 2016 Inactive 1 tablet Amlodipine Besy-Benazepril HCl [facility] [address]-77 Orally Once a day Active 1 capsule Prolia [facility] [address]-90 60 MG/ML Subcutaneous once every 6 months Active as directed Cymbalta [facility] [address]-08 60 MG Orally Once a day Active 1 capsule Vital Signs Date/Time: September 10, 2016 BMI 21.79 Index Weight 123 lbs Height 63 in Temperature 97.1 F Cardiac Monitoring Heart Rate 70 /min Blood Pressure Diastolic 64 mm Hg Blood Pressure Systolic 120 mm Hg Results No Known Results Summary Purpose eClinicalWorks Submission
--- OUTSIDE RECORDS SUMMARY | 2018-12-11 12:22 | XMS REPORT ---
Author Author Shanel Salgado [facility] eClinicalWorks Address Unknown Phone Unavailable Care Team Providers Care Tin Dipper Name Role Phone Shanel Salgado Unavailable Allergies, [...] Prolia Collin Zaidi MD May 07, 2016 Follow up Collin Zaidi MD October [...] sciatica, sciatica laterality unspecified M54.40 Active Assessment Pain in left hip M25.552 Active Assessment Lumbago M54.5 Active Assessment Pain in right hip M25.551 Active Assessment Age-related osteoporosis without current pathological fracture M81.0 Active Assessment Vitamin D deficiency E55.9 Active Assessment Neck pain M54.2 Active Assessment 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 Active Assessment Other long term care pharmacist (current) drug therapy Z79.899 Active Problem Age-related osteoporosis without current pathological fracture M81.0 Active Medications Medication Code System Code Instructions Start Date End Date Status Dosage Spiriva HandiHaler [facility] [address]-99 Inhalation Once a day Active 1 capsule Lisinopril [facility] [address]-07 40 MG Orally Once a day Active 1 tablet Leflunomide [facility] [address]-48 20 MG Orally Once a day Active 1 tablet Albuterol Unknown 0 90 mcg Inhalation Once a day Active as needed Bentyl [facility] [address]-03 20 MG Orally Four times a day Active 1 tablet Ziac [facility] [address]-93 5-6.25 MG Orally Once a day Active 1 tablet Hydrocodone-Acetaminophen [facility] [address]-62 7.5-325 MG Orally every 6 hrs Active 1 tablet as needed Hydroxychloroquine Sulfate [facility] 64980924688 200 Orally Once a day Active 1 tablet with food or milk ibuprofen Unknown 0 200 mg Oral As needed Active 3 Tablet Zantac [facility] [address]-15 150 MG Orally Twice a day Active 1 tablet Ergocalciferol [facility] [address]-64 48192 UNIT Orally Once a week Active 1 capsule Carisoprodol [facility] [address]-90 350 MG Orally Four times a day Active 1 tablet as needed Cymbalta [facility] [address]-08 30 MG Orally Once a day Active 1 capsule PredniSONE [facility] 28357778088 5 Orally as needed Active 1 tablet with food or milk Prolia [facility] [address]-33 60 MG/ML Subcutaneous Q6 MONTHS Active Unknown Levothyroxine Sodium [facility] [address]-27 137 MCG Orally Once a day Active 1 tablet on an empty stomach in the morning Advair HFA [facility] [address]-63 Inhalation Once a day Active 1 puffs [...] 2016 Occupation: . retired May 07, 2016 Vital Signs Date/Time: May 07, 2016 Weight 110 lbs Height 63 in Temperature 97.2 F Cardiac Monitoring Heart Rate 78 /min Blood Pressure Diastolic 60 mm Hg Blood Pressure Systolic 122 mm Hg Summary Purpose eClinicalWorks Submission
--- OUTSIDE RECORDS SUMMARY | 2018-12-11 12:22 | XMS REPORT ---
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
--- OUTSIDE RECORDS SUMMARY | 2018-12-11 12:22 | XMS REPORT ---
Author Author Collin Zaidi eClinicalWorks Address Unknown Phone Unavailable Care Team Providers Care Psychiatric Therapist Name Role Phone Collin Zaidi CP Unavailable [...] Zaidi MD May 21, 2015 Appts Collin Zadii MD November 09, 2014 pain in knee [...] positive rheumatoid factor M05.79 Active Problem Other residential (current) drug therapy Z79.899 Active Problem Age-related [...]
--- OUTSIDE RECORDS SUMMARY | 2018-12-11 12:23 | XMS REPORT ---
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
--- OUTSIDE RECORDS SUMMARY | 2018-12-11 12:23 | XMS REPORT ---
Author Collin Garcia Organization eClinicalWorks Address Unknown Phone Unavailable Care Team Providers Care Digital Press Operator Name Role Phone Collin Zaidi CP Unavailable Allergies No Known Allergies Problems Problem Type Condition Code Onset Dates Condition Status Problem Low back pain M54.5 Active Problem 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 Active Problem Other exterminator (current) drug therapy Z79.899 Active Problem Age-related [...]
--- OUTSIDE RECORDS SUMMARY | 2018-12-11 12:23 | XMS REPORT ---
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 Active Problem Hoarseness R49.0 Active Problem Lumbago M54.5 Active Problem Cervicalgia M54.2 Active Problem Neck pain M54.2 Active Problem Primary osteoarthritis M19.91 Active Problem Vitamin D deficiency E55.9 Active Problem Midline low back pain with sciatica, sciatica laterality unspecified M54.40 Active Assessment Age-related osteoporosis without current pathological fracture M81.0 Active Assessment Primary osteoarthritis M19.91 Active Assessment 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 [address]-43 150 MG Orally Twice a day Active 1 tablet Folic Acid [facility] [address]-92 1 MG Orally Once a day September 10, 2016 Active 1 tablet Hydrocodone-Acetaminophen [facility] [address]-34 7.5-325 MG Orally TID Active 2 tablets Amlodipine Besy-Benazepril HCl [facility] [address]-15 Orally Once a day Active [address] [facility] [address]-61 5-6.25 MG Orally Once a day Active 1 tablet Methotrexate NDC 0 25mg/1mL Subcutaneous Once a week October 09, 2016 Apr 07, 2017 Active 0.[address] [facility] [address]-42 Inhalation Once a day Active 1 puffs Hydroxychloroquine Sulfate [facility] 66925214831 200 Active TAKE ONE TABLET BY MOUTH TWICE A DAY WITH FOOD OR MILK Carisoprodol [facility] [address]-18 350 MG Orally Four times a day Active 1 tablet as needed PredniSONE [facility] 53569244695 5 Orally as needed Active 1 tablet with food or milk Albuterol NDC 0 90 mcg Inhalation Once a day Active as needed Cymbalta [facility] [address]-45 60 MG Orally Once a day Active 1 capsule Levothyroxine Sodium [facility] [address]-14 137 MCG Orally Once a day Active 1 tablet on an empty stomach in the morning Prolia [facility] [address]-07 60 MG/ML Subcutaneous once every 6 months Active as directed Vitamin D (Ergocalciferol) [facility] [address]-54 07639 UNIT Orally once a week Active [address] [facility] [address]-87 10 MG/0.2ML Subcutaneous once a week September 10, 2016 Active as directed ibuprofen NDC 0 200 mg Oral As needed Active [address] [facility] [address]-57 20 MG Orally Four times a day as needed Active 1 tablet Vital Signs Date/Time: October 09, 2016 BMI 22.67 Index Weight 128 lbs Height 63 in Temperature 98.2 F Cardiac Monitoring Heart Rate 76 /min Blood Pressure Diastolic 60 mm Hg Blood Pressure Systolic 118 mm Hg Results No Known Results Summary Purpose eClinicalWorks Submission
[2018-12-11] MEDS: CIPROFLOXACIN 400 MG/D5W 200ML 200 ML IV SCH ×2 (13:08→21:21)
[2018-12-11] MEDS: KCL 20MEQ/.9 SOD CHL 1,000 ML IV SCH (13:20)
[2018-12-11] MEDS: ALBUTEROL/IPRATROPIUM 3 ML NEB NEB SCH ×4 (13:21→19:30)
[2018-12-11] MEDS ORDERED: IOPAMIDOL 370 MG/ML 200 ML INFUS..BTL INJ ONE (13:48)
[2018-12-11] MEDS ORDERED: SODIUM CHLORIDE 0.9% 50ML 50 ML ONE (13:48)
--- NOTE | 2018-12-11 14:17 | Diagnostic Imaging Report ---
EXAM: CT Chest WITH contrast 12/11/2018 12:28 PM INDICATION: ^PE protocol ^[id number] ^1231 COMPARISON: Chest radiograph 12/11/2018 TECHNIQUE: Spiral CT images of the chest were performed from the lung apices through the level of the adrenal glands after the IV contrast administration. Thin section reconstructions were obtained with special concentration on the pulmonary arteries. IV CONTRAST: 100 mL of Isovue-300 ORAL CONTRAST: None COMPLICATIONS: None RADIATION DOSE: Total DLP: 394.8 mGy*cm Estimated effective dose: (DLP x 0.015 x size factor) mSv CTDIvol has been reviewed. It is below the limits set by the Radiation Protocol Committee (RPC). FINDINGS: LINES/ TUBES: None. PULMONARY ARTERIES: No filling defects are identified in the main, right or left pulmonary arteries to their segmental and subsegmental levels, to suggest pulmonary embolism. The main pulmonary artery is normal in size. LUNGS AND AIRWAYS: Moderate bilateral centrilobular emphysema. Mild subpleural reticulation of the lungs in the upper and lower lobes suggestive of nonspecific pattern of mild pulmonary fibrosis. No consolidation, pulmonary nodules, or masses. Airways are normal. PLEURA: The pleural spaces are clear. HEART AND MEDIASTINUM: The thyroid gland is normal. No mediastinal, hilar or axillary lymphadenopathy. The heart is normal in size. There is no pericardial effusion. Atherosclerotic calcifications of the coronary arteries, mainly in the proximal LAD. The thoracic aorta is normal in size and associated with mild scattered atherosclerotic calcifications. UPPER ABDOMEN: Unremarkable. BONES: Wedge compression deformity of T6 and T7, status post kyphoplasty. SOFT TISSUES: Unremarkable. IMPRESSION: 1. No pulmonary embolism. 2. Bilateral emphysema. 3. No CT findings to suggest pulmonary infection. 4. Coronary artery calcifications. Signed by: Dr. Farheen Urbano M.D. on 12/11/2018 2:14 PM
--- NOTE | 2018-12-11 14:27 | Diagnostic Imaging Report ---
EXAM: CT Abdomen and Pelvis WITH contrast INDICATION: ^abd pain with N/V ^[id number] ^1231 COMPARISON: Chest radiograph 12/11/[address] chest PE protocol 12/11/2018 TECHNIQUE: Abdomen and pelvis were scanned utilizing a multidetector helical scanner from the lung base to the pubic symphysis after administration of IV contrast. Coronal and sagittal reformations were obtained. Routine protocol was performed. Scan was performed when during portal venous phase. IV CONTRAST: 100 mL of Isovue-370 ORAL CONTRAST: None RADIATION DOSE: Total DLP: 760.98 mGy*cm Estimated effective dose: (DLP x 0.015 x size factor) mSv COMPLICATIONS: None FINDINGS: LINES and TUBES: None. LOWER THORAX: Bilateral emphysema. HEPATOBILIARY: No focal hepatic lesions. No biliary ductal dilation. GALLBLADDER: The gallbladder is contracted but appears to contain few small hyperdense stones. No wall thickening. SPLEEN: No splenomegaly. PANCREAS: No focal masses or ductal dilatation. ADRENALS: No adrenal nodules KIDNEYS/URETERS: Kidneys enhance symmetrically. No hydronephrosis. No cystic or solid mass lesions. No stones. GI TRACT: No abnormal distention, wall thickening, or evidence of bowel obstruction. Appendix is not visualized. No inflammatory changes in the right lower quadrant. PELVIC ORGANS/BLADDER: Unremarkable. LYMPH NODES: Few nonspecific noncalcified subcentimeter mesenteric lymph nodes. VESSELS: Moderate atherosclerotic calcifications of the abdominal aorta without aneurysm. Bilateral common iliac artery stents are poorly visualized but appear patent. Calcified plaque in the proximal celiac trunk results at least in moderate stenosis. PERITONEUM / RETROPERITONEUM: No free air or fluid. BONES: Posterior fusion of the lumbar spine at L5-S1. Grade 1 anterolisthesis of L4 over L5. SOFT TISSUES: Unremarkable. IMPRESSION: Contracted gallbladder with associated hyperdense material suggestive of gallstone. Bilateral common iliac artery stents are suboptimally evaluated on this exam but appear patent. Signed by: Dr. Farheen Urbano M.D. on 12/11/2018 2:24 PM
[2018-12-11] MEDS ORDERED: SODIUM CHLORIDE 0.9% 1000ML 1,000 ML IV ONE ×2 (14:30→17:45)
--- NOTE | 2018-12-11 14:30 | NUR ---
Pt received from ER via stretcher. Alert and oriented x one with daughters at bedside. Oriented to staff and surroundings. Encouraged to press call montejo if help needed. Emotional support given. Will monitor
[2018-12-11 14:50] VITALS: BP 133/74
[2018-12-11 16:00] VITALS: BP 145/79
[2018-12-11] MEDS: METRONIDAZOLE 500MG/NS 100ML 100 ML IV SCH ×2 (17:32→22:51)
[2018-12-11] MEDS: ALPRAZOLAM 0.25 MG TAB PO PRN (17:42)
--- NOTE | 2018-12-11 18:38 | NUR ---
Pt's daughters want Dr. Hawk to be pt's attending. Dr. Thompson notified, and Dr. Mane aware. Xanax given for anxiety as ordered. Emotional support given. Will endorse to next shift
[2018-12-11] MEDS ORDERED: BENADRYL25 M1 PO (18:52)
[2018-12-11] MEDS ORDERED: COLACE100 MG PO (18:52)
[2018-12-11] MEDS ORDERED: ATROVENT HFA12.9 GM (18:52)
[2018-12-11] MEDS ORDERED: SPIRIVA18 MCG INH (18:52)
[2018-12-11] MEDS ORDERED: SODIUM CHLORIDE1 GM PO (18:52)
[2018-12-11] MEDS ORDERED: MELATONIN3 MG PO (18:52)
[2018-12-11] MEDS ORDERED: ALENDRONATE SOD70 MG PO (18:52)
[2018-12-11] MEDS ORDERED: PLAVIX75 MG PO (18:52)
[2018-12-11] MEDS ORDERED: ADVAIR 100-501 EACH (18:52)
[2018-12-11] MEDS ORDERED: IPRATROPIU0.2 MG/1 M NEB (18:52)
[2018-12-11] MEDS ORDERED: HYDROXYZINE HCL25 MG PO (18:52)
[2018-12-11] MEDS ORDERED: METHOCARBAMOL750 MG PO (18:52)
[2018-12-11] MEDS ORDERED: THEOPHYLLINE A200 MG PO (18:52)
[2018-12-11] MEDS ORDERED: ULTRAM50 MG PO (18:52)
[2018-12-11] MEDS ORDERED: ACETAMINOPHEN325 M1 PO (18:52)
[2018-12-11] MEDS ORDERED: ALBUTEROL2.5 MG/0.5 IH (18:52)
[2018-12-11] MEDS ORDERED: NORVASC5 MG PO (18:52)
[2018-12-11] MEDS ORDERED: ENOXAPARIN40 MG/0.4 SC (18:52)
[2018-12-11] MEDS ORDERED: SYNTHROID125 MCG PO (18:52)
[2018-12-11] MEDS ORDERED: PEPCID20 MG PO (18:52)
[2018-12-11] MEDS ORDERED: POTASSIUM CHLO20 ME1 PO ×2 (18:52)
[2018-12-11] MEDS ORDERED: IMODIUM2 MG PO (18:52)
[2018-12-11] MEDS ORDERED: megace PO (18:52)
[2018-12-11] MEDS ORDERED: ZIAC 2.5-6.251 EACH PO (18:52)
[2018-12-11] MEDS ORDERED: ZOFRAN4 MG PO (18:52)
[2018-12-11] MEDS ORDERED: CYMBALTA30 MG (18:52)
[2018-12-11 19:38] LABS: CREATINE KINASE MB 5.3 ng/mL (0-5.0)
[2018-12-11 20:00] VITALS: BP 134/73
[2018-12-11] MEDS ORDERED: POTASSIUM CHLORIDE 20MEQ/100ML 200 ML IV ONE (21:15)
[2018-12-11 23:00] VITALS: BP 114/69
[2018-12-12] VITALS (8 sets, daily range): BP systolic 104–144; BP diastolic 67–93
[2018-12-12] MEDS ORDERED: ACETAMINOPHEN 1000 MG/100 ML IV SCH
[2018-12-12] MEDS: ALBUTEROL/IPRATROPIUM 3 ML NEB NEB SCH ×5 (00:21→20:28)
--- NOTE | 2018-12-12 00:28 | Diagnostic Imaging Report ---
EXAMINATION: CHEST XRAY LINE PLACEMENT INDICATION: ^s/p picc line ^[id number] ^0001 COMPARISON: Earlier same day FINDINGS: AP view TUBES and LINES: Status post left PICC placement with tip projecting over inferior SVC. LUNGS: Lungs are well inflated. Central vascular congestion. PLEURA: No pleural effusion or pneumothorax. HEART AND MEDIASTINUM: The cardiomediastinal silhouette is unremarkable. BONES AND SOFT TISSUES: No acute osseous lesion. Soft tissues are unremarkable. UPPER ABDOMEN: No free air under the diaphragm. IMPRESSION: Status post left PICC placement with tip projecting over inferior SVC. No visible pneumothorax. Signed by: Dr. Darshan Burnett MD on 12/12/2018 12:25 AM
--- NOTE | 2018-12-12 01:27 | NUR ---
The picc line was verbally reported as in place and ok to use per Dr. Ernandez and the picc nurse has put in the order to use.
[2018-12-12] MEDS: KCL 20MEQ/.9 SOD CHL 1,000 ML IV SCH ×3 (01:30→19:04)
[2018-12-12] MEDS ORDERED: ACETAMINOPHEN 1000 MG/100 ML IV PRN (02:15)
[2018-12-12] MEDS: ALPRAZOLAM 0.25 MG TAB PO PRN ×2 (03:42→22:45)
[2018-12-12] MEDS: METRONIDAZOLE 500MG/NS 100ML 100 ML IV SCH ×3 (06:06→22:01)
[2018-12-12 06:57] LABS: BASOPHILS % 0.2 % (0.0-1.0); EOSINOPHILS % 0.1 % (0.0-6.0); HEMATOCRIT 30.7 % (34.2-44.1); HEMOGLOBIN 10.9 g/dL (12.0-16.0); LYMPHOCYTES # (AUTO) 0.9 (1.0-3.2); LYMPHOCYTES % 7.1 % (18.0-39.1); MEAN CORPUSCULAR HEMOGLOBIN 30.4 pg (28-32); MEAN CORPUSCULAR HGB CONC 35.5 g/dL (31-35); MEAN CORPUSCULAR VOLUME 85.5 fL (81-99); MONOCYTES # (AUTO) 0.9 (0.2-0.8); MONOCYTES % 7.5 % (4.4-11.3); NEUTROPHILS # (AUTO) 10.7 (2.1-6.9); NEUTROPHILS % 84.6 % (38.7-80.0); PLATELET COUNT 212 x10e3/uL (140-360); RED BLOOD COUNT 3.59 x10e6/uL (3.6-5.1); RED CELL DISTRIBUTION WIDTH 13.1 % (11.7-14.4)
[2018-12-12 07:01] LABS: ALANINE AMINOTRANSFERASE 23 IU/L (0-55); ALBUMIN 2.4 g/dL (3.5-5.0); ALBUMIN/GLOBULIN RATIO 1.1 (0.8-2.0); ALKALINE PHOSPHATASE 102 IU/L (40-150); ANION GAP 11.4 mmol/L (8-16); BLOOD UREA NITROGEN 8 mg/dL (7-26); BUN/CREATININE RATIO 14 (6-25); CARBON DIOXIDE 18 mmol/L (22-29); CHLORIDE 106 mmol/L (98-107); CREATININE, SERUM 0.57 mg/dL (0.57-1.11); EST GLOMERULAR FILTRATION RATE > 60 ML/MIN (60-); GLUCOSE 92 mg/dL (74-118); PHOSPHORUS 1.7 MG/DL (2.3-4.7); POTASSIUM 3.4 mmol/L (3.5-5.1); SODIUM 132 mmol/L (136-145)
--- NOTE | 2018-12-12 07:02 | Diagnostic Imaging Report ---
EXAMINATION: CHEST SINGLE (PORTABLE) INDICATION: ^N/V ^[id number] ^0543 COMPARISON: Same day earlier. FINDINGS: AP view TUBES and LINES: Stable left PICC. LUNGS: Lungs are well inflated. Pulmonary vascular congestion and mild interstitial edema. PLEURA: No significant pleural effusion or pneumothorax. HEART AND MEDIASTINUM: The cardiomediastinal silhouette is unremarkable. BONES AND SOFT TISSUES: No acute osseous lesion. Soft tissues are unremarkable. UPPER ABDOMEN: No free air under the diaphragm. IMPRESSION: Pulmonary vascular congestion and mild interstitial edema. Signed by: Dr. Darshan Burnett MD on 12/12/2018 6:58 AM
[2018-12-12 07:03] LABS: MAGNESIUM 0.9 MG/DL (1.3-2.1)
[2018-12-12 07:33] LABS: CREATINE KINASE MB 6.7 ng/mL (0-5.0)
[2018-12-12] MEDS ORDERED: MAGNESIUM SULFATE 2GM/50ML 100 ML IV ONE (07:45)
[2018-12-12] MEDS: LORAZEPAM INJ 2 MG/ML VIAL IV PRN ×2 (08:45→14:40)
[2018-12-12] MEDS: CIPROFLOXACIN 400 MG/D5W 200ML 200 ML IV SCH ×2 (09:45→20:23)
[2018-12-12] MEDS ORDERED: FUROSEMIDE INJ 10 MG/ML 2 ML VIAL IV NR (19:30)
[2018-12-13] VITALS (8 sets, daily range): BP systolic 120–150; BP diastolic 50–81
[2018-12-13] MEDS: ALBUTEROL/IPRATROPIUM 3 ML NEB NEB SCH ×4 (01:00→19:36)
[2018-12-13] MEDS ORDERED: IPRATROPIUM BROMIDE 0.02% 2.5 ML NEB NEB PRN (05:45)
[2018-12-13] MEDS ORDERED: LEVOTHYROXINE SODIUM 25 MCG TABLET PO SCH (06:00)
[2018-12-13] MEDS ORDERED: LEVOTHYROXINE SODIUM 112 MCG TAB PO SCH (06:00)
--- NOTE | 2018-12-13 06:00 | NUR ---
Patient resting, no issues or concerns at this time. A&O x1. 1:1 sitter bedside. Call light within reach. Will continue to monitor.
[2018-12-13] MEDS: LEVOTHYROXINE SODIUM 112 MCG TAB PO SCH (06:28)
[2018-12-13] MEDS: METRONIDAZOLE 500MG/NS 100ML 100 ML IV SCH ×4 (06:28→22:34)
[2018-12-13] MEDS: LEVOTHYROXINE SODIUM 25 MCG TABLET PO SCH (06:28)
--- NOTE | 2018-12-13 07:00 | NUR ---
Left message with Dr Payne answering service for new consult for RUQ pain. Spoke with Ivis
--- NOTE | 2018-12-13 07:23 | Diagnostic Imaging Report ---
EXAM: US ABDOMEN COMPLETE INDICATION: Gallstone. COMPARISON: CT Abdomen/Pelvis 12/11/2018. TECHNIQUE: Transverse and longitudinal aguilar scale and color doppler sonographic images of the abdomen were obtained. FINDINGS: Somewhat limited study due to bowel gas and inability to breath hold. LIVER Measures 11.9 cm in the right midclavicular line. Increased echogenicity of the liver with normal contour, no masses. SPLEEN Measures 7.8 cm in maximum diameter. Normal echogenicity, no masses. GALLBLADDER Multiple small echogenic foci consistent with cholelithiasis. No distension, or pericholecystic fluid. Gallbladder is decompressed and wall measures 0.4 cm. Negative reported sonographic Anton's sign. BILE DUCTS No intra nor extra-hepatic biliary dilation. Common bile duct measures 0.7 cm PANCREAS: Visualized portions are normal. RIGHT KIDNEY: Measures 10.2 cm Echogenicity: Normal Collecting System: No hydronephrosis Stones: None Cyst/Mass: None LEFT KIDNEY: Measures 9.2 cm Echogenicity: Normal Collecting System: No hydronephrosis Stones: None Cyst/Mass: None VESSELS: Aorta: Not well visualized due to overlying bowel gas. Inferior Vena Cava: Not well visualized due to overlying bowel gas. Main Portal Vein: 0.7 cm, normal size with hepatopetal flow. FREE FLUID: None IMPRESSION: Hepatic steatosis. Cholelithiasis without sonographic evidence of cholecystitis. Signed by: Dr. Meseret Quinteros MD on 12/13/2018 7:19 AM
--- NOTE | 2018-12-13 08:24 | Progress Note ---
DATE: SUBJECTIVE: This patient was admitted for abdominal pain, also with shortness of breath. The patient is currently still complaining of abdominal pain, poor p.o. intake of food. She only ate about 20% of her food last night. The patient is currently on albuterol, Atrovent, ciprofloxacin, levothyroxine, lorazepam, and Flagyl. The patient has a long list of medications, which will be reinstated. OBJECTIVE: VITAL SIGNS: Today, temperature is 97.5, pulse of 114, respirations of 24, blood pressure is 140/70, and pulse oximetry of 98% on 3 L of nasal cannula. HEENT: Normocephalic and atraumatic. She looks very anxious, has chills according to the patient. Oxygen supplementation is in place. CVS: S1 and S2, tachy. ABDOMEN: Tender in the right upper quadrant also. No rebound and no guarding. EXTREMITIES: No clubbing, no cyanosis, no edema. LABORATORY VALUES: Today's white count is 12,000, hemoglobin of 10.9, hematocrit 30.7, neutrophil count 84.6. Coags, the patient's D-dimer was 0.89. Urine shows hyaline casts and negative nitrites. Microbiology, none done. IMAGING STUDIES: Abdominal CT shows a contracted gallbladder with associated hyperdense material suggestive of gallstones, apparently the patient has had a gallstone been removed. The patient's chest CT shows no acute pulmonary embolism, bilateral emphysema. No CT findings suggestive of pulmonary infections. ASSESSMENT AND PLAN: 1. At this time is abdominal pain. Possible etiology is gastrointestinal. The patient is currently on ciprofloxacin and Flagyl. We will continue with the same. 2. Leukocytosis with left shift of possible secondary infection. The patient is on Cipro and Flagyl. 3. History of emphysema/chronic obstructive pulmonary disease. We will continue with albuterol and Atrovent treatments. 4. History of depression, history of chronic obstructive pulmonary disease, history of hypertension and hyperlipidemia. We will continue on home medications. Also we will restart the patient's enoxaparin for DVT prophylaxis. GI consult will also be done with Dr. Payne who has done a scope on this patient for and MRCP which was also negative. Probably needs ERCP for right upper quadrant pain. Further recommendation per clinical course. We will continue to monitor the patient and also continue with laboratory works. The patient's creatinine is 0.579. MD MARIMAR Portillo/OLI /[id number]
[2018-12-13] MEDS: SALMETEROL/FLUTICASONE 100/50 INH SCH ×2 (09:00→17:00)
[2018-12-13] MEDS: CIPROFLOXACIN 400 MG/D5W 200ML 200 ML IV SCH ×2 (09:06→21:00)
[2018-12-13] MEDS: DOCUSATE SODIUM 100 MG CAP PO SCH ×2 (09:06→17:10)
[2018-12-13] MEDS: THEOPHYLLINE 200 MG TABCR PO SCH (09:06)
[2018-12-13] MEDS: AMLODIPINE BESYLATE 5 MG TAB PO SCH (09:06)
[2018-12-13] MEDS: DULOXETINE HCL 30 MG DELAYED RELEASE PO SCH (09:06)
[2018-12-13] MEDS: FAMOTIDINE 20 MG TAB PO SCH ×2 (09:06→17:10)
[2018-12-13] MEDS: ENOXAPARIN SOD INJ 40 MG/0.4 ML SYR SC SCH (09:06)
[2018-12-13] MEDS: CLOPIDOGREL BISULFATE 75 MG TAB PO SCH (09:06)
[2018-12-13] MEDS ORDERED: SODIUM CHLORIDE 0.9% 250ML 250 ML IV ONE (09:45)
[2018-12-13] MEDS ORDERED: POTASSIUM CHLORIDE 20 MEQ TAB CR PO SCH (10:45)
[2018-12-13] MEDS ORDERED: POTASSIUM CHLORIDE 20 MEQ TAB CR PO ONE (17:00)
[2018-12-13] MEDS: ALPRAZOLAM 0.25 MG TAB PO PRN ×2 (17:10→23:41)
[2018-12-13] MEDS: ACETAMINOPHEN 325 MG TAB PO PRN (17:10)
[2018-12-13] MEDS: PROMETHAZINE 12.5MG/ NACL 0.9% 12.5 MG/50 ML BAG IV PRN (21:46)
--- NOTE | 2018-12-13 22:31 | NUR ---
PATIENT WAS STARTED ON ORDERED FLAGYL AND DURING INFUSION PATIENT BECAME HOT, HR INCREASED TO 120 AND PATIENT COMPLAINING ABOUT FEELING "OFF" AND "WEIRD". NURSE STOPPED INFUSION AND CALLED DR AZEVEDO FOR ORDERS AND WAS TOLD TO CONT TO MONITOR PATIENT BUT NO ORDERS AT THIS TIME.
[2018-12-14] VITALS (7 sets, daily range): BP systolic 126–152; BP diastolic 65–99
[2018-12-14] MEDS: ALBUTEROL/IPRATROPIUM 3 ML NEB NEB SCH ×4 (01:07→19:36)
--- NOTE | 2018-12-14 01:33 | Consultation ---
DATE OF CONSULTATION: GI Consult Note. REASON FOR CONSULT: Intermittently persistent right upper quadrant pain for few weeks. HISTORY OF PRESENTING ILLNESS: A 68-year-old very pleasant female with past medical history of chronic back ache secondary to osteoporosis, status post recent kyphoplasty. She was admitted in [place] last month. After undergoing kyphoplasty, she reported intermittently persistent right upper quadrant pain with occasional nausea. Dr. Payne, my associate, performed upper endoscopy. As per the patient's daughter who was at the bedside, endoscopy revealed some inflammation in the stomach, but nothing significantly found to explain right upper quadrant pain. On further questioning, the patient stated that she has had gallbladder surgery in the late . However, imaging study performed on this admission included CT scan, as well as right upper quadrant sonogram, both modalities showed echogenic foci within the gallbladder fossa suggestive of gallstones without any gallbladder wall thickening or pericholecystic fluid collection. Sonographic Anton sign is negative. On examination, however, the patient has a transverse right upper quadrant surgical scar. The patient was basically transferred to some rehab after she was discharged from [facility] last month. The patient got admitted to [facility] this time, directly from rehab secondary to intermittently persistent right upper quadrant pain, right lower quadrant pain as well. She has had diarrhea for couple of days before getting admitted here. Diarrhea has completely resolved. She has no associated fever or chills. Blood work on this admission revealed a leukocytosis with left shift, she is empirically being treated with intravenous ciprofloxacin and metronidazole. Repeat white count has come down to 12.57. Urinalysis has been negative. Urine culture is pending. The patient reports no urinary symptoms. REVIEW OF SYSTEMS: Twelve point system reviewed, symptomatology is limited as per HPI. PAST MEDICAL HISTORY: Asthma/COPD, on oxygen; coronary artery disease; hypothyroidism; osteoporosis. PAST SURGICAL HISTORY: Recent kyphoplasty and upper endoscopy. FAMILY HISTORY: Noncontributory given her advanced age. SOCIAL HISTORY: Ex-smoker. Seldom drinks alcohol. Never used any illicit drugs. ALLERGIES: HYDROMORPHONE, MEPERIDINE, MORPHINE. INPATIENT MEDICATIONS: Reviewed as per MAR. PHYSICAL EXAMINATION: VITAL SIGNS: Temperature 97.8, pulse ranging from 123 to 117, respirations 20, and blood pressure 132/80, oxygen saturation 99% on 2 L of nasal cannula. GENERAL: Not in any acute distress. HEENT: Oral mucosa is moist. Anicteric sclerae. CVS: S1, S2 is regular. LUNGS: Bilateral occasional scattered rhonchi. No rales. ABDOMEN: Soft, nondistended. Healed transverse scars in the right upper quadrant, poorly localized tenderness in the right upper, as well as right lower quadrant without any rebound, rigidity, or any guarding. Positive bowel sounds. LABORATORY DATA: WBC has come down to 12.57 from 15.64, hemoglobin 10.9 from 15.9, hematocrit 30.7 from 43.5, platelet count 212. Sodium 132, potassium 3.4, chloride 106, bicarb 18, BUN 8, creatinine 0.57, glucose 92. Liver enzymes normal, lipase level normal. Urinalysis showed moderate urine bilirubin, WBCs 0 to 5, RBCs 0 to 5, leukocyte esterase negative, leukocyte nitrite negative. PT 13.4, INR 0.97, PTT 24.9. Urine culture in progress. Ultrasound of the abdomen showed: 1. Hepatic steatosis. 2. Cholelithiasis without sonographic evidence of cholecystitis. CT scan of the chest showed: 1. No pulmonary embolism. 2. Bilateral emphysema point. 3. No CT findings to suggest pulmonary infection. 4. Coronary artery calcifications. CT of the abdomen and pelvis with IV contrast showed: 1. A contracted gallbladder with associated hyperdense material suggestive of gallstone. 2. Bilateral common iliac artery stents are suboptimally evaluated on this exam, but appears patent. No abnormal distention, wall thickening or evidence of any bowel obstruction. Appendix is not visualized. No inflammatory changes in the right lower quadrant. IMPRESSION: 1. Intermittently persistent right upper quadrant pain, which seems to be completely nonspecific. 2. Cholelithiasis without any evidence of cholecystitis clinically as well as sonographically. 3. No biliary obstruction, no biliary ductal dilatation on imaging. Liver enzymes are normal. Therefore, no ERCP indicated. 4. Normal lipase level. The overall picture excludes any underlying pancreatitis. The patient does not have any risk factors for pancreatitis other than gallstones. 5. Leukocytosis, cause unclear, being empirically treated with antibiotics. PLAN: Continue famotidine for dyspepsia. I will try to obtain upper endoscopy report from [place]. We will continue to monitor her clinically. I have discussed the CT as well as ultrasound finding in detail with the patient's daughter at bedside. The patient claims that she has had a cholecystectomy, although she is not 100% sure. She does have a right upper quadrant surgical scar. Given this situation, obtaining surgical consult will not be a bad idea. We will leave this on Dr. Hawk regarding surgery consult. The patient's hemoglobin dropped, without any evidence of GI bleeding. This is a drop secondary to fluid shift. The patient's hemoglobin was falsely elevated secondary to hemoconcentration. After IV fluid hydration, hemoglobin dropped down, which is actually her real hemoglobin level. I thank Dr. Hawk for allowing me to participate in the care of this patient. Blade Colorado MD SA/OLI /[id number]
--- NOTE | 2018-12-14 02:48 | NUR ---
Patient assisted to put bedpan,had large amount of urine, assisted to cleaned and changed diaper/pads. Patient tolerated well. Will continue to monitor.
[2018-12-14 04:57] LABS: BASOPHILS % 0.3 % (0.0-1.0); EOSINOPHILS # (AUTO) 0.1 (0.0-0.4); EOSINOPHILS % 1.4 % (0.0-6.0); HEMATOCRIT 29.7 % (34.2-44.1); HEMOGLOBIN 10.5 g/dL (12.0-16.0); LYMPHOCYTES # (AUTO) 0.9 (1.0-3.2); LYMPHOCYTES % 14.3 % (18.0-39.1); MEAN CORPUSCULAR HGB CONC 35.4 g/dL (31-35); MEAN CORPUSCULAR VOLUME 84.9 fL (81-99); MONOCYTES # (AUTO) 0.6 (0.2-0.8); MONOCYTES % 9.1 % (4.4-11.3); NEUTROPHILS # (AUTO) 4.9 (2.1-6.9); NEUTROPHILS % 74.1 % (38.7-80.0); PLATELET COUNT 179 x10e3/uL (140-360); RED CELL DISTRIBUTION WIDTH 12.8 % (11.7-14.4)
[2018-12-14 05:20] LABS: ANION GAP 12.1 mmol/L (8-16); BLOOD UREA NITROGEN < 5 mg/dL (7-26); CALCIUM 8.1 mg/dL (8.4-10.2); CARBON DIOXIDE 23 mmol/L (22-29); CHLORIDE 97 mmol/L (98-107); CREATININE, SERUM 0.48 mg/dL (0.57-1.11); EST GLOMERULAR FILTRATION RATE > 60 ML/MIN (60-); GLUCOSE 72 mg/dL (74-118); POTASSIUM 3.1 mmol/L (3.5-5.1); SODIUM 129 mmol/L (136-145)
[2018-12-14 05:28] LABS: BUN/CREATININE RATIO 10 (6-25)
[2018-12-14] MEDS: LEVOTHYROXINE SODIUM 112 MCG TAB PO SCH (05:43)
[2018-12-14] MEDS: LEVOTHYROXINE SODIUM 25 MCG TABLET PO SCH (05:43)
[2018-12-14] MEDS: ACETAMINOPHEN 325 MG TAB PO PRN ×2 (05:43→20:59)
--- NOTE | 2018-12-14 05:51 | NUR ---
PATIENT'S POTASSIUM CAME BACK AT 3.1, SODIUM [address] AZEVEDO OFFICE AND LEFT MESSAGE TO CALL BACK WITH ORDERS.
[2018-12-14] MEDS ORDERED: SODIUM CHLORIDE 0.9% 1000ML 1,000 ML IV SCH (06:00)
[2018-12-14] MEDS ORDERED: MAGNESIUM SULF 1GRAM/DEXTROSE 300 ML IV ONE (07:15)
[2018-12-14] MEDS ORDERED: POTASSIUM CHLORIDE 20MEQ/100ML 200 ML IV ONE (07:30)
[2018-12-14] MEDS: SALMETEROL/FLUTICASONE 100/50 INH SCH ×2 (09:00→19:36)
[2018-12-14] MEDS: ENOXAPARIN SOD INJ 40 MG/0.4 ML SYR SC SCH (09:28)
[2018-12-14] MEDS: CLOPIDOGREL BISULFATE 75 MG TAB PO SCH (09:28)
[2018-12-14] MEDS: CIPROFLOXACIN 400 MG/D5W 200ML 200 ML IV SCH ×2 (09:28→20:44)
[2018-12-14] MEDS: AMLODIPINE BESYLATE 5 MG TAB PO SCH (09:28)
[2018-12-14] MEDS: DOCUSATE SODIUM 100 MG CAP PO SCH ×2 (09:28→16:24)
[2018-12-14] MEDS: METOPROLOL TARTRATE 25 MG TAB PO SCH ×2 (09:28→16:25)
[2018-12-14] MEDS: DULOXETINE HCL 30 MG DELAYED RELEASE PO SCH (09:28)
[2018-12-14] MEDS: FAMOTIDINE 20 MG TAB PO SCH ×2 (09:28→16:25)
[2018-12-14] MEDS: THEOPHYLLINE 200 MG TABCR PO SCH (09:28)
--- NOTE | 2018-12-14 09:29 | Progress Note ---
DATE: SUBJECTIVE: The patient is a 68-year-old female, who comes in with COPD exacerbation, right upper quadrant pain, hypertension, history of COPD and history of hyperlipidemia. Currently, the patient had an allergic reaction to Flagyl was started yesterday, stopped. White count is better. The patient is feeling better, however, very cachectic and very tired and short of breath. The patient's current medications are acetaminophen, amlodipine, ciprofloxacin, duloxetine, enoxaparin, levothyroxine, lorazepam, Flagyl which has been stopped, and theophylline and sodium chloride for fluid resuscitation and for sodium. The patient had a few runs of nonsustained ventricular tachycardia yesterday. We will correct the potassium today. OBJECTIVE: VITAL SIGNS: Temperature is 98.3, pulse of 114, respirations of 21, blood pressure is 152/65, pulse oximetry 96% O2 at 3 L. HEENT: Normocephalic, atraumatic. Pupils are reactive to light and accommodation. CVS: S1, S2 normal. Tachycardic. ABDOMEN: Tender in the right upper quadrant, but much better. EXTREMITIES: No clubbing, no cyanosis, no edema. LABORATORY VALUES: White count of 6.58, down from 12.57; hemoglobin 10.5; hematocrit 29.7. Left shift has dissipated. Chemistries; sodium of 129, potassium 3.1, BUN . Magnesium was low yesterday, it will be corrected today. ASSESSMENT: 1. Abdominal pain and infection. The patient is currently on Cipro. We will continue that. 2. Leukocytosis, which is better. 3. History of emphysema and COPD. We will continue albuterol and Atrovent treatments. 4. History of depression. We will restart her home medication. 5. Ventricular tachycardia. We will put her on some beta blockade for this time for blood pressure and also for heart rate. Continue to monitor the patient. The patient's family has been discussed about her. Her prognosis being guarded. We will continue to monitor the patient. Further recommendation per clinical course. MD MARIMAR Portillo/OLI /[id number]
[2018-12-14] MEDS ORDERED: SODIUM CHLORIDE 0.9% 1000ML 1,000 ML IV ONE (10:00)
[2018-12-14] MEDS: METRONIDAZOLE 500MG/NS 100ML 100 ML IV SCH ×2 (12:57→22:06)
[2018-12-14] MEDS: ALPRAZOLAM 0.25 MG TAB PO PRN (16:36)
--- NOTE | 2018-12-14 19:00 | NUR ---
Report received from AM nurse. Patient received resting comfortably on her bed, alert/orientedx1-2 little confused. Family at the bedside. Denied pain and no SOB. No respiratory distress noted. Respiration even and unlabored. Continued on 2liters oxygen via nasal canula. Bed in lower position,locked. Call montejo within reach. Will continue to monitor.
--- NOTE | 2018-12-14 19:55 | NUR ---
Paged Dr. Hawk to get order, call back from . said Okay to continue Flagyl 500mg q8h at this time.
[2018-12-14] MEDS: LORAZEPAM INJ 2 MG/ML VIAL IV PRN (22:50)
[2018-12-15] VITALS (8 sets, daily range): BP systolic 127–151; BP diastolic 63–84
[2018-12-15] MEDS: ALBUTEROL/IPRATROPIUM 3 ML NEB NEB SCH ×4 (01:15→19:00)
[2018-12-15 05:07] LABS: BASOPHILS % 0.4 % (0.0-1.0); EOSINOPHILS # (AUTO) 0.1 (0.0-0.4); EOSINOPHILS % 2.3 % (0.0-6.0); HEMATOCRIT 32.3 % (34.2-44.1); HEMOGLOBIN 10.9 g/dL (12.0-16.0); LYMPHOCYTES # (AUTO) 0.8 (1.0-3.2); LYMPHOCYTES % 14.5 % (18.0-39.1); MEAN CORPUSCULAR HEMOGLOBIN 29.5 pg (28-32); MEAN CORPUSCULAR HGB CONC 33.7 g/dL (31-35); MEAN CORPUSCULAR VOLUME 87.3 fL (81-99); MONOCYTES # (AUTO) 0.6 (0.2-0.8); MONOCYTES % 11.7 % (4.4-11.3); NEUTROPHILS # (AUTO) 3.7 (2.1-6.9); NEUTROPHILS % 70.3 % (38.7-80.0); PLATELET COUNT 175 x10e3/uL (140-360); RED CELL DISTRIBUTION WIDTH 12.9 % (11.7-14.4)
[2018-12-15] MEDS: LEVOTHYROXINE SODIUM 112 MCG TAB PO SCH (05:25)
[2018-12-15] MEDS: ACETAMINOPHEN 325 MG TAB PO PRN ×2 (05:25→16:43)
[2018-12-15] MEDS: METRONIDAZOLE 500MG/NS 100ML 100 ML IV SCH ×3 (05:25→23:31)
[2018-12-15] MEDS: LEVOTHYROXINE SODIUM 25 MCG TABLET PO SCH (05:25)
[2018-12-15 05:34] LABS: ALANINE AMINOTRANSFERASE 15 IU/L (0-55); ALBUMIN 2.5 g/dL (3.5-5.0); ALBUMIN/GLOBULIN RATIO 1.3 (0.8-2.0); ALKALINE PHOSPHATASE 95 IU/L (40-150); ANION GAP 11.1 mmol/L (8-16); BLOOD UREA NITROGEN < 5 mg/dL (7-26); CALCIUM 8.6 mg/dL (8.4-10.2); CARBON DIOXIDE 24 mmol/L (22-29); CHLORIDE 98 mmol/L (98-107); CREATININE, SERUM 0.47 mg/dL (0.57-1.11); EST GLOMERULAR FILTRATION RATE > 60 ML/MIN (60-); GLUCOSE 83 mg/dL (74-118); MAGNESIUM 1.2 MG/DL (1.3-2.1); POTASSIUM 3.1 mmol/L (3.5-5.1); SODIUM 130 mmol/L (136-145)
[2018-12-15 05:37] LABS: BUN/CREATININE RATIO 11 (6-25)
[2018-12-15] MEDS ORDERED: GUAIFENESIN 200 MG/10 ML UDC PO PRN (06:45)
--- NOTE | 2018-12-15 07:05 | NUR ---
Report given to oncoming nurse Arabella,walking round done.
[2018-12-15] MEDS ORDERED: POTASSIUM CHLORIDE 20 MEQ TAB CR PO SCH (07:15)
[2018-12-15] MEDS ORDERED: MAGNESIUM SULFATE 2GM/50ML 50 ML IV ONE (07:15)
--- NOTE | 2018-12-15 07:59 | Progress Note ---
DATE: SUBJECTIVE: The patient is doing better. The patient is alert and oriented x3. Did have some sundowning yesterday according to the daughter. The patient did have about 30% to 40% of her meals. Walked to the nurse's station and back, did have shortness of breath and debility on doing it. MEDICATIONS: Includes acetaminophen, amlodipine, Cipro, docusate, duloxetine, Lovenox, guaifenesin as needed, levothyroxine, lorazepam as needed, and replacement of magnesium and the patient is also on Flagyl and metoprolol for rate control. OBJECTIVE: VITAL SIGNS: Temperature is 97.5, pulse of 90, respirations of 26, blood pressure is 151/67. HEENT: Normocephalic, atraumatic. Pupils are reactive to light and accommodation. CVS: S1, S2 normal. Regular rate and rhythm. ABDOMEN: Tenderness in the right upper quadrant. EXTREMITIES: No clubbing, no cyanosis, and no edema. LABORATORY VALUES: White count is 5.23, hemoglobin of 10.9, hematocrit of 32.3, neutrophil count 70.3, no left shift present. Coags are normal. Chemistry shows sodium of 130, potassium of 3.1, magnesium of 1.2, BUN is less than 5, creatinine of 0.7, and EGFR of above 60. Lactic acid done back on 12/12 was normal. ASSESSMENT: 1. Abdominal pain, abdominal infection, sepsis. Currently on Cipro and Flagyl. We will continue the same. 2. Leukocytosis, better. 3. Chronic obstructive pulmonary disease exacerbation. Continue albuterol and Atrovent treatments. 4. History of depression. We will restart medication. 5. Chronic cough with chronic obstructive pulmonary disease. Continue on guaifenesin. 6. The patient had a few runs of ventricular tachycardia. Magnesium replaced. Potassium replaced and the patient is on metoprolol twice a day. 7. Electrolyte abnormalities. Again replace magnesium and potassium. Further recommendation per clinical course. We will continue to monitor the patient. The patient is getting stronger. A SNF eval will be done again. The patient can return to SNF in 1 to 2 days depending on her progress. Again, prognosis still guarded. MD MARIMAR Portillo/GEOVANNAL /[id number]
[2018-12-15] MEDS: CIPROFLOXACIN 400 MG/D5W 200ML 200 ML IV SCH ×2 (08:20→21:00)
[2018-12-15] MEDS: SALMETEROL/FLUTICASONE 100/50 INH SCH ×2 (08:35→17:00)
--- NOTE | 2018-12-15 09:28 | NUR ---
SPOKE TO PT ABOUT SNF ORDER SHE STATES WILL DISCUSS WITH DAUGHTER, FROM [facility] CALLED LEFT MESSAGE WITH DAUGHTER TO RETURN CALL
[2018-12-15] MEDS: DULOXETINE HCL 30 MG DELAYED RELEASE PO SCH (09:46)
[2018-12-15] MEDS: DOCUSATE SODIUM 100 MG CAP PO SCH ×2 (09:46→17:49)
[2018-12-15] MEDS: ENOXAPARIN SOD INJ 40 MG/0.4 ML SYR SC SCH (09:47)
[2018-12-15] MEDS: FAMOTIDINE 20 MG TAB PO SCH ×2 (09:47→17:49)
[2018-12-15] MEDS: CLOPIDOGREL BISULFATE 75 MG TAB PO SCH (09:47)
[2018-12-15] MEDS: THEOPHYLLINE 200 MG TABCR PO SCH (09:47)
[2018-12-15] MEDS: AMLODIPINE BESYLATE 5 MG TAB PO SCH (09:54)
[2018-12-15] MEDS: METOPROLOL TARTRATE 25 MG TAB PO SCH ×2 (09:54→17:50)
--- NOTE | 2018-12-15 10:28 | NUR ---
EDUCATED ABOUT IMM, SIGNED, FILED IN CHART, WITH COPY LEFT WITH FAMILY AT BEDSIDE.
--- NOTE | 2018-12-15 11:27 | NUR ---
DAUGHTER LINDA [phone] CALLED AND STATED THAT SHE FEELS HER MOTHER SHOULD NOT RETURN HOME AT THIS POINT AND SHOULD RETURN TO A FACILITY. I EDUCATED I LEFT A LIST OF FACILITIES AND MY CARD AT BEDSIDE. SHE STATES SHE WILL BE HERE IN AN HOUR AND WILL LET KNOW IF WANT TO RETURN TO [facility] WHERE SHE CAME FROM OR ANOTHER FACILITY.
--- NOTE | 2018-12-15 13:10 | NUR ---
WOUND CARE PUP SCREEN Miguel Score: 16 PUP: Moderate PUP Protocol LOS: 3 days Age: 68 Alternating Pressure Air Mattress to Current Weight HOB < 30 Degrees Patient Position: Left PATIENT VISIT / SKIN CHECK: No Pressure Ulcers Identified. RECOMMENDATION: - Continue Moderate PUP -Turn and reposition ever 2 hours -Offload Heels with Pillows/ Heel Protectors while in bed. - Encourage OOB Activity Addendum: 12/15/18 at 1311 by Eliel Avina RN Amended: Links added.
[2018-12-15] MEDS: ALPRAZOLAM 0.25 MG TAB PO PRN (17:49)
--- NOTE | 2018-12-15 19:35 | NUR ---
RECEIVED PT IN BED AOX1 RESPIRATIONS ARE EVEN AND UNLABORED.PT DENIES PAIN FAMILY AT THE BEDSIDE .CALL LIGHT WITH IN REACH .CONTINUE TO MONITOR D
[2018-12-15] MEDS ORDERED: SODIUM CHLORIDE 0.9% 250ML 250 ML ONE (21:30)
--- NOTE | 2018-12-15 22:43 | NUR ---
PT IS TRANSFERRED TO [facility] AND REPORT GIVEN TO THE NURSE .
--- NOTE | 2018-12-15 22:50 | NUR ---
Report received & patient transferred from [facility]. A&Ox2, respirations even & unlabored, no distress noted. Patient has NC @ 2L. Tele in place. Patient has L upper arm PICC linex2, patent & no infiltration noted. Patient denies any pain or issues at this time. Daughter is at bedside, bed alarm placed, call light within reach, side railsx2 raised & bed set to lowest position.
--- NOTE | 2018-12-15 23:38 | Progress Note ---
DATE: 12/15/2018 SUBJECTIVE: The patient reports no right upper quadrant pain. Tolerating oral diet. Has not had any bowel movement for couple of days. The patient appears to be quite confused at this time. REVIEW OF SYSTEMS: Unobtainable. MEDICATIONS: Reviewed as per MAR. She is still on intravenous metronidazole as well as ciprofloxacin. She is on other medication. PHYSICAL EXAMINATION: VITAL SIGNS: Temperature 98.1, pulse 97, respirations 23, blood pressure 138/73, oxygen saturation 97% on room air. GENERAL: Not in any acute distress. Oral mucosa is moist. Anicteric sclerae. ABDOMEN: Soft. No palpable right upper quadrant tenderness. No mass or hernia. Positive bowel sounds. LABORATORY DATA: WBC has come down to 5.23, it is normal, hemoglobin 10.9, hematocrit 32.3, MCV 87.3, platelet count 175. Sodium 130, potassium 3.1, chloride 98, bicarb 24, BUN 5, creatinine 0.47. Liver enzymes normal. IMPRESSION: 1. The right upper quadrant pain has resolved, leukocytosis normalized. 2. Constipation. PLAN: Bowel regimen for constipation. Continue famotidine for dyspepsia. I do not suspect any GI infection. Therefore, antibiotics can be discontinued from GI standpoint. Blade Colorado MD SA/OLI /[id number]
[2018-12-16] VITALS (8 sets, daily range): BP systolic 125–144; BP diastolic 68–81
[2018-12-16] MEDS: ALBUTEROL/IPRATROPIUM 3 ML NEB NEB SCH ×4 (01:00→20:30)
[2018-12-16] MEDS: LORAZEPAM INJ 2 MG/ML VIAL IV PRN (04:46)
[2018-12-16 06:25] LABS: ALANINE AMINOTRANSFERASE 16 IU/L (0-55); ALBUMIN 2.5 g/dL (3.5-5.0); ALBUMIN/GLOBULIN RATIO 1.3 (0.8-2.0); ALKALINE PHOSPHATASE 91 IU/L (40-150); BLOOD UREA NITROGEN < 5 mg/dL (7-26); CALCIUM 8.6 mg/dL (8.4-10.2); CARBON DIOXIDE 24 mmol/L (22-29); CHLORIDE 97 mmol/L (98-107); CREATININE, SERUM 0.48 mg/dL (0.57-1.11); EST GLOMERULAR FILTRATION RATE > 60 ML/MIN (60-); GLUCOSE 92 mg/dL (74-118); SODIUM 129 mmol/L (136-145)
[2018-12-16 06:40] LABS: BUN/CREATININE RATIO 10 (6-25)
[2018-12-16] MEDS: METRONIDAZOLE 500MG/NS 100ML 100 ML IV SCH ×3 (06:46→21:22)
[2018-12-16] MEDS: LEVOTHYROXINE SODIUM 112 MCG TAB PO SCH (06:46)
[2018-12-16] MEDS: LEVOTHYROXINE SODIUM 25 MCG TABLET PO SCH (06:46)
[2018-12-16 06:50] LABS: MAGNESIUM 1.3 MG/DL (1.3-2.1)
--- NOTE | 2018-12-16 07:19 | NUR ---
Notified dr. Hawk patient appears SOB, labored breathing, he said he is aware from making rounds this am. Pulmonary consult obtained, will get CXR
[2018-12-16] MEDS: ACETAMINOPHEN 325 MG TAB PO PRN ×2 (07:28→19:57)
[2018-12-16] MEDS: SALMETEROL/FLUTICASONE 100/50 INH SCH ×2 (07:30→20:30)
--- NOTE | 2018-12-16 07:50 | Progress Note ---
DATE: SUBJECTIVE: The patient is a 68-year-old female, who comes in with abdominal pain. The patient has been started on antibiotics. The patient is currently having some COPD exacerbation with shortness of breath and some wheezing. OBJECTIVE: VITAL SIGNS: Temperature is 97.8, pulse of 97, blood pressure of 125/70, pulse oximetry of 99%. HEENT: Normocephalic, atraumatic. Pupils are reactive to light and accommodation. CVS: S1, S2 normal. Regular rate and rhythm. LUNGS: Decreased air entry into all lung fuentes. ABDOMEN: Nontender, nondistended. EXTREMITIES: Trace edema. MEDICATIONS: The patient on levothyroxine, metronidazole, lorazepam as needed, ciprofloxacin, amlodipine, theophylline, enoxaparin for DVT prophylaxis, clopidogrel, guaifenesin, and ipratropium. LABORATORY VALUES: Chemistries today show a sodium of 129, potassium 3.0, BUN of less than 5, creatinine 0.48 with good creatinine function. ASSESSMENT: 1. Right upper quadrant pain. Probably infectious. 2. Leukocytosis, which has resolved. 3. Chronic obstructive pulmonary disease exacerbation. 4. History of depression, chronic cough. 5. Electrolyte abnormalities. PLAN: Continue the repletion of sodium, potassium and magnesium. SNF has been ordered. The patient also will need albuterol and Atrovent treatments and possible steroids. Consult with Dr. Gonzalez will also be done. Further recommendation per clinical course. We will continue to monitor the patient. I had a long discussion with the family about the guarded prognosis of the patient. The patient's power of assembler metal building is her daughter. We will continue monitoring it. Further recommendation per clinical course. MD MARIMAR Portillo/MODL /[id number]
[2018-12-16] MEDS ORDERED: POTASSIUM CHLORIDE 20 MEQ TAB CR PO ONE (08:00)
[2018-12-16] MEDS ORDERED: MAGNESIUM SULF 1GRAM/DEXTROSE 100 ML IV ONE (08:00)
--- NOTE | 2018-12-16 08:24 | Diagnostic Imaging Report ---
EXAM: CHEST SINGLE (PORTABLE), AP Portable DATE: 12/16/2018 Time stamp on exam: 8:08 AM INDICATION: Dehydration COMPARISON: 12/12/2018 FINDINGS: LINES/TUBES: Left-sided PICC again noted with its tip at the cavoatrial junction. LUNGS: Little change in the pulmonary vascular congestion. PLEURA: No effusions or pneumothorax. HEART AND MEDIASTINUM: Normal size and contour. BONES AND SOFT TISSUES: No acute findings. IMPRESSION: Pulmonary vascular congestion. Signed by: Dr. Giorgio Chavarria DO on 12/16/2018 8:21 AM
[2018-12-16] MEDS: DOCUSATE SODIUM 100 MG CAP PO SCH ×2 (08:45→17:23)
[2018-12-16] MEDS: FAMOTIDINE 20 MG TAB PO SCH ×2 (08:45→17:23)
[2018-12-16] MEDS: DULOXETINE HCL 30 MG DELAYED RELEASE PO SCH (08:45)
[2018-12-16] MEDS: CLOPIDOGREL BISULFATE 75 MG TAB PO SCH (08:45)
[2018-12-16] MEDS: ENOXAPARIN SOD INJ 40 MG/0.4 ML SYR SC SCH (08:45)
[2018-12-16] MEDS: METOPROLOL TARTRATE 25 MG TAB PO SCH ×2 (08:45→17:23)
[2018-12-16] MEDS: AMLODIPINE BESYLATE 5 MG TAB PO SCH (08:45)
--- NOTE | 2018-12-16 08:45 | NUR ---
Notified Dr. Hawk of CXR results and that patient was only able to tolerate 20 meq of the PO potassium before becoming unable to swallow any more and spitting back up. New orders received.
[2018-12-16] MEDS ORDERED: POTASSIUM CHLORIDE 20MEQ/100ML 200 ML IV ONE (09:00)
[2018-12-16] MEDS ORDERED: FUROSEMIDE INJ 10 MG/ML 4 ML VIAL IV ONE (09:30)
[2018-12-16] MEDS: LEVALBUTEROL HCL SOLN NEBU 1.25 MG/3 ML NEB INH SCH ×2 (13:00→19:00)
[2018-12-16] MEDS ORDERED: FUROSEMIDE INJ 10 MG/ML 2 ML VIAL IV ONE (13:00)
[2018-12-16] MEDS ORDERED: SODIUM CHLORIDE 0.9% 250ML 250 ML ONE (13:39)
[2018-12-16] MEDS: METHYLPREDNISOLONE SOD SUCC 40 MG/ML VIAL 1ML IV SCH ×2 (13:42→21:22)
[2018-12-16] MEDS: PROMETHAZINE 12.5MG/ NACL 0.9% 12.5 MG/50 ML BAG IV PRN (13:42)
[2018-12-16] MEDS: CEFEPIME 1GM/NS 0.9% 50 ML 50 ML IV SCH ×2 (14:00→23:53)
--- NOTE | 2018-12-16 14:56 | Consultation ---
DATE OF CONSULTATION: Pulmonary Consultation REASON FOR CONSULT: Shortness of breath. HISTORY OF PRESENT ILLNESS: Ms. Gonzalez is a 68-year-old female, regular patient of Dr. Adam Gonzalez. The patient has COPD. The patient was admitted for intra-abdominal infection and was treated with Cipro, Flagyl, last night developed worsening shortness of breath and she was moved from [facility] to second floor. She denies any complaints of chest pain. She reports that she is having worsening shortness of breath. She has COPD and is on home oxygen; however, she is not very compliant with home oxygen. She has anxiety as well. REVIEW OF SYSTEMS: GENERAL: Denies any fever or chills. HEAD: Denies any head trauma. ENT: Denies any earache. CVS: Denies any chest pain. RESPIRATORY: Shortness of breath. The rest of the review of systems are negative except as in HPI. PAST MEDICAL HISTORY: Peripheral arterial disease, COPD, rheumatoid arthritis, hypertension. FAMILY AND SOCIAL HISTORY: She smoked for 50 years, quit five years ago, one pack per day. She denies any alcohol use. She lives at home by herself. PHYSICAL EXAMINATION: VITAL SIGNS: Temperature 97.3, pulse of 107, blood pressure 139/73. HEENT: Head is atraumatic, normocephalic. NECK: Supple. CHEST: Markedly reduced air entry bilaterally. HEART: S1, S2 audible. ABDOMEN: Soft, nontender. EXTREMITIES: No pedal edema. NEUROLOGIC: Awake and alert. LABORATORY DATA: Sodium 129, potassium 3.0, chloride 97, BUN less than 5, creatinine 0.48. White count of 5.23, hemoglobin 10.9, platelets 175. Chest x-ray, I have reviewed the images, it is showing some congestion. ASSESSMENT: Ms. Gonzalez is a 68-year-old female. She was initially admitted for abdominal pain. She has severe COPD, last night became worsening shortness of breath, was on IV fluids. Differential has fluid overload versus new pneumonia versus chronic obstructive pulmonary disease exacerbation. Chest x-ray is not showing any clear-cut evidence of pneumonia. The patient has CT chest done in May of 2018 and the report is in the office which is showing small nodules and emphysema. RECOMMENDATIONS: 1. CT chest without contrast. 2. Start the patient on Lasix 40 mg IV daily for two doses. The patient received one dose last night. 3. IV Solu-Medrol. 4. Xopenex nebs. 5. Discontinue Cipro. Start the patient on cefepime. Continue the patient on Flagyl. Further recommendation after reviewing CT of the chest. Thank you for this consult. MD ARELI Mascorro/OLI /[id number]
--- NOTE | 2018-12-16 15:44 | NUR ---
PT ACCEPTED TO [facility] [address] UNDER DR HERRERA. COMPLETED RTF AND GAVE TO NURSE.
--- NOTE | 2018-12-16 15:45 | NUR ---
Patient has a room ready at [facility] facility per case management. Paged Dr. Hawk to let him know. Waiting bond writer back.
--- NOTE | 2018-12-16 16:12 | NUR ---
Per Dr. Hawk do not transfer patient to SNF at this time.
--- NOTE | 2018-12-16 16:50 | Diagnostic Imaging Report ---
EXAM: CT Chest WITHOUT contrast 12/16/2018 12:02 PM INDICATION: ^shortness of breath ^[id number] ^[id number] COMPARISON: Chest x-ray, 12/16/2018; chest CT, 12/11/2018, 12/09/2013 TECHNIQUE: Chest was scanned utilizing a multidetector helical scanner from the lung apex through the level of the adrenal glands without administration of IV contrast. Absence of intravenous contrast decreases sensitivity for detection of lymphadenopathy and vascular pathology. Coronal and sagittal reformations were obtained. Routine protocol was performed. Dose modulation, iterative reconstruction, and/or weight based adjustment of the mA/kV was utilized to reduce the radiation dose to as low as reasonably achievable. IV CONTRAST: None RADIATION DOSE: Total DLP: 436.50 mGy*cm Estimated effective dose: (DLP x 0.014 x size factor) mSv COMPLICATIONS: None FINDINGS: LINES/ TUBES: None. LUNGS AND AIRWAYS: There is moderate centrilobular emphysema. There is an 8 mm nodule adjacent to the right hilum (series 2, image 41). There is a 3 mm right upper lobe nodule (image 51) and right lower lobe 5 mm nodule (image 60). In the left lower lobe there is a 3 mm nodule (image 65). Trachea and main bronchi are clear. PLEURA: The pleural spaces are clear. HEART AND MEDIASTINUM: No mediastinal, hilar or axillary lymphadenopathy. The heart is normal in size.. There is mild pericardial thickening or trace effusion. The thoracic aorta is atherosclerotic with extensive calcified plaque. There is no dilatation of the thoracic aorta or main pulmonary artery. Coronary artery calcifications are seen. UPPER ABDOMEN: Included portion of the unenhanced liver, spleen, pancreas, adrenals and kidneys show no focal abnormality. BONES: No acute or suspicious bony lesions. There are compressions of the T7 and T8 vertebral bodies with vertebroplasty cement seen. SOFT TISSUES: Superficial surrounding soft tissue unremarkable. IMPRESSION: 1. Moderate centrilobular emphysema again noted. 2. There is an 8 mm nodule adjacent to the right hilum, and 3 and 5 mm peripheral nodules in the right upper and lower lobes. These are unchanged from the CT of 2013. 3. There are thoracic vertebral compressions with vertebroplasty cement, new since 2013. 4. There is trace pericardial effusion which has developed since 12/11/2018. Signed by: Dr. Pernell Reynoso M.D. on 12/16/2018 4:47 PM
[2018-12-16] MEDS: THEOPHYLLINE 200 MG TABCR PO SCH (17:23)
--- NOTE | 2018-12-16 17:24 | NUR ---
Paged Dr. Cintron regarding CT results. Waiting land economist back
--- NOTE | 2018-12-16 17:36 | NUR ---
Nutrition Screen Note RD Recommendation for Physician: -Continue current diet as ordered -Pt refused oral nutrition supplements. Plan of Care: RD following, monitoring for tolerance and adequacy Nutrition reason for involvement: LOS Primary Diagnose(s): 1. Right upper quadrant pain. Probably infectious. 2. Leukocytosis, which has resolved. 3. Chronic obstructive pulmonary disease exacerbation. PMH: Peripheral arterial disease, COPD, rheumatoid arthritis, hypertension Ht: 63in Wt: 130lb BMI: 23kg/m2 IBW: 115lb RD Assessment: (12/16) Chart reviewed. Labs and meds reviewed. 68yo F, who was admitted for nausea, vomiting, diarrhea, and dehydration. Visited pt in the room. Pt reported poor appetite. Pt complained of nausea but no vomiting episode today. Pt denied any chewing or swallowing difficulty. RD offered oral nutrition supplements but pt refused. Discussed menu options. Pt didnt want any nutrition intervention at this time. Will continue to monitor and follow. Current Diet: cardiac diet Malnutrition Evaluation (12/16/2018) The patient does not meet criteria for a specified degree of malnutrition at this time. Will re-evaluate at follow-up as appropriate. Energy intake: <50% of estimated energy requirements for >5 days Weight loss: Pt reported some weight loss but didnt know whats her UBW at. Fat loss: None Muscle loss: None Supporting Evidence: Fluid accumulation: Moderate on Lasix Functional Status: no changes Diet Education Needs Assessment: Diet education not indicated. Nutrition Care Level: low Signed: Jess Contreras, , RD, LD
--- NOTE | 2018-12-16 19:00 | NUR ---
Rounding done and report received. Patient laying in bed awake & alert. Respirations even & unlabored, no distress noted. Patient denies any issues or needs at this time. Call light within reach, side rails x2 raised, bed alarm in place.
--- NOTE | 2018-12-16 23:04 | Progress Note ---
DATE: 12/16/2018 SUBJECTIVE: The patient reports no abdominal pain. Tolerating oral diet. She has had a very small bowel movement today. The patient had developed acute shortness of breath likely due to underlying pulmonary edema and COPD. The patient is being managed by Pulmonary service. REVIEW OF SYSTEMS: GENERAL: No fever or chills. CVS: No chest pain or palpitation. RESPIRATORY: Shortness of breath has improved. No cough or expectoration. MEDICATIONS: Reviewed as per SEP. She is still on intravenous metronidazole as well as cefepime along with other medication. PHYSICAL EXAMINATION: VITAL SIGNS: Temperature 96.2, pulse 96, respirations 18, blood pressure 136/81 to 144/69, oxygen saturation 99% on 3 L of nasal cannula. GENERAL: Not in any acute distress. HEENT: Oral mucosa is moist. ABDOMEN: Soft, nondistended, nontender. No palpable mass or hernia. Positive bowel sounds. LABS: Sodium has gone down to 129, potassium 3.0, chloride 97, bicarb 24, BUN less than 0.5, creatinine 0.48. Liver enzymes showed total bilirubin 0.4, AST 23, ALT 16, alkaline phosphatase 16. Noncontrast CT chest showed: 1. Moderate centrilobular emphysema. 2. An 8 mm nodule adjacent to the right hilum. 3. Thoracic vertebral compression fracture, status post vertebroplasty. 4. Pericardial effusion. IMPRESSION/ PLAN : No evidence of any abdominal sepsis. Antibiotic can be discontinued from GI standpoint. However, antibiotic required for other infection then that can be continued. The patient's white count has normalized. On daily bowel regimen. Blade Colorado MD SA/OLI /[id number] CAROLINE
[2018-12-16] MEDS: ONDANSETRON HCL 4 MG ORAL DISINTEGRATING TAB PO PRN (23:56)
[2018-12-17] VITALS: BP_SYST 124; BP_SYST 137; BP_DIAS 67; BP_DIAS 73
[2018-12-17] MEDS: LEVALBUTEROL HCL SOLN NEBU 1.25 MG/3 ML NEB INH SCH ×3 (01:00→13:00)
[2018-12-17] MEDS: ALBUTEROL/IPRATROPIUM 3 ML NEB NEB SCH ×3 (01:30→13:00)
[2018-12-17 02:25] VITALS: BP 137/67
[2018-12-17 05:19] LABS: ALANINE AMINOTRANSFERASE 17 IU/L (0-55); ALBUMIN 2.7 g/dL (3.5-5.0); ALBUMIN/GLOBULIN RATIO 1.3 (0.8-2.0); ALKALINE PHOSPHATASE 91 IU/L (40-150); ANION GAP 16.5 mmol/L (8-16); BLOOD UREA NITROGEN 5 mg/dL (7-26); BUN/CREATININE RATIO 9 (6-25); CALCIUM 9.1 mg/dL (8.4-10.2); CARBON DIOXIDE 22 mmol/L (22-29); CHLORIDE 95 mmol/L (98-107); CREATININE, SERUM 0.53 mg/dL (0.57-1.11); EST GLOMERULAR FILTRATION RATE > 60 ML/MIN (60-); GLUCOSE 117 mg/dL (74-118); MAGNESIUM 1.2 MG/DL (1.3-2.1); POTASSIUM 3.5 mmol/L (3.5-5.1); SODIUM 130 mmol/L (136-145)
[2018-12-17] MEDS: METHYLPREDNISOLONE SOD SUCC 40 MG/ML VIAL 1ML IV SCH ×2 (05:46→14:22)
[2018-12-17] MEDS: LEVOTHYROXINE SODIUM 25 MCG TABLET PO SCH (05:46)
[2018-12-17] MEDS: METRONIDAZOLE 500MG/NS 100ML 100 ML IV SCH ×2 (05:46→14:22)
[2018-12-17] MEDS: LEVOTHYROXINE SODIUM 112 MCG TAB PO SCH (05:46)
[2018-12-17] MEDS ORDERED: MAGNESIUM SULFATE 2GM/50ML 50 ML IV NR (07:00)
[2018-12-17] MEDS ORDERED: POTASSIUM CHLORIDE 20 MEQ TAB CR PO NR (07:00)
--- NOTE | 2018-12-17 07:00 | NUR ---
BEDSIDE SHIFT REPORT RECEIVED FROM MARGO GARCIA. PT DENIES NEEDS AT THIS TIME.
[2018-12-17] MEDS: ONDANSETRON HCL 4 MG ORAL DISINTEGRATING TAB PO PRN (07:08)
[2018-12-17] MEDS: ACETAMINOPHEN 325 MG TAB PO PRN ×2 (07:08→12:32)
[2018-12-17] MEDS: SALMETEROL/FLUTICASONE 100/50 INH SCH ×2 (07:18→18:15)
--- NOTE | 2018-12-17 07:21 | Progress Note ---
DATE: SUBJECTIVE: This patient is a 68-year-old female, who comes in with COPD exacerbation with right upper quadrant pain, possible enteritis, and infection. The patient is currently stable. Yesterday, Solu-Medrol was started for COPD exacerbation and also continue on antibiotics with Cipro and Flagyl. The patient is also started on Xopenex, switched from albuterol. Currently, no complaints, feeling better, eating about 50% of her food. Headache which is persistent, has been better with Tylenol. MEDICATIONS: Albuterol, ipratropium, famotidine, Limbitrol, Solu-Medrol, Flagyl, and cefepime. OBJECTIVE: VITAL SIGNS: On examination, vital signs, temperature is 97.3, has been afebrile, pulse of 99, respirations of 18, and pulse oximetry of 96 percent, 2 L on nasal cannula. HEENT: Normocephalic, atraumatic. Pupils are reactive to light and accommodation. CVS: S1, S2 normal. Regular rate and rhythm. LUNGS: Decreased air entry into all fuentes. Positive for crackles at lung bases. ABDOMEN: Nontender and nondistended. EXTREMITIES: No clubbing, no cyanosis, and no edema. LABORATORY VALUES: Chemistries done today showed sodium 130, potassium 3.5, BUN of 5, creatinine 0.53, and magnesium is 1.2. ASSESSMENT: 1. Chronic obstructive pulmonary disease exacerbation. 2. Right upper quadrant pain. Continue antibiotics. 3. Leukocytosis, better. 4. Chronic obstructive pulmonary disorder. Continue with Solu-Medrol. 5. Electrolyte abnormalities. We will replace the potassium right now. 6. History of depression and history of chronic cough. PLAN: Further recommendation per clinical course. The patient can go to SNF today if it is okay with consultants. The patient can follow up with Pulmonary and GI as an outpatient basis. Further recommendation per clinical course. MD MARIMAR Portillo/MODL /[id number]
[2018-12-17 08:00] VITALS: BP 140/85
[2018-12-17 09:00] VITALS: BP 140/85
[2018-12-17] MEDS: DULOXETINE HCL 30 MG DELAYED RELEASE PO SCH (09:03)
[2018-12-17] MEDS: DOCUSATE SODIUM 100 MG CAP PO SCH (09:03)
[2018-12-17] MEDS: CLOPIDOGREL BISULFATE 75 MG TAB PO SCH (09:04)
[2018-12-17] MEDS: AMLODIPINE BESYLATE 5 MG TAB PO SCH (09:04)
[2018-12-17] MEDS: ENOXAPARIN SOD INJ 40 MG/0.4 ML SYR SC SCH (09:04)
[2018-12-17] MEDS: FAMOTIDINE 20 MG TAB PO SCH ×2 (09:04→18:14)
[2018-12-17] MEDS: THEOPHYLLINE 200 MG TABCR PO SCH (09:04)
[2018-12-17] MEDS: METOPROLOL TARTRATE 25 MG TAB PO SCH ×2 (09:04→18:14)
--- NOTE | 2018-12-17 10:00 | NUR ---
PICC LINE DRESSING CHANGED AT THIS TIME. PT TOLERATED. PT DENIES FURTHER NEEDS AT THIS TIME.
--- NOTE | 2018-12-17 10:53 | NUR ---
CM TO BEDSIDE TO DISCUSS IMM AND PATIENT'S RIGHTS. ANSWERED QUESTIONS - PATIENT/FAMILY VERBALIZED UNDERSTANDING OF DISCUSSION. LEFT COPY AT BEDSIDE AND SIGNED COPY TO CHART. PATIENT FOR TRANSFER TO [facility].
[2018-12-17 12:08] VITALS: BP 140/67
--- NOTE | 2018-12-17 12:27 | Progress Note ---
DATE: GI Progress Report SUBJECTIVE: The patient reports significant improvement in shortness of breath. Tolerating oral diet. Has not had any bowel movement for last 2 to 3 days. She is on Dulcolax twice daily. REVIEW OF SYSTEMS: GENERAL: No fever or chills. CVS: No chest pain or palpitation. RESPIRATORY: No cough or expectoration. MEDICATIONS: Reviewed as per SEP. She is on intravenous metronidazole as well as cefepime along with Solu-Medrol, and other medications. PHYSICAL EXAMINATION: VITAL SIGNS: Temperature 96.9, pulse ranging from 90 to 104, respirations 18, blood pressure 140/85, and oxygen saturation 100% on 2 L of nasal cannula. GENERAL: Not in any acute distress. HEENT: Oral mucosa is moist. ABDOMEN: Soft, nondistended, and nontender. No mass or hernia. Positive bowel sounds. LABORATORY DATA: Today, sodium went up to 130 from 129, potassium 3.5, chloride 95, bicarb 22, BUN 5, and creatinine 0.53. Liver enzymes normal. ASSESSMENT: No evidence of any abdominal sepsis. Antibiotic can be discontinued from GI standpoint. We will add MiraLAX to current bowel regimen. Watch for bowel movement. The patient can be discharged to SNF from GI standpoint. The patient also has my business card. She will see me in my office in 2 to 4 weeks for continuity of GI care. Blade Colorado MD SA/OLI /[id number]
[2018-12-17] MEDS: CEFEPIME 1GM/NS 0.9% 50 ML 50 ML IV SCH (12:32)
--- NOTE | 2018-12-17 16:19 | NUR ---
DR. ADRIAN AND DR. MILLER HAD NOTED PT OK TO TRANSFER TO [facility] [place].
[2018-12-17 16:31] VITALS: BP 144/67
--- NOTE | 2018-12-17 17:45 | NUR ---
PICC LINE DC'D. TIP INTACT, BLEEDING STOPPED, PRESSURE DRESSING APPLIE. PT TOLERATED.
[2018-12-18] MEDS ORDERED: PREDNISONE 20 MG TAB PO SCH (09:00)
[2018-12-18] MEDS ORDERED: POLYETHYLENE GLYCOL 3350 17 GM PACK PO SCH (09:00)
== END 2018-12-17 19:15 | DRG 872 ==
LOC: ER 10:40 → ERHOLD 11:51 → IMCU 14:32 → MED/SURG2 12-15 22:43
PROVIDERS: ADMIT Family Medicine; ATTEND Family Medicine
PROC: 02HV33Z Insertion of Infusion Device into Superior Vena Cava, Percutaneous Approach (ICD-10-PCS; principal; 2018-12-12)
DX: A41.9 Sepsis, unspecified organism (principal); J44.1 Chronic obstructive pulmonary disease with (acute) exacerbation; I47.2 Ventricular tachycardia; E87.1 Hypo-osmolality and hyponatremia; K80.20 Calculus of gallbladder without cholecystitis without obstruction; F32.9 Major depressive disorder, single episode, unspecified; D72.829 Elevated white blood cell count, unspecified; J45.909 Unspecified asthma, uncomplicated; K76.0 Fatty (change of) liver, not elsewhere classified; I25.10 Atherosclerotic heart disease of native coronary artery without angina pectoris; M48.54XD Collapsed vertebra, not elsewhere classified, thoracic region, subsequent encounter for fracture with routine healing; E87.6 Hypokalemia; E86.0 Dehydration; K52.9 Noninfective gastroenteritis and colitis, unspecified; E78.5 Hyperlipidemia, unspecified
CPT/HCPCS: 36415; 36569; 71045; 71250; 71260; 74177; 76700; 80048; 80053; 81001; 82550; 82553; 83605; 83690; 83735; 84100; 84443; 84484; 85025; 85379; 85610; 85730; 87086; 93005; 94640; 94664; 96360; 97139; 99285; J0692; J1650; J1940; J2060; J2405; J2550; J2920; J3475; J3480; J7030; J7050; Q9967

== ENCOUNTER 2018-12-27 17:21 | Inpatient (IN) | payer MEDICARE ==
[~2018-12-27] VITALS: Ht 160 cm; Wt 60.0 kg
[~2018-12-27 17:21] MED LIST changes: +ACETAMINOPHEN325 M1 PO; +ADVAIR 100-501 EACH; +ALBUTEROL2.5 MG/0.5 IH; +ALENDRONATE SOD70 MG PO; +ATROVENT HFA12.9 GM; +BENADRYL25 M1 PO; +COLACE100 MG PO; +CYMBALTA30 MG; +ENOXAPARIN40 MG/0.4 SC; +ETOMIDATE 40 MG/ 20ML VIAL IV ONE; +HYDROXYZINE HCL25 MG PO; +IMODIUM2 MG PO; +IPRATROPIU0.2 MG/1 M NEB; +MELATONIN3 MG PO; +METHOCARBAMOL750 MG PO; +NORVASC5 MG PO; +PEPCID20 MG PO; +PLAVIX75 MG PO; +POTASSIUM CHLO20 ME1 PO; +SODIUM CHLORIDE1 GM PO; +SUCCINYLCHOLINE CHLORIDE 20 MG/ML 10ML VIAL ONE; +SYNTHROID125 MCG PO; +THEOPHYLLINE A200 MG PO; +ULTRAM50 MG PO; +ZIAC 2.5-6.251 EACH PO; +ZOFRAN4 MG PO; +megace PO
--- OUTSIDE RECORDS SUMMARY | 2018-12-27 17:29 | XMS REPORT | Continuity of Care Document ---
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 Active Problem 12/22/2018 Silvestre Corteser Other manager terminal drug therapy Active Problem 12/22/2018 Silvestre Corteser Age-related osteoporosis without current pathological fracture Active Problem 12/22/2018 Silvestre Corteser Hoarseness Active Problem 12/22/2018 Silvestre Corteser Lumbago Active Problem 12/22/2018 Silvestre Corteser Cervicalgia Active Problem 12/22/2018 Silvestre Corteser Neck pain Active Problem 12/22/2018 Silvestre Zaidi Primary osteoarthritis Active Problem 12/22/2018 Silvestre Corteser Vitamin D deficiency Active Problem 12/22/2018 Silvestre Corteser Midline low back pain with sciatica, sciatica laterality unspecified Active Problem 12/22/2018 Silvestre Corteser Fibromyalgia Active Problem 12/22/2018 Silvestre Zaidi Drug-induced constipation Active Diagnosis 01/17/2017 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/2018 Silvestre Zaidi snf prescription opiate use Active Diagnosis 10/06/2017 Silvestre Zaidi Rheumatoid arthritis Active Problem 09/08/2015 Silvestre Zaidi Polyarthritis, multiple sites Active Problem 09/08/2015 Silvestre Zaidi Osteoporosis, postmenopausal Active Problem 09/08/2015 Silvestre Zaidi Fracture in accidental fall, cause unspecified Active Problem 04/19/2016 Silvestre Zaidi Pain, neck Active Problem 09/08/2015 Silvestre Zaidi Cough Active Problem 09/08/2015 Silvestre Zaidi Pain, back Active Problem 09/08/2015 Silvestre Zaidi Pain in joint, lower leg Active Diagnosis [...] Vitamin D (Ergocalciferol) 1 capsule Orally Active 41241 UNIT Orally once a week [place] 09/23/2018 Silvestre Zaidi Hydroxychloroquine Sulfate 1 tablet with food or milk Orally Active 200 MG Orally twice a day [place] 09/23/2018 Silvestre Zaidi Reclast as directed Intravenous Active 5 MG/100ML Intravenous [place] 09/07/2018 Silvestre Zaidi Vitamin D (Ergocalciferol) 1 capsule Orally Active 27420 UNIT Orally once a week Zaidi 07/28/2018 [...] 350 MG Orally Four times a day Devol 11/30/2017 Silvestre Zaidi Hydrocodone-Acetaminophen 2 tablets Orally [...] Active 60 MG/ML Subcutaneous q 6 months [place] 07/01/2017 Silvestre Zaidi Carisoprodol 1 tablet as needed Orally Active 350 MG Orally Four times a day [place] 06/03/2017 Silvetsre Zaidi Hydroxychloroquine Sulfate 1 tablet with food or milk Orally Active 200 Orally twice a day [place] 02/27/2017 Silvestre Zaidi Hydrocodone-Acetaminophen 2 tablets Orally Active 7.5-325 MG Orally TID Zaidi 02/12/2017 Silvestre Zaidi Vitamin D (Ergocalciferol) 1 capsule Orally Active 63358 UNIT Orally once a week Zaidi 01/15/2017 [...] Orally Active 4mg Orally once a day Zaidi 07/01/2016 Silvestre Zaidi Vitamin D (Ergocalciferol) 1 capsule Orally Active 32205 UNIT Orally Once a week Zaidi 05/23/2016 [...] times a day Zaidi 03/05/2016 Silvestre Zaidi [place] 1 to 2 tablet as needed Orally Active 10-325 MG Orally TID prn Zaidi 02/07/2016 Silvestre Zaidi Hydrocodone-Acetaminophen 1 tablet as needed Orally Active 10- 325 MG Orally every [address] [facility] 12/14/2015 Silvestreelissa Zaidi Carisoprodol 1 tablet as needed Orally Active 350 MG Orally Four times a day [place] 11/09/2015 Silvestre Zaidi Drisdol 1 capsule Orally Active 59395 UNIT Orally q week Zaidi 11/05/2015 Silvestre Zaidi [place] 1 to 2 tablet as needed Orally [...] Active 137 MCG Orally Once a day [place] Silvestre Corteser Zantac 1 tablet Orally Active 150 MG Orally Once a day [place] Silvestre Corteser Prolia as directed Subcutaneous Active 60 MG/ML Subcutaneous once every 6 months [place] [facility] Hydroxychloroquine Sulfate TAKE 1 TABLET BY MOUTH TWICE DAILY WITH FOOD OR MILK NA Active 200 [place] Silvestre Zaidi ibuprofen 3 Tablet Oral Active 200 mg Oral As needed [place] Silvestre Zaidi Ziac 1 tablet Orally Active 5-6.25 MG Orally at bedtime [place] [facility] Amlodipine Besy-Benazepril HCl 1 capsule Orally Active Orally Once a day [place] Silvestre Corteser PredniSONE 1 tablet with food or milk Orally Active 5 Orally as needed [place] Silvestre Corteser Folic Acid 1 tablet Orally Active 1 MG Orally Once a day [place] Silvestre Zaidi Albuterol as needed Inhalation Active 90 mcg Inhalation Once a day [facility] Carisoprodol 1 tablet as needed Orally Active 350 MG Orally Four times a day [place] Silvestre Zaidi Vitamin D (Ergocalciferol) 1 capsule Orally Active 13765 UNIT Orally once a week [place] Silvestre Corteser Cymbalta 1 capsule Orally Active 60 MG Orally Once a day [place] Silvestre Zaidi Hydrocodone-Acetaminophen 2 tablets Orally Active 7.5-325 MG Orally TID [place] Silvestre Corteser Movantik 1 tablet in the morning Orally Active 25 MG Orally Once a day [place] Silvestre Zaidi Aspirin 1 tablet Orally Active 81 MG Orally Once a day [facility] Clopidogrel Bisulfate 1 tablet Orally Active 75 [facility] Methotrexate 0.4 Subcutaneous Active 25mg/1mL Subcutaneous Once a week [place] [facility] Carisop[facility]ol 1 tablet as needed Orally Active 350 MG Orally TID [facility] Clopidogrel Bisulfate 1 tablet Orally Active 75 MG [facility] Ziac 1 tablet Orally Active 5-6.25 MG Orally Once a day [place] [facility] Amlodipine Besy-Benazepril HCl as directed Orally Active 2.5- 10 MG Orally [place] [facility] Zantac 1 tablet Orally Active 150 MG Orally Once a day [facility] Hydrocodone-Acetaminophen 2 tablets Orally Active 7.5-325 MG Orally TID [place] Silvestre Zaidi Vitamin D (Ergocalciferol) 1 capsule Orally Active 32178 UNIT Orally once a week [place] Silvestre Zaidi Cymbalta 1 capsule Orally Active 60 MG Orally Once a day [place] Silvestre Zaidi Bentyl 1 tablet Orally Active 20 MG Orally Four times a day as needed [place] Silvestre Zaidi Prolia as directed Subcutaneous Active 60 MG/ML Subcutaneous [place] Silvestre Zaidi Advair HFA 1 puffs Inhalation Active Inhalation Once a day [place] [facility] Bevespi Aerosphere 2 puffs Inhalation Active 9-4.8 MCG/ACT Inhalation Twice a day [place] Silvestre Zaidi Levothyroxine Sodium 1 tablet on an empty stomach in the morning Orally Active 137 MCG Orally Once a day [place] Silvestre Zaidi Aspirin 1 tablet Orally Active 81 MG Orally Once a day [place] Silvestre Zaidi Bevespi Aerosphere 2 puffs Inhalation Active 9-4.8 MCG/ACT Inhalation Twice a day [place] Silvestre Zaidi Paulo-24 as directed Orally Active 200 MG Orally [place] Silvestre Zaidi ibuprofen 3 Tablet Oral Active 200 mg Oral As needed [place] Silvestre Zaidi Lisinopril 1 tablet Orally Active 40 MG Orally Once a day [place] Silvestre Zaidi Albuterol as needed Inhalation Active 90 mcg Inhalation Once a day [place] Silvestre Zaidi Spiriva HandiHaler 1 capsule Inhalation Active Inhalation Once a day [place] Silvestre Zaidi [place] 1 tablet as needed Orally Active 7.5-325 MG Orally every 6 hrs [place] Silvestre Zaidi Ergocalciferol 1 capsule Orally Active 82830 UNIT Orally Once a week [place] Silvestre Zaidi PredniSONE 1 tablet with food or milk Orally Active 5 MG Orally Once a day [place] Silvestre Zaidi Soma 1 tablet as needed Orally Active 350 MG Orally [place] Silvestre Zaidi Hydroxychloroquine Sulfate 2 tablet with food or milk Orally Active 200 MG Orally bid [place] Silvestre Zaidi Leflunomide 1 tablet Orally Active 10 MG Orally Once a day [place] Silvestre Zaidi Leflunomide 1 tablet Orally Active 20 MG Orally Once a day [place] Silvestre Zaidi Hyoscyamine as directed Orally Active 0.15 MG Orally [place] Silvestre Zaidi Hydrocodone-Acetaminophen 1 tablet as needed Orally Active 10- 325 MG Orally every 6 hrs [place] Silvestre Corteser Carisoprodol TAKE 1 TABLET BY MOUTH 4 TIMES A DAY NEEDED NA Active 350 MG [place] Silvestre Zaidi Lexapro 1 tablet Orally Active 5 MG Orally Once a day [place] Silvestre Corteser Ibuprofen 1 tablet with food or milk as needed Orally Active 200 MG Orally Three times a day [place] Silvestre Corteser Aspirin 1 tablet Orally Active 81 MG Orally Once a day [place] Silvestre Corteser Albuterol Sulfate 2 puffs as needed Inhalation Active 108 (90 Base) MCG/ACT Inhalation every 6 hrs [place] Silvestre Corteser Levothyroxine Sodium 1 tablet on an empty stomach in the morning Orally Active 137 MCG Orally Once a day [place] Silvestre Zaidi Cymbalta 1 capsule Orally Active 60 MG Orally Once a day [place] Silvestre Corteser Zantac 1 tablet at bedtime Orally Active 150 MG Orally Once a day [place] Silvestre Corteser Ergocalciferol 1 capsule Orally Active 24871 UNIT Orally Once a week [place] Silvestre Corteser Bentyl 1 tablet Orally Active 20 MG Orally Four times a day [place] Silvestre Corteser Simponi Aria 131.3mg IV Active 2mg/kg IV [place] Silvestre Zaidi Allergies, Adverse Reactions, Alerts Substance Category Reaction Severity Reaction type Status Date Reported Comments Source Morphine Sulfate Adverse Reaction Skin rash Adverse Reaction Active 09/07/2018 Silvestre Dejuan Demerol Adverse Reaction Skin rash and Itching [...] 09/10/2015 Silvestre Zaidi Height 63 09/10/2015 Silvestre Zadii Temperature Oral (F) 97.0 F 09/10/2015 Silvestre [...] Source Collin Zaidi MD 6 wk f/u [id number] 10/03/2014 10/03/2014 Silvestre Zaidi MD 6 wk f/u [id number] 10/03/2014 10/03/2014 Silvestre Zaidi MD 6 wk f/u [id number] 10/03/2014 10/03/2014 Silvestre Zaidi MD 6 wk f/u [id number] 10/03/2014 10/03/2014 Silvestre Zaidi MD 6 wk f/u [id number] 10/03/2014 10/03/2014 Silvestre Zaidi MD 6 wk f/u [id number] 10/03/2014 10/03/2014 Silvestre Zaidi MD 6 wk f/u [id number] 10/03/2014 10/03/2014 Silvestre Zaidi MD 6 wk f/u [id number] 10/03/2014 10/03/2014 Silvestre Zaidi MD 6 wk f/u [id number] 10/03/2014 10/03/2014 Silvestre Zaidi MD 6 wk f/u [id number] 10/03/2014 10/03/2014 Silvestre Zaidi MD 6 wk f/u [id number] 10/03/2014 10/03/2014 Silvestre Zaidi MD 6 wk f/u [id number] 10/03/2014 10/03/2014 Silvestre Zaidi MD 6 wk f/u [id number] 10/03/2014 10/03/2014 Silvestre Zaidi MD 6 wk f/u [id number] 10/03/2014 10/03/2014 Silvestre Zaidi MD 6 wk f/u [id number] 10/03/2014 10/03/2014 Silvestre Zaidi MD 6 wk f/u [id number] 10/03/2014 10/03/2014 Silvestre Zaidi MD 6 wk f/u [id number] 10/03/2014 10/03/2014 Silvestre Zaidi MD 6 wk f/u [id number] 10/03/2014 10/03/2014 Silvestre Zaidi MD 6 wk f/u [id number] 10/03/2014 10/03/2014 Silvestre Zaidi MD 6 wk f/u [id number] 10/03/2014 10/03/2014 Silvestre Zaidi MD 6 wk f/u [id number] 10/03/2014 10/03/2014 Silvestre Zaidi MD 6 wk f/u [id number] 10/03/2014 10/03/2014 Silvestre Zaidi MD 6 wk f/u [id number] 10/03/2014 10/03/2014 Silvestre Zaidi MD 6 wk f/u [id number] 10/03/2014 10/03/2014 Silvestre Zaidi MD 6 wk f/u [id number] 10/03/2014 10/03/2014 Silvestre Zaidi MD 6 wk f/u [id number] 10/03/2014 10/03/2014 Silvestre Zaidi MD 6 wk f/u [id number] 10/03/2014 10/03/2014 Silvestre Zaidi MD 6 wk f/u [id number] 10/03/2014 10/03/2014 Silvestre Zaidi MD 6 wk f/u [id number] 10/03/2014 10/03/2014 Silvestre Zaidi MD 6 wk f/u [id number] 10/03/2014 10/03/2014 Silvestre Zaidi MD 6 wk f/u [id number] 10/03/2014 10/03/2014 Silvestre Zaidi MD 6 wk f/u [id number] 10/03/2014 10/03/2014 Silvestre Zaidi MD 6 wk f/u [id number] 10/03/2014 10/03/2014 Silvestre Zaidi MD 6 wk f/u [id number] 10/03/2014 10/03/2014 Silvestre Zaidi MD 6 wk f/u [id number] 10/03/2014 10/03/2014 Silvestre Zaidi MD 6 wk f/u [id number] 10/03/2014 10/03/2014 Silvestre Zaidi MD MRI [id number] 11/03/2014 11/03/2014 Silvestre Zaidi MD MRI [id number] 11/03/2014 11/03/2014 Silvestre Zaidi MD MRI [id number] 11/03/2014 11/03/2014 Silvestre Zaidi MD MRI [id number] 11/03/2014 11/03/2014 Silvestre Zaidi MD MRI [id number] 11/03/2014 11/03/2014 Silvestre Zaidi MD MRI [id number] 11/03/2014 11/03/2014 Silvestre Zaidi MD MRI [id number] 11/03/2014 11/03/2014 Silvestre Zaidi MD MRI [id number] 11/03/2014 11/03/2014 Silvestre Zaidi MD MRI [id number] 11/03/2014 11/03/2014 Sivlestre Zaidi MD MRI [id number] 11/03/2014 11/03/2014 Silvestre Zaidi MD MRI [id number] 11/03/2014 11/03/2014 Silvestre Zaidi MD MRI [id number] 11/03/2014 11/03/2014 Silvestre Zaidi MD MRI [id number] 11/03/2014 11/03/2014 Silvestre Zaidi MD MRI [id number] 11/03/2014 11/03/2014 Silvestre Zaidi MD MRI [id number] 11/03/2014 11/03/2014 Silvestre Zaidi MD MRI [id number] 11/03/2014 11/03/2014 Silvestre Zaidi MD MRI [id number] 11/03/2014 11/03/2014 Silvestre Zaidi MD MRI [id number] 11/03/2014 11/03/2014 Silvestre Zaidi MD MRI [id number] 11/03/2014 11/03/2014 Silvestre Zaidi MD MRI [id number] 11/03/2014 11/03/2014 Silvestre Zaidi MD MRI [id number] 11/03/2014 11/03/2014 Silvestre Zaidi MD DEXA [id number] 11/03/2014 11/03/2014 Silvestre Zaidi MD DEXA [id number] 11/03/2014 11/03/2014 Silvestre Zaidi MD DEXA [id number] 11/03/2014 11/03/2014 Silvestre Zaidi MD DEXA [id number] 11/03/2014 11/03/2014 Silvestre Zaidi MD DEXA [id number] 11/03/2014 11/03/2014 Silvestre Zaidi MD DEXA [id number] 11/03/2014 11/03/2014 Silvestre Zaidi MD DEXA [id number] 11/03/2014 11/03/2014 Silvestre Zaidi MD DEXA [id number] 11/03/2014 11/03/2014 Silvestre Zaidi MD DEXA [id number] 11/03/2014 11/03/2014 Silvestre Zaidi MD DEXA [id number] 11/03/2014 11/03/2014 Silvestre Zaidi MD DEXA [id number] 11/03/2014 11/03/2014 Silvestre Zaidi MD DEXA [id number] 11/03/2014 11/03/2014 Silvestre Zaidi MD DEXA [id number] 11/03/2014 11/03/2014 Silvestre Zaidi MD DEXA [id number] 11/03/2014 11/03/2014 Silvestre Zaidi MD DEXA [id number] 11/03/2014 11/03/2014 Silvestre Zaidi MD DEXA [id number] 11/03/2014 11/03/2014 Silvestre Zaidi MD DEXA [id number] 11/03/2014 11/03/2014 Silvestre Zaidi MD DEXA [id number] 11/03/2014 11/03/2014 Silvestre Zaidi MD DEXA [id number] 11/03/2014 11/03/2014 Silvestre Zaidi MD DEXA [id number] 11/03/2014 11/03/2014 Silvestre Zaidi MD DEXA [id number] 11/03/2014 11/03/2014 Silvestre Zaidi MD MRI [id number] 11/03/2014 11/03/2014 Silvestre Zaidi MD MRI [id number] 11/03/2014 11/03/2014 Silvestre Zaidi MD MRI [id number] 11/03/2014 11/03/2014 Silvestre Zaidi MD MRI [id number] 11/03/2014 11/03/2014 Silvestre Zaidi MD MRI [id number] 11/03/2014 11/03/2014 Silvestre Zaidi MD [facility] [id number] 11/03/2014 11/03/2014 Silvestre Zaidi MD [facility] [id number] 11/03/2014 11/03/2014 Silvestre Zaidi MD MRI [id number] 11/03/2014 11/03/2014 Silvestre Zaidi MD [facility] [id number] 11/03/2014 11/03/2014 Silvestre Zaidi MD [facility] [id number] 11/03/2014 11/03/2014 Silvestre Zaidi MD [facility] [id number] 11/03/2014 11/03/2014 Silvestre Zaidi MD [facility] [id number] 11/03/2014 11/03/2014 Silvestre Zaidi MD [facility] [id number] 11/03/2014 11/03/2014 Silvestre Zaidi MD MRI [id number] 11/03/2014 11/03/2014 Silvestre Zaidi MD MRI [id number] 11/03/2014 11/03/2014 Sil[facility] [id number] 11/03/2014 11/03/2014 Silvestre Zaidi MD DEXA [id number] 11/03/2014 11/03/2014 Silvestre Zaidi MD DEXA [id number] 11/03/2014 11/03/2014 Silvestre Zaidi MD DEXA [id number] 11/03/2014 11/03/2014 Silvestre Zaidi MD DEXA [id number] 11/03/2014 11/03/2014 Silvestre Zaidi MD DEXA [id number] 11/03/2014 11/03/2014 Silvestre Zaidi MD DEXA [id number] 11/03/2014 11/03/2014 Silvestre Zaidi MD DEXA [id number] 11/03/2014 11/03/2014 Silvestre Zaidi MD DEXA [id number] 11/03/2014 11/03/2014 Silvestre Zaidi MD DEXA [id number] 11/03/2014 11/03/2014 Silvestre Zaidi MD DEXA [id number] 11/03/2014 11/03/2014 Silvestre Zaidi MD DEXA [id number] 11/03/2014 11/03/2014 Silvestre Zaidi MD DEXA [id number] 11/03/2014 11/03/2014 Silvestre Zaidi MD DEXA [id number] 11/03/2014 11/03/2014 Silvestre Zaidi MD DEXA [id number] 11/03/2014 11/03/2014 Silvestre Zaidi MD pain in knee [id number] 11/06/2014 11/06/2014 Silvestre Zaidi MD pain in knee [id number] 11/06/2014 11/06/2014 Silvestre Zaidi MD pain in knee [id number] 11/06/2014 11/06/2014 Silvestre Zaidi MD pain in knee [id number] 11/06/2014 11/06/2014 Silvestre Zaidi MD pain in knee [id number] 11/06/2014 11/06/2014 Silvestre Zaidi MD pain in knee [id number] 11/06/2014 11/06/2014 Silvestre Zaidi MD pain in knee [id number] 11/06/2014 11/06/2014 Silvestre Zaidi MD pain in knee [id number] 11/06/2014 11/06/2014 Silvestre Zaidi MD pain in knee [id number] 11/06/2014 11/06/2014 Silvestre Zaidi MD pain in knee [id number] 11/06/2014 11/06/2014 Silvestre Zaidi MD pain in knee [id number] 11/06/2014 11/06/2014 Silvestre Zaidi MD pain in knee 8zm0018m-544q-1288-z1np-0yx374v0993w 11/06/2014 11/06/2014 Silvestre Zaidi MD pain in knee 2v5j4n74-0qe6-3pdk-j235-g4gz38dd8122 11/06/2014 11/06/2014 Silvestre Zaidi MD pain in knee 01n885bw-11r8-6bc4-n896-hs927o810m8l 11/06/2014 11/06/2014 Silvestre Zaidi MD pain in knee v158g8n1-c00h-2yw6-j293-9427296b98b0 11/06/2014 11/06/2014 Silvestre Zaidi MD pain in knee 0152621l-0b76-5q86-a746-31088802o7v0 11/06/2014 11/06/2014 Silvestre Zaidi MD pain in knee pc7pqwk2-0b4g-793h-op40-v914h62d454k 11/06/2014 11/06/2014 Silvestre Zaidi MD pain in knee jl3434fr-7w07-6sa3-l5b6-156w587117ew 11/06/2014 11/06/2014 Silvestre Zaidi MD pain in knee 3400bw69-0q26-48p2-o549-98x1lms54304 11/06/2014 11/06/2014 Silvestre Zaidi MD pain in knee u60k054e-9u72-0e31-aev9-ys137u267df1 11/06/2014 11/06/2014 Silvestre Zaidi MD pain in knee 188m9k19-1x7v-5692-365h-39117c9pp2o0 11/06/2014 11/06/2014 Silvestre Zaidi MD pain in knee b7xv44cc-e4e4-8y02-ol5b-7286ui7do1ks 11/06/2014 11/06/2014 Silvestre Zaidi MD pain in knee 7588n166-3j79-9674-67b6-63691wa2c665 11/06/2014 11/06/2014 Silvestre Zaidi MD pain in knee 84fl3vlo-m60p-187d-8483-f8p5o653f375 11/06/2014 11/06/2014 Silvestre Zaidi MD pain in knee 07u95d9r-5432-66n5-33h7-90a94i6b6312 11/06/2014 11/06/2014 Silvestre Zaidi MD pain in knee l8ket0d4-70d1-550i-imz7-xgy9dl7adh0w 11/06/2014 11/06/2014 Silvestre Zaidi MD pain in knee h009110a-o92h-9277-4z6r-6d067522y891 11/06/2014 11/06/2014 Silvestre Zaidi MD pain in knee w12bv4y7-3826-1e89-0524-48uiv031n1i5 11/06/2014 11/06/2014 Silvestre Zaidi MD pain in knee g94q43y8-wl3r-189r-2egx-3ja0398u18z3 11/06/2014 11/06/2014 Silvestre Zaidi MD pain in knee ktv2h146-2767-8ytc-v65x-83vmd4098e42 11/06/2014 11/06/2014 Silvestre Zaidi MD pain in knee 5f32eydp-2amo-67f1-o5a2-679r8p31jj86 11/06/2014 11/06/2014 Silvestre Zaidi MD pain in knee 1h290yz1-77u0-34l0-45di-ykxz5726y06d 11/06/2014 11/06/2014 Silvestre Zaidi MD pain in knee uu0m8yz3-061x-984s-4o9n-502fy586535z 11/06/2014 11/06/2014 Silvestre Zaidi MD pain in knee 9904103u-d82p-91x9-734z-7y96038j848n 11/06/2014 11/06/2014 Silvestre Zaidi MD pain in knee v30e24gx-b01q-4178-n106-5uc88886bxid 11/06/2014 11/06/2014 Silvestre Zaidi MD pain in knee 78d95i76-5898-4z73-5470-d9s4d309423e 11/06/2014 11/06/2014 Silvestre Zaidi MD Appts 04kcq8a1-q8e7-3011-23s1-gl0c55p2ng24 11/09/2014 11/09/2014 Silvestre Zaidi MD Appts 68qhw6lm-344m-6nz4-xl3u-08fvo3mf161x 11/09/2014 11/09/2014 Silvestre Zaidi MD Appts wo2l1tah-ut41-091x-nqn0-m00x4215f53z 11/09/2014 11/09/2014 Silvestre Zaidi MD Appts a84wmy80-r486-86iw-664y-73c8w6b1j025 11/09/2014 11/09/2014 Silvestre Zaidi MD Appts 3nnsrxa1-0b76-3z0r-9j1e-63ne3m8i598i 11/09/2014 11/09/2014 Silvestre Zaidi MD Appts 650pigf9-0n84-21dv-r173-129l2jxd24g1 11/09/2014 11/09/2014 Silvestre Zaidi MD Appts m1sk75w2-28h9-9208-tn98-9br7qp93fn8b 11/09/2014 11/09/2014 Silvestre Zaidi MD Appts 363c98i9-1500-893o-6261-03t9245206o6 11/09/2014 11/09/2014 Silvestre Zaidi MD Appts m9z9eq55-y574-16ut-z458-18gy7qn531an 11/09/2014 11/09/2014 Silvestre Zaidi MD Appts gz7pi07y-4gpa-48q5-01r7-67a541871585 11/09/2014 11/09/2014 Silvestre Zaidi MD Appts 72591q4i-25i1-1ssn-a2r1-55g7065682lr 11/09/2014 11/09/2014 Silvestre Zaidi MD Appts [id number]-z99e4m26wdc9 11/09/2014 11/09/2014 Silvestre Zaidi MD Appts [id number]-5m70-rb96-29la6j1584wu 11/09/2014 11/09/2014 Silvestre Zaidi MD Appts v250c7p0-n00l-4f35-w87t-nz757025jn79 11/09/2014 11/09/2014 Silvestre Zaidi MD Appts 85145mnu-0s26-7x09-cz50-248q3732f941 11/09/2014 11/09/2014 Silvestre Zaidi MD Appts mu5t5um4-45az-4tfc-n924-m428474n8esy 11/09/2014 11/09/2014 Silvestre Zaidi MD Appts 85u09c03-q3an-3o9m-7817-5hn5y1292z1f 11/09/2014 11/09/2014 Silvestre Zaidi MD Appts 7288r712-ax6t-48pl-adg3-3280t232d63f 11/09/2014 11/09/2014 Silvestre Zaidi MD Appts d0b1c835-5254-09r4-0032-gc32236721s7 11/09/2014 11/09/2014 Silvestre Zaidi MD Appts 15n931p3-5bjf-1634-n6t4-61h3mhusqdq3 11/09/2014 11/09/2014 Silvestre Zaidi MD Appts c65k0t8z-8138-4r39-b53i-4612o33tcf58 11/09/2014 11/09/2014 Silvestre Zaidi MD Appts 11c70190-301u-247z-690e-j2j15x078ecy 11/09/2014 11/09/2014 Silvestre Zaidi MD Appts 220k5oy5-1787-8802-568j-0a0xiog7w1k4 11/09/2014 11/09/2014 Silvestre Zaidi MD Appts 968yn604-0p92-9re1-5m2n-0ylwkg93j11p 11/09/2014 11/09/2014 Silvestre Zaidi MD Appts fb194887-14n2-9ke4-rm03-857l2r98911q 11/09/2014 11/09/2014 Silvestre Zaidi MD Appts 94uj4439-2752-28rl-t0k4-cc008uk95p02 11/09/2014 11/09/2014 Silvestre Zaidi MD Appts 02529h62-g34e-7w34-yejx-f1go7695k5g2 11/09/2014 11/09/2014 Silvestre Zaidi MD Appts 08f6xb80-55t6-6k5u-39l2-1x97bir22929 11/09/2014 11/09/2014 Silvestre Zaidi MD Appts hr7lw2x6-348j-5at2-268x-268brf3y4nne 11/09/2014 11/09/2014 Silvestre Zaidi MD Appts ser64j9o-fhi8-3m76-d3q5-6611g7cz9003 11/09/2014 11/09/2014 Silvestre Zaidi MD Appts 50d20970-25p0-61n0-1637-z4s95366p85o 11/09/2014 11/09/2014 Silvestre Zaidi MD Appts 82ay7is6-i0up-614w-1x98-kc08cz7q6445 11/09/2014 11/09/2014 Silvestre Zaidi MD Appts c4q923sl-zd49-1852-y105-7s3djr92fa9f 11/09/2014 11/09/2014 Silvestre Zaidi MD Appts o0w0afhr-y057-8ht7-oq5t-4g25kf73u621 11/09/2014 11/09/2014 Silvestre Zaidi MD Appts 1j7k2g99-1115-48sn-s493-75ie47r0l298 11/09/2014 11/09/2014 Silvestre Zaidi MD Appts 2b09l074-7b25-04cy-2b0j-eri7630gsyn2 11/09/2014 11/09/2014 Silvestre Zaidi MD Pain/Injection 450n5173-h15g-9314-244n-048s735hw63a 11/30/2014 11/30/2014 Silvestre Zaidi MD Pain/Injection m45p74v7-o7f1-3b2c-qmrk-s293h4j57vt0 11/30/2014 11/30/2014 Silvestre Zaidi MD Pain/Injection gxxx9x9z-6mw6-0i4y-4x62-qp9001o9f11v 11/30/2014 11/30/2014 Silvestre Zaidi MD Pain/Injection 33qlz4v4-3st7-4276-z1w0-4u83olp22j31 11/30/2014 11/30/2014 Silvestre Zaidi MD Pain/Injection ivrs6e8s-6022-8360-7ts8-138v9r8631rr 11/30/2014 11/30/2014 Silvestre Zaidi MD Pain/Injection 1q750s0o-f3uf-2r72-2620-mc028o04msgw 11/30/2014 11/30/2014 Silvestre Zaidi MD Pain/Injection 0i93xxa5-dnk1-1y63-c628-60x1e6954ff1 11/30/2014 11/30/2014 Silvestre Zaidi MD Pain/Injection 58g6bud6-99p9-6548-t9k7-8m5q37p1ug7i 11/30/2014 11/30/2014 Silvestre Zaidi MD Pain/Injection o87wzf17-3155-1i24-9ksq-34u9v3bj4663 11/30/2014 11/30/2014 Silvestre Zaidi MD Pain/Injection 90rw6li3-1239-119b-92g6-53h5927d9294 11/30/2014 11/30/2014 Silvestre Zaidi MD Pain/Injection q21f1846-0752-47iw-007c-31559c4a28y1 11/30/2014 11/30/2014 Silvestre Zaidi MD Pain/Injection 676z9k0m-2811-6m5u-0j1u-2784r9s0bz86 11/30/2014 11/30/2014 Silvestre Zaidi MD Pain/Injection 266uqb8g-48q7-8e3a-w956-m5bh66yp0619 11/30/2014 11/30/2014 Silvestre Zaidi MD Pain/Injection 538cb47s-i486-6yr0-063v-sze7f9g567dy 11/30/2014 11/30/2014 Silvestre Zaidi MD Pain/Injection pwx939o6-1126-01qq-088k-815pw066vy79 11/30/2014 11/30/2014 Silvestre Zaidi MD Pain/Injection zvjo70x0-2d2z-8z24-59m9-6k70t285307m 11/30/2014 11/30/2014 Silvestre Zaidi MD Pain/Injection 67w45o0n-j489-6425-3196-35u98i1od209 11/30/2014 11/30/2014 Silvestre Zaidi MD Pain/Injection 78748q53-40l9-42w6-998j-220wvqvt4st1 11/30/2014 11/30/2014 Silvestre Zaidi MD Pain/Injection 26w9hs7e-b937-3668-35j5-2757t41qto8s 11/30/2014 11/30/2014 Silvestre Zaidi MD Pain/Injection d0z9c21f-b545-689s-2907-663919uggsxn 11/30/2014 11/30/2014 Silvestre Zaidi MD Pain/Injection 2ktz0271-kqw9-2468-g615-1w05z59cj69u 11/30/2014 11/30/2014 Silvestre Zaidi MD Pain/Injection 3euw22br-y032-1x6t-33u3-59k184i7957b 11/30/2014 11/30/2014 Silvestre Zaidi MD Pain/Injection t9154670-tq48-326q-gp2p-l650m4nl6c28 11/30/2014 11/30/2014 Silvestre Zaidi MD Pain/Injection 53q8m519-j913-733j-67l0-o388586dux06 11/30/2014 11/30/2014 Silvestre Zaidi MD Pain/Injection 1a6alf60-l036-9wm4-690k-39j114xfrs3o 11/30/2014 11/30/2014 Silvestre Zaidi MD Pain/Injection rv71267q-13i0-0rq0-cgm5-l4346746dif1 11/30/2014 11/30/2014 Silvestre Zaidi MD Pain/Injection f5792ns5-cv92-82p6-y9s0-977fe6xjv23o 11/30/2014 11/30/2014 Silvestre Zaidi MD Pain/Injection 2586979j-rt1h-920h-2612-350rqf4o7778 11/30/2014 11/30/2014 Silvestre Zaidi MD Pain/Injection bth94i00-o541-1284-21ja-8qy16c14x3w5 11/30/2014 11/30/2014 Silvestre Zaidi MD Pain/Injection 770w8721-o0x7-925y-eql8-h81x2c59asw9 11/30/2014 11/30/2014 Silvestre Zaidi MD Pain/Injection d2l58xku-g119-630z-k803-170620305te1 11/30/2014 11/30/2014 Silvestre Zaidi MD Pain/Injection fc9dtnt1-6009-5995-o942-06td90ut606u 11/30/2014 11/30/2014 Silvestre Zaidi MD Pain/Injection t7j304qn-9lsn-2t9j-kq70-j76c8sm887e8 11/30/2014 11/30/2014 Silvestre Zaidi MD Pain/Injection c7329612-or1q-43ii-6ec7-x8o1i01zjd6y 11/30/2014 11/30/2014 Silvestre Zaidi MD Torodal Injection 54e44j7j-ro70-08o4-9i4t-1f269e676s1f 12/01/2014 12/01/2014 Silvestre Zaidi MD Torodal Injection v61be439-6463-0q7a-cm07-4f56o4ul5051 12/01/2014 12/01/2014 Silvestre Zaidi MD Torodal Injection b49z8m8d-1r70-2yw2-6yv6-24165br55u0v 12/01/2014 12/01/2014 Silvestre Zaidi MD Torodal Injection 47v3b2r3-4tr2-8195-2931-w42195508991 12/01/2014 12/01/2014 Silvestre Zaidi MD Torodal Injection 25e4210c-wa66-27e6-3zvk-7715za24u402 12/01/2014 12/01/2014 Silvestre Zaidi MD Torodal Injection 688g3c02-h20u-9e86-b4d8-v0876z76b517 12/01/2014 12/01/2014 Silvestre Zaidi MD Torodal Injection 24708r0n-86w9-8uog-s6i0-2777x62gf8dr 12/01/2014 12/01/2014 Silvestre Zaidi MD Torodal Injection 653n125b-dtvv-9359-6rrt-88l2474u311r 12/01/2014 12/01/2014 Silvestre Zaidi MD Torodal Injection oj9e7d12-3r71-78pn-3lgb-zv94676p315p 12/01/2014 12/01/2014 Silvestre Zaidi MD Torodal Injection 2mpq5ba8-a47r-2242-elh7-9qg47cck6015 12/01/2014 12/01/2014 Silvestre Zaidi MD Torodal Injection e4de23a7-53wr-1ajr-932b-4i7n3a8py6v3 12/01/2014 12/01/2014 Silvestre Zaidi MD Torodal Injection 9fit7723-952s-9b05-h38f-2165nrd64hjo 12/01/2014 12/01/2014 Silvestre Zaidi MD Torodal Injection 7f79aye5-231u-0py6-n3a6-x71ld01642hr 12/01/2014 12/01/2014 Silvestre Zaidi MD Torodal Injection 157458n0-p480-550a-93hh-679c0310qu0e 12/01/2014 12/01/2014 Silvestre Zaidi MD Torodal Injection c88535ql-3612-5jfr-rq7t-7x0391c34262 12/01/2014 12/01/2014 Silvestre Zaidi MD Torodal Injection bj81qup4-735g-6zzz-9251-5a40x056l7nl 12/01/2014 12/01/2014 Silvestre Zaidi MD Torodal Injection 1k34mnr2-8yx3-7g3e-v9t8-g99m6xrokz80 12/01/2014 12/01/2014 Silvestre Zaidi MD Torodal Injection 64ep62p2-9ix8-7u7d-qf14-y6gray81e259 12/01/2014 12/01/2014 Silvestre Zaidi MD Torodal Injection q1878114-630g-907d-us81-u345e873lq77 12/01/2014 12/01/2014 Silvestre Zaidi MD Torodal Injection 26t16598-5880-1ok8-bfz9-1849z3561733 12/01/2014 12/01/2014 Silvestre Zaidi MD Torodal Injection 203943o5-ao6e-7o50-j368-80dx47fr5238 12/01/2014 12/01/2014 Silvestre Zaidi MD Torodal Injection 14b0jnf8-01o4-0714-1052-8y04v3i0mf6t 12/01/2014 12/01/2014 Silvestre Zaidi MD Torodal Injection f1ayk883-272i-1604-11y1-63f0or068qdt 12/01/2014 12/01/2014 Silvestre Zaidi MD Torodal Injection i8b3o265-6a06-4278-073v-75546lnd5pjd 12/01/2014 12/01/2014 Silvestre Zaidi MD Torodal Injection 0p0sxt15-o4b4-6ma3-38h0-n395x383vh26 12/01/2014 12/01/2014 Silvestre Zaidi MD Torodal Injection 898gzf35-jzlr-0b41-496n-uq4t530z358q 12/01/2014 12/01/2014 Silvestre Zaidi MD Torodal Injection yk63t839-22v0-71jf-r1o3-n070d23u47v7 12/01/2014 12/01/2014 Silvestre Zaidi MD Torodal Injection 13te17p0-264b-06b0-j45b-3vj640z70415 12/01/2014 12/01/2014 Silvestre Zaidi MD Torodal Injection 551f1a69-987z-05q5-f887-a87k9w4i7ly3 12/01/2014 12/01/2014 Silvestre Zaidi MD Torodal Injection k04983a4-p906-03id-8w4z-bzyj646xp79c 12/01/2014 12/01/2014 Silvestre Zaidi MD Torodal Injection xehl0601-l289-63c9-p8iv-858d0d6oxau4 12/01/2014 12/01/2014 Silvestre Zaidi MD Torodal Injection m2x61517-67f9-2635-8u26-72z20vh0gj9w 12/01/2014 12/01/2014 Silvestre Zaidi MD Torodal Injection bc68297s-f0d0-42kc-h69t-4m3tks9o8283 12/01/2014 12/01/2014 Silvestre Zaidi MD Torodal Injection t1k1j86v-edw4-584r-dh55-jj8u2722733a 12/01/2014 12/01/2014 Silvestre Zaidi MD Unknown n1n5k181-z60y-20z3-0ysl-r72om06j547x 12/21/2014 12/21/2014 Silvestre Zaidi MD Unknown 6874obg3-6f64-6530-893m-p63l294e1q1z 12/21/2014 12/21/2014 Silvestre Zaidi MD Unknown pc584epp-sv76-4j3t-3w89-1yob45y7w8l6 12/21/2014 12/21/2014 Silvestre Zaidi MD Unknown 94g704rl-se5p-46lk-ie84-pxr480559u94 12/21/2014 12/21/2014 Silvestre Zaidi MD Unknown zg87b4ry-rap1-2xue-yd6k-7o67fzz60211 12/21/2014 12/21/2014 Silvestre Zaidi MD Unknown h1p1h6l8-6cy3-927m-5qb8-d96k885c8905 12/21/2014 12/21/2014 Silvestre Zaidi MD Unknown 30801v6a-916q-1yuf-a24n-4czp85b8787l 12/21/2014 12/21/2014 Silvestre Zaidi MD Unknown 160r0w0t-1072-64m0-h7kv-n16236b5x138 12/21/2014 12/21/2014 Silvestre Zaidi MD Unknown i6a96vj1-26f9-1868-e3y8-gnq4692417c8 12/21/2014 12/21/2014 Silvestre Zaidi MD Unknown 494s582r-34s6-088w-0459-qx0n66769u60 12/21/2014 12/21/2014 Silvestre Zaidi MD Unknown 5v59f329-z5t3-18jn-9d19-o88448u2701x 12/21/2014 12/21/2014 Silvestre Zaidi MD Unknown 735ne9q9-x073-4076-xsqq-088r72tv9n30 12/21/2014 12/21/2014 Silvestre Zaidi MD Unknown 66iq38z6-61cd-754s-5fgp-dx332975i249 12/21/2014 12/21/2014 Silvestre Zaidi MD Unknown 0355junt-l59i-0951s24o-6099-k370-41y27dok24b5 12/21/2014 12/21/2014 Silvestre Zaidi MD Unknown 816lztyk-7841-795u-aca6-9690q3yxr4a2 12/21/2014 12/21/2014 Silvestre Zaidi MD Unknown 3x33n719-k9ff-51gn-rv8l-f3do77orw612 12/21/2014 12/21/2014 Silvestre Zaidi MD Unknown 2ut23239-6573-00jw-4925-1mk666t40157 12/21/2014 12/21/2014 Silvestre Zaidi MD Unknown 81g5aait-69nl-8s60-l9e4-77lep716d9k4 12/21/2014 12/21/2014 Silvestre Zaidi MD Unknown 7l056021-34kg-5866-842b-w3vb4pk84i79 12/21/2014 12/21/2014 Silvestre Zaidi MD Unknown c6vs1c1m-o948-58fh-bzh4-41109307gg68 12/21/2014 12/21/2014 Silvestre Zaidi MD Unknown 32024029-5n6i-5833-r334-3bz3l7c50800 12/21/2014 12/21/2014 Silvestre Zaidi MD Unknown 1g8fos9i-286g-30z9-y999-1w9110169j01 12/21/2014 12/21/2014 Silvestre Zaidi MD Unknown 1377xhww-97jo-2qu15qr6-7c2p-i5475o5857t2 12/21/2014 12/21/2014 Silvestre Zaidi MD Unknown 4e42p2t4-l335-7a1r-n4dx-u360056y6732 12/21/2014 12/21/2014 Silvestre Zaidi MD Unknown 9v33t135-68m4-7oq9-4971-y15k6708x8io 12/21/2014 12/21/2014 Silvestre Zaidi MD Unknown hxwx22nw-u201-2u93-y928-7b61d4325768 12/21/2014 12/21/2014 Silvestre Zaidi MD Unknown 03c1y3dg-1476-84ja-2152-3071l80478e9 12/21/2014 12/21/2014 Silvestre Zaidi MD Unknown 5814epud-303d-0525-x3cq-75fbzx490456 12/21/2014 12/21/2014 Silvestre Zaidi MD Unknown 4265xs34-l6t8-6y61-734u-6y45z874ei7y 12/21/2014 12/21/2014 Silvestre Zaidi MD Unknown i660lt27-e46z-1967-h613-5m46bqle15hg 12/21/2014 12/21/2014 Silvestre Zaidi MD Unknown 140w10wv-3j23-236l-77rc-659c8423v6tj 12/21/2014 12/21/2014 Silvestre Zaidi MD Unknown 0738697s-56z8-0u4g-ynu2-663o6l05k4c1 12/21/2014 12/21/2014 Silvestre Zaidi MD Unknown fn97raqu-9glt-8s7l-0j0y-1l6a34dh26h1 12/21/2014 12/21/2014 Silvestre Zaidi MD Unknown 407wh604-84c4-76s8-395k-1rmd2i9s67d3 12/21/2014 12/21/2014 Silvestre Zaidi MD flare 187107z0-0338-535q-p7t9-t413436fw4w9 12/27/2014 12/27/2014 Silvestre Zaidi MD flare 14n9i3i0-7130-7566-oj02-66k30eg00z60 12/27/2014 12/27/2014 Silvestre Zaidi MD flare m8dre5w9-209m-09u0-957q-zk907697761z 12/27/2014 12/27/2014 Silvestre Zaidi MD flare p6930h31-llq0-1q75-9uio-c7874f6128zw 12/27/2014 12/27/2014 Silvestre Zaidi MD flare ex9x632q-231m-2021-t028-7483n828o146 12/27/2014 12/27/2014 Silvestre Zaidi MD flare sa467375-g5r8-7979-w07n-9s7842t82kip 12/27/2014 12/27/2014 Silvestre Zaidi MD flare 46494x0y-a33f-0489-818p-2j687325gk15 12/27/2014 12/27/2014 Silvestre Zaidi MD flare 0rfz5u56-bua5-5257-35a8-29502ue27h44 12/27/2014 12/27/2014 Silvestre Zaidi MD flare 4oi1p0eh-f0d9-7969-599a-18o0i8lv4527 12/27/2014 12/27/2014 Silvestre Zaidi MD flare l6k064w8-hy83-57da-w136-120a8nwqu1o6 12/27/2014 12/27/2014 Silvestre Zaidi MD flare 0ws8jo33-3142-29r2-dpc7-6165150wo4yt 12/27/2014 12/27/2014 Silvestre Zaidi MD flare j957uw3o-8h95-891y-v414-1h32xs528or0 12/27/2014 12/27/2014 Silvestre Zaidi MD flare u4kq6930-00jf-7447-3r76-l98830951q1y 12/27/2014 12/27/2014 Silvestre Zaidi MD flare s5re6507-k637-48kq-224z-76p7yz0686mc 12/27/2014 12/27/2014 Silvestre Zaidi MD flare i3g1003n-3207-6cf9-a1c2-t560q8l03vw8 12/27/2014 12/27/2014 Silvestre Zaidi MD flare 02fi59v5-5864-540j-84t9-7yd6970jv5ax 12/27/2014 12/27/2014 Silvestre Zaidi MD flare 14hb582e-7648-7952-ar89-26em250k7003 12/27/2014 12/27/2014 Silvestre Zaidi MD flare k81q7btv-32yy-6ek4-3302-8h3gf35q068u 12/27/2014 12/27/2014 Silvestre Zaidi MD flare 11r46y0r-1ieh-8q83-z6a8-20n5u19x4rph 12/27/2014 12/27/2014 Silvestre Zaidi MD flare kx240x31-7fx0-349g-rw47-714i44y70340 12/27/2014 12/27/2014 Silvestre Zaidi MD flare 6325yivf-5200-4917-92ac-2484rb6udbf5 12/27/2014 12/27/2014 Silvestre Zaidi MD flare 03x0d6n9-65t9-1z1e-axb8-993972iy7075 12/27/2014 12/27/2014 Silvestre Zaidi MD flare 4en938qg-984h-015y-w226-799m6v27jgs0 12/27/2014 12/27/2014 Silvestre Zaidi MD flare gmt85o46-8x5y-959n-z99a-1vqi966c5lp4 12/27/2014 12/27/2014 Silvestre Zaidi MD flare 975d23uq-y6q8-6918-bxq0-i9b0os05121v 12/27/2014 12/27/2014 Silvestre Zaidi MD flare 9733g038-r622-10pj-c941-0l1c6e3umxs5 12/27/2014 12/27/2014 Silvestre Zaidi MD flare j6e6197s-is0h-7f4h-47lo-788lqqayk956 12/27/2014 12/27/2014 Silvestre Zaidi MD flare 08a9x00r-29z6-2mrl-s513-rx8q3l1g78a1 12/27/2014 12/27/2014 Silvestre Zaidi MD flare zdaexd3y-50i9-1941-tki8-34p22591k2u5 12/27/2014 12/27/2014 Silvestre Zaidi MD flare 5d9231o4-j434-20e2-9909-zqet0929u9wc 12/27/2014 12/27/2014 Silvestre Zaidi MD flare 0v5y74k4-ol44-04u2-qzb6-21e119l263rs 12/27/2014 12/27/2014 Silvestre Zaidi MD flare 3n0c57x7-57a7-385l-s915-q2781j533fp8 12/27/2014 12/27/2014 Silvestre Zaidi MD flare 4zza00b4-5w62-6429-rq37-1gc576520u06 12/27/2014 12/27/2014 Silvestre Zaidi MD flare njbo0w24-6a9s-1792-4jq4-mvx0f86my484 12/27/2014 12/27/2014 Silvestre Zaidi MD pain in knee 66919829-c90o-9874-e227-inym0e74z08y 01/09/2015 01/09/2015 Silvestre Zaidi MD pain in knee f747w0q3-p1v4-67g1-j4d4-c547594b2043 01/09/2015 01/09/2015 Silvestre Zaidi MD pain in knee 8294j2ma-9q35-5960-p1d1-i3lxc5789e0y 01/09/2015 01/09/2015 Silvestre Zaidi MD pain in knee 3k871p20-n29w-6z04-t32s-651h47vz38os 01/09/2015 01/09/2015 Silvestre Zaidi MD pain in knee 27r8h953-h31l-78k0-538t-uq002388421z 01/09/2015 01/09/2015 Silvestre Zaidi MD pain in knee k41503h6-x8cx-2983-g742-ysjdm23406j1 01/09/2015 01/09/2015 Silvestre Zaidi MD pain in knee bg915mx3-k2s3-62x3-4872-9119394u3t59 01/09/2015 01/09/2015 Silvestre Zaidi MD pain in knee f2n622a3-9fa3-0637-d9up-665r95dl8c0u 01/09/2015 01/09/2015 Silvestre Zaidi MD pain in knee 968z3wf8-311u-06su-9k21-88gt992m34b8 01/09/2015 01/09/2015 Silvestre Zaidi MD pain in knee x09yfnln-6966-47j6-6x93-jj101u7b4003 01/09/2015 01/09/2015 Silvestre Zaidi MD pain in knee 88gcu202-9p4c-3j71-2d1w-t303z8k0s59r 01/09/2015 01/09/2015 Silvestre Zaidi MD pain in knee 6v5vghn3-4621-3788-olcx-q5sy22066z62 01/09/2015 01/09/2015 Silvestre Zaidi MD pain in knee 4a649244-9s94-6h10-1oa8-81do79k26x3z 01/09/2015 01/09/2015 Silvestre Zaidi MD pain in knee a3982c7p-nv21-59o5-o619-3fu231dq2im9 01/09/2015 01/09/2015 Silvestre Zaidi MD pain in knee m771p75a-pz6f-7f2d-zi17-z392y635l325 01/09/2015 01/09/2015 Silvestre Zaidi MD pain in knee tazzg297-8401-4k00-vx33-81s5089s874r 01/09/2015 01/09/2015 Silvestre Zaidi MD pain in knee 22hj4d34-55kr-38tz-w34i-55a45x7uy918 01/09/2015 01/09/2015 Silvestre Zaidi MD pain in knee 45014u34-w9yx-349e-e02i-w5y32746vb66 01/09/2015 01/09/2015 Silvestre Zaidi MD pain in knee 13fc70o5-42om-6o37-mw5s-62c9903a6232 01/09/2015 01/09/2015 Silvestre Zaidi MD pain in knee 333hn03i-q63t-4z49-55k4-4209027242z6 01/09/2015 01/09/2015 Silvestre Zaidi MD pain in knee 598q8563-156b-69xw-a218-oxi1832k3896 01/09/2015 01/09/2015 Silvestre Zaidi MD pain in knee 99192l8h-l43v-3324-9714-77607sls0y70 01/09/2015 01/09/2015 Silvestre Zaidi MD pain in knee 9445a138-6753-87r5-i899-c3zpqu97c9kb 01/09/2015 01/09/2015 Silvestre Zaidi MD pain in knee 4pbp9112-75in-14c6-vr5m-x3zu129479m4 01/09/2015 01/09/2015 Silvestre Zaidi MD pain in knee 97j842qv-1097-7i77-w37v-4w5807w1718h 01/09/2015 01/09/2015 Silvestre Zaidi MD pain in knee 4253unj0-je38-7j05-45ny-497547r7v393 01/09/2015 01/09/2015 Silvestre Zaidi MD pain in knee 313m330n-x7f0-11he-4iof-4481ax0et194 01/09/2015 01/09/2015 Silvestre Zaidi MD pain in knee o2431x83-heo2-7au5-w2s6-4l0yl80w7510 01/09/2015 01/09/2015 Silvestre Zaidi MD pain in knee 76d57z99-v79d-28td-re0t-zppzhu39s849 01/09/2015 01/09/2015 Silvestre Zaidi MD pain in knee 7700bg49-e366-6e69-25av-94030064ih24 01/09/2015 01/09/2015 Silvestre Zaidi MD pain in knee 23933863-97yp-727e-54yg-425c84520136 01/09/2015 01/09/2015 Silvestre Zaidi MD pain in knee 11dv8491-87s3-2u44-0405-7845j10qzl0s 01/09/2015 01/09/2015 Silvestre Zaidi MD pain in knee [id number] 01/09/2015 01/09/2015 Silvestre Zaidi MD Unknown [id number] 01/26/2015 01/26/2015 Silvestre Zaidi MD Unknown [id number] 01/26/2015 01/26/2015 Silvestre Zaidi MD Unknown [id number] 01/26/2015 01/26/2015 Silvestre Zaidi MD Unknown [id number] 01/26/2015 01/26/2015 Silvestre Zaidi MD Unknown [id number] 01/26/2015 01/26/2015 Silvestre Zaidi MD Unknown [id number] 01/26/2015 01/26/2015 Silvestre Zaidi MD Unknown [id number] 01/26/2015 01/26/2015 Silvestre Zaidi MD Unknown [id number] 01/26/2015 01/26/2015 Silvestre Zaidi MD Unknown [id number] 01/26/2015 01/26/2015 Silvestre Zaidi MD Unknown [id number] 01/26/2015 01/26/2015 Silvestre Zaidi MD Unknown [id number] 01/26/2015 01/26/2015 Silvestre Zaidi MD Unknown [id number] 01/26/2015 01/26/2015 Silvestre Zaidi MD Unknown [id number] 01/26/2015 01/26/2015 Silvestre Zaidi MD Unknown [id number] 01/26/2015 01/26/2015 Silvestre Zaidi MD Unknown [id number] 01/26/2015 01/26/2015 Silvestre Zaidi MD Unknown [id number] 01/26/2015 01/26/2015 Silvestre Zaidi MD Unknown [id number] 01/26/2015 01/26/2015 Silvestre Zaidi MD Unknown [id number] 01/26/2015 01/26/2015 Silvestre Zaidi MD Unknown [id number] 01/26/2015 01/26/2015 Silvestre Zaidi MD Unknown [id number] 01/26/2015 01/26/2015 Silvestre Zaidi MD Unknown [id number] 01/26/2015 01/26/2015 Silvestre Zaidi MD Unknown [id number] 01/26/2015 01/26/2015 Silvestre Zaidi MD Unknown [id number] 01/26/2015 01/26/2015 Silvestre Zaidi MD Unknown [id number] 01/26/2015 01/26/2015 Silvestre Zaidi MD Unknown [id number] 01/26/2015 01/26/2015 Silvestre Zaidi MD Unknown [id number] 01/26/2015 01/26/2015 Silvestre Zadii MD Unknown [id number] 01/26/2015 01/26/2015 Silvestre Zaidi MD Unknown [id number] 01/26/2015 01/26/2015 Silvestre Zaidi MD Unknown [id number] 01/26/2015 01/26/2015 Silvestre Zaidi MD Unknown [id number] 01/26/2015 01/26/2015 Silvestre Zaidi MD Unknown [id number] 01/26/2015 01/26/2015 Silvestre Zaidi MD Unknown [id number] 01/26/2015 01/26/2015 Silvestre Zaidi MD Unknown [id number] 01/26/2015 01/26/2015 Silvestre Zaidi MD Unknown [id number] 01/26/2015 01/26/2015 Silvestre Zaidi MD DEXA [id number]-r2c2-uano60e025r3 02/06/2015 02/06/2015 Silvestre Zaidi MD DEXA [id number]-2mu3-62j9fbqe99n1 02/06/2015 02/06/2015 Silvestre Zaidi MD DEXA [id number]-64lhitm4hlfr 02/06/2015 02/06/2015 Silvestre Zaidi MD DEXA [id number]-te0o-6gg41zi55zi5 02/06/2015 02/06/2015 Silvestre Zaidi MD DEXA [id number]-[id number] 02/06/2015 02/06/2015 Silvestre Zaidi MD DEXA [id number] 02/06/2015 02/06/2015 Silvestre Zaidi MD DEXA [id number]-27o4-15a0567a171q 02/06/2015 02/06/2015 Silvestre Zaidi MD DEXA 3koi064i-53zp-6956-986u-50a7r52k613k 02/06/2015 02/06/2015 Silvestre Zaidi MD DEXA [id number]-141x-p043-n6y1756xux96 02/06/2015 02/06/2015 Silvestre Zaidi MD DEXA [id number] 02/06/2015 02/06/2015 Silvestre Zaidi MD DEXA [id number] 02/06/2015 02/06/2015 Silvestre Zaidi MD DEXA [id number]-h4jp-3pm7w17nm977 02/06/2015 02/06/2015 Silvestre Zaidi MD DEXA [id number]-au5q-j80mn32cg86v 02/06/2015 02/06/2015 Silvestre Zaidi MD DEXA [id number]-79g7-574l-m18j-u6h510a6ntvc 02/06/2015 02/06/2015 Silvestre Zaidi MD DEXA y3h8ceb0-11xh-60d4-z535-m29o7c0wm8h6 02/06/2015 02/06/2015 Silvestre Zaidi MD DEXA irey1602-r43d-4001-[id number] 02/06/2015 02/06/2015 Silvestre Zaidi MD DEXA [id number] 02/06/2015 02/06/2015 Silvestre Zaidi MD DEXA [id number]-au68-3d54sr16486x 02/06/2015 02/06/2015 Silvestre Zaidi MD DEXA [id number] 02/06/2015 02/06/2015 Silvestre Zaidi MD DEXA -[id number]-k97j-drr1z507q58i 02/06/2015 02/06/2015 Silvestre Zaidi MD DEXA h2al8q1x-8mi3-3343-r0r7-0501k8k61bvg 02/06/2015 02/06/2015 Silvestre Zaidi MD DEXA [id number] 02/06/2015 02/06/2015 Silvestre Zaidi MD DEXA [id number]-69zc4m8z8411 02/06/2015 02/06/2015 Silvestre Zaidi MD DEXA [id number]-z759-wbvy7zempye2 02/06/2015 02/06/2015 Silvestre Zaidi MD DEXA [id number]-m6pe-[id number] 02/06/2015 02/06/2015 Silvestre Zaidi MD DEXA [id number]-c3t7ml80fj68 02/06/2015 02/06/2015 Silvestre Zaidi MD DEXA [id number]-[id number] 02/06/2015 02/06/2015 Silvestre Zaidi MD DEXA [id number] 02/06/2015 02/06/2015 Silvestre Zaidi MD DEXA [id number] 02/06/2015 02/06/2015 Silvestre Zaidi MD DEXA [id number]-96o192x26511 02/06/2015 02/06/2015 Silvestre Zaidi MD DEXA [id number] 02/06/2015 02/06/2015 Silvestre Zaidi MD DEXA [id number]-[id number]-5333f40j4706 02/06/2015 02/06/2015 Silvestre Zaidi MD DEXA [id number]-wp77-o4s2bao5920i 02/06/2015 02/06/2015 Silvestre Zaidi MD DEXA [id number]-o317-6eub4f49e7d9 02/06/2015 02/06/2015 Silvestre Zaidi MD Pain 9l3mwguw-5kbt-1c60-shps-4489asp751a6 02/06/2015 02/06/2015 Silvestre Zaidi MD [facility] [id number] 02/06/2015 02/06/2015 Silvestre Zaidi MD Pain [id number]-23ob-3335-665y-d9a387l89k60 02/06/2015 02/06/2015 Silvestre Zaidi MD Pain 79xv783b-2j53-9sm5-5612-zp9h0j66r217 02/06/2015 02/06/2015 Silvestre Zaidi MD Pain 260l30v7-31h7-36fw-w3pr-0si5mu610476 02/06/2015 02/06/2015 Silvestre Zaidi MD Pain rv8u801u-7vlq-0132-kd28-8724skac0r4z 02/06/2015 02/06/2015 Silvestre Zaidi MD Pain [id number]-b7m7-5c81fk179i77 02/06/2015 02/06/2015 Silvestre Zaidi MD Pain [id number]-79vb-8762-93c9o7b76o53 02/06/2015 02/06/2015 Silvestre Zaidi MD Pain l8p5x2o0-sm5r-44y5-fz39-13l003kv498d 02/06/2015 02/06/2015 Silvestre Zaidi MD Pain [id number]-5t6qc3u146km 02/06/2015 02/06/2015 Silvestre Zaidi MD Pain 7k336usu-95w3-30m5-h650-26g6o113328n 02/06/2015 02/06/2015 Silvestre Zaidi MD Pain [id number]-33w3-4719hj975989 02/06/2015 02/06/2015 Silvestre Zaidi MD Pain 09did2hs-013z-46rs-3scq-1kr17220g18d 02/06/2015 02/06/2015 Silvestre Zaidi MD Pain [id number]-w55y-2j48wh2512od 02/06/2015 02/06/2015 Silvestre Zaidi MD Pain [id number]-adai-2wo9ls7i2801 02/06/2015 02/06/2015 Silvestre Zaidi MD Pain rgz189gq-7th0-5586-u580-7lq32c181xaa 02/06/2015 02/06/2015 Silvestre Zaidi MD Pain au6f5159-44r1-2c4w-i09m-65x1k6sd3f6n 02/06/2015 02/06/2015 Silvestre Zaidi MD Pain g294q129-6m4v-67e5-75ic-q6p5668660v7 02/06/2015 02/06/2015 Silvestre Zaidi MD Pain 7r751g36-8797-2463-1x4u-y33dt87s8538 02/06/2015 02/06/2015 Silvestre Zaidi MD Pain s918xp6q-7u43-27y5-jpy8-o177p2892316 02/06/2015 02/06/2015 Silvestre Zaidi MD Pain 712e7898-733k-47t0-nqrd-397m23363v93 02/06/2015 02/06/2015 Silvestre Zaidi MD Pain 56g6k51b-5967-14g4-m62z-2e6x71h8291n 02/06/2015 02/06/2015 Silvestre Zaidi MD Pain 149788vq-n1oy-880z-z3ou-55960615484m 02/06/2015 02/06/2015 Silvestre Zaidi MD Pain 036l3926-8b10-6h0c-kv13-89ap961fk48u 02/06/2015 02/06/2015 Silvestre Zaidi MD Pain 48459p31-94t8-59x5-2846-538x0vkd3114 02/06/2015 02/06/2015 Silvestre Zaidi MD Pain 310i1iv7-u02y-1d6p-wk3s-fqb7hc0dj71l 02/06/2015 02/06/2015 Silvestre Zaidi MD Pain g171pj45-uh70-6ue7-v876-8q2c5l7wc79l 02/06/2015 02/06/2015 Silvestre Zaidi MD Pain 744491b6-05h8-76v4-206j-0uz9552m658v 02/06/2015 02/06/2015 Silvestre Zaidi MD Pain vo6zq34x-48z2-1067-9e1l-b22el6f4673l 02/06/2015 02/06/2015 Silvestre Zaidi MD Pain 7264nzo2-743x-6c2r-17bi-2q0604l566fx 02/06/2015 02/06/2015 Silvestre Zaidi MD Pain xf8v5n32-9fqk-305g-29vh-419q9hfepd80 02/06/2015 02/06/2015 Silvestre Zaidi MD Pain 5600400h-qf9d-3d8o-870h-oq456854o40h 02/06/2015 02/06/2015 Silvestre Zaidi MD Pain 9gab7798-e8y6-9b1m-nxth-kn1653m2l92o 02/06/2015 02/06/2015 Silvestre Zaidi MD Pain j90o30x4-k20w-3164-z152-yid1831u3746 02/06/2015 02/06/2015 Silvestre Zaidi MD RX z5o22968-8725-9458-37l6-56a93h1p21j9 02/27/2015 02/27/2015 Silvestre Zaidi MD RX 8u44pm78-7xg2-6f8i-4270-971b692op83g 02/27/2015 02/27/2015 Silvestre Zaidi MD RX 1001241k-8d85-6fi5-o7yl-08u7fk7529w4 02/27/2015 02/27/2015 Silvestre Zaidi MD RX h3qm4u97-2797-7345-5h68-457gf40cb24r 02/27/2015 02/27/2015 Silvestre Zaidi MD RX 88i0b855-82xu-23ig-92z2-76553266e69k 02/27/2015 02/27/2015 Silvestre Zaidi MD RX a6483rd0-5841-5x16-t1h6-6q5q6p5tg263 02/27/2015 02/27/2015 Silvestre Zaidi MD RX o7m3x16g-92x1-0lks-5293-49128m0y319r 02/27/2015 02/27/2015 Silvestre Zaidi MD RX 716nuw39-0303-1dr1-b8lh-9400a83763x0 02/27/2015 02/27/2015 Silvestre Zaidi MD RX n8m043t8-o53b-0v10-f459-31pkir188ds9 02/27/2015 02/27/2015 Silvestre Zaidi MD RX c5d3w5l7-01wb-173h-89g7-8t9zl3pq01c1 02/27/2015 02/27/2015 Silvestre Zaidi MD RX ohqi7478-04m6-26ox-0275-u90bbg8fdk5r 02/27/2015 02/27/2015 Silvestre Zaidi MD RX 7451hy44-k621-3n95-324y-63bb3938iu1v 02/27/2015 02/27/2015 Silvestre Zaidi MD RX 82vp9o1o-813t-1q66-x2a0-n600qyi25949 02/27/2015 02/27/2015 Silvestre Zaidi MD RX 5vd4z528-1965-2252-19cn-4273xej56jly 02/27/2015 02/27/2015 Silvestre Zaidi MD RX p8e74955-m353-942b-997g-9en00j346185 02/27/2015 02/27/2015 Silvestre Zaidi MD RX 25ndg65z-271r-512f-84zo-z2j8uc838t84 02/27/2015 02/27/2015 Silvestre Zaidi MD RX 72055756-b70y-65n8-yhv6-1jbws0l4u6di 02/27/2015 02/27/2015 Silvestre Zaidi MD RX z7qiy5g8-6677-74n5-f051-i045849035w7 02/27/2015 02/27/2015 Silvestre Zaidi MD RX 374zs45j-0029-5h5z-3y8t-79sjtyc610j4 02/27/2015 02/27/2015 Silvestre Zaidi MD RX 8231mf9e-5436-61v6-is13-fiv40rhi968h 02/27/2015 02/27/2015 Silvestre Zaidi MD RX 2p3n9q4s-2gmq-3t84-th23-7rr63s0gh151 02/27/2015 02/27/2015 Silvestre Zaidi MD RX 6kig26w9-5607-387t-2240-ecp21f355642 02/27/2015 02/27/2015 Silvestre Zaidi MD RX 447487y1-2r96-0o37-8x18-3kp7w683269f 02/27/2015 02/27/2015 Silvestre Zaidi MD RX 3o703oe6-b804-00d0-1x51-i0w2im0a1469 02/27/2015 02/27/2015 Silvestre Zaidi MD RX 08tn160d-857x-206g-dw27-918291s6z3l2 02/27/2015 02/27/2015 Silvestre Zaidi MD RX 160f56r8-41uw-0354-w194-53c888502e39 02/27/2015 02/27/2015 Silvestre Zaidi MD RX 13t72r1j-g422-54ox-w3c7-ml1538j2284h 02/27/2015 02/27/2015 Silvestre Zaidi MD RX 674r060t-3wf4-375f-502o-7d328m2ic788 02/27/2015 02/27/2015 Silvestre Zaidi MD RX in7i1096-5e4p-3l05-49j0-je581063vb5s 02/27/2015 02/27/2015 Silvestre Zaidi MD RX 5v514055-t555-3454-w49k-kq3330269013 02/27/2015 02/27/2015 Silvestre Zaidi MD RX 14zg64ww-5pw4-415l-b83m-n32446y056py 02/27/2015 02/27/2015 Silvestre Zaidi MD RX 3d803vs2-4629-089a-p383-7o063670b0a2 02/27/2015 02/27/2015 Silvestre Zaidi MD RX q07kahne-x9w5-6n49-741i-26s78528rj3j 02/27/2015 02/27/2015 Silvestre Zaidi MD 6-8 WK F/U gbml8n45-756v-34v9-p7m1-34k40ir5gk04 03/23/2015 03/23/2015 Silvestre Zaidi MD 6-8 WK F/U a576iy18-168o-7919-nku1-992226988vy7 03/23/2015 03/23/2015 Silvestre Zaidi MD 6-8 WK F/U 75386090-9qx1-2n9i-7075-624a1gg1558e 03/23/2015 03/23/2015 Silvestre Zaidi MD 6-8 WK F/U 706a7930-0885-25ab-hz3o-634343f771av 03/23/2015 03/23/2015 Silvestre Zaidi MD 6-8 WK F/U 8w314179-w418-1hw5-4146-12j49752755k 03/23/2015 03/23/2015 Silvestre Zaidi MD 6-8 WK F/U b89f1cuf-nupc-9q11-5661-w427431yh858 03/23/2015 03/23/2015 Silvestre Zaidi MD 6-8 WK F/U 96by6k3s-8823-6834-k233-543149yc3z83 03/23/2015 03/23/2015 Silvestre Zaidi MD 6-8 WK F/U p410j7oy-1s5y-1644-x5h4-3030tg90xvu1 03/23/2015 03/23/2015 Silvestre Zaidi MD 6-8 WK F/U 032274b8-718o-2qr5-s6v7-xw36ncd40e78 03/23/2015 03/23/2015 Silvestre Zaidi MD 6-8 WK F/U v5gtu358-n625-1hxa-06ne-75r99811699m 03/23/2015 03/23/2015 Silvestre Zaidi MD 6-8 WK F/U 68jr78o6-2zm5-5410-18a1-fp3njdbza1s9 03/23/2015 03/23/2015 Silvestre Zaidi MD 6-8 WK F/U ngn8hxkf-c022-494r-ok0q-01szz502o2l2 03/23/2015 03/23/2015 Silvestre Zaidi MD 6-8 WK F/U 5p43h13u-9a40-003u-vumt-6ns18w165bdd 03/23/2015 03/23/2015 Silvestre Zaidi MD 6-8 WK F/U ps7fo6m4-6638-56n9-gi56-4t130o05302x 03/23/2015 03/23/2015 Silvestre Zaidi MD 6-8 WK F/U 056kbgz6-w67g-9215-005h-is8g0oq97y50 03/23/2015 03/23/2015 Silvestre Zaidi MD 6-8 WK F/U 59dkwyx7-obx2-4c0t-3k3d-506s1g7vuh74 03/23/2015 03/23/2015 Silvestre Zaidi MD 6-8 WK F/U 2u915u26-wvyp-9508-3219-49gp954mb4x6 03/23/2015 03/23/2015 Silvestre Zaidi MD 6-8 WK F/U r1a1q16r-9378-5b6z-9l90-g586098976wz 03/23/2015 03/23/2015 Silvestre Zaidi MD 6-8 WK F/U 001483hk-38fs-894j-jjb7-4jhe3ha42z87 03/23/2015 03/23/2015 Silvestre Zaidi MD 6-8 WK F/U 4x08u406-fpg2-10m9-y831-87f158f54633 03/23/2015 03/23/2015 Silvestre Zaidi MD 6-8 WK F/U g79jd667-3596-180t-6z60-u0g8o57a6g91 03/23/2015 03/23/2015 Silvestre Zaidi MD 6-8 WK F/U 90dc288i-1x5z-5nrf-38x5-7240347gu99k 03/23/2015 03/23/2015 Silvestre Zaidi MD 6-8 WK F/U g2w61751-qp1e-975g-t57m-90h8g496h819 03/23/2015 03/23/2015 Silvestre Zaidi MD 6-8 WK F/U 72y189xw-9719-022q-5131-34723982n698 03/23/2015 03/23/2015 Silvestre Zaidi MD 6-8 WK F/U 203v1w97-s86l-9200-1341-4iv4792v1z88 03/23/2015 03/23/2015 Silvestre Zaidi MD 6-8 WK F/U k5s2ah2u-9141-5521-ore1-0625rt212k5i 03/23/2015 03/23/2015 Silvestre Zaidi MD 6-8 WK F/U s81pfp49-b4m3-0419-025g-zlv9v10560y3 03/23/2015 03/23/2015 Silvestre Zaidi MD 6-8 WK F/U 1t26162v-p3cj-6x69-drmj-8248b770734g 03/23/2015 03/23/2015 Silvestre Zaidi MD 6-8 WK F/U 2q7z57w1-90k2-17a6-8283-84j87v212414 03/23/2015 03/23/2015 Silvestre Zaidi MD 6-8 WK F/U jxg2c4u9-5y73-08o9-j941-542925796480 03/23/2015 03/23/2015 Silvestre Zaidi MD 6-8 WK F/U 83f57008-vwr1-6m03-5eu9-9n4b47wio35m 03/23/2015 03/23/2015 Silvestre Zaidi MD 6-8 WK F/U y24q12i9-0k96-9396-lr4s-18ya40j02940 03/23/2015 03/23/2015 Silvestre Zaidi MD 6-8 WK F/U 72f265c9-qje8-16q8-17br-5j35561g17xo 03/23/2015 03/23/2015 Silvestre Zaidi MD refill 29n2nxi7-88pp-77co-f5d5-c40e40gu463m 04/19/2015 04/19/2015 Silvestre Zaidi MD refill 721kj65p-2f9c-6cfg-7wd5-79t79z309x19 04/19/2015 04/19/2015 Silvestre Zaidi MD refill 514b4922-67hb-8673-98np-re0n7d3g6sg4 04/19/2015 04/19/2015 Silvestre Zaidi MD refill 51i1al10-s077-3480-s30y-201hvo8w8496 04/19/2015 04/19/2015 Silvestre Zaidi MD refill 45200i31-bh2q-58l7-73c8-877h9dj5k3vf 04/19/2015 04/19/2015 Silvestre Zaidi MD refill 6066zln9-7q23-8383-pkhe-5f66dt185tjz 04/19/2015 04/19/2015 Silvestre Zaidi MD refill x29q359d-5x1t-03rg-k001-al1hgn6c5400 04/19/2015 04/19/2015 Silvestre Zaidi MD refill r8358jk0-ra1s-0w42-o1sl-113g75fts098 04/19/2015 04/19/2015 Silvestre Zaidi MD refill 3q4619am-75hz-94ix-yb2j-973htq3lum05 04/19/2015 04/19/2015 Silvestre Zaidi MD refill 8900800w-7873-24m7-84tl-517f05u35i4z 04/19/2015 04/19/2015 Silvestre Zaidi MD refill x4257gfz-k1r8-6324-ga0g-3tn0668g097h 04/19/2015 04/19/2015 Silvestre Zaidi MD refill 12pok0e9-gqa0-4u5o-j1c8-41m29xz1722d 04/19/2015 04/19/2015 Silvestre Zaidi MD refill 22q6w989-92sa-1914-3359-725840a8887p 04/19/2015 04/19/2015 Silvestre Zaidi MD refill 2wy55447-j797-656r-mp1c-7f4o39292499 04/19/2015 04/19/2015 Silvestre Zaidi MD refill lyg358xx-1828-6687-0w58-20mke52vh6or 04/19/2015 04/19/2015 Silvestre Zaidi MD refill 3xk77yu0-6874-3x65-281j-he747j968u6n 04/19/2015 04/19/2015 Silvestre Zaidi MD refill n27483bg-s2ue-9952-sc51-7t4j2v875ow6 04/19/2015 04/19/2015 Silvestre Zaidi MD refill n77253rl-5024-90dn-71s4-lz38tr5hi4p1 04/19/2015 04/19/2015 Silvestre Zaidi MD refill 2v1v9030-if0w-2240-704g-qk5w765m3089 04/19/2015 04/19/2015 Silvestre Zaidi MD refill 4r024896-voc9-8n27-j20p-84009s5ou752 04/19/2015 04/19/2015 Silvestre Zaidi MD refill qzi8s994-247m-1149-so4q-21e32e63l22c 04/19/2015 04/19/2015 Silvestre Zaidi MD refill 68450in4-6057-1701-8f0k-n047zg9i57h2 04/19/2015 04/19/2015 Silvestre Zaidi MD refill 57u3y72w-p74t-673o-7213-8u77nd3345bx 04/19/2015 04/19/2015 Silvestre Zaidi MD refill 4987zr7l-rv7d-3575-d666-k86a57386sr0 04/19/2015 04/19/2015 Silvestre Zaidi MD refill rwm9ld8l-768d-0k6z-eb19-bk74076z4354 04/19/2015 04/19/2015 Silvestre Zaidi MD refill s3j17821-5e6x-61i2-l2n3-09l2w36ob131 04/19/2015 04/19/2015 Silvestre Zaidi MD refill 427p4m45-qy97-41a3-6941-p919950822e7 04/19/2015 04/19/2015 Silvestre Zaidi MD refill 3bc6v21a-6p83-8plu-m5jk-40c0wz3g7544 04/19/2015 04/19/2015 Silvestre Zaidi MD refill 7832k9p3-4u48-95s8-un26-fo5q9gx7y145 04/19/2015 04/19/2015 Silvestre Zaidi MD refill 7836r064-0468-2u06-18vj-6y6d339n4x44 04/19/2015 04/19/2015 Silvestre Zaidi MD refill v8nk007n-4vn1-0n0x-u8y8-g6tqbu5wc5r7 04/19/2015 04/19/2015 Silvestre Zaidi MD refill 984250t0-k520-7c2m-4434-69rpk2plx65u 04/19/2015 04/19/2015 Silvestre Zaidi MD refill 82q38kwe-9m55-6g2p-2v04-6m4516i8242h 04/19/2015 04/19/2015 MD skip Greersalcarlie 989ntej5-dq89-9h82-3g0u-fh54l2879ja5 04/26/2015 04/26/2015 MD anna marie Greer 56u07375-zw64-0ia3-6155-197tvq807319 04/26/2015 04/26/2015 MD anna marie Greer 2054980c-tg42-9z37-q22e-242qa1o1lp90 04/26/2015 04/26/2015 MD anna marie Greer 610cr9j8-x829-9844-p82h-o80q36q7459h 04/26/2015 04/26/2015 MD skip Greersalcarlie 8xdk4kpv-k371-94w1-7466-m9305d0c4x67 04/26/2015 04/26/2015 MD anna marie Greer y6502101-7t51-0y96-ctf5-3w5k7x57a6r6 04/26/2015 04/26/2015 MD anna marie Greer 140590o5-b014-6x1n-c511-u6698f86s18l 04/26/2015 04/26/2015 MD anna marie Greer 7vtsbp38-0i9a-3caz-g821-009041i7r690 04/26/2015 04/26/2015 MD anna marie Greer ge92grbo-70jv-8732-t918-12577ee64qct 04/26/2015 04/26/2015 MD anna marie Greer 071sd2d4-77g2-6179-us7i-8rcr66574w81 04/26/2015 04/26/2015 MD anna marie Greer i50q0014-muh9-5hth-qbn9-a92xw1740aa7 04/26/2015 04/26/2015 MD anna marie Greer 71bbw5j7-qo29-0h27-zp95-w998ed941j2n 04/26/2015 04/26/2015 MD anna marie Greer 0i368e87-4e75-465j-b592-14wc7j377p40 04/26/2015 04/26/2015 MD anna marie Greer 62108a56-f360-8344-4795-torkjl6piwpn 04/26/2015 04/26/2015 MD anna marie Greer 16284432-3u10-3t36-m09l-590484018ld6 04/26/2015 04/26/2015 MD anna marie Greer d202gl89-l8c7-13b8-s929-303f9sv32ryi 04/26/2015 04/26/2015 MD anna marie Greer 5lun77x4-26s6-4mpw-6689-n6klac8w223k 04/26/2015 04/26/2015 MD anna marie Greer 4676l4n6-3c30-963b-1192-9g1h85v32cgv 04/26/2015 04/26/2015 MD anna marie Greer 5r676655-4k0m-39x6-1m8d-55j801jug171 04/26/2015 04/26/2015 MD anna marie Greer 69e3lr04-8k76-42ca-9bgp-9806993q98hv 04/26/2015 04/26/2015 MD anna marie Greer 5s340581-8g35-6qx9-414a-k00d5509h916 04/26/2015 04/26/2015 MD anna marie Greer 5oc617f8-i77a-3pdc-asd2-hg40g890k55n 04/26/2015 04/26/2015 MD anna marie Greer 7q181o53-1784-9742-m5y3-4q2m10ud8g8f 04/26/2015 04/26/2015 MD anna marie Greer z1qt9440-e98n-570i-p59g-r370cn32y1o2 04/26/2015 04/26/2015 MD anna marie Greer 03vzz9h5-796k-1194-hmb3-2dd8q2124603 04/26/2015 04/26/2015 MD anna marie Greer w175171y-0r6n-4jfl-v73d-7k267lk5c2i7 04/26/2015 04/26/2015 MD anna marie Greer 99v03gp8-4594-5jng-d00o-ho4uhcv92nw9 04/26/2015 04/26/2015 MD anna marie Greer 194r6534-58cy-3u16-o348-8499r65e378s 04/26/2015 04/26/2015 MD anna marie Greer 27tjh0l9-1z98-245x-y07h-z77d7s7g06bp 04/26/2015 04/26/2015 MD anna marie Greer t423z7e0-1cx0-60ir-81y6-4u43z868tjl1 04/26/2015 04/26/2015 MD anna marie Greer 3dr41o7r-8m7q-35qh-58p9-46abgkw9fmnp 04/26/2015 04/26/2015 MD anna marie Greer 612692f1-7w12-911f-y7i1-2wc351816wfo 04/26/2015 04/26/2015 MD anna marie Greer 86514j23-00k2-2kj9-21m6-3s1115303yo0 04/26/2015 04/26/2015 Silvestre Zaidi MD Hydrocodone refill i78333pg-i572-759m-d7n5-e11g5h052812 05/14/2015 05/14/2015 Silvestre Zaidi MD Hydrocodone refill 62078375-1303-75n8-jc0o-291u251y14wp 05/14/2015 05/14/2015 Silvestre Zaidi MD Hydrocodone refill 0x0655u2-6699-8b71-7316-61v6n0a7c92z 05/14/2015 05/14/2015 Silvestre Zaidi MD Hydrocodone refill 2679q68o-45cy-38j4-88mk-97t683792yym 05/14/2015 05/14/2015 Silvestre Zaidi MD Hydrocodone refill e129xl14-175q-6214-4k9r-1q05901u9033 05/14/2015 05/14/2015 Silvestre Zaidi MD Hydrocodone refill 075b9035-cq58-23an-9a18-1gnm76y40u9h 05/14/2015 05/14/2015 Silvestre Zaidi MD Hydrocodone refill 511m6p4f-nwkv-626b-j82t-u1842cok8p85 05/14/2015 05/14/2015 Silvestre Zaidi MD Hydrocodone refill 79l96251-5878-97hq-m7t0-2283hk091pj3 05/14/2015 05/14/2015 Silvestre Zaidi MD Hydrocodone refill 3co08999-e2c8-67w6-hi95-s184si08306z 05/14/2015 05/14/2015 Silvestre Zaidi MD Hydrocodone refill mf9i280m-842c-9k68-sz14-u4905fb60604 05/14/2015 05/14/2015 Silvestre Zaidi MD Hydrocodone refill um7gl227-leg1-3394-0p6x-4y56ah5429k2 05/14/2015 05/14/2015 Silvestre Zaidi MD Hydrocodone refill v302c46g-0490-29ob-48d7-df8470p888e5 05/14/2015 05/14/2015 Silvestre Zaidi MD Hydrocodone refill 22to139x-e563-3618-u5x1-382l3xg29y68 05/14/2015 05/14/2015 Silvestre Zaidi MD Hydrocodone refill 86n63243-3046-929q-4k3z-7iq7mjc25ahv 05/14/2015 05/14/2015 Silvestre Zaidi MD Hydrocodone refill 4a84t75u-1hxp-38wz-3635-7b1x35150860 05/14/2015 05/14/2015 Silvestre Zaidi MD Hydrocodone refill o0j19akd-07z7-97c5-22v0-5020f0e496g3 05/14/2015 05/14/2015 Silvestre Zaidi MD Hydrocodone refill 4wf138b5-5900-7785-301d-ss3zg3d1339z 05/14/2015 05/14/2015 Silvestre Zaidi MD Hydrocodone refill b862v8n1-e5ng-8221-8571-239308z882j4 05/14/2015 05/14/2015 Silvestre Zaidi MD Hydrocodone refill 2p2699it-i7z4-762e-ajim-apr6150k5qn8 05/14/2015 05/14/2015 Silvestre Zaidi MD Hydrocodone refill 2h3tss52-gu13-55zb-0wlz-07wu9h4u1r05 05/14/2015 05/14/2015 Silvestre Zaidi MD Hydrocodone refill 0u505op9-by92-890b-qa4n-1218442dtwe3 05/14/2015 05/14/2015 Silvestre Zaidi MD Hydrocodone refill 860g76b6-0w02-7289-ks4p-89b85880p1q9 05/14/2015 05/14/2015 Silvestre Zaidi MD Hydrocodone refill 8c950003-730l-9358-d86a-79h48043u8jr 05/14/2015 05/14/2015 Silvestre Zaidi MD Hydrocodone refill zt13a5z4-i413-8983-q6g9-598u9s6jbn27 05/14/2015 05/14/2015 Silvestre Zaidi MD Hydrocodone refill 07i037z4-6k4s-7rgj-8qcc-070itw2896b1 05/14/2015 05/14/2015 Silvestre Zaidi MD Hydrocodone refill 7971ros7-82o2-347i-tq28-27jc9i09wi12 05/14/2015 05/14/2015 Silvestre Zaidi MD Hydrocodone refill 3x9w4z39-npko-747y-4d7d-44h2h79780go 05/14/2015 05/14/2015 Silvestre Zaidi MD Hydrocodone refill 3220k642-j8h4-18vw-9762-337lelit545a 05/14/2015 05/14/2015 Silvestre Zaidi MD Hydrocodone refill 63zi276y-qag9-5219-b070-798f572812lz 05/14/2015 05/14/2015 Silvestre Zaidi MD Hydrocodone refill c3y52084-652f-5058-9482-119j59kcw4fy 05/14/2015 05/14/2015 Silvestre Zaidi MD Hydrocodone refill 6933vdm7-0292-3m5v-tx25-6u3731x0u7la 05/14/2015 05/14/2015 Silvestre Zaidi MD Hydrocodone refill 2f10s14x-kst6-3502-j1t5-k21944829j46 05/14/2015 05/14/2015 Silvestre Zaidi MD Hydrocodone refill p1030pji-u86s-8k37-4b1i-16881q99029l 05/14/2015 05/14/2015 Silvestre Zaidi MD Pain 0z1s762y-l22d-86w2-u34m-4zhq4x4zi702 05/21/2015 05/21/2015 Silvestre Zaidi MD Pain w21034jy-pg0j-3920-f9c3-m7wsz691q29w 05/21/2015 05/21/2015 Silvestre Zaidi MD Pain 6aqr541q-m4g1-3c88-42a2-d4f89icy635a 05/21/2015 05/21/2015 Silvestre Zaidi MD Pain 9496y478-80d8-3104-rjx6-8g4o818kae7h 05/21/2015 05/21/2015 Silvestre Zaidi MD Pain 69a9n926-11w0-821k-i416-q7n46t772p29 05/21/2015 05/21/2015 Silvestre Zaidi MD Pain 4w4pau3w-ku83-5z75-q46z-4my2265t878h 05/21/2015 05/21/2015 Silvestre Zaidi MD Pain 7058k922-g48k-0y40-gp5t-1l7q8n45ybp5 05/21/2015 05/21/2015 Silvestre Zaidi MD Pain 4912906d-k613-64m3-96d1-a6a6573orm1u 05/21/2015 05/21/2015 Silvestre Zaidi MD Pain 2p35c670-dkk9-2951-s3pe-76d049r12923 05/21/2015 05/21/2015 Silvestre Zaidi MD Pain lm908fb6-380p-83ok-urwt-1m5r2x7puiy4 05/21/2015 05/21/2015 Silvestre Zaidi MD Pain 7mu245q8-q050-0962-c5s2-1mm41nkb759x 05/21/2015 05/21/2015 Silvestre Zaidi MD Pain 15685r92-p584-7w69-3k43-35b3we179788 05/21/2015 05/21/2015 Silvestre Zaidi MD Pain v55t48l6-5kl5-073v-9hki-4228rb0676i5 05/21/2015 05/21/2015 Silvestre Zaidi MD Pain s363uw2l-3re0-3j6w-z790-fu2526t76317 05/21/2015 05/21/2015 Silvestre Zaidi MD Pain h2166tg4-q14w-76b2-224r-245d32i5k1kb 05/21/2015 05/21/2015 Silvestre Zaidi MD Pain n5poih58-aq8z-7jb8-k285-5xmm1h3367l5 05/21/2015 05/21/2015 Silvestre Zaidi MD Pain 450pz23d-4km5-7er0-42x1-0s67208xf683 05/21/2015 05/21/2015 Silvestre Zaidi MD Pain 47l1ki8x-434o-16pu-2457-0wphx9m29l75 05/21/2015 05/21/2015 Silvestre Zaidi MD Pain 4y4i558w-yh56-6nqu-7l91-872tex8r12as 05/21/2015 05/21/2015 Silvestre Zaidi MD Pain 197f205r-470m-49r7-0617-027356b3x3c6 05/21/2015 05/21/2015 Silvestre Zaidi MD Pain 7p8q2076-5400-1t0d-qflz-7e7729rz56hn 05/21/2015 05/21/2015 Silvestre Zaidi MD Pain 5859u0dp-3652-8670-149i-w976tyjc24zh 05/21/2015 05/21/2015 Silvestre Zaidi MD Pain q93u42xn-o599-5ap0-k8ay-mh182520x9j5 05/21/2015 05/21/2015 Silvestre Zaidi MD Pain cm5h0kyb-g018-2q49-k8l9-17609hmwdo5k 05/21/2015 05/21/2015 Silvestre Zaidi MD Pain k67432jt-2546-8e6v-a6w5-4sdc51v8h18a 05/21/2015 05/21/2015 Silvestre Zaidi MD Pain 874r4458-r296-9129-028n-8509da7m4v25 05/21/2015 05/21/2015 Silvestre Zaidi MD Pain uqk9750d-90td-0940-i0u2-z35da32164r7 05/21/2015 05/21/2015 Silvestre Zaidi MD Pain u8sddwi9-c6e9-7o1k-e387-r674400t1sve 05/21/2015 05/21/2015 Silvestre Zaidi MD Pain z2784e3q-7068-47af-u9k7-qbn3lbgn07h2 05/21/2015 05/21/2015 Silvestre Zaidi MD Pain 1u2316wf-9o93-2957-tb7y-scgxs994y3ht 05/21/2015 05/21/2015 Silvestre Zaidi MD Pain o1vcz0i2-6025-86k6-9mu0-461p5b653s1v 05/21/2015 05/21/2015 Silvestre Zaidi MD Pain 27ik6905-99li-1085-p29d-090wv3v6en3m 05/21/2015 05/21/2015 Silvestre Zaidi MD Cough pfxt7ji7-4y6s-02bb-b185-4028qe49hskf 06/22/2015 06/22/2015 Silvestre Zaidi MD Cough 04024md0-d5h6-0ms5-h3k6-9b8t09747478 06/22/2015 06/22/2015 Silvestre Zaidi MD Cough 80769nhs-5664-4964-jx89-37423876081m 06/22/2015 06/22/2015 Silvestre Zaidi MD Cough 3k81ap1h-p9t2-9744-6k48-76443q12c1j1 06/22/2015 06/22/2015 Silvestre Zaidi MD Cough tpw6s26h-a352-8dn3-38fx-2pa49c5h8tf7 06/22/2015 06/22/2015 Silvestre Zaidi MD Cough 64zqu2d9-kd49-36l6-cf96-x594sg123s64 06/22/2015 06/22/2015 Silvestre Zaidi MD Cough h208b6h0-00z2-5q22-4409-966udy0bpc47 06/22/2015 06/22/2015 Silvestre Zaidi MD Cough w11q49e9-f41w-419u-9168-0860zw3994wl 06/22/2015 06/22/2015 Silvestre Zaidi MD Cough j7m2a27n-7de7-7114-k09k-5nn969007o03 06/22/2015 06/22/2015 Silvestre Zaidi MD Cough 83aor408-30sa-67l3-xrj2-019xmw86q668 06/22/2015 06/22/2015 Silvestre Zaidi MD Cough 49294b08-89u5-44kl-ad03-547146ud13wv 06/22/2015 06/22/2015 Silvestre Zaidi MD Cough 8nlxu71w-a74p-8cep-z5d9-0q3p5z717329 06/22/2015 06/22/2015 Silvestre Zaidi MD Cough 085i36ou-27v7-0926-8o90-6bq0a89kx0xt 06/22/2015 06/22/2015 Silvestre Zaidi MD Cough 4l5814br-c8e7-3nj1-243t-0176767cq597 06/22/2015 06/22/2015 Silvestre Zaidi MD Cough 230vs9or-1ww3-32ag-qlr5-sce184mcy2l5 06/22/2015 06/22/2015 Silvestre Zaidi MD Cough nne6p408-90rk-673t-dj65-i5n4viss0uiy 06/22/2015 06/22/2015 Silvestre Zaidi MD Cough a0jc3i31-al55-8156-b938-3o38ijw29i7q 06/22/2015 06/22/2015 Silvestre Zaidi MD Cough 3p7rkp91-12z9-86gf-kwcm-90383a5e5x59 06/22/2015 06/22/2015 Silvestre Zaidi MD Cough 6g7b39l8-x586-7785-557x-m28r32j2ln29 06/22/2015 06/22/2015 Silvestre Zaidi MD Cough 42s766c6-3t6s-6zrq-78lt-476615053r4l 06/22/2015 06/22/2015 Silvestre Zaidi MD Cough she9g92e-kdla-4402-r50t-2614h87n7853 06/22/2015 06/22/2015 Silvestre Zaidi MD Cough 67yvit26-2w3x-0p59-8138-7801o3q12525 06/22/2015 06/22/2015 Silvestre Zaidi MD Cough 2rua4464-90v0-4ghg-748z-756w0030lcc5 06/22/2015 06/22/2015 Silvestre Zaidi MD Cough 04a6l0f6-ft4m-0703-nt92-p1l0y1ryh0sc 06/22/2015 06/22/2015 Silvestre Zaidi MD Cough 548h78d4-sabr-206w-8189-900j10dh30w6 06/22/2015 06/22/2015 Silvestre Zaidi MD Cough c64he1ee-9u12-0m1v-04l7-9b30063p065y 06/22/2015 06/22/2015 Silvestre Zaidi MD Cough o07euyvn-p4c9-27li-4452-965mzyowo081 06/22/2015 06/22/2015 Silvestre Zaidi MD Cough js04hi2q-58kp-2q13-tlbq-c01jw752kh10 06/22/2015 06/22/2015 Silvestre Zaidi MD Cough 7z2c5t0r-o6s8-21e5-p9uf-cd8ju9640g93 06/22/2015 06/22/2015 Silvestre Zaidi MD Cough 6kk188kt-1739-9715-59sd-8y4d91e981ue 06/22/2015 06/22/2015 Silvestre Zaidi MD Cough 948e451e-5h63-51k9-b507-92i386d7gl82 06/22/2015 06/22/2015 Silvestre Zaidi MD hair loss 45or2770-i332-1473-j1zo-4i5z3wte4v0q 07/04/2015 07/04/2015 Silvestre Zaidi MD hair loss xk3tn6p2-iq04-8b5y-0ou7-q6k36h9cbm5b 07/04/2015 07/04/2015 Silvestre Zaidi MD hair loss 49523457-642g-60c4-z7e1-41r75993sj74 07/04/2015 07/04/2015 Silvestre Zaidi MD hair loss 75b512bg-4l48-450i-m020-tg65ppjql388 07/04/2015 07/04/2015 Silvestre Zaidi MD hair loss 7724150x-b0gh-3y6l-8300-4435086zkp16 07/04/2015 07/04/2015 Silvestre Zaidi MD hair loss gs9ojxc8-462h-387u-43gj-2xoto2ik7e4a 07/04/2015 07/04/2015 Silvestre Zaidi MD hair loss 59jb5jrh-qbrd-6670-sl4i-9xze735809d3 07/04/2015 07/04/2015 Silvestre Zaidi MD hair loss 826z256a-2908-7ped-l0w1-b0783b454h42 07/04/2015 07/04/2015 Silvestre Zaidi MD hair loss 06487v97-5eo6-7n2l-kvv4-s0vf43c0740h 07/04/2015 07/04/2015 Silvestre Zaidi MD hair loss 6037193a-40t8-1yz6-yodp-46ya7c45s2o2 07/04/2015 07/04/2015 Silvestre Zaidi MD hair loss 6j83zm2k-u0g1-04ie-7y55-717223217d29 07/04/2015 07/04/2015 Silvestre Zaidi MD hair loss o5927984-3om7-4930-b529-xqd7a7y9009d 07/04/2015 07/04/2015 Silvestre Zaidi MD hair loss 370nsz0x-jn27-0827-ypxv-g6zi5zslmzy8 07/04/2015 07/04/2015 Silvestre Zaidi MD hair loss 20cl8216-7b71-2igq-a4bt-5f54lrs3i3d3 07/04/2015 07/04/2015 Silvestre Zaidi MD hair loss bi5c7090-8914-632e-m877-58dk9946apcv 07/04/2015 07/04/2015 Silvestre Zaidi MD hair loss 1154ov6l-6h4w-10mv-58z2-4qhaqw5tw48n 07/04/2015 07/04/2015 Silvestre Zaidi MD hair loss j92g4663-g05x-46kn-94d9-c694rqt1j7hu 07/04/2015 07/04/2015 Silvestre Zaidi MD hair loss 385c7036-4989-675p-b6xk-42l162z2z441 07/04/2015 07/04/2015 Silvestre Zaidi MD hair loss z0735854-g6v5-5790-24o1-co6570s9nm0a 07/04/2015 07/04/2015 Silvestre Zaidi MD hair loss 358u4b9s-9fg0-13o4-h600-4xue21v03291 07/04/2015 07/04/2015 Silvestre Zaidi MD hair loss 88860l57-i7nd-4iz4-85zj-234815176680 07/04/2015 07/04/2015 Silvestre Zaidi MD hair loss 01j24182-1400-61uf-z3f3-8177s3u52x0c 07/04/2015 07/04/2015 Silvestre Zaidi MD hair loss jnv57330-555l-3033-r769-g97t0e18z280 07/04/2015 07/04/2015 Silvestre Zaidi MD hair loss 0714905s-v0vu-0s08-082k-71rb6e514637 07/04/2015 07/04/2015 Silvestre Zaidi MD hair loss 02iyd431-823m-00x9-c8tr-g605rx16ziqm 07/04/2015 07/04/2015 Silvestre Zaidi MD hair loss 012zcud2-4f83-86ip-0k19-58uo2j6n909e 07/04/2015 07/04/2015 Silvestre Zaidi MD hair loss 45v91p0z-5742-488a-r292-61azddiq8s95 07/04/2015 07/04/2015 Silvestre Zaidi MD hair loss t67ch7kd-o65n-31x5-l5bl-4p19l9hk80jg 07/04/2015 07/04/2015 Silvestre Zaidi MD hair loss 6402e377-79eb-558d-1238-15715d0yf4if 07/04/2015 07/04/2015 Silvestre Zaidi MD hair loss 9b7m7137-59w7-1hb7-o1c5-388ya2317ae4 07/04/2015 07/04/2015 Silvestre Zaidi MD Unknown 37rd97s2-3237-6a2o-k48o-v08pta0u5ab6 07/25/2015 07/25/2015 Silvestre Zaidi MD Unknown 6mv9x0ii-4yzp-55u6-58p2-98kvvdm0dj08 07/25/2015 07/25/2015 Silvestre Zaidi MD Unknown 3a2vrle6-8958-448t-ttkj-56y0wnp43l76 07/25/2015 07/25/2015 Silvestre Zaidi MD Unknown 8675525x-o513-983y-n192-345l238l7252 07/25/2015 07/25/2015 Silvestre Zaidi MD Unknown 9254j9ja-10v2-7960-0z39-683925069z0c 07/25/2015 07/25/2015 Silvestre Zaidi MD Unknown [id number]-[id number] 07/25/2015 07/25/2015 Silvestre Zaidi MD Unknown [id number] 07/25/2015 07/25/2015 Silvestre Zaidi MD Unknown [id number] 07/25/2015 07/25/2015 Silvestre Zaidi MD Unknown [id number] 07/25/2015 07/25/2015 Silvestre Zaidi MD Unknown [id number] 07/25/2015 07/25/2015 Silvestre Zaidi MD Unknown [id number] 07/25/2015 07/25/2015 Silvestre Zaidi MD Unknown [id number] 07/25/2015 07/25/2015 Silvestre Zaidi MD Unknown [id number] 07/25/2015 07/25/2015 Silvestre Zaidi MD Unknown [id number] 07/25/2015 07/25/2015 Silvestre Zaidi MD Unknown [id number] 07/25/2015 07/25/2015 Silvestre Zaidi MD Unknown [id number] 07/25/2015 07/25/2015 Silvestre Zaidi MD Unknown [id number] 07/25/2015 07/25/2015 Silvestre Zaidi MD Unknown [id number] 07/25/2015 07/25/2015 Silvestre Zaidi MD Unknown [id number] 07/25/2015 07/25/2015 Silvestre Zaidi MD Unknown [id number] 07/25/2015 07/25/2015 Silvestre Zaidi MD Unknown [id number] 07/25/2015 07/25/2015 Silvestre Zaidi MD Unknown [id number] 07/25/2015 07/25/2015 Silvestre Zaidi MD Unknown [id number] 07/25/2015 07/25/2015 Silvestre Zaidi MD Unknown [id number] 07/25/2015 07/25/2015 Silvestre Ziadi MD Unknown [id number] 07/25/2015 07/25/2015 Silvestre Zaidi MD Unknown [id number] 07/25/2015 07/25/2015 Silvestre Zaidi MD Unknown [id number] 07/25/2015 07/25/2015 Silvestre Zaidi MD Unknown [id number] 07/25/2015 07/25/2015 Silvestre Zaidi MD Unknown [id number] 07/25/2015 07/25/2015 Silvestre Zaidi MD Message [id number] 07/30/2015 07/30/2015 Silvestre Zaidi MD Message [id number] 07/30/2015 07/30/2015 Silvestre Zaidi MD Message [id number] 07/30/2015 07/30/2015 Silvestre Zaidi MD Message [id number]-d5de-[id number] 07/30/2015 07/30/2015 Silvestre Zaidi MD Message [id number] 07/30/2015 07/30/2015 Silvestre Zaidi MD Message [id number] 07/30/2015 07/30/2015 Silvestre Zaidi MD Message [id number] 07/30/2015 07/30/2015 Silvestre Zaidi MD Message [id number] 07/30/2015 07/30/2015 Silvestre Zaidi MD Message [id number] 07/30/2015 07/30/2015 Silvestre Zaidi MD Message [id number] 07/30/2015 07/30/2015 Silvestre Zaidi MD Message [id number] 07/30/2015 07/30/2015 Silvestre Zaidi MD Message [id number] 07/30/2015 07/30/2015 Silvestre Zaidi MD Message [id number] 07/30/2015 07/30/2015 Silvestre Zaidi MD Message [id number] 07/30/2015 07/30/2015 Silvestre Zaidi MD Message [id number]-t27456jz6lqd 07/30/2015 07/30/2015 Silvestre Zaidi MD Message [id number] 07/30/2015 07/30/2015 Silvestre Zaidi MD Message [id number] 07/30/2015 07/30/2015 Silvestre Zaidi MD Message [id number]-[id number] 07/30/2015 07/30/2015 Silvestre Zaidi MD Message [id number] 07/30/2015 07/30/2015 Silvestre Zaidi MD Message [id number] 07/30/2015 07/30/2015 Silvestre Zaidi MD Message [id number] 07/30/2015 07/30/2015 Silvestre Zaidi MD Message [id number] 07/30/2015 07/30/2015 Silvestre Zaidi MD Message [id number] 07/30/2015 07/30/2015 Silvestre Zaidi MD Message [id number] 07/30/2015 07/30/2015 Silvestre Zaidi MD Message [id number] 07/30/2015 07/30/2015 Silvestre Zaidi MD Message [id number] 07/30/2015 07/30/2015 Silvestre Zaidi MD Message [id number] 07/30/2015 07/30/2015 Silvestre Zaidi MD Message [id number] 07/30/2015 07/30/2015 Silvestre Zaidi MD Message [id number] 07/30/2015 07/30/2015 Silvestre Zaidi MD refill 90hm58dy-2qnt-8k02-8r39-v939fae5r8m3 09/07/2015 09/07/2015 Silvestre Zaidi MD refill [id number]-y180-4668u70oxz7v 09/07/2015 09/07/2015 Silvestre Zaidi MD refill [id number]-dx1j-uq4x4jr62939 09/07/2015 09/07/2015 Silvestre Zaidi MD refill 90w17750-ic00-0snz-f62k-94sr5x4yd2v7 09/07/2015 09/07/2015 Silvestre Zaidi MD refill [id number]-5l26-738a-bj2q17j90x97 09/07/2015 09/07/2015 Silvestre Zaidi MD refill [id number]-9249-69u6-2xd70271tpgc 09/07/2015 09/07/2015 Silvestre Zaidi MD refill k34gdg1o-6976-873d-8ig7-04w887lb929p 09/07/2015 09/07/2015 Silvestre Zaidi MD refill 2n3q6345-nu1d-0114-41e7-5757793k695z 09/07/2015 09/07/2015 Silvestre Zaidi MD refill [id number]-t3n8-09sq-s6jp-i9s56ub5xh16 09/07/2015 09/07/2015 Silvestre Zaidi MD refill 5knkx516-3m9q-4kr5-lp51-fpkoigm6i28b 09/07/2015 09/07/2015 Silvesrte Zaidi MD refill 905e8ns4-la8n-53o3-31mi-2yp0f79b34h4 09/07/2015 09/07/2015 Silvestre Zaidi MD refill [id number]-081z-0300-5886lp9o32yp 09/07/2015 09/07/2015 Silvestre Zaidi MD refill l46d549x-6i49-0qy8-g8bd-18q346125090 09/07/2015 09/07/2015 Silvestre Zaidi MD refill 0b7n6994-5np7-084b-x460-65g77br6ot77 09/07/2015 09/07/2015 Silvestre Zaidi MD refill [id number]-fr64-75o912138534 09/07/2015 09/07/2015 Silvestre Zaidi MD refill ee37zj04-7323-34r8-e3i5-4178a3q5e828 09/07/2015 09/07/2015 Silvestre Zaidi MD refill 0q5d35f0-9h87-8sn5-46o0-r455hy727v15 09/07/2015 09/07/2015 Silvestre Zaidi MD refill 16d2b2g9-18p5-0okd-62o3-736n43k5zws7 09/07/2015 09/07/2015 Silvestre Zaidi MD refill 70l924k8-8d17-2nc7-d481-502b086zo0lt 09/07/2015 09/07/2015 Silvestre Zaidi MD refill 2j4d841m-7958-5096-q1zt-n06aoj459u90 09/07/2015 09/07/2015 Silvestre Zaidi MD refill 70234ih1-r90a-724u-uz2q-048525y1v544 09/07/2015 09/07/2015 Silvestre Zaidi MD refill irt7plm7-8p0q-5963-229h-xla5cviw2v4a 09/07/2015 09/07/2015 Silvestre Zaidi MD refill 9qn27i37-5c4k-0qj7-y3h2-2b8800rc86hj 09/07/2015 09/07/2015 Silvestre Zaidi MD refill e3018zc1-v0h9-7149-g58z-vfp7m0w08yk2 09/07/2015 09/07/2015 Silvestre Zaidi MD refill 5762hk5u-lz72-4797-z553-077659o43m88 09/07/2015 09/07/2015 Silvestre Zaidi MD refill 12563402-3891-2u0f-o209-v42uqu6di6l2 09/07/2015 09/07/2015 Silvestre Zaidi MD refill 3t4v8g91-3z0z-6eo7-25u7-y12n643k520g 09/07/2015 09/07/2015 Silvestre Zaidi MD Refills 6n696hsf-79su-4906-g9zz-436ea44y1n6y 09/10/2015 09/10/2015 Silvestre Zaidi MD Refills 0zf6q2z1-epz6-373b-9380-439r8t050420 09/10/2015 09/10/2015 Silvestre Zaidi MD Refills 9ld34p92-n726-7eg4-3ykb-98j3t4b895u2 09/10/2015 09/10/2015 Silvestre Zaidi MD Refills pjer6rpo-96e1-22s5-q3vq-z7u6q67e1575 09/10/2015 09/10/2015 Silvestre Zaidi MD Refills a214e4g7-v805-5rei-9101-06ijsz21r712 09/10/2015 09/10/2015 Silvestre Zaidi MD Refills 35s7746n-r420-04k1-uj22-i5u0913949yk 09/10/2015 09/10/2015 Silvestre Zaidi MD Refills h2ag240b-0307-9011-qvd3-v0wc894io876 09/10/2015 09/10/2015 Silvesrte Zaidi MD Refills 55b6cc08-5v35-5588-59sd-4dld3p3249x7 09/10/2015 09/10/2015 Silvestre Zaidi MD Refills v6515i0t-l7rl-8dh1-crd2-uz5e6685scn1 09/10/2015 09/10/2015 Silvestre Zaidi MD Refills 6olpe89a-j8dp-8un6-96v5-9c71j2631311 09/10/2015 09/10/2015 Silvestre Zaidi MD Refills x4hjbl9a-26w9-276s-a0jb-vk0im0864d21 09/10/2015 09/10/2015 Silvestre Zaidi MD Refills hhjv97gm-k263-3gz1-8wi9-64h9l9u5412d 09/10/2015 09/10/2015 Silvestre Zaidi MD Refills 95l45u82-6o07-2971-6y07-3000r9t28ah7 09/10/2015 09/10/2015 Silvestre Zaidi MD Refills ull9y00v-e6n6-2ejf-85e9-m38238310e5q 09/10/2015 09/10/2015 Silvestre Zaidi MD Refills j02qmju4-549w-9e5q-0y5k-316405v8qpn9 09/10/2015 09/10/2015 Silvestre Zaidi MD Refills 9sujow7e-6yb4-93mf-i0t8-72965953zdvl 09/10/2015 09/10/2015 Silvestre Zaidi MD Refills 137f599g-9b80-007j-8n44-k9rz08k14714 09/10/2015 09/10/2015 Silvestre Zaidi MD Refills 1924c553-c4tc-837x-fgge-y5628n7f0g15 09/10/2015 09/10/2015 Silvestre Zaidi MD Refills 0rwv18u3-912a-0q06-4qn9-509i504wtopq 09/10/2015 09/10/2015 Silvestre Zaidi MD Refills 27n45k7s-00z6-6ih4-o8b7-68m3990c8fsl 09/10/2015 09/10/2015 Silvestre Zaidi MD Refills 2o7676i0-700q-22x5-i161-j14ir375s6dl 09/10/2015 09/10/2015 Silvestre Zaidi MD Refills z2107rx4-04w6-2yoo-3406-n31581yi8696 09/10/2015 09/10/2015 Silvestre Zaidi MD Refills 9t4r5827-h8z4-6i4t-j01c-0j0pu845z159 09/10/2015 09/10/2015 Silvestre Zaidi MD Refills 8694828d-u87e-7k2x-43w5-38p82w85s27a 09/10/2015 09/10/2015 Silvestre Zaidi MD Follow up f6yg3xg3-l465-19iu-m5k2-8dyk3306ok02 10/09/2015 10/09/2015 Silvestre Zaidi MD Follow up 20zq145r-36xm-1w25-p593-74vp410s212a 10/09/2015 10/09/2015 Silvestre Zaidi MD Follow up 3598v141-0wbe-07u9-309w-5fy4249bwb39 10/09/2015 10/09/2015 Silvestre Zaidi MD Follow up w40lx3c7-2727-1098-a605-qz9p4ep3y2q4 10/09/2015 10/09/2015 Silvestre Zaidi MD Follow up 3294kv4j-581q-1uap-we0s-4v3u1j3a2g2k 10/09/2015 10/09/2015 Silvestre Zaidi MD Follow up lgjuz271-95f8-790o-e0cq-7lt066r6236a 10/09/2015 10/09/2015 Silvestre Zaidi MD Follow up nw42u295-14eq-0594-4yg1-rotoeh9bjl52 10/09/2015 10/09/2015 Silvestre Zaidi MD Follow up 92l1e242-750y-5hyn-m908-1kzm139b957a 10/09/2015 10/09/2015 Silvestre Zaidi MD Follow up 2r7371l6-6317-9516-q3q2-dyya0484c4p2 10/09/2015 10/09/2015 Silvestre Zaidi MD Follow up 41170mbr-su97-4s0i-96i0-20co942ex97r 10/09/2015 10/09/2015 Silvestre Zaidi MD Follow up 6178251o-f17s-1c6g-si0t-f1v30i5t951r 10/09/2015 10/09/2015 Silvestre Zaidi MD Follow up 1510u682-0971-7zuo-635p-68y05f32s578 10/09/2015 10/09/2015 Silvestre Zaidi MD Follow up y402s3pt-ne2m-4811-7efl-5305838032f8 10/09/2015 10/09/2015 Silvestre Zaidi MD Follow up g9p561wj-0093-33wn-m908-sq4y64yy6v47 10/09/2015 10/09/2015 Silvestre Zaidi MD Follow up w35n9189-u637-380a-70wy-rx715r584411 10/09/2015 10/09/2015 Silvestre Zaidi MD Follow up q4dwnm3i-l225-276j-rf56-5o12681r6004 10/09/2015 10/09/2015 Silvestre Zaidi MD Follow up 1eugd71h-0l40-67v7-p74s-y5y63245288k 10/09/2015 10/09/2015 Silvestre Zaidi MD Follow up 2135629j-7z65-3y1y-8c80-i4898dj2a87c 10/09/2015 10/09/2015 Silvestre Zaidi MD Follow up 1g3o6p75-e2ba-556x-7nm0-q533g43z5ra9 10/09/2015 10/09/2015 Silvestre Zaidi MD Follow up 7e55w28o-6ec3-7io1-6957-x0e37e4c6fe9 10/09/2015 10/09/2015 Silvestre Zaidi MD Follow up 3097x482-2392-0s76-v5d2-laa8dka80078 10/09/2015 10/09/2015 Silvestre Zaidi MD Follow up 07qi256f-f9w2-897y-0d34-8432s2713f3t 10/09/2015 10/09/2015 Silvestre Zaidi MD Follow up x6w34v94-1w36-331k-ianj-5vzr23kd3e53 10/09/2015 10/09/2015 Silvestre Zaidi MD Follow up 49j1hv6u-a70s-70b2-8ur4-eu3765010kjt 10/09/2015 10/09/2015 Silvestre Zaidi MD Follow up 94636dt4-d953-2x16-e163-hiv7165w97e4 10/09/2015 10/09/2015 Silvestre Zaidi MD Records o82sso2i-394j-4v1u-w0s5-k142t13654i1 10/09/2015 10/09/2015 Silvestre Zaidi MD Records 7n011s9o-hz7k-41k6-o3ae-b60kpp0840h6 10/09/2015 10/09/2015 Silvestre Zaidi MD Records 19i756ws-5063-2452-vx9s-665j4hht9018 10/09/2015 10/09/2015 Silvestre Zaidi MD Records 403ph208-q61m-327u-aa34-cih5zq86096n 10/09/2015 10/09/2015 Silvestre Zaidi MD Records 06229rj3-1udz-26k8-8y97-s9t1mm599a5y 10/09/2015 10/09/2015 Silvestre Zaidi MD Records [id number]-0562-b5zl-5h15v81107n6 10/09/2015 10/09/2015 Silvestre Zaidi MD Records 26896j7r-527k-1sp1-b7cv-56620c0ut03i 10/09/2015 10/09/2015 Silvestre Zaidi MD Records kv9444s0-6zb3-1gd7-w402-1zhm9r360176 10/09/2015 10/09/2015 Silvestre Zaidi MD Records e24g9341-s199-1l59-7o6i-1md42g720k1t 10/09/2015 10/09/2015 Silvestre Zaidi MD Records kcfk7442-162u-41h4-x37t-ql480p9i5l7t 10/09/2015 10/09/2015 Silvestre Zaidi MD Records [id number]-9195-x66r-49xmlgw39j57 10/09/2015 10/09/2015 Silvestre Zaidi MD Records o20p47zn-xf73-4dj8-an1j-9411ci2wh6e6 10/09/2015 10/09/2015 Silvestre Zaidi MD Records 207063r1-7074-722i-47q4-zw5e051n29f2 10/09/2015 10/09/2015 Silvestre Zaidi MD Records 412j5942-73hh-655n-xk65-108dx106jd0p 10/09/2015 10/09/2015 Silvestre Zaidi MD Records 26caz177-7b9v-74u3-7278-f275kp28f64r 10/09/2015 10/09/2015 Silvestre Zaidi MD Records zn9ai252-2t4q-3887-v4n0-0455220fit49 10/09/2015 10/09/2015 Silvestre Zaidi MD Records tlydd8xt-2aot-6cr7-3avr-0g75tby3t237 10/09/2015 10/09/2015 Silvestre Zaidi MD Records 12h26z4d-5e98-78e6-7202-2mu6p2739016 10/09/2015 10/09/2015 Silvestre Zaidi MD Records [id number]-0p8z-gt2al90c4767 10/09/2015 10/09/2015 Silvestre Zaidi MD Records 0b93p43k-68bt-211o-t28m-d82t85423171 10/09/2015 10/09/2015 Silvestre Zaidi MD Records 200y69ve-30a4-8t77-ds40-v7w1uo9wx2u3 10/09/2015 10/09/2015 Silvestre Zaidi MD Records mr2d7ou5-rn29-9em2-1t2f-umi3vq72s58c 10/09/2015 10/09/2015 Silvestre Zaidi MD Records 55mh18a6-b178-13d8-s757-68hh648mpg96 10/09/2015 10/09/2015 Silvestre Zaidi MD Records [id number]-3q66-9b7r-88791598063f 10/09/2015 10/09/2015 Silvestre Zaidi MD Records 8749k1e6-b832-0oe2-5i69-1lz65048064p 10/09/2015 10/09/2015 Silvestre Zaidi MD Records wksolkba-5c0j-94700e9d-9820-sm01-20c9ez8g6h54 10/09/2015 10/09/2015 Silvestre Zaidi MD Vit d order [id number]-tgo2id0z2z84 11/02/2015 11/02/2015 Silvestre Zaidi MD Vit d order [id number]-6jo4-979a-023669879va7 11/02/2015 11/02/2015 Silvestre Zaidi MD Vit d order 022y0v8l-7862-967s-384u-7u8u493746p8 11/02/2015 11/02/2015 Silvestre Zaidi MD Vit d order 62v4871p-ev81-479e-9335-9zg3s53cc34q 11/02/2015 11/02/2015 Silvestre Zaidi MD Vit d order effyc145-tqs3-8y06-3q88-57d283069cgr 11/02/2015 11/02/2015 Silvestre Zaidi MD Vit d order 191014e0-p189-5d06-64q4-964m6776vrnk 11/02/2015 11/02/2015 Silvestre Zaidi MD Vit d order 0f8v4a18-pm30-3129-tvs9-0j63h8peh2n8 11/02/2015 11/02/2015 Silvestre Zaidi MD Vit d order 06l2ql51-9u3u-1241-1jc7-r0p4k0174v86 11/02/2015 11/02/2015 Silvestre Zaidi MD Vit d order 97a8495f-3rc0-3100-375j-167j5g9c3kek 11/02/2015 11/02/2015 Silvestre Zaidi MD Vit d order w714269r-0k3n-05w8-632c-405fav7087k2 11/02/2015 11/02/2015 Silvestre Zaidi MD Vit d order jxsi1j5k-3122-2554-4g7g-048401n7423j 11/02/2015 11/02/2015 Silvestre Zaidi MD Vit d order k877j9f4-73kc-8r79-a9c4-ovwjyh825497 11/02/2015 11/02/2015 Silvestre Zaidi MD Vit d order hsk007c5-1s7g-2k4v-5g5d-t19y313qb79w 11/02/2015 11/02/2015 Silvestre Zaidi MD Vit d order 84dw2000-ns1s-62r5-23k9-695ngj30c4xt 11/02/2015 11/02/2015 Silvestre Zaidi MD Vit d order j5z208z4-29yd-9r0b-9rkj-rew475vb67tn 11/02/2015 11/02/2015 Silvestre Zaidi MD Vit d order z99oi15i-h032-7au7-1fj6-9z7h13p9x35f 11/02/2015 11/02/2015 Silvestre Zaidi MD Vit d order j7z1n753-s670-03b9-ijkj-zg95i4j89h22 11/02/2015 11/02/2015 Silvestre Zaidi MD Vit d order 35r0q424-88xy-92tc-j593-904zs4f2d6no 11/02/2015 11/02/2015 Silvestre Zaidi MD Vit d order 35embn4x-3105-1633-ms8a-8t9p29y6u0l5 11/02/2015 11/02/2015 Silvestre Zaidi MD Vit d order oxc04xi0-0j94-228w-rr26-nw353d57p6o4 11/02/2015 11/02/2015 Silvestre Zaidi MD Vit d order [id number]-1m2f-r7m3-q09029498841 11/02/2015 11/02/2015 Silvestre Zaidi MD Vit d order [id number]-4pe5-3l398e49pjsf 11/02/2015 11/02/2015 Silvestre Zaidi MD Vit d order 731mjx86-9288-539j-76x4-71g395i4453y 11/02/2015 11/02/2015 Silvestre Zaidi MD Vitamin d refill 6q224u9a-020h-0j60-9l41-821g871d016f 11/05/2015 11/05/2015 Silvestre Zaidi MD Vitamin d refill y32y5t89-zg1w-222b-ghhp-6o22736kqj49 11/05/2015 11/05/2015 Silvestre Zaidi MD Vitamin d refill 99tq5bi9-bk16-07o0-3yw6-19m3t91o7934 11/05/2015 11/05/2015 Silvestre Zaidi MD Vitamin d refill 799iwg6n-e930-8q7q-0ol1-236k1bi21l38 11/05/2015 11/05/2015 Silvestre Zaidi MD Vitamin d refill 991672oi-1s31-03cs-qgfr-0r429uh63a32 11/05/2015 11/05/2015 Silvestre Zaidi MD Vitamin d refill [id number]-6b5v-5b29-ocl507543197 11/05/2015 11/05/2015 Silvestre Zaidi MD Vitamin d refill l9g63lvm-13w4-8q2r-b731-nr9y63o7wg01 11/05/2015 11/05/2015 Silvestre Zaidi MD Vitamin d refill 8856163v-qio9-88z9-j531-xps4839tfpvw 11/05/2015 11/05/2015 Silvestre Zaidi MD Vitamin d refill j0341e25-2l70-214d-50r3-9l7eof2ft69t 11/05/2015 11/05/2015 Silvestre Zaidi MD Vitamin d refill 607829e7-569v-37o8-m4j8-t0w18285m76q 11/05/2015 11/05/2015 Silvestre Zaidi MD Vitamin d refill [id number] 11/05/2015 11/05/2015 Silvestre Zaidi MD Vitamin d refill [id number] 11/05/2015 11/05/2015 Silvestre Zaidi MD Vitamin d refill [id number] 11/05/2015 11/05/2015 Silvestre Zaidi MD Vitamin d refill [id number] 11/05/2015 11/05/2015 Silvestre Zaidi MD Vitamin d refill [id number] 11/05/2015 11/05/2015 Silvestre Zaidi MD Vitamin d refill [id number] 11/05/2015 11/05/2015 Silvestre Zaidi MD Vitamin d refill [id number] 11/05/2015 11/05/2015 Silvestre Zaidi MD Vitamin d refill [id number] 11/05/2015 11/05/2015 Silvestre Zaidi MD Vitamin d refill [id number] 11/05/2015 11/05/2015 Silvestre Zaidi MD Vitamin d refill [id number] 11/05/2015 11/05/2015 Silvestre Zaidi MD Vitamin d refill [id number] 11/05/2015 11/05/2015 Silvestre Zaidi MD Vitamin d refill [id number] 11/05/2015 11/05/2015 Silvestre Zaidi MD refill req Carisoprodol [id number] 11/06/2015 11/06/2015 Silvestre Zaidi MD refill req Carisoprodol [id number] 11/06/2015 11/06/2015 Silvestre Zaidi MD refill req Carisoprodol [id number] 11/06/2015 11/06/2015 Silvestre Zaidi MD refill req Carisoprodol [id number] 11/06/2015 11/06/2015 Silvestre Zaidi MD refill req Carisoprodol [id number]-[id number] 11/06/2015 11/06/2015 Silvestre Zaidi MD refill req Carisoprodol [id number] 11/06/2015 11/06/2015 Silvestre Zaidi MD refill req Carisoprodol [id number] 11/06/2015 11/06/2015 Silvestre Zaidi MD refill req Carisoprodol [id number] 11/06/2015 11/06/2015 Silvestre Zaidi MD refill req Carisoprodol [id number] 11/06/2015 11/06/2015 Silvestre Zaidi MD refill req Carisoprodol [id number] 11/06/2015 11/06/2015 Silvestre Zaidi MD refill req Carisoprodol [id number] 11/06/2015 11/06/2015 Silvestre Zaidi MD refill req Carisoprodol [id number] 11/06/2015 11/06/2015 Silvestre Zaidi MD refill req Carisoprodol [id number] 11/06/2015 11/06/2015 Silvestre Zaidi MD refill req Carisoprodol [id number] 11/06/2015 11/06/2015 Silvestre Zaidi MD refill req Carisoprodol [id number] 11/06/2015 11/06/2015 Silvestre Zaidi MD refill req Carisoprodol [id number] 11/06/2015 11/06/2015 Silvestre Zaidi MD refill req Carisoprodol [id number] 11/06/2015 11/06/2015 Silvestre Zaidi MD refill req Carisoprodol [id number] 11/06/2015 11/06/2015 Silvestre Zaidi MD refill req Carisoprodol [id number] 11/06/2015 11/06/2015 Silvestre Zaidi MD refill req Carisoprodol [id number] 11/06/2015 11/06/2015 Silvestre Zaidi MD refill req Carisoprodol [id number] 11/06/2015 11/06/2015 Silvestre Zaidi MD Unknown [id number] 11/09/2015 11/09/2015 Silvestre Zaidi MD Unknown [id number] 11/09/2015 11/09/2015 Silvestre Zaidi MD Unknown [id number] 11/09/2015 11/09/2015 Silvestre Zaidi MD Unknown [id number] 11/09/2015 11/09/2015 Silvestre Zaidi MD Unknown [id number] 11/09/2015 11/09/2015 Silvestre Zaidi MD Unknown [id number] 11/09/2015 11/09/2015 Silvestre Zaidi MD Unknown [id number] 11/09/2015 11/09/2015 Silvestre Zaidi MD Unknown [id number] 11/09/2015 11/09/2015 Silvestre Zaidi MD Unknown [id number] 11/09/2015 11/09/2015 Silvestre Zaidi MD Unknown [id number] 11/09/2015 11/09/2015 Silvestre Zaidi MD Unknown [id number] 11/09/2015 11/09/2015 Silvestre Zaidi MD Unknown [id number] 11/09/2015 11/09/2015 Silvestre Zaidi MD Unknown [id number]-[id number] 11/09/2015 11/09/2015 Silvestre Zaidi MD Unknown [id number] 11/09/2015 11/09/2015 Silvestre Zaidi MD Unknown [id number] 11/09/2015 11/09/2015 Silvestre Zaidi MD Unknown [id number] 11/09/2015 11/09/2015 Silvestre Zaidi MD Unknown [id number] 11/09/2015 11/09/2015 Silvestre Zaidi MD Unknown [id number] 11/09/2015 11/09/2015 Silvestre Zaidi MD Unknown [id number] 11/09/2015 11/09/2015 Silvestre Zaidi MD Unknown [id number] 11/09/2015 11/09/2015 Silvestre Zaidi MD [facility] [id number] 11/14/2015 11/14/2015 Silvestre Zaidi MD [facility] [id number] 11/14/2015 11/14/2015 Silvestre Zaidi MD [facility] [id number] 11/14/2015 11/14/2015 Silvestre Zaidi MD [facility] [id number] 11/14/2015 11/14/2015 Silvestre Zaidi MD [facility] [id number] 11/14/2015 11/14/2015 Silvestre Zaidi MD [facility] [id number] 11/14/2015 11/14/2015 Silvestre Zaidi MD [facility] [id number] 11/14/2015 11/14/2015 Silvestre Zaidi MD [facility] [id number] 11/14/2015 11/14/2015 Silvestre Zaidi MD [facility] [id number] 11/14/2015 11/14/2015 Silvestre Zaidi MD [facility] REILL [id number] 11/14/2015 11/14/2015 Silvestre Zaidi MD [facility] [id number] 11/14/2015 11/14/2015 Silvestre Zaidi MD [facility] [id number] 11/14/2015 11/14/2015 Silvestre Zaidi MD MED REILL [id number] 11/14/2015 11/14/2015 Silvestre Zaidi MD MED REILL [id number] 11/14/2015 11/14/2015 Silvestre Zaidi MD MED REILL [id number] 11/14/2015 11/14/2015 Silvestre Zaidi MD MED REILL [id number] 11/14/2015 11/14/2015 Silvestre Zaidi MD MED REILL [id number] 11/14/2015 11/14/2015 Silvestre Zaidi MD MED REILL [id number] 11/14/2015 11/14/2015 Silvestre Zaidi MD MED REILL [id number] 11/14/2015 11/14/2015 Silvestre Zaidi MD Pain [id number] 11/26/2015 11/26/2015 Silvestre Zaidi MD Pain [id number] 11/26/2015 11/26/2015 Silvestre Zaidi MD Pain [id number] 11/26/2015 11/26/2015 Silvestre Zaidi MD Pain [id number] 11/26/2015 11/26/2015 Silvestre Zaidi MD Pain [id number] 11/26/2015 11/26/2015 Silvestre Zaidi MD Pain [id number] 11/26/2015 11/26/2015 Silvestre Zaidi MD Pain sy0wb2f0-5vk4-073x-i6kz-16xq416b933l 11/26/2015 11/26/2015 Silvestre Zaidi MD Pain 95tl5w6g-82sm-9276-4252-1idod722q125 11/26/2015 11/26/2015 Silvestre Zaidi MD Pain 0p8z33tt-3l95-2f07-d49s-v6z7k558q690 11/26/2015 11/26/2015 Silvestre Zaidi MD Pain 3pj8m1p8-staa-4v3x-a001-98zeg744562y 11/26/2015 11/26/2015 Silvestre Zaidi MD Pain [id number]-390m-24cs-v96r3121knyr 11/26/2015 11/26/2015 Silvestre Zaidi MD Pain 37b2mi3a-39zp-58u4-c0rw-0hd54b4b2x27 11/26/2015 11/26/2015 Silvestre Zaidi MD Pain l483d56h-oi30-6072-m44c-9d8onjq9q8w5 11/26/2015 11/26/2015 Silvestre Zaidi MD Pain qs0d4j70-819s-41pg-wnl6-9e08gi59e377 11/26/2015 11/26/2015 Silvestre Zaidi MD Pain 9sdr449t-425e-5965-ok23-dp9rlz39r251 11/26/2015 11/26/2015 Silvestre Zaidi MD Pain q3217x5q-7wq2-4k3u-u629-4774b7e85kx5 11/26/2015 11/26/2015 Silvestre Zaidi MD Pain ytr8d422-x52v-66f9-0z2f-pcq4g552326s 11/26/2015 11/26/2015 Silvestre Zaidi MD Pain e6p01w5x-i94m-7v88-or5y-0w13j65d6mom 11/26/2015 11/26/2015 Silvestre Zaidi MD Follow up [id number]-b1fn-5325-n3qh-475f8i777d72 01/08/2016 01/08/2016 Silvestre Zaidi MD Follow up [id number]-3l6f-98g5-qcg266f7oqp4 01/08/2016 01/08/2016 Silvestre Zaidi MD Follow up [id number]-[id number] 01/08/2016 01/08/2016 Silvestre Zaidi MD Follow up [id number]-m98g6e3pi646 01/08/2016 01/08/2016 Silvestre Zaidi MD Follow up [id number]-[id number] 01/08/2016 01/08/2016 Silvestre Zaidi MD Follow up [id number] 01/08/2016 01/08/2016 Silvestre Zaidi MD Follow up [id number] 01/08/2016 01/08/2016 Silvestre Zaidi MD Follow up 60gc5pkv-g9qp-5iz4-wzk5-7x32y75ds179 01/08/2016 01/08/2016 Silvestre Zaidi MD Follow up 73f55g4d-3h6q-061z-86bh-7qx466dzzncs 01/08/2016 01/08/[address] of lungs f6u4xf65-8zjg-60ke-7541-l1kw78e06u95 01/08/2016 01/08/[address] of lungs [id number]-n49j-69sv-94d3-464tim40s1y5 01/08/2016 01/08/[address] of lungs [id number]-9v08-3k09qu2m611y 01/08/2016 01/08/[address] of lungs [id number]-kp02-8j3q-f2qj-655vk57s2019 01/08/2016 01/08/[address] of lungs [id number]f00 01/08/2016 01/08/[address] of lungs [id number]-9c01-9413-l969e4h1ohl1 01/08/2016 01/08/[address] of lungs 2h4i33t1-54dd-38n3-7ip2-schn870dpq76 01/08/2016 01/08/[address] of lungs [id number]-v8234946p3y6 01/08/2016 01/08/2016 Silvestre Zaidi MD Follow up [id number] 01/08/2016 01/08/2016 Silvestre Zaidi MD Follow up [id number] 01/08/2016 01/08/2016 Silvestre Zaidi MD Follow up [id number] 01/08/2016 01/08/2016 Silvestre Zaidi MD Follow up [id number]-p52r-f3d6j9s2yz28 01/08/2016 01/08/2016 Silvestre Zaidi MD Follow up [id number] 01/08/2016 01/08/2016 Silvestre Zaidi MD Follow up [id number] 01/08/2016 01/08/2016 Silvestre Zaidi MD Follow up [id number]-[id number] 01/08/2016 01/08/2016 Silvestre Zaidi MD Follow up [id number] 01/08/2016 01/08/[address] of lungs [id number] 01/08/2016 01/08/[address] of lungs [id number]-[id number] 01/08/2016 01/08/[address] of lungs [id number] 01/08/2016 01/08/[address] of lungs [id number]-b9p7z41nphm0 01/08/2016 01/08/[address] of lungs [id number] 01/08/2016 01/08/[address] of lungs [id number]-874x-0ds0-4a96-5e6h9jqmwn2w 01/08/2016 01/08/[address] of lungs [id number]-ily8-5aebg2z41a92 01/08/2016 01/08/[address] of lungs [id number]-r289-2sna-8j18-vl799590ga43 01/08/2016 01/08/2016 Silvestre Zaidi MD 1 mth follow up [id number]-[id number] 02/08/2016 02/08/2016 Silvestre Zaidi MD 1 mth follow up [id number]69e 02/08/2016 02/08/2016 Silvestre Zaidi MD 1 mth follow up [id number] 02/08/2016 02/08/2016 Silvestre Zaidi MD 1 mth follow up [id number] 02/08/2016 02/08/2016 Silvestre Zaidi MD 1 mth follow up [id number]-[id number]-u66c-o44ni4c3qpqu 02/08/2016 02/08/2016 Silvestre Zaidi MD Medical records [id number] 02/08/2016 02/08/2016 Silvestre Zaidi MD Medical records [id number] 02/08/2016 02/08/2016 Silvestre Zaidi MD Medical records [id number] 02/08/2016 02/08/2016 Silvestre Zaidi MD Medical records [id number] 02/08/2016 02/08/2016 Silvestre Zaidi MD Medical records [id number] 02/08/2016 02/08/2016 Silvestre Zaidi MD Medical records [id number] 02/08/2016 02/08/2016 Silvestre Zaidi MD Medical records [id number] 02/08/2016 02/08/2016 Silvestre Zaidi MD 1 mth follow up [id number] 02/08/2016 02/08/2016 Silvestre Zaidi MD 1 mth follow up [id number] 02/08/2016 02/08/2016 Silvestre Zaidi MD 1 mth follow up [id number]-[id number] 02/08/2016 02/08/2016 Silvestre Zaidi MD 1 mth follow up [id number] 02/08/2016 02/08/2016 Silvestre Zaidi MD 1 mth follow up [id number] 02/08/2016 02/08/2016 Silvestre Zaidi MD 1 mth follow up [id number] 02/08/2016 02/08/2016 Silvestre Zaidi MD 1 mth follow up [id number] 02/08/2016 02/08/2016 Silvestre Zaidi MD 1 mth follow up [id number]-[id number] 02/08/2016 02/08/2016 Silvestre Zaidi MD Medical records [id number] 02/08/2016 02/08/2016 Silvestre Zaidi MD Medical records [id number] 02/08/2016 02/08/2016 Silvestre Zaidi MD Medical records [id number] 02/08/2016 02/08/2016 Silvestre Zaidi MD Medical records [id number] 02/08/2016 02/08/2016 Silvestre Zaidi MD Medical records [id number] 02/08/2016 02/08/2016 Silvestre Zaidi MD Medical records [id number] 02/08/2016 02/08/2016 Silvestre Zaidi MD Medical records [id number] 02/08/2016 02/08/2016 Silvestre Zaidi MD Medical records [id number] 02/08/2016 02/08/2016 Silvestre Zaidi MD [facility] [id number] 02/17/2016 02/17/2016 Silvestre Zaidi MD MRI [id number] 02/17/2016 02/17/2016 Silvestre Zaidi MD MRI [id number] 02/17/2016 02/17/2016 Silvestre Zaidi MD MRI [id number] 02/17/2016 02/17/2016 Silvestre Zaidi MD MRI [id number]-237t-[id number] 02/17/2016 02/17/2016 Silvestre Zaidi MD MRI [id number]-[id number] 02/17/2016 02/17/2016 Silvestre Zaidi MD MRI [id number] 02/17/2016 02/17/2016 Silvestre Zaidi MD MRI [id number] 02/17/2016 02/17/2016 Silvestre Zaidi MD MRI [id number] 02/17/2016 02/17/2016 Silvestre Zaidi MD MRI [id number] 02/17/2016 02/17/2016 Silvestre Zaidi MD MRI [id number]-[id number] 02/17/2016 02/17/2016 Silvestre Zaidi MD MRI [id number]-2lu2-b168-[id number] 02/17/2016 02/17/2016 Silvestre Zaidi MD [facility] [id number] 02/17/2016 02/17/2016 Silvestre Zaidi MD [facility] [id number]-i965y23m4n48 02/17/2016 02/17/2016 Silvestre Zaidi MD ADDED TO SCHEDULE 03/18 wwu8lx15-c7p4-6x15-y600-2bw8d2k783mj 03/14/2016 03/14/2016 Silvestre Zaidi MD ADDED TO SCHEDULE 03/18 [id number]-[id number] 03/14/2016 03/14/2016 Silvestre Zaidi MD ADDED TO SCHEDULE 03/18 [id number]-2375-8s11-jhba-wl1f02s40uel 03/14/2016 03/14/2016 Silvestre Zaidi MD ADDED TO SCHEDULE 03/18 [id number] 03/14/2016 03/14/2016 Silvestre Zaidi MD ADDED TO SCHEDULE 03/18 [id number] 03/14/2016 03/14/2016 Silvestre Zaidi MD ADDED TO SCHEDULE 03/18 [id number]-rx60-69592c53j6jn 03/14/2016 03/14/2016 Silvestre Zaidi MD ADDED TO SCHEDULE 03/18 94ok101x-[id number]-pxhm-9lo82t41djs9 03/14/2016 03/14/2016 Silvestre Zaidi MD ADDED TO SCHEDULE 03/18 [id number]-udjk-9r60-n5o6-843l2z8478in 03/14/2016 03/14/2016 Silvestre Zaidi MD ADDED TO SCHEDULE 03/18 uznc9li1-005x-0202-uvax-q651817t222e 03/14/2016 03/14/2016 Silvestre Zaidi MD ADDED TO SCHEDULE 03/18 y06o5o83-h6c5-3943-928k-qb08c26tl0jy 03/14/2016 03/14/2016 Silvestre Zaidi MD ADDED TO SCHEDULE 03/18 [id number]-n043-v6pf541536lb 03/14/2016 03/14/2016 Silvestre Zaidi MD ADDED TO SCHEDULE 03/18 iz757kq0-2b4r-449q-a8qp-j58381x197p6 03/14/2016 03/14/2016 Silvestre Zaidi MD [employer] 6w8x004x-4p0k-43gc-k4ay-35at5p6u096w 03/18/2016 03/18/2016 Silvestre Zaidi MD [employer] [id number]-ka17-52b9-6670-n1815e55t5g3 03/18/2016 03/18/2016 Silvestre Zaidi MD [employer] 4z5ry73p-sc17-1680-zc47-1pj6r3wl1y9y 03/18/2016 03/18/2016 Silvestre Zaidi MD [employer] [id number]-18b2-n88u-2804fcfc6s59 03/18/2016 03/18/2016 Silvestre Zaidi MD [employer] [id number]-2bv8-14po-2zsf-vc5o748v6912 03/18/2016 03/18/2016 Silvestre Zaidi MD [employer] [id number]-2143-r4en-1i571e87fzf9 03/18/2016 03/18/2016 Silvestre Zaidi MD [employer] [id number] 03/18/2016 03/18/2016 Silvestre Zaidi MD [employer] [id number]-s06z-31qln28wz23b 03/18/2016 03/18/2016 Silvestre Zaidi MD [employer] [id number] 03/18/2016 03/18/2016 Silvestre Zaidi MD [employer] 160z1930-558r-3495-18x9-411df798ijkt 03/18/2016 03/18/2016 Silvestre Zaidi MD [employer] [id number]-h300-33iv-5c77-8k35n435894w 03/18/2016 03/18/2016 Silvestre Zaidi MD Injection [id number] 04/17/2016 04/17/2016 Silvestre Zaidi MD Injection 42v652c1-z395-4209-pu3r-ie15tw05kxhj 04/17/2016 04/17/2016 Silvestre Zaidi MD Injection [id number]-[id number] 04/17/2016 04/17/2016 Silvestre Zaidi MD Injection 05yv0585-1899-0814-zn27-8853bstkklz8 04/17/2016 04/17/2016 Silvestre Zaidi MD Injection [id number]-[id number] 04/17/2016 04/17/2016 Silvestre Zaidi MD Injection [id number] 04/17/2016 04/17/2016 Silvestre Zaidi MD Injection ei17z888-8949-3689-lgw2-9s7uahj8u7uc 04/17/2016 04/17/2016 Silvestre Zaidi MD Injection 5599xk31-z875-71e6-3c1x-5b1o9f13q98h 04/17/2016 04/17/2016 Silvestre Zaidi MD Injection 6b74eu4e-0r4s-9v95-7z5g-in211re5l487 04/17/2016 04/17/2016 Silvestre Zaidi MD Injection 40g7795w-172l-3h0q-t114-4x814z248al6 04/17/2016 04/17/2016 Silvestre Zaidi MD 4 w f/u 2e6zu708-0f5t-1357-9328-6350719t33n9 05/07/2016 05/07/2016 Silvestre Zaidi MD 4 w f/u 1z392t8d-09w8-9ktx-7l46-74i278t0e28k 05/07/2016 05/07/2016 Silvestre Zaidi MD 4 w f/u 78ex680z-023d-2m94-6n04-0n9t3x7jdp21 05/07/2016 05/07/2016 Silvestre Zaidi MD 4 w f/u 3p9q479q-j934-6bs1-1428-5r198943s82q 05/07/2016 05/07/2016 Silvestre Zaidi MD 4 w f/u z2n288e7-ulnv-9qp7-hz46-g9h172166m13 05/07/2016 05/07/2016 Silvestre Zaidi MD 4 w f/u 3xw442c2-q9m8-99s1-hx0u-44733692a37q 05/07/2016 05/07/2016 Silvestre Zaidi MD 4 w f/u j91d5jk0-s662-6npo-s116-8q1w4592b5k1 05/07/2016 05/07/2016 Silvestre Zaidi MD 4 w f/u 3351a74r-7dd6-808h-3qc7-kdyl345q9f6j 05/07/2016 05/07/2016 MD Lana Greer 9054zm82-961o-32a1-29q6-67z3o4365s4o 05/07/2016 05/07/2016 MD Lana Greer u16179a2-x559-3p64-1ege-y9123w8cdia3 05/07/2016 05/07/2016 MD Lana Greer [id number]-nk4l-2233-981g-kw0019153112 05/07/2016 05/07/2016 MD Lana Greer [id number]-8843-60z6ts68j5p8 05/07/2016 05/07/2016 MD Lana Greer h889o913-4cgb-1084-nn72-8m393hx7k83v 05/07/2016 05/07/2016 MD Lana Greer [id number]-m112-2756-r93h-5k9i3095k28s 05/07/2016 05/07/2016 MD Lana Greer 50u674w8-3127-39d0-5922-e9v2071o3r98 05/07/2016 05/07/2016 MD Lana Greer 6rvc6a92-7721-8s8o-vo2f-5br2i3ihj77k 05/07/2016 05/07/2016 MD Lana Greer g9f8c33x-544b-0b12-4214-m4072zl7p77z 05/07/2016 05/07/2016 Silvestre Zaidi MD Unknown [id number]-3347-07dg-g2d4-[id number] 05/21/2016 05/21/2016 Silvestre Zaidi MD Unknown 96t56s7s-917e-4z8f-i9c2-636d0l17p1a1 05/21/2016 05/21/2016 Silvestre Zaidi MD Unknown [id number]-r0p4-cn8a2b1d5442 05/21/2016 05/21/2016 Silvestre Zaidi MD Unknown 5h49l149-3561-8ufx-8772-8l8xsol2p22w 05/21/2016 05/21/2016 Silvestre Zaidi MD Unknown bjmgw9y0-6698-7712-d71h-9h06gcbq338x 05/21/2016 05/21/2016 Silvestre Zaidi MD Unknown 4d4p9uk5-7081-41dw-3493-8456dah25250 05/21/2016 05/21/2016 Silvestre Zaidi MD Vitamin D 91689c90-kbv7-97at-q57i-766p197r2qk5 05/23/2016 05/23/2016 Silvestre Zaidi MD Vitamin D 71a852za-4j88-0683-up0c-x98f2ld776yv 05/23/2016 05/23/2016 Silvestre Zaidi MD Vitamin D c384y97q-mo13-0464-6234-31dsp6e71t1t 05/23/2016 05/23/2016 Silvestre Zaidi MD Vitamin D 18639j94-2hwi-7467-72ah-781fja28694p 05/23/2016 05/23/2016 Silvestre Zaidi MD Vitamin D 40v709h9-2e56-5p09-ec42-803gr8i9r788 05/23/2016 05/23/2016 Silvestre Zaidi MD Vitamin D 89q55811-07x0-73x8-jp36-538l86fs6353 05/23/2016 05/23/2016 Silvestre Zaidi MD Vitamin D 158nzeg1-0d25-782b-xq42-bi5044469x30 05/23/2016 05/23/2016 Silvestre Zaidi MD Prolia gnf6lw29-u747-0547-34b6-860f6929mn60 06/09/2016 06/09/2016 Silvestre Zaidi MD Prolia y8l1hl9a-db3w-4qpq-dz35-c55m7r5180ty 06/09/2016 06/09/2016 Silvestre Zaidi MD Prolia 53t58582-a810-6m62-3395-7e8u6z0luvrf 06/09/2016 06/09/2016 Silvestre Zaidi MD Prolia 1469nv8a-036b-21jx-ph94-402701f6k121 06/09/2016 06/09/2016 Silvestre Zaidi MD Prolia 3ng67631-qx7z-9kj3-3223-p388460sj532 06/09/2016 06/09/2016 Silvestre Zaidi MD Prolia 55vlqt83-6pa7-0851-n7w0-26138f570j0a 06/09/2016 06/09/2016 Silvestre Zaidi MD PT HAVING FLARE 0b9ln7kz-9x6k-6340-881f-p28459y592z1 07/01/2016 07/01/2016 Silvestre Zaidi MD PT HAVING [employer]ARE ro95h22i-e2wi-55ap-w3k6-x5j4u81d5k78 07/01/2016 07/01/2016 Silvestre Zaidi MD PT HAVING FLARE 4w9ohawy-818j-25g4-1s7o-81637w2l8n58 07/01/2016 07/01/2016 Silvestre Zaidi MD PT HAVING FLARE 38a40v0i-46a6-4h00-1f02-56771r7p5yl2 07/01/2016 07/01/2016 Silvestre Zaidi MD 4 w f/u bx119328-iz0s-9071-4b7k-x64m2p799uz8 07/15/2016 07/15/2016 Silvestre Zaidi MD 4 w f/u heggsh12-k640-8j29-zu23-ve477tb44o4y 07/15/2016 07/15/2016 Silvestre Zaidi MD 4 w f/u 19xo7737-2k86-8u27-231h-2r6w0ha4hd08 07/15/2016 07/15/2016 Silvestre Zaidi MD PROLIA 061u5q5l-65n1-3g96-44j8-2hrl9s3557ta 07/15/2016 07/15/2016 Silvestre Zaidi MD PROLIA kx4ssu6q-294g-0e19-90n5-692s095i81d8 07/15/2016 07/15/2016 Silvestre Zaidi MD PROLIA [id number] 07/15/2016 07/15/2016 Silvestre Zaidi MD 4 w f/u [id number] 08/13/2016 08/13/2016 Silvestre Zaidi Procedures Procedure Code Date Perfomer Comments Source
--- OUTSIDE RECORDS SUMMARY | 2018-12-27 17:31 | XMS REPORT ---
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
[2018-12-27] MEDS ORDERED: ETOMIDATE 2 MG/ML 10 ML INJ IV STA (17:37)
[2018-12-27] MEDS ORDERED: SODIUM CHLORIDE 0.9% 1000ML 2,000 ML ONE (17:40)
[2018-12-27] MEDS ORDERED: SODIUM CHLORIDE 0.9% 1000ML 1,000 ML IV ONE ×2 (17:45→19:15)
[2018-12-27] MEDS ORDERED: DEXTROSE 50% SYRINGE 50 ML IV ONE (18:06)
[2018-12-27 18:09] LABS: BASOPHILS # (AUTO) 0.1 (0.0-0.1); BASOPHILS % 0.6 % (0.0-1.0); EOSINOPHILS % 0.1 % (0.0-6.0); HEMATOCRIT 41.7 % (34.2-44.1); HEMOGLOBIN 13.7 g/dL (12.0-16.0); LYMPHOCYTES # (AUTO) 1.6 (1.0-3.2); LYMPHOCYTES % 6.5 % (18.0-39.1); MEAN CORPUSCULAR HEMOGLOBIN 29.8 pg (28-32); MEAN CORPUSCULAR HGB CONC 32.9 g/dL (31-35); MEAN CORPUSCULAR VOLUME 90.8 fL (81-99); MONOCYTES % 7.9 % (4.4-11.3); NEUTROPHILS # (AUTO) 20.2 (2.1-6.9); NEUTROPHILS % 81.1 % (38.7-80.0); PLATELET COUNT 325 x10e3/uL (140-360); RED BLOOD COUNT 4.59 x10e6/uL (3.6-5.1); RED CELL DISTRIBUTION WIDTH 13.7 % (11.7-14.4)
[2018-12-27 18:23] LABS: INR 1.51; PROTHROMBIN TIME 18.8 seconds (11.9-14.5)
[2018-12-27 18:24] LABS: PARTIAL THROMBOPLASTIN TIME 40.9 seconds (23.8-35.5)
[2018-12-27 18:30] LABS: ALBUMIN 2.8 g/dL (3.5-5.0); ALBUMIN/GLOBULIN RATIO 1.1 (0.8-2.0); ANION GAP 31.1 mmol/L (8-16); CALCIUM 9.2 mg/dL (8.4-10.2); CREATININE, SERUM 2.07 mg/dL (0.57-1.11)
[2018-12-27] MEDS ORDERED: SODIUM CHLORIDE 0.9% 1000ML 1,000 ML IV SCH ×2 (18:30→19:16)
[2018-12-27 18:36] LABS: POTASSIUM 5.1 mmol/L (3.5-5.1)
[2018-12-27 18:37] LABS: CREATINE KINASE MB 33.5 ng/mL (0-5.0)
[2018-12-27] MEDS ORDERED: SODIUM BICARBONATE 8.4% 50 ML VIAL IV STA (18:40)
--- NOTE | 2018-12-27 18:40 | NUR ---
received ok from hermann erickson to use left IJ central line
[2018-12-27] MEDS ORDERED: DEXTROSE 5%/0.9% SOD CHL 1,000 ML IV ONE (18:45)
--- NOTE | 2018-12-27 18:45 | NUR ---
er placed OG tube with 400 ml return of dark thin stomach contents
--- NOTE | 2018-12-27 18:48 | Diagnostic Imaging Report ---
Examination: Single AP view of the chest. COMPARISON: Chest CT 12/16/2018 INDICATION: Post intubation, COPD IMPRESSION: 1. Lines and Tubes: Endotracheal tube in place, with distal tip projecting approximately 3.7 cm above the nando. Left sided IJ line, with distal tip projecting in the proximal to mid SVC. 2. Lungs are well-inflated. Bilateral interstitial opacities extending from the nabeel, suggesting mild interstitial edema. No consolidation or effusion. 3. Cardiomediastinal silhouette is normal. Central pulmonary venous congestion. 4. No acute bony abnormalities. Signed by: Dr. Devon Heredia M.D. on 12/27/2018 6:44 PM
[2018-12-27 18:55] LABS: MAGNESIUM 2.2 MG/DL (1.3-2.1); PHOSPHORUS 10.3 MG/DL (2.3-4.7)
[2018-12-27] MEDS ORDERED: SODIUM BICARBONATE 8.4% INJ 50 ML SYR IV ONE ×2 (19:00→19:03)
[2018-12-27] MEDS ORDERED: VANCOMYCIN 1GM/NS 250 ML 250 ML IV ONE (19:00)
[2018-12-27] MEDS ORDERED: PIPER-TAZ 3.375 GM 50 ML IV ONE (19:00)
[2018-12-27] MEDS ORDERED: NOREPINEPHRINE 8 MG/D5W 250 ML 250 ML ONE (19:08)
[2018-12-27] MEDS ORDERED: CALCIUM GLUCONATE 10% INJ 0.465 MEQ/ML VIAL ONE (19:15)
[2018-12-27] MEDS ORDERED: NOREPINEPHRINE INJ 4MG/4ML 8 MG in DEXTROSE 5% 250ML 250 ML IV ONE (19:15)
[2018-12-27] MEDS ORDERED: SODIUM BICARBONATE 8.4% SYRING 50 ML ONE (19:15)
[2018-12-27] MEDS ORDERED: CALCIUM GLUCONATE 10% INJ 9.3 MEQ in SODIUM CHLORIDE 0.9% 100 ML 100 ML IV ONE (19:15)
[2018-12-27] MEDS ORDERED: SODIUM CHLORIDE 0.9% 100 ML ONE (19:21)
[2018-12-27] MEDS ORDERED: ASPIRIN 81 MG CHEW TAB PO ONE (19:30)
[2018-12-27] MEDS ORDERED: SODIUM CHLORIDE FLUSH 10 ML SYR INJ PRN (19:30)
[2018-12-27] MEDS ORDERED: ONDANSETRON HCL INJ 2MG/ML 2ML 2 MG/ML VIAL IV PRN (19:30)
[2018-12-27 19:39] LABS: BAND NEUTROPHILS % (MANUAL) 8 %; LYMPHOCYTES % (MANUAL) 15 % (19-48); MONOCYTES % (MANUAL) 5 % (3.4-9.0); NEUTROPHILS % (MANUAL) 72 % (40-74); NUCLEATED RED BLOOD CELLS 2
[2018-12-27 19:42] LABS: ANISOCYTOSIS SLIG; RBC MORPHOLOGY COMMENT NORMAL
[2018-12-27 19:43] LABS: PLATELET ESTIMATE ADEQUATE; PLATELET MORPHOLOGY COMMENT NORMAL; SMUDGE CELLS FEW
[2018-12-27 19:58] LABS: ABG HCO3 8 mmol/L (23-28); ABG PCO2 37 mmHg (41-51); ABG PH 6.92 (7.31-7.41); ABG PO2 59 mmHg (80-105)
[2018-12-27 20:21] LABS: BILIRUBIN,URINE MODERATE (NEGATIVE); CLARITY,URINE SL CLOUDY (CLEAR); KETONES,URINE TRACE (NEGATIVE); LEUKOCYTE ESTERASE ,URINE NEGATIVE (NEGATIVE); NITRITE,URINE NEGATIVE (NEGATIVE); PROTEIN,URINE DIPSTICK 2+ (NEGATIVE); URINE UROBILINOGEN 1 mg/dL (0.2 - 1)
[2018-12-27 20:22] LABS: COLOR,URINE STRAW (YELLOW)
[2018-12-27 20:36] LABS: AMORPHOUS SEDIMENT,URINE MANY (FEW); BACTERIA,URINE MANY /HPF
--- NOTE | 2018-12-27 20:52 | Diagnostic Imaging Report ---
History:Altered mental status Comparison studies: None Technique: Axial images were obtained from the skull base to the vertex. Coronal and sagittal images reconstructed from the axial data. Dose modulation, iterative reconstruction, and/or weight based adjustment of the mA/kV was utilized to reduce the radiation dose to as low as reasonably achievable. Intravenous contrast: None Findings: Scalp/skull: No abnormalities. Extra-axial spaces: No masses. No fluid collections. Brain sulci: Mildly prominent. Ventricles: Mild compensatory dilatation. No hydrocephalus. Parenchyma: Subtle hypodensities in the supratentorial white matter are small vessel ischemic changes. No masses, hemorrhage, acute or chronic cortical vascular insults. Sellar/suprasellar region: No abnormalities. Craniocervical junction: Patent foramen magnum. No Chiari one malformation. Incidental findings: Atherosclerotic calcifications in the carotid siphons . Impression: No acute abnormalities. Chronic findings: 1. Mild generalized volume loss. 2. Mild supratentorial white matter small vessel ischemic changes. Signed by: Dr. Peter Rogers M.D. on 12/27/2018 8:49 PM
--- NOTE | 2018-12-27 21:29 | Diagnostic Imaging Report ---
EXAMINATION: CT of the abdomen and pelvis without contrast. TECHNIQUE: Helical CT images of the abdomen and pelvis were performed from the lung bases to the lesser trochanters. No intravenous contrast was given per renal stone protocol. Coronal and sagittal reformatted images were obtained.Dose modulation, iterative reconstruction, and/or weight based adjustment of the mA/kV was utilized to reduce the radiation dose to as low as reasonably achievable. COMPARISON: None. CLINICAL HISTORY:Pain, altered mental status DISCUSSION: ABSENCE OF INTRAVENOUS CONTRAST DECREASES SENSITIVITY FOR DETECTION OF FOCAL LESIONS AND VASCULAR PATHOLOGY. ABDOMEN/PELVIS: LOWER THORAX: Prominent interstitial markings in the lung bases, likely age-related. HEPATOBILIARY:Focal fat infiltration in the left hepatic lobe. Otherwise, unremarkable. Gallbladder not well visualized. SPLEEN: No splenomegaly. PANCREAS: No focal masses or ductal dilatation. ADRENALS: No adrenal nodules. KIDNEYS/URETERS: No hydronephrosis, stones, or solid mass lesions. PELVIC ORGANS/BLADDER: Bladder is decompressed with Kamara catheter. Hysterectomy. PERITONEUM/RETROPERITONEUM: No free air or fluid. LYMPH NODES: No intra-abdominal,retroperitoneal, pelvic or inguinal lymphadenopathy. VESSELS: Extensive vascular calcifications. GI TRACT: Likely due to ileus. No transition point. BONES AND SOFT TISSUES: Prior posterior decompression and fusion of the lower lumbar spine. Degenerative anterolisthesis of L4 on L5 due to facet arthropathy. Sacroiliac and hip joint degenerative arthrosis with chondrocalcinosis. Left femur hardware. IMPRESSION: Prominent loops of bowel secondary to ileus. Otherwise, no acute CT finding. Signed by: Dr. Pablo Chavira M.D. on 12/27/2018 9:26 PM
[2018-12-27] MEDS ORDERED: DEXMEDETOMIDINE HCL 200 MCG in SODIUM CHLORIDE 0.9% 50ML 48 ML IV PRN (21:45)
[2018-12-27] MEDS ORDERED: LACTATED RINGER'S 1,000 ML IV STA (21:59)
[2018-12-27] MEDS ORDERED: MEROPENEM 1GM 1 GM/100 ML BAG IV SCH (22:00)
[2018-12-27] MEDS ORDERED: LACTATED RINGER'S 1,000 ML ONE (22:03)
[2018-12-27 22:30] VITALS: BP 143/103
[2018-12-27] MEDS ORDERED: DEXMEDETOMIDINE 200MCG/NS 50ML 50 ML IV ONE (22:49)
[2018-12-27 23:00] VITALS: BP_SYST 121; BP_SYST 131; BP_DIAS 119; BP_DIAS 66
--- NOTE | 2018-12-27 23:15 | NUR ---
Patient's family is requesting attending MD be changed from Dr. Thompson to Dr. Hawk. kelly machine operator notified and Dr. Hawk paged.
--- NOTE | 2018-12-27 23:49 | NUR ---
Precedex gtt started at 0.2 mcg/kg/hr. Pt appears to be moving towards ETT and breathing rapidly over vent.
[2018-12-28] VITALS (24 sets, daily range): BP systolic 31–124; BP diastolic 13–102
--- NOTE | 2018-12-28 00:27 | NUR ---
Dr. Hawk returned call. Accepted patient's care and "will see in the morning".
--- NOTE | 2018-12-28 00:29 | NUR ---
Spoke with answering service for Dr. Jordan regarding consult at [phone].
[2018-12-28] MEDS: METRONIDAZOLE 500MG/NS 100ML IV SCH ×2 (00:30→06:30)
[2018-12-28] MEDS ORDERED: NOREPINEPHRINE 8 MG/D5W 250 ML 250 ML ONE (02:41)
[2018-12-28] MEDS ORDERED: SODIUM CHLORIDE 0.9% 500ML 500 ML ONE ×2 (02:53→07:36)
[2018-12-28 02:56] LABS: ABG PCO2 27 mmHg (41-51); ABG PH 7.18 (7.31-7.41)
[2018-12-28 02:57] LABS: CREATINE KINASE MB 86.4 ng/mL (0-5.0)
[2018-12-28 02:57] LABS: ABG HCO3 10 mmol/L (23-28); ABG PO2 347 mmHg (80-105)
[2018-12-28] MEDS ORDERED: VASOPRESSIN 100 UNIT in DEXTROSE 5% 100ML 100 ML IV PRN (03:00)
[2018-12-28] MEDS ORDERED: SODIUM BICARBONATE 8.4% SYRING 75 ML in DEXTROSE 5%/0.45% SOD CHL 1,000 ML IV SCH (03:00)
[2018-12-28] MEDS ORDERED: ACETAMINOPHEN 650 MG SUPP PR PRN (03:00)
[2018-12-28] MEDS ORDERED: ACETAMINOPHEN 1000 MG/100 ML IV PRN (03:00)
[2018-12-28] MEDS ORDERED: DEXTROSE 50% SYRINGE 50 ML IV PRN (03:45)
[2018-12-28] MEDS ORDERED: DEXTROSE 50% SYRINGE 50 ML IV ONE (03:46)
[2018-12-28 04:18] LABS: BASOPHILS # (AUTO) 0.1 (0.0-0.1); BASOPHILS % 0.5 % (0.0-1.0); EOSINOPHILS # (AUTO) 0.3 (0.0-0.4); EOSINOPHILS % 1.9 % (0.0-6.0); HEMOGLOBIN 10.1 g/dL (12.0-16.0); LYMPHOCYTES # (AUTO) 1.2 (1.0-3.2); LYMPHOCYTES % 8.5 % (18.0-39.1); MEAN CORPUSCULAR HEMOGLOBIN 29.7 pg (28-32); MEAN CORPUSCULAR HGB CONC 32.6 g/dL (31-35); MEAN CORPUSCULAR VOLUME 91.2 fL (81-99); MONOCYTES # (AUTO) 0.4 (0.2-0.8); MONOCYTES % 2.9 % (4.4-11.3); NEUTROPHILS # (AUTO) 12.4 (2.1-6.9); NEUTROPHILS % 84.6 % (38.7-80.0); PLATELET COUNT 209 x10e3/uL (140-360); RED CELL DISTRIBUTION WIDTH 14.2 % (11.7-14.4)
[2018-12-28 04:39] LABS: ALBUMIN 1.7 g/dL (3.5-5.0); ALBUMIN/GLOBULIN RATIO 1.1 (0.8-2.0); ANION GAP 24.1 mmol/L (8-16); CREATININE, SERUM 1.76 mg/dL (0.57-1.11); POTASSIUM 4.1 mmol/L (3.5-5.1)
--- NOTE | 2018-12-28 06:44 | NUR ---
Notified DR. Thompson of change of MD to Dr. Hawk per family request.
--- NOTE | 2018-12-28 06:48 | NUR ---
Dr. Abbott notified of consult. states she will see patient "later today."
--- NOTE | 2018-12-28 06:48 | NUR ---
Left message with answering service to consult Dr. Gonzalez at [phone]
--- NOTE | 2018-12-28 06:55 | NUR ---
Dr. aHwk aware of low urine output and critical labs. No orders received.
--- NOTE | 2018-12-28 07:00 | NUR ---
ASSESSMENT: Spiritual distress\ Spiritual: Emotional: Relational: Intervention: Outcome: I will follow. Addendum: 12/28/18 at 1040 by [place] [facility] Continuation of previous note: ASSESSMENT: Spiritual Distress Referred by RN: Pt's daughters (3) experiencing anticipatory grief. Pt's daughters state their mother was active prior to last November. Pt's daughters state they are considering withdraw of LST due to her condition. Pt's daughters state patient identifies as Quaker. Intervention: Provided empathic listening. Facilitated conversation about end-of-life decisions. Provided prayer and information on how to reach supervisor [facility], if needed. Outcome: Will follow as able. [facility] O: [phone] Pager: [phone] ([phone] number calling from)
--- NOTE | 2018-12-28 07:36 | Consultation ---
DATE OF CONSULTATION: 12/28/2018 Critical Care Consult REASON FOR REFERRAL: Multiorgan dysfunction. HISTORY OF PRESENT ILLNESS: Mrs. Gonzalez is a pleasant 68-year-old female with multiorgan dysfunction. The patient recently had a fall and kyphoplasty and went to rehab about two weeks ago. The patient noted with altered mental status at shelter. She has been anorexic for the last few weeks. The patient has the assessment of near arrest when the EMS was called. No compressions were done and no shocking was performed, but the patient was seen in very bad condition. The patient was brought to the emergency room. Temperature 94.4, heart rate 87, blood pressure 37/25. The patient rapidly had attempts to stabilize her performed. Notable labs include 25,000 white count. Blood gas was 6.92/37/59, lactic acid level of 110, 7 bicarbonate, 5.1 potassium, 29 BUN, and 2.1 creatinine. Phosphorus level was 10, and magnesium 2.2. LFTs elevated with CK was 2991, BNP 285. Albumin is 2.8. Lipase 1403. INR is 1.51. Brain CT was performed with no acute findings. Chest x-ray reported with bilateral interstitial opacities suggesting mild interstitial edema, abdominal pelvic CT with prominent loops of bowel secondary to ileus. Otherwise, no acute findings. She is on multiple pressors as well, high dose. PAST MEDICAL HISTORY: Includes peripheral vascular disease, COPD, rheumatoid arthritis, and hypertension. She has nursing home oxygen use at home with chronic respiratory failure, hypothyroidism, recent kyphoplasty and upper endoscopy. PAST SURGICAL HISTORY: Also includes gallbladder surgery in the 1980s ALLERGIES: INCLUDE HYDROMORPHONE, MORPHINE, AND MEPERIDINE. SOCIAL HISTORY: She is a smoker for 50 years, but quit about five years ago, one pack per day. No alcohol. She is previously living at home by herself, but was recently at [facility]. PHYSICAL EXAMINATION: Vital signs are stable per record. On confrontation of the left eye, left side, the patient seems to have appropriate engagement. However on the right side, I did not confirm appropriate engagement. Pupils are 4 to 5 mm in size, apparent right cataract surgery appears. The patient with bilateral eye saccades. The patient moving her leg in a complex manner, although not to command, difficult elicitation under noxious stimuli. There is some clonus of the legs. LABORATORY DATA: Labs and radiography as described. IMPRESSION AND PLAN: 1. Acute respiratory failure, intubated. 2. Shock, predominantly septic rule out other. 3. Acute kidney failure. 4. Acute liver failure. 5. Elevated lipase, treat for pancreatitis for now. 6. Coagulopathy. 7. Severe metabolic acidosis. 8. Peripheral vascular disease. 9. Reported chronic obstructive pulmonary disease, former smoker. 10. Rheumatoid arthritis, unclear medicines for now. 11. Hypertension. 12. Hyperkalemia, evolving. 13. Recent kyphoplasty. Check ambrose cultures. Broad-spectrum antibiotics. Large resuscitation with crystalloid. Salvage kidney function. Salvage liver function. Check ammonia level, check thyroid level. The patient will need neurological prognostication, but it is too early to assess based on findings that we have. However, it is more critical this multiorgan failure syndrome that may portend a poor prognosis. I discussed with the family that for the first 1, 2, and 3 days, we will give an improved assessment of the prognosis. The patient has already made a DNR with Dr. Enrique Hawk, which seems very reasonable. We will continue to followup for now. The patient sees Dr. Adam Gonzalez, so I will convey treatment, so he can take over the care of the patient. Greater than 30 minutes in direct care, discussed with 3 of the daughters. Discussed with nursing and respiratory therapist. MD ERASMO Jensne/OLI /[id number]
[2018-12-28] MEDS ORDERED: NOREPINEPHRINE 8 MG/D5W 250 ML 250 ML IV SCH (08:00)
[2018-12-28] MEDS ORDERED: DEXMEDETOMIDINE 200MCG/NS 50ML 50 ML IV PRN (08:00)
[2018-12-28] MEDS ORDERED: SODIUM CHLORIDE 0.9% 500ML 500 ML IV ONE (08:00)
--- NOTE | 2018-12-28 08:10 | NUR ---
Precedex turned off at 0700.
--- NOTE | 2018-12-28 08:11 | History and Physical ---
HISTORY: This is a 68-year-old female, who was recently in the hospital for COPD exacerbation, for abdominal pain and also with abdominal infection, was discharged about 2 weeks ago back to the halfway. The patient comes in yesterday with abdominal pain, elevated lactic acid, and acute respiratory failure, intubated here in ICU, possible diagnosis of ischemic bowel. PAST MEDICAL HISTORY: History of COPD, history of hypertension, history of hyperlipidemia, history of CAD and peripheral arterial disease and depression. MEDICINES: She takes at home are acetaminophen, alendronate for osteoporosis, amlodipine, bisoprolol, clopidogrel, diphenhydramine as needed, duloxetine 30 mg b.i.d., famotidine, hydroxyzine 25 mg q.4 hours as needed, ipratropium bromide, levothyroxine 125, methocarbamol 750 mg, Spiriva 1 tablet a day, theophylline 200 mg a day. PAST SURGICAL HISTORY: Includes history of left hip surgery, gallbladder removal, and hysterectomy. FAMILY HISTORY: Hypertension and hyperlipidemia. SOCIAL HISTORY: History of smoking in the past. The patient is not smoking since has been in and [id number] and also in the halfway setting. REVIEW OF SYSTEMS: Unable to get that from family. The patient had abdominal pain prior to be admitted, which is mfvaamry-[id number]. The patient had altered mental status right before coming to the hospital. PHYSICAL EXAMINATION: GENERAL: The patient is intubated, very pale and ashen. VITAL SIGNS: Temperature is 97.7, pulse of 116 ranging to 131, respirations of 33, blood pressure is 98/75. The patient is on pressors at this time. HEENT: Normocephalic, atraumatic. Pupils are dilated. LUNGS: Decreased air entry into all lung fuentes. ABDOMEN: Gently tender and slight amount of distention present. EXTREMITIES: No clubbing, no cyanosis, and positive for trace edema. LABORATORY VALUES: Initial white count 24,000, hemoglobin of 13.7, hematocrit of 41.7. The patient's neutrophil count was 81, left shift present. Coags are normal. Chemistries, , CO2 was 8, BUN of 23, creatinine of 1.76. Lactic acid was 113, which has gone up to 116 today. Calcium was low. AST 4019, ALT was 766. Ammonia was 181. The patient's lipase 1150. No troponins were done yesterday. The patient's ABG initial was 6.92, PO2 59, bicarb was 8 and pCO2 of 37. ASSESSMENT: 1. Lactic acidosis. 2. Sepsis. 3. Ischemic bowel. 4. History of COPD. 5. Hypoxia and acute respiratory failure. 6. Pancreatitis by labs. 7. Leukocytosis. 8. Elevated liver enzymes. Troponins were elevated at 0.326, CK of 86, and creatinine kinase 2991 with a troponin leak. PLAN: We discussed the patient's condition with the family in detail. A neurological consultation is on board. We will call Dr. Abbott for neurological status. At this point of time, the patient looks extremely sick, septic and with troponin leak and acute respiratory failure. Family is leaning towards withdrawal of life support. I had a long discussion with three daughters by the bedside. We will continue with supportive care at this time. Continue with pressors and wean off as required. Dr. Gonzalez is on consult and ID in consult too. Medications at this time include Flagyl and meropenem. The patient is also on a bicarb drip, heparin for DVT prophylaxis and famotidine for GI prophylaxis. Again, condition is very grave and this has been conveyed again to the family. Further recommendation per clinical course. We will continue to monitor the patient along with consultants. MD MARIMAR Portillo/GEOVANNAL /[id number]
[2018-12-28] MEDS ORDERED: SODIUM BICARBONATE 8.4% SYRING 100 ML ONE (08:41)
--- NOTE | 2018-12-28 08:43 | NUR ---
Dr. Cintron updated with patient status. new orders received.
[2018-12-28] MEDS ORDERED: FAMOTIDINE 20 MG/2 ML VIAL IV SCH ×2 (09:00)
[2018-12-28] MEDS ORDERED: SODIUM BICARBONATE 8.4% INJ 50 ML SYR IV ONE (09:00)
[2018-12-28] MEDS ORDERED: SODIUM BICARBONATE 8.4% 150 ML in DEXTROSE 5%/0.45% SOD CHL 1,000 ML IV SCH (09:00)
[2018-12-28] MEDS ORDERED: MEROPENEM 500MG 500 MG in SODIUM CHLORIDE 0.9% 50ML 50 ML IV SCH (09:00)
[2018-12-28] MEDS ORDERED: PHENYLEPHRINE 10MG/ML VIAL 40 MG in DEXTROSE 5% 250ML 250 ML IV SCH (09:00)
[2018-12-28] MEDS ORDERED: HEPARIN SOD (PORCINE) 5,000 UNIT/ML VIAL SC SCH (09:00)
[2018-12-28 09:10] LABS: ABG HCO3 15 mmol/L (23-28); ABG PCO2 37 mmHg (41-51); ABG PH 7.22 (7.31-7.41); ABG PO2 177 mmHg (80-105)
--- NOTE | 2018-12-28 09:45 | NUR ---
0945 - Dr. Murillo aware that patient has not made any urine during this shift.
[2018-12-28] MEDS ORDERED: MEROPENEM 500MG/ NS 50ML BAG IV SCH (10:15)
[2018-12-28] MEDS ORDERED: MEROPENEM 500MG/ NS 50ML 50 ML IV SCH ×2 (10:15)
--- NOTE | 2018-12-28 10:34 | NUR ---
PT IS READMIT FROM [facility]
[2018-12-28 10:52] LABS: BASOPHILS % 0.5 % (0.0-1.0); EOSINOPHILS # (AUTO) 1.9 (0.0-0.4); EOSINOPHILS % 22.5 % (0.0-6.0); HEMOGLOBIN 7.1 g/dL (12.0-16.0); LYMPHOCYTES # (AUTO) 1.3 (1.0-3.2); LYMPHOCYTES % 15.1 % (18.0-39.1); MEAN CORPUSCULAR HEMOGLOBIN 29.3 pg (28-32); MEAN CORPUSCULAR HGB CONC 31.1 g/dL (31-35); MEAN CORPUSCULAR VOLUME 94.2 fL (81-99); MONOCYTES # (AUTO) 0.5 (0.2-0.8); MONOCYTES % 6.1 % (4.4-11.3); NEUTROPHILS # (AUTO) 3.9 (2.1-6.9); NEUTROPHILS % 46.6 % (38.7-80.0); PLATELET COUNT 136 x10e3/uL (140-360); RED BLOOD COUNT 2.42 x10e6/uL (3.6-5.1); RED CELL DISTRIBUTION WIDTH 14.4 % (11.7-14.4)
[2018-12-28 11:00] LABS: HEMATOCRIT 22.8 % (34.2-44.1)
[2018-12-28 11:11] LABS: CREATININE, SERUM 1.94 mg/dL (0.57-1.11); MAGNESIUM 1.3 MG/DL (1.3-2.1)
[2018-12-28 11:19] LABS: CALCIUM 6.1 mg/dL (8.4-10.2)
[2018-12-28] MEDS ORDERED: EPINEPHRINE HCL 1:1000 1ML 4 MG in DEXTROSE 5% 250ML 250 ML IV SCH (11:30)
[2018-12-28 11:52] LABS: CREATINE KINASE MB 67.3 ng/mL (0-5.0)
--- NOTE | 2018-12-28 13:18 | NUR ---
0800- Patient became hypotensive (41/36) and tachycardic. Patient already on levophed. Levophed titrated up to maximum amount. Dr. Murillo notified and orders were placed. Patient started on vasopressin and phenylephrine. Dr. Murillo came and evaluated the patient and spoke to the family about the patients prognosis. Labwork and ABG ordered. MD aware of pressors being titrated up. Throughout shift all drips became maxed out and patient was still remaining hypotensive. 1120- Dr. Hawk and Dr. Murillo notified of patients daughter (Fiona JAQUEZ) decision to withdraw care. 1130- Respiratory extubated patient and Vasopressors were stopped. 1155- Patient became bradycardic and eventually pulseless. Dr. Baker came to evaluate patient and declared time of . 1200- [facility] contacted to receive the patient per family's wishes.
[2018-12-28] MEDS ORDERED: HYDROCORTISONE SOD SUCCINATE 100 MG VIAL IV SCH (14:00)
[2018-12-28] MEDS ORDERED: METRONIDAZOLE 500MG/NS 100ML IV SCH (14:00)
[2018-12-28] MEDS ORDERED: METRONIDAZOLE 500MG/NS 100ML 100 ML IV SCH ×2 (14:00)
--- NOTE | 2018-12-28 15:03 | Consultation ---
DATE OF CONSULTATION: 12/28/2018 CHIEF COMPLAINT: Sepsis. HISTORY OF PRESENT ILLNESS: The patient is a 68-year-old female with several days of abdominal pain starting at least 2 to 3 weeks ago. Workup was unremarkable. The patient was able to be discharged and tolerating some diet until 2 days ago when she again experienced abdominal pain and diffuse food with vomiting. The patient was brought to the emergency room yesterday in hypotension with fevers. The patient has been nonresponsive ever since. PAST MEDICAL HISTORY: Significant for: 1. COPD. 2. Coronary artery disease. 3. Peripheral vascular disease. 4. Osteoporosis. 5. Hypertension. PAST SURGICAL HISTORY: Positive for: 1. Hysterectomy. 2. Cholecystectomy. 3. Iliac arterial stent. 4. Kyphoplasty a month ago for back pain. ALLERGIES: SHE HAS ALLERGIC REACTION TO DILAUDID, DEMEROL, AND MORPHINE. SOCIAL HABITS: History of heavy smoking in the past. No alcohol. REVIEW OF SYSTEMS: Unobtained. PHYSICAL EXAMINATION: VITAL SIGNS: Blood pressure is 123/52, pulse 109, and temperature 100. GENERAL: The patient is unresponsive. HEENT: Pupil is dilated, nonresponsive to light. LUNGS: No wheezes. HEART: Regular rate and rhythm. ABDOMEN: Seuk-pi-imafxxex distention without rigidity. No mass. EXTREMITIES: No cyanosis or edema. LABORATORY DATA: White cell count is 14.6, hemoglobin of 10, and platelet count of 209. INR 1.5. Potassium 4.1, with carbon dioxide of 8. Creatinine 1.7. Lactic acid is 116. Liver functions elevated; AST of 4019, ALT at 766, and total bilirubin 0.8. Lipase of 1150. CT of the abdomen and pelvis show a prominent loop of intestine consistent with ileus. ASSESSMENT: Hemodynamics collapse, currently resuscitated with fluid and vasopressor. Differential diagnosis includes bowel ischemia. PLAN: Discussed grave prognosis with family. Continue resuscitations and antibiotics. The patient is to be seen by Neurology before decision made for operative intervention. Adam Toledo MD DNL/MODL /[id number]
--- NOTE | 2018-12-28 17:08 | Consultation ---
DATE OF CONSULTATION: 12/28/2018 Critical Care Consultation REASON FOR CONSULT: ICU management. CHIEF COMPLAINT: The patient was admitted to the emergency room with multiorgan dysfunction, abdominal pain. HISTORY OF PRESENT ILLNESS: Ms. Gonzalez is a 68-year-old female, known to me from previous visit. The patient is a regular patient of Dr. Adam Gonzalez. Dr. Reid was consulted last night for critical care management and this morning, he transferred the care over to us. I saw her last on December 16, 2018, in the hospital. She has a history of COPD. She is on inhalers. [facility] was [facility] and she came back with abdominal pain, multiorgan failures, severe sepsis with a high lactic acid. She had a CT scan of the abdomen and pelvis, which was unremarkable, however, her clinical course suggests that she possibly has ischemic colitis. She was intubated in the emergency room and central line was placed and she had minimal response then, now she is completely unresponsive to deep sternal rub. She is not on any sedation. Family is at bedside. REVIEW OF SYSTEMS: Unable to elicit any because of the patient's mental status. PAST MEDICAL HISTORY: COPD, history of hypertension, debility, rheumatoid arthritis, peripheral arterial disease. FAMILY AND SOCIAL HISTORY: Smoked for 50 years, quit 5 years ago. One pack per day. Denies any alcohol use. She was living at home. PHYSICAL EXAMINATION: VITAL SIGNS: Right now, the blood pressure is 59/21, heart rate is 112, O2 saturation is 95%. She is on 35% FiO2 on mechanical ventilator with a rate of 24. HEENT: Head atraumatic, normocephalic. The pupils are very sluggishly reactive. They are dilated. No gag reflex. No corneal reflex. NECK: Supple. CHEST: Clear to auscultation bilaterally. No wheezing. No crackles. HEART: S1 and S2 audible. ABDOMEN: Soft, nontender, nondistended. EXTREMITIES: No pedal edema. NEUROLOGIC: She is unresponsive to deep sternal rub. Pupils are sluggishly reactive. No corneal reflex. No gag reflex. LABORATORY DATA: White count of 24,000 when she came in, now it is 14,000, hemoglobin 10.1, platelets 209. Chemistry yesterday at around 1729 hours, sodium was 133, bicarb was 7, anion gap of 31, now the anion gap is 24, and her bicarb is still 8. She was started on bicarb drip with 1 amp of bicarbonate. She had liver enzymes, which are high, AST 587, ALT 149. CK-MB 33.50, a troponin is high as well. IMAGING DATA: Chest x-ray, I have reviewed the films, it is showing mild congestion, but otherwise no focal infiltrate. CT of abdomen and pelvis, which was done and reported as prominent loops of bowel secondary to ileus. ASSESSMENT: Ms. Gonzalez is a 68-year-old female, currently in multiorgan failure, seems like the patient possibly has developed ischemic bowel with severely high lactic acid, severe metabolic acidosis, on multiple vasopressors. Current problems are: 1. Septic shock, present on admission secondary to ischemic bowel likely. 2. Multiorgan system failure. 3. Acute kidney injury. 4. Severe metabolic acidosis due to lactic acid. 5. Encephalopathy and poor neurologic status with absent gag, cough, and corneal reflexes. 6. Elevated liver enzymes, likely due to shock liver. 7. History of severe chronic obstructive pulmonary disease and chronic hypoxic respiratory failure. 8. Rheumatoid arthritis. RECOMMENDATIONS: 1. Continue the patient on broad-spectrum antibiotics. 2. Multiple vasopressors have been added. The patient's blood pressure is still not responding. 3. I will start the patient on bicarbonate infusion with 3 amps of bicarbonate and 1 L of saline at 125 mL an hour. Recheck labs. We will also start the patient on hydrocortisone for relative adrenal insufficiency, which is likely as the patient has used corticosteroids in the past. 4. I had a detailed discussion with the patient's family, spent 40 minutes discussing the care of the patient and the patient with multiorgan system failure and septic shock, the patient has extremely poor prognosis, neurologic outcome is also guarded at this point. Dr. Hawk has consulted Neurology for neuro evaluation. I will follow the recommendations. 5. The patient has been made no CPR. At this point, she is already intubated and on multiple vasopressors. All questions were answered. 6. We will hold off on the tube feeding. 7. Heparin subcu for deep vein thrombosis prophylaxis. 8. Pepcid for gastrointestinal prophylaxis. Thank you for this critical care. Time spent is 55 minutes. Thank you for this consult and report. MD ARELI Mascorro/OLI /[id number]
--- NOTE | 2019-01-16 14:24 | Discharge Summary ---
DISCHARGE AND SUMMARY TIME: 12/28/2018, 1155 hours, pronounced by Dr. Edis Baker. This is a patient, who came in with lactic acidosis, sepsis, ischemic bowel, history of COPD, hypoxia, respiratory failure, pancreatitis by labs, and leukocytosis. The patient's family was consulted and Neurology consult with Dr. Abbott was done for neurological status. The patient was extremely sick, septic and troponin leak was also noted and the patient's respiratory failure was acute respiratory failure and also was intubated. The patient also had a consult with Dr. Gonzalez and Dr. Cintron, and DVT prophylaxis was given. The patient was on bicarb drip, heparin drip, and famotidine for GI prophylaxis, but given the patient's grave condition, the patient was eap counselor done by family and the patient's family decided to do just comfort measures. The patient's ventilator was removed and the patient peacefully. For further information, look in the chart for medications that were given, look into medical reconciliation sheet. FINAL DIAGNOSES: 1. Lactic acidosis. 2. Sepsis. 3. Ischemic bowel. 4. History of chronic obstructive pulmonary disease. 5. Pancreatitis. 6. Leukocytosis. 7. Troponin leak. MD MARIMAR Portillo/MODL /[id number]
== END 2018-12-28 14:15 | disposition expired | DRG 871 ==
LOC: ER 17:21 → ERHOLD 22:39 → ICU 22:40
PROVIDERS: ADMIT Family Medicine; ATTEND Family Medicine
PROC: 5A1935Z Respiratory Ventilation, Less than 24 Consecutive Hours (ICD-10-PCS; principal; 2018-12-27)
PROC: 0BH18EZ Insertion of Endotracheal Airway into Trachea, Via Natural or Artificial Opening Endoscopic (ICD-10-PCS; 2018-12-27)
PROC: 02HV33Z Insertion of Infusion Device into Superior Vena Cava, Percutaneous Approach (ICD-10-PCS; 2018-12-27)
DX: A41.9 Sepsis, unspecified organism (principal); R65.21 Severe sepsis with septic shock; K85.90 Acute pancreatitis without necrosis or infection, unspecified; J96.21 Acute and chronic respiratory failure with hypoxia; E87.2 Acidosis; N17.9 Acute kidney failure, unspecified; G93.40 Encephalopathy, unspecified; D68.9 Coagulation defect, unspecified; K56.7 Ileus, unspecified; K55.9 Vascular disorder of intestine, unspecified; J44.9 Chronic obstructive pulmonary disease, unspecified; M06.9 Rheumatoid arthritis, unspecified; I10 Essential (primary) hypertension; E03.9 Hypothyroidism, unspecified; Z99.81 Dependence on supplemental oxygen; K72.90 Hepatic failure, unspecified without coma; I73.9 Peripheral vascular disease, unspecified; E87.5 Hyperkalemia; I25.10 Atherosclerotic heart disease of native coronary artery without angina pectoris; Z90.710 Acquired absence of both cervix and uterus; Z90.49 Acquired absence of other specified parts of digestive tract; Z95.820 Peripheral vascular angioplasty status with implants and grafts
CPT/HCPCS: 31500; 36415; 36600; 51700; 70450; 71045; 74176; 80048; 80053; 81001; 82140; 82150; 82550; 82553; 82805; 82948; 83605; 83690; 83735; 84100; 84484; 85025; 85610; 85730; 86850; 86900; 87040; 87086; 93005; 94002; 94003; 99285; J0171; J0330; J0610; J1644; J1720; J2185; J2370; J2543; J3370; J7030; J7040; J7042; J7050; J7121; J7799